=== PATIENT | male | born 1950 | race Caucasian/White ===

== ENCOUNTER 2022-04-22 07:16 | Outpatient (REF) | payer MEDICARE, BC, SELFPAY ==
[2022-04-22 07:58] LABS: Hematocrit 41.9 % (42.0-52.0); Hemoglobin 13.6 g/dl (14.0-18.0); Mean Corpuscular HGB Conc 32.5 g/dl (31.0-36.0); Mean Corpuscular Hemoglobin 29.2 pg (27.0-33.0); Mean Corpuscular Volume 90.1 fL (80.0-98.0); Mean Platelet Volume 8.7 fL (9.4-12.4); Platelet Count 324 X10*3/uL (160-400); Red Blood Count 4.65 X10*6/uL (4.60-5.80); White Blood Count 7.7 X10*3/uL (4.8-10.8)
[2022-04-22 08:16] LABS: Cholesterol 127 mg/dL; HDL Cholesterol 40 mg/dL; LDL Cholesterol Calculated 79 mg/dl; Triglycerides 40 mg/dL
[2022-04-25 19:12] LABS: Alanine Aminotransferase 6 U/L (0-40); Albumin Level 3.8 g/dL (3.5-5.0); Alkaline Phosphatase 52 U/L (39-117); Anion Gap 14 (12-20); Aspartate Amino Transferase 13 U/L (5-37); Bilirubin Total 0.6 mg/dL (0.0-1.0); Blood Urea Nitrogen 15 mg/dL (9-16); Calcium 8.7 mg/dL (8.4-10.2); Carbon Dioxide 26 mmol/L (22-29); Chloride 106 mmol/L (96-108); Estimated Glomerular Filt Rate > 60; Glucose Fasting 116 mg/dL (60-99); Potassium 4.7 mmol/L (3.3-5.1); Sodium 141 mmol/L (135-145)
== END 2022-04-22 07:17 | disposition home or self-care (01) ==
LOC: HO.LAB 07:16
PROVIDERS: PCP Nurse Practitioner Family; Visit Provider Nurse Practitioner Family
DX: I10 Essential (primary) hypertension (principal)
CPT/HCPCS: 36415; 80053; 80061; 85027

== ENCOUNTER 2022-05-04 17:48 | Inpatient (IN) | payer MEDICARE, BC, SELFPAY ==
--- NOTE | ~2022-05-04 | CT_ITS ---
EXAMINATION: CT ABDOMEN AND PELVIS WITH CONTRAST CLINICAL INFORMATION: Abdominal pain COMPARISON: 02/01/2017 TECHNIQUE: Multidetector volumetric images were obtained from the superior aspect of the liver through the pubic symphysis following administration 85 mL of Omnipaque 350 intravenous contrast. Sagittal and coronal reformatted images were obtained on the technologist's workstation. Oral contrast: No This CT examination was performed using dose optimization techniques as appropriate, variously including the following: *Automated exposure control *Adjustment of mA and/or kV according to patient size (this includes techniques or standardized protocols for targeted exams where dose is matched to indication/reason for exam; i.e. extremities or head) *Use of iterative reconstruction technique DLP: 856 mGy-cm FINDINGS: LUNG BASES: The visualized lung bases are unremarkable. LIVER, GALLBLADDER, AND BILIARY TREE: The liver is normal in size, shape, and attenuation. No focal hepatic lesion or biliary ductal dilatation is present. The gallbladder is unremarkable with no evidence of radiopaque gallstones, gallbladder wall thickening, or obvious pericholecystic inflammatory changes. PANCREAS: Unremarkable. SPLEEN: Unremarkable. ADRENAL GLANDS: Unremarkable. KIDNEYS AND URETERS: The kidneys are normal in size, shape, and attenuation. No hydronephrosis, hydroureter, or calculi seen. No perinephric stranding. Multiple bilateral parapelvic renal cysts. Additional cortical cysts. No follow-up imaging recommended. BLADDER: Unremarkable. GASTROINTESTINAL TRACT: The stomach is unremarkable. Normal caliber small bowel. No obstruction. Prominent diverticulosis, particularly of the sigmoid colon. There is wall thickening with adjacent inflammation, consistent with acute diverticulitis. Superior to the sigmoid colon there is what appears to be a collection with internal gas. This measures 3.3 x 3 cm. Additional free intraperitoneal air is seen, centrally in the mesentery most prominently, series 3 image 47. Normal appendix. ABDOMINAL WALL: No significant hernia is appreciated. LYMPH NODES: Normal. VASCULAR: Normal caliber aorta with mild atherosclerotic calcification. PELVIC VISCERA: The prostate and seminal vesicles are unremarkable. OSSEOUS STRUCTURES: No acute or suspicious osseous abnormality. Advanced degenerative change throughout the spine. 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 Moderate degenerative change of the left hip. Partially fused right sacroiliac joint. CT/CT abdomen pelvis w con IMPRESSION: Acute sigmoid diverticulitis. Adjacent collection of gas and fluid. Separate free air. This critical result was discussed with Sendy Abdullahi NP by telephone at 05/04/2022 8:40 PM and it was ascertained that the content and urgency of the report was understood at the time of direct communication. Fleischner guidelines were followed.
[2022-05-04 18:29] VITALS: BP 149/77; PULSE 101; RESP 18; TEMP 37.9; O2SAT 98; BMI 27.8
--- NOTE | 2022-05-04 18:33 | ECG_ITS ---
Test Reason : FEVER/SEPSIS Blood Pressure : / mmHG Vent. Rate : 105 BPM Atrial Rate : 105 BPM P-R Int : 178 ms QRS Dur : 162 ms QT Int : 398 ms P-R-T Axes : 038 -81 031 degrees QTc Int : 526 ms Sinus tachycardia with Premature atrial complexes Left axis deviation Right bundle branch block Abnormal ECG When compared with ECG of 01-DEC-2002 15:02, Premature atrial complexes are now Present Vent. rate has increased BY 38 BPM Right bundle branch block is now Present Referred By: Generic ED Physician Electronically Signed By:YULIANA NAQVI
[2022-05-04 18:54] LABS: MANUAL DIFF FLAG NO
[2022-05-04 19:04] LABS: Basophils Percent Auto 0.2 % (0-2); Eosinophils Absolute Auto 0.1 X10*3/uL (0.0-0.4); Eosinophils Percent Auto 0.6 % (0-4); Hematocrit 43.2 % (42.0-52.0); Hemoglobin 14.2 g/dl (14.0-18.0); Imm Gran Abs Auto 0.07 X10*3/uL (0.00-0.03); Imm Gran Pct Auto 0.6 % (0.0-0.4); Lymphocytes Absolute Auto 1.3 X10*3/uL (1.2-4.9); Lymphocytes Percent Auto 10.3 % (20-40); Mean Corpuscular HGB Conc 32.9 g/dl (31.0-36.0); Mean Corpuscular Hemoglobin 29.1 pg (27.0-33.0); Mean Corpuscular Volume 88.5 fL (80.0-98.0); Mean Platelet Volume 8.6 fL (9.4-12.4); Monocytes Absolute Auto 1.2 X10*3/uL (0.1-1.2); Monocytes Percent Auto 9.5 % (2-11); Neutrophils Absolute Auto 9.7 x10*3/uL (2.0-8.3); Neutrophils Percent Auto 78.8 % (45-73); Platelet Count 344 X10*3/uL (160-400); Red Blood Count 4.88 X10*6/uL (4.60-5.80); Red Cell Distribution Width 11.9 % (11.0-16.0); White Blood Count 12.2 X10*3/uL (4.8-10.8)
[2022-05-04 19:06] LABS: Lactic Acid 1.1 mmol/L (0.5-2.0)
[2022-05-04 19:09] LABS: Anion Gap 13 (12-20); Blood Urea Nitrogen 10 mg/dL (9-16); Calcium 8.5 mg/dL (8.4-10.2); Carbon Dioxide 25 mmol/L (22-29); Chloride 103 mmol/L (96-108); Creatinine Clr Calc Pharmacy 103.8; Estimated Glomerular Filt Rate > 60; Glucose Random 110 mg/dL (60-115); Potassium 4.3 mmol/L (3.3-5.1); Sodium 137 mmol/L (135-145)
[2022-05-04 19:11] LABS: COVID-19 Test Negative (Negative)
--- NOTE | 2022-05-04 19:33 | ED_ITS ---
HPI - Abdominal Pain General Chief Complaint: Abdominal Pain Stated Complaint: abd pain Time Seen by Provider: 05/04/22 20:18 Source: patient Mode of arrival: ambulatory Limitations: no limitations History of Present Illness HPI narrative: 72-year-old male presents for worsening abdominal pain and distention. He has been on Cipro and Flagyl for approximately 6 days for diverticulitis. Patient is unable to tolerate p.o. fluids, and feels that he is getting worse. He has intermittent fevers, chills, nausea, and has not had a bowel movement in 3 days. MD elicited complaint: abdominal pain Pertinent past history: diverticulitis Onset (ago): day(s) (6) Pain Consistency: constant Location: diffuse Severity: severe Pain scale (0-10): 8 Quality: cramping, aching and fullness Radiation: none Exacerbating factors: eating and movement Relieving factors: nothing Context: recent antibiotic use Associated symptoms: nausea, fever, chills and constipation Related Data Allergies Allergy/AdvReac Type Severity Reaction Status Date / Time No Known Allergies Allergy Unverified 07/23/20 14:35 [No Known Allergies*] Review of Systems Review of Systems Constitutional: No Fever, No Chills ENT/Mouth: No Ear Pain, No Hoarseness, No sore throat Eyes: No Eye Pain, No Swelling, No Redness, No Foreign Body Cardiovascular: No Chest Pain, No SOB Respiratory: No Cough, No Dyspnea Gastrointestinal: Positive Nausea, No Vomiting, No Diarrhea, positive abdominal Pain, positive abdominal distention Genitourinary: No Dysuria, No Hematuria Musculoskeletal: No joint pain, No Myalgias, No Joint Swelling Skin: No Skin lacerations, No rash Neuro: No Weakness, No Numbness, No Paresthesias, No Loss of Consciousness, No Dizziness, No Headache Psych: No Anxiety/Panic, No Depression Heme/Lymph: no easy bruising, no Lymphadenopathy Endocrine: No Polyuria, No Polydipsia Yes all other systems are reviewed and are negative [facility] Past Medical History Attestation statement: The following information was validated with the patient. Source: old records reviewed Social History Social History Patient Tobacco Use Status: Never used Tobacco Use of substances other than those prescribed or required for medical reasons: No Advance Directives: No Physical Exam ED Vital Signs: Vital Signs - 24 hr 05/04/22 18:29 05/04/22 19:45 Temperature 100.2 F 98.6 F Pulse Rate 101 H 94 Respiratory Rate 18 18 Blood Pressure 149/77 H 135/84 Pulse Oximetry 98 99 Oxygen Delivery Method Room Air Room Air BMI result Body Mass Index 27.8 Appearance: Alert. Oriented X3. Moderate distress. Eyes: Pupils equal, round and reactive to light. Sclera nonicteric. ENT: Pharynx normal. Moist mucous membranes. Neck: Normal inspection. Neck supple. CVS: Tachycardic heart rate and rhythm. Apical pulse equal pulses to extremities. Respiratory: No respiratory distress. Breath sounds normal. Abdomen: Soft and diffusely tender, positive rebound. Distended. No rigidity. Skin: Skin warm and dry. Normal skin color. Normal skin turgor. Extremities: No lower extremity edema. Gait well-balanced well coordinated. Neuro: No motor deficit. No sensory deficit. Cranial nerves 2-12 intact. Course Course Course Narrative: 72-year-old male presents with worsening abdominal pain, abdominal distention, nausea, poor p.o. intake, and no bowel movement for the past 3 days. Was treated for diverticulitis over the past 6 days has been taking ciprofloxacin and Flagyl. Took his antibiotics this morning. States to feel worse, presents with tachycardia, fatigue, and worsening abdominal pain. Physical exam indicates abdominal distension without rigidity, diffusely tender. High suspicion for perforation versus obstruction. Will order CT scan with contrast. Labs drawn while patient was in the emergency department waiting room. Lactic is 1.1, white count is 12. Patient does not meet sepsis criteria. 20:45 discussion with [facility], significant sigmoid diverticulosis with perforation. Order for Zosyn and morphine at this time. Call out to surgery. 21:13 Dr. Rodriguez will be at bedside to evaluate. Patient admitted to [facility]. Consultations Consultation #1: Jennifer Time: 20:55 MDM - Abdominal Pain Differential Diagnosis Differential diagnosis: Likely abdominal pain, acute appendicitis, bowel perforation, diverticulitis and small bowel obstruction Medical Records Attestation: I reviewed the patient's medical records. Lab Data Attestation: I reviewed the patient's lab results. Result diagrams: 05/04/22 18:48 05/04/22 18:48 Labs: Lab Results 05/04/22 05/04/22 05/04/22 Range/Units 18:48 18:48 18:48 WBC 12.2 H (4.8-10.8) X10*3/uL RBC 4.88 (4.60-5.80) X10*6/uL Hgb 14.2 (14.0-18.0) g/dl Hct 43.2 (42.0-52.0) % MCV 88.5 (80.0-98.0) fL MCH 29.1 (27.0-33.0) pg MCHC 32.9 (31.0-36.0) g/dl RDW 11.9 (11.0-16.0) % Plt Count 344 (160-400) X10*3/uL MPV 8.6 L (9.4-12.4) fL Immature Gran % (Auto) 0.6 H (0.0-0.4) % Neut % (Auto) 78.8 H (45-73) % Lymph % (Auto) 10.3 L (20-40) % [place] % (Auto) 9.5 (2-11) % Eos % (Auto) 0.6 (0-4) % Baso % (Auto) 0.2 (0-2) % Lymph # (Auto) 1.3 (1.2-4.9) X10*3/uL [place] # (Auto) 1.2 (0.1-1.2) X10*3/uL Eos # (Auto) 0.1 (0.0-0.4) X10*3/uL Baso # (Auto) 0.0 (0.0-0.2) X10*3/uL Abs Immat Gran (auto) 0.07 H (0.00-0.03) X10*3/uL Absolute Neuts (auto) 9.7 H (2.0-8.3) x10*3/uL Absolute Nucleated RBC 0.000 (0.0-0.012) X10*3/uL Nucleated RBC % (auto) 0.0 (0.0-0.2) /100WBC Sodium 137 (135-145) mmol/L Potassium 4.3 (3.3-5.1) mmol/L Chloride 103 (96-108) mmol/L Carbon Dioxide 25 (22-29) mmol/L Anion Gap 13 (12-20) BUN 10 (9-16) mg/dL Creatinine 0.81 (0.5-1.4) mg/dL Estim Creat Clear Calc 103.8 Estimated GFR > 60 Random Glucose 110 (60-115) mg/dL Lactic Acid (0.5-2.0) mmol/L Calcium 8.5 (8.4-10.2) mg/dL COVID-19 (JASIEL) Negative (Negative) COVID-19 Clin Com See Note 05/04/22 Range/Units 18:48 WBC (4.8-10.8) X10*3/uL RBC (4.60-5.80) X10*6/uL Hgb (14.0-18.0) g/dl Hct (42.0-52.0) % MCV (80.0-98.0) fL MCH (27.0-33.0) pg MCHC (31.0-36.0) g/dl RDW (11.0-16.0) % Plt Count (160-400) X10*3/uL MPV (9.4-12.4) fL Immature Gran % (Auto) (0.0-0.4) % Neut % (Auto) (45-73) % Lymph % (Auto) (20-40) % [place] % (Auto) (2-11) % Eos % (Auto) (0-4) % Baso % (Auto) (0-2) % Lymph # (Auto) (1.2-4.9) X10*3/uL [place] # (Auto) (0.1-1.2) X10*3/uL Eos # (Auto) (0.0-0.4) X10*3/uL Baso # (Auto) (0.0-0.2) X10*3/uL Abs Immat Gran (auto) (0.00-0.03) X10*3/uL Absolute Neuts (auto) (2.0-8.3) x10*3/uL Absolute Nucleated RBC (0.0-0.012) X10*3/uL Nucleated RBC % (auto) (0.0-0.2) /100WBC Sodium (135-145) mmol/L Potassium (3.3-5.1) mmol/L Chloride (96-108) mmol/L Carbon Dioxide (22-29) mmol/L Anion Gap (12-20) BUN (9-16) mg/dL Creatinine (0.5-1.4) mg/dL Estim Creat Clear Calc Estimated GFR Random Glucose (60-115) mg/dL Lactic Acid 1.1 (0.5-2.0) mmol/L Calcium (8.4-10.2) mg/dL COVID-19 (JASIEL) (Negative) COVID-19 Clin Com Imaging Data CT scan - abdomen: Attestation: I personally reviewed and interpreted this imaging study as follows: Radiologist's impression: FINDINGS: LUNG BASES: The visualized lung bases are unremarkable.? LIVER, GALLBLADDER, AND BILIARY TREE: The liver is normal in size, shape, and attenuation. No focal hepatic lesion or biliary ductal dilatation is present. The gallbladder is unremarkable with no evidence of radiopaque gallstones, gallbladder wall thickening, or obvious pericholecystic inflammatory changes.? PANCREAS: Unremarkable.? SPLEEN: Unremarkable.? ADRENAL GLANDS: Unremarkable.? KIDNEYS AND URETERS: The kidneys are normal in size, shape, and attenuation. No hydronephrosis, hydroureter, or calculi seen. No perinephric stranding. Multiple bilateral parapelvic renal cysts. Additional cortical cysts. No follow-up imaging recommended.? BLADDER: Unremarkable.? GASTROINTESTINAL TRACT: The stomach is unremarkable. Normal caliber small bowel. No obstruction. Prominent diverticulosis, particularly of the sigmoid colon. There is wall thickening with adjacent inflammation, consistent with acute diverticulitis. Superior to the sigmoid colon there is what appears to be a collection with internal gas. This measures 3.3 x 3 cm. Additional free intraperitoneal air is seen, centrally in the mesentery most prominently, series 3 image 47. Normal appendix. ABDOMINAL WALL: No significant hernia is appreciated.? LYMPH NODES: Normal. VASCULAR: Normal caliber aorta with mild atherosclerotic calcification. PELVIC VISCERA: The prostate and seminal vesicles are unremarkable.? OSSEOUS STRUCTURES: No acute or suspicious osseous abnormality. Advanced degenerative change throughout the spine. 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 Moderate degenerative change of the left hip. Partially fused right sacroiliac joint.? CT/CT abdomen pelvis w con IMPRESSION: Acute sigmoid diverticulitis. Adjacent collection of gas and fluid. Separate free air. ? This critical result was discussed with Sendy Abdullahi NP by telephone at 05/04/2022 8:40 PM and it was ascertained that the content and urgency of the report was understood at the time of direct communication.? ? Fleischner guidelines were followed. ECG Data Attestation: I personally reviewed and interpreted this ECG as follows: ECG interpretation date: 05/04/22 ECG interpretation time: 18:38 Prior ECG tracings: available for review Interpretation: Vent. rate 105 BPM [place] interval 178 ms QRS duration 162 ms QT/QTc 398/526 ms P-R-T axes 38 -81 31 Sinus tachycardia with Premature atrial complexes Left axis deviation Right bundle branch block Anteroseptal infarct , age undetermined Abnormal ECG When compared with ECG of 01-DEC-2002 15:02, Premature atrial complexes are now Present Vent. rate has increased BY 38 BPM Right bundle branch block is now Present Anteroseptal infarct is now Present Critical Care Time Critical Care Time Critical Care Time: Yes Total Critical Care Time: 45 Attestation: I have personally provided critical care time exclusive of time spent on separately billable procedures. Time includes review of laboratory data, radiology results, discussion with consultants, and monitoring for potential decompensation. Interventions were performed as documented. Discharge Plan Discharge Clinical Impression: Diverticulitis, Bowel perforation Patient Disposition: Admitted As Inpatient
[2022-05-04 19:45] VITALS: BP 135/84; PULSE 94; RESP 18; TEMP 37; O2SAT 99
[2022-05-04] MEDS: 0.9 % Sodium Chloride 1,000 ML 999 ML IVCONT ×2 (19:45→22:51)
[2022-05-04] MEDS: iohexoL 350 MG/ML 100 ML INFUS..BTL IV (19:55)
[2022-05-04] MEDS: Piperacillin Sodium/Tazobactam 3.375 GM in 0.9 % Sodium Chloride 50 ML IV (21:01)
[2022-05-04] MEDS: Morphine Sulfate 4 MG/ML CARTRIDGE IVPUSH (21:02)
--- NOTE | 2022-05-04 22:55 | PM.HPGS ---
History of Present Illness History of Present Illness Date of Service: 05/04/22 Chief complaint: Perforated diverticulitis Narrative: Erick Radford is a 72 year old male with a history of diverticulitis in the past including an admission in 2017 where He was treated conservatively for a perforated sigmoid diverticulitis with an abscess. he did well and was eventually discharged but did not undergo suggested colonoscopy and elective sigmoid resection. He saw Dr. Rosen in the hospital as well as outpatient. Generally he had been in good shape however over the last 6 7 days was not feeling well and was prescribed Cipro and Flagyl and was taking that but unfortunately his symptoms got worse. He came into the emergency room today where his white count was slightly elevated his abdomen was distended and tender in the left lower quadrant and a CT scan showed evidence of sigmoid diverticulitis with localized perforation some free air and what also looks like a 3 x 3 cm abscess. He denies any urinary symptoms. He has not had a bowel movement for couple of days. He denies any chest pain shortness of breath Review of Systems Review of Systems: Yes all other systems are reviewed and are negative [facility], [facility] Past Medical History Cognitive capacity: hypertension Family History Pertinent family history: no family history of colon cancer Social History Social History Advance Directives: No Meds Allergies Allergy/AdvReac Type Severity Reaction Status Date / Time No Known Allergies Allergy Unverified 07/23/20 14:35 [No Known Allergies*] Active Medications: Current Medications Sodium Chloride (Ns) 1,000 mls @ 999 mls/hr IVCONT .Q1H1M [facility] Stop: 05/04/22 23:30 Last Admin: 05/04/22 22:51 Dose: 999 mls/hr Sodium Chloride (Ns) 1,000 mls @ 100 mls/hr IVCONT .Q10H [facility] Piperacillin Sod/Tazobactam (Sod 3.375 gm/ Sodium Chloride) 50 mls @ 100 mls/hr IV ONCE ONE Stop: 05/05/22 03:29 Acetaminophen (Ofirmev) 1,000 mg in 100 mls @ 400 mls/hr IV Q6H PRN PRN Reason: Pain, Moderate (Pain Scale 4-6 Morphine Sulfate (Morphine Sulfate 4 Mg/Ml Cartridge) 3 mg IVPUSH Q4H PRN; Protocol PRN Reason: Pain, Severe (Pain Scale 7-10) Ondansetron HCl (Ondansetron Hcl 4 Mg/2 Ml Vial) 4 mg IVPUSH Q8H PRN PRN Reason: Nausea and Vomiting Sodium Chloride (0.9 % Sodium Chloride Flush 3 Ml Syringe) 3 ml IVFLUSH QSHIFT [facility] Physical Exam Vital Signs: Vital Signs: Last Vital Signs Temp 98.6 F 05/04/22 19:45 Pulse 94 05/04/22 19:45 Resp 18 05/04/22 19:45 BP 135/84 05/04/22 19:45 Pulse Ox 99 05/04/22 19:45 O2 Del Method 05/04/22 19:45 BMI result Body Mass Index 27.8 Const: General: cooperative, healthy appearing, comfortable and no acute distress Orientation/consciousness: oriented to person, oriented to place and oriented to time HEENT: Head: Yes normal to inspection Eyes: General: appearance normal, both eyes and all related structures Neck: Neck: Yes normal visual inspection and Yes full ROM Resp: Effort & Inspection: normal respiratory effort and able to speak in complete sentences Auscultation: clear to auscultation bilaterally Cardio: Rate: regular rate GI: Other: abdomen is soft generally a little more firm in the left lower quadrant area and a little centrally. Some mild guarding here no rebound no peritoneal signs active bowel sounds Inspection: Yes normal to inspection Skin: General skin exam: no rashes or lesions noted Neuro: General: oriented to person, oriented to place and oriented to time Extrem: General: Yes normal to inspection, Yes full ROM and Yes no calf tenderness Psych: Appearance: grossly normal Mental Status: mental status grossly normal Speech and movement: Normal speech and movement present Results Results Labs: Short CBC 05/04/22 Range/Units 18:48 WBC 12.2 H (4.8-10.8) X10*3/uL Hgb 14.2 (14.0-18.0) g/dl Hct 43.2 (42.0-52.0) % Plt Count 344 (160-400) X10*3/uL BMP 05/04/22 18:48 Sodium 137 Potassium 4.3 Chloride 103 Carbon Dioxide 25 BUN 10 Creatinine 0.[address] scan report/results: report reviewed and image reviewed CT scan - pelvis: report reviewed and image reviewed Assessment and Plan (1) Diverticulitis: Status: Acute Plan the patient is a 72-year-old male with moderate sigmoid diverticulitis ongoing with localized perforation and what seems to be the beginning of an abscess formation and a little bit of free air. Patient is relatively hemodynamically stable and just only mildly tender in the left lower quadrant area. He is not septic. He denies any fevers or chills. He has had back in 2017 a similar episode from which he was able to be treated and recovered conservatively. He would like to give this a try now. I think on examination and review that there is no urgent need for surgery tonight. We talked about bowel rest IV antibiotics and serial abdominal exams and he agrees to this. He knows Dr. Rosen from last admission and we will discuss his case with Dr. Rosen who will probably moss picker his care tomorrow. It would be great if the patient can improve with his symptoms eventually be discharged carry out a bowel prep and then come back in for an elective colectomy. I am uncertain whether he will get good enough to be discharged. He understands this possibility and the potential for emergency surgery requiring the ostomy creation although would just be a temporary ostomy. At this point he agrees with conservative care and to be reassessed tomorrow. he will be admitted kept NPO IV fluids laboratories to be re-evaluated tomorrow and treated with IV Zosyn Quality Stroke Does the patient have a stroke diagnosis?: No VTE Prior VTE?: No VTE Risk Level:: Surgical - moderate VTE Device Contraindication: N/A - Device Ordered VTE Drug Contraindication: N/A - Med Ordered Procedures Date of Service Date of Service: 05/04/22
[2022-05-05] VITALS (8 sets, daily range): BP systolic 114–156; BP diastolic 64–91; PULSE 63–98; RESP 12–19; TEMP 36.5–37.2; O2SAT 92–99
[2022-05-05] MEDS: 0.9 % Sodium Chloride 1,000 ML 100 ML IVCONT ×3 (00:37→17:46)
--- NOTE | 2022-05-05 00:50 | PC.NURSE ---
upon standing from bed, pt's gait was slightly unsteady while ambulating to the restroom; one person assist while ambulating
[2022-05-05] MEDS: Piperacillin Sodium/Tazobactam 3.375 GM in 0.9 % Sodium Chloride 50 ML IV ×3 (03:44→20:19)
[2022-05-05 04:49] LABS: MANUAL DIFF FLAG NO
[2022-05-05 04:50] LABS: Basophils Percent Auto 0.1 % (0-2); Eosinophils Absolute Auto 0.1 X10*3/uL (0.0-0.4); Eosinophils Percent Auto 1.2 % (0-4); Hematocrit 38.3 % (42.0-52.0); Hemoglobin 12.6 g/dl (14.0-18.0); Imm Gran Abs Auto 0.02 X10*3/uL (0.00-0.03); Imm Gran Pct Auto 0.2 % (0.0-0.4); Lymphocytes Absolute Auto 1.3 X10*3/uL (1.2-4.9); Lymphocytes Percent Auto 14.5 % (20-40); Mean Corpuscular HGB Conc 32.9 g/dl (31.0-36.0); Mean Corpuscular Volume 88.2 fL (80.0-98.0); Mean Platelet Volume 8.2 fL (9.4-12.4); Monocytes Percent Auto 10.7 % (2-11); Neutrophils Absolute Auto 6.5 x10*3/uL (2.0-8.3); Neutrophils Percent Auto 73.3 % (45-73); Platelet Count 268 X10*3/uL (160-400); Red Blood Count 4.34 X10*6/uL (4.60-5.80); Red Cell Distribution Width 12.1 % (11.0-16.0); White Blood Count 8.9 X10*3/uL (4.8-10.8)
[2022-05-05] MEDS: 0.9 % Sodium Chloride Flush 3 ML SYRINGE IVFLUSH ×2 (07:35→15:25)
--- NOTE | 2022-05-05 08:11 | PHA.MEDREC ---
Pharmacy Consult ? Medication Reconciliation Pharmacy has completed the medication reconciliation. Pt states he took both antibiotics yesterday around noon, but it has been a few days since his amlodipine was taken.
--- NOTE | 2022-05-05 08:25 | P.PNGS_ITS ---
Subjective Subjective Date of Service: 05/06/22 Interval history: history reviewed he feels much better last dose of pain meds was 7pm says he now has minimal pain no N/V Physical Exam Vital Signs: Vital Signs: Last Vital Signs Temp 98.0 F 05/05/22 07:59 Pulse 63 05/05/22 07:59 Resp 16 05/05/22 07:59 BP 135/83 05/05/22 07:59 Pulse Ox 99 05/05/22 07:59 O2 Del Method 05/05/22 07:59 BMI result Body Mass Index 27.8 Const: General: comfortable and no acute distress Resp: Effort & Inspection: normal respiratory effort Cardio: Rate: regular rate GI: Other: soft, no guarding or rebound, minimal tenderness on lower abdomen Objective Data Active Medications Sodium Chloride (Ns) 1,000 mls @ 100 mls/hr IVCONT .Q10H [facility] Last Admin: 05/05/22 07:35 Dose: 100 mls/hr Documented By: GILLIAN Acetaminophen (Ofirmev) 1,000 mg in 100 mls @ 400 mls/hr IV Q6H PRN PRN Reason: Pain, Moderate (Pain Scale 4-6 Morphine Sulfate (Morphine Sulfate 4 Mg/Ml Cartridge) 3 mg IVPUSH Q4H PRN; Protocol PRN Reason: Pain, Severe (Pain Scale 7-10) Ondansetron HCl (Ondansetron Hcl 4 Mg/2 Ml Vial) 4 mg IVPUSH Q8H PRN PRN Reason: Nausea and Vomiting Sodium Chloride (0.9 % Sodium Chloride Flush 3 Ml Syringe) 3 ml IVFLUSH QSHIFT [facility] Last Admin: 05/05/22 07:35 Dose: 3 ml Documented By: GILLIAN Labs CBC & Chem 7: 05/05/22 04:45 05/04/22 18:48 Labs: Laboratory Results - last 24 hr 05/04/22 05/04/22 05/04/22 18:48 18:48 18:48 MCV 88.5 MCH 29.1 MCHC 32.9 RDW 11.9 Plt Count 344 MPV 8.6 L Immature Gran % (Auto) 0.6 H Neut % (Auto) 78.8 H Lymph % (Auto) 10.3 L [place] % (Auto) 9.5 Eos % (Auto) 0.6 Baso % (Auto) 0.2 Lymph # (Auto) 1.3 [place] # (Auto) 1.2 Eos # (Auto) 0.1 Baso # (Auto) 0.0 Abs Immat Gran (auto) 0.07 H Absolute Neuts (auto) 9.7 H Absolute Nucleated RBC 0.000 Nucleated RBC % (auto) 0.0 Anion Gap 13 Estim Creat Clear Calc 103.8 Estimated GFR > 60 Random Glucose 110 Lactic Acid Calcium 8.5 COVID-19 (JASIEL) Negative COVID-19 Clin Com See Note 05/04/22 05/05/22 18:48 04:45 MCV 88.2 MCH 29.0 MCHC 32.9 RDW 12.1 Plt Count 268 MPV 8.2 L Immature Gran % (Auto) 0.2 Neut % (Auto) 73.3 H Lymph % (Auto) 14.5 L [place] % (Auto) 10.7 Eos % (Auto) 1.2 Baso % (Auto) 0.1 Lymph # (Auto) 1.3 [place] # (Auto) 1.0 Eos # (Auto) 0.1 Baso # (Auto) 0.0 Abs Immat Gran (auto) 0.02 Absolute Neuts (auto) 6.5 Absolute Nucleated RBC 0.000 Nucleated RBC % (auto) 0.0 Anion Gap Estim Creat Clear Calc Estimated GFR Random Glucose Lactic Acid 1.1 Calcium COVID-19 (JASIEL) COVID-19 Clin Com Procedures Date of Service Date of Service: 05/05/22 Progress Note: A&P Assessment and plan (1) Diverticulitis: Status: Acute Assessment and Plan: Review of his CT scan shows what appears to be a localized perforation. He has a very benign exam at this time. His WBC is now normal. he looks well and comfortable, and is not tachcardic. In view of his overall benign findings, we will continue with IV abx treatment and bowel rest. Hopefully this allows for at least some resolution of the acute inflammatory changes and allow a less complex surgery. He does understand that if his clinical picture worsens, he may need emergency srugery including a colostomy. He says that he understands the above and is comfortable with the plan. We will contine with serial exams and review his CT for possible CT drainage with IR. Time Spent With Patient Time: Total time spent is greater than 50% in coordination of care (as documented) at patient's floor/unit and/or counseling patient: Quality Stroke Does the patient have a stroke diagnosis?: No VTE Prior VTE?: No VTE Risk Level:: Surgical - moderate VTE Device Contraindication: N/A - Device Ordered VTE Drug Contraindication: N/A - Med Ordered
--- NOTE | 2022-05-05 13:40 | MHC.CM.PN ---
PT REPORTS HE LIVES AT HOME WITH HIS , ALHAJI PT REPORTS BEING INDEPENDENT WITH CARE HE DENIES USING DME OR SERVICES PT REPORTS HE HAS A HCP NAMING ALHAJI HIS AGENT PCP: AGUSTO GATES-Lee VACCINATION STATUS: MODERNA VAX AND BOOST IMM DELIVERED, COPY SENT TO [facility] CURRENT DC PLAN IS HOME VS HOME WITH [facility] TO TRANSPORT
--- NOTE | 2022-05-05 15:09 | PC.NURSE ---
Order to continue zosyn every [address] Rosen gave verbal order which was faxed to pharmacy.
--- NOTE | 2022-05-05 15:36 | PM.EVENT ---
Event Note Date of Service: 05/05/22 Event Note: seen multiple times serial abdl exam done he remains comfortable says he has minimal pain abd very benign on exam stable VS continue IV abx bowel rest CT reviewed with radiologist Dr. Byers - no role for CT drain; changes appear to be phlegmonous
[2022-05-06] MEDS: Piperacillin Sodium/Tazobactam 3.375 GM in 0.9 % Sodium Chloride 50 ML IV ×4 (03:00→21:17)
[2022-05-06] MEDS: 0.9 % Sodium Chloride 1,000 ML 100 ML IVCONT ×2 (03:02→11:38)
[2022-05-06 03:16] VITALS: BP 138/69; PULSE 76; RESP 18; TEMP 36.8; O2SAT 99
[2022-05-06 08:00] VITALS: BP 137/80; PULSE 69; RESP 18; TEMP 36.7; O2SAT 99
--- NOTE | 2022-05-06 10:12 | PM.PNGS ---
Subjective Subjective Date of Service: 05/06/22 Interval history: Continues to feel well Says he has very minimal pain if at all No events reported overnight Physical Exam Vital Signs: Vital Signs: Last Vital Signs Temp 98.1 F 05/06/22 08:00 Pulse 69 05/06/22 08:00 Resp 18 05/06/22 08:00 BP 137/80 05/06/22 08:00 Pulse Ox 99 05/06/22 08:00 O2 Del Method 05/06/22 08:00 BMI result Body Mass Index 27.8 Const: Other: Ambulating and looks well General: comfortable and no acute distress Resp: Effort & Inspection: normal respiratory effort Cardio: Rate: regular rate GI: Palpation (GI): Soft to palpation, not firm, nontender, no guarding and not rigid Objective Data Active Medications Sodium Chloride (Ns) 1,000 mls @ 100 mls/hr IVCONT .Q10H [facility] Last Admin: 05/06/22 03:02 Dose: 100 mls/hr Documented By: TIARRA Acetaminophen (Ofirmev) 1,000 mg in 100 mls @ 400 mls/hr IV Q6H PRN PRN Reason: Pain, Moderate (Pain Scale 4-6 Piperacillin Sod/Tazobactam (Sod 3.375 gm/ Sodium Chloride) 50 mls @ 100 mls/hr IV Q6H [facility] Last Infusion: 05/06/22 04:44 Dose: 0 mls/hr Documented By: TIARRA Morphine Sulfate (Morphine Sulfate 4 Mg/Ml Cartridge) 3 mg IVPUSH Q4H PRN; Protocol PRN Reason: Pain, Severe (Pain Scale 7-10) Ondansetron HCl (Ondansetron Hcl 4 Mg/2 Ml Vial) 4 mg IVPUSH Q8H PRN PRN Reason: Nausea and Vomiting Sodium Chloride (0.9 % Sodium Chloride Flush 3 Ml Syringe) 3 ml IVFLUSH QSHIFT [facility] Last Admin: 05/06/22 03:12 Dose: Not Given Documented By: TIARRA Non-Admin Reason: IV Running Labs CBC & Chem 7: 05/05/22 04:45 05/04/22 18:48 Microbiology Microbiology Results: Microbiology 05/04/22 20:09 Blood Culture - Preliminary Blood - Venous No growth after 24 hours. 05/04/22 18:48 Blood Culture - Preliminary Blood - Venous No growth after 24 hours. Procedures Date of Service Date of Service: 05/06/22 Progress Note: A&P Assessment and plan (1) Diverticulitis: Status: Acute Assessment and Plan: With contained perforation Continues to do well without significant pain today Nontender exam Continue bowel rest IV antibiotics CT scan reviewed - severe phlegmonous changes in the sigmoid, no drainable abscess as per radiologist Patient aware of plan and is comfortable with this Time Spent With Patient Time: Total time spent is greater than 50% in coordination of care (as documented) at patient's floor/unit and/or counseling patient: Quality Stroke Does the patient have a stroke diagnosis?: No VTE Prior VTE?: No VTE Risk Level:: Surgical - moderate VTE Device Contraindication: N/A - Device Ordered VTE Drug Contraindication: N/A - Med Ordered
[2022-05-06] MEDS: 0.9 % Sodium Chloride Flush 3 ML SYRINGE IVFLUSH ×2 (10:58→15:10)
[2022-05-06 11:58] VITALS: BP 139/80; PULSE 69; RESP 18; TEMP 37.1; O2SAT 98
[2022-05-06 15:54] VITALS: BP 159/85; PULSE 74; RESP 17; TEMP 37.3; O2SAT 98
[2022-05-06 20:00] VITALS: BP 148/84; PULSE 72; RESP 18; TEMP 36.8; O2SAT 97
[2022-05-06 23:50] VITALS: BP 146/78; PULSE 98; RESP 18; TEMP 37.1; O2SAT 97
[2022-05-07 04:00] VITALS: BP 134/78; PULSE 69; RESP 18; TEMP 36.8; O2SAT 98
[2022-05-07] MEDS: Piperacillin Sodium/Tazobactam 3.375 GM in 0.9 % Sodium Chloride 50 ML IV ×4 (04:13→19:50)
[2022-05-07 07:11] LABS: Hematocrit 37.9 % (42.0-52.0); Hemoglobin 12.2 g/dl (14.0-18.0); Mean Corpuscular HGB Conc 32.2 g/dl (31.0-36.0); Mean Corpuscular Hemoglobin 28.8 pg (27.0-33.0); Mean Corpuscular Volume 89.4 fL (80.0-98.0); Mean Platelet Volume 8.7 fL (9.4-12.4); Platelet Count 300 X10*3/uL (160-400); Red Blood Count 4.24 X10*6/uL (4.60-5.80); Red Cell Distribution Width 12.1 % (11.0-16.0); White Blood Count 7.5 X10*3/uL (4.8-10.8)
[2022-05-07 07:34] LABS: Anion Gap 11 (12-20); Blood Urea Nitrogen 6 mg/dL (9-16); Calcium 8.3 mg/dL (8.4-10.2); Carbon Dioxide 26 mmol/L (22-29); Chloride 106 mmol/L (96-108); Creatinine Clr Calc Pharmacy 115.2; Estimated Glomerular Filt Rate > 60; Glucose Random 85 mg/dL (60-115); Potassium 4.3 mmol/L (3.3-5.1); Sodium 139 mmol/L (135-145)
[2022-05-07 07:39] VITALS: BP 146/86; PULSE 74; RESP 20; TEMP 36.8; O2SAT 100
[2022-05-07] MEDS: 0.9 % Sodium Chloride Flush 3 ML SYRINGE IVFLUSH ×3 (08:31→19:50)
--- NOTE | 2022-05-07 08:48 | P.PNGS_ITS ---
Subjective Subjective Date of Service: 05/07/22 Interval history: continues to feel well denies significant pain had BMs yesterday Physical Exam Vital Signs: Vital Signs: Last Vital Signs Temp 98.3 F 05/07/22 07:39 Pulse 74 05/07/22 07:39 Resp 20 05/07/22 07:39 BP 146/86 H 05/07/22 07:39 Pulse Ox 100 05/07/22 07:39 O2 Del Method 05/07/22 07:39 BMI result Body Mass Index 27.8 Const: General: comfortable and no acute distress Resp: Effort & Inspection: normal respiratory effort Cardio: Rate: regular rate GI: Palpation (GI): Soft to palpation, not firm, nontender and no guarding Objective Data Active Medications Acetaminophen (Ofirmev) 1,000 mg in 100 mls @ 400 mls/hr IV Q6H PRN PRN Reason: Pain, Moderate (Pain Scale 4-6 Piperacillin Sod/Tazobactam (Sod 3.375 gm/ Sodium Chloride) 50 mls @ 100 mls/hr IV Q6H [facility] Last Admin: 05/07/22 08:31 Dose: 100 mls/hr Documented By: LOVE Morphine Sulfate (Morphine Sulfate 4 Mg/Ml Cartridge) 3 mg IVPUSH Q4H PRN; Protocol PRN Reason: Pain, Severe (Pain Scale 7-10) Ondansetron HCl (Ondansetron Hcl 4 Mg/2 Ml Vial) 4 mg IVPUSH Q8H PRN PRN Reason: Nausea and Vomiting Sodium Chloride (0.9 % Sodium Chloride Flush 3 Ml Syringe) 3 ml IVFLUSH [facility] Last Admin: 05/07/22 08:31 Dose: 3 ml Documented By: LOVE Labs CBC & Chem 7: 05/07/22 06:27 05/07/22 06:27 Labs: Laboratory Results - last 24 hr 05/07/22 05/07/22 06:27 06:27 MCV 89.4 MCH 28.8 MCHC 32.2 RDW 12.1 Plt Count 300 MPV 8.7 L Absolute Nucleated RBC 0.000 Nucleated RBC % (auto) 0.0 Anion Gap 11 L Estim Creat Clear Calc 115.2 Estimated GFR > 60 Random Glucose 85 Calcium 8.3 L Microbiology Microbiology Results: Microbiology 05/04/22 20:09 Blood Culture - Preliminary Blood - Venous No growth after 48 hours. 05/04/22 18:48 Blood Culture - Preliminary Blood - Venous No growth after 48 hours. Procedures Date of Service Date of Service: 05/07/22 Progress Note: A&P Assessment and plan (1) Diverticulitis: Status: Acute Assessment and Plan: with contained perf doing well denies pain no fever WBC normal exam remains very benign keep on clear liquids today plan is to slowly advance diet transition to PO abx on discharge Time Spent With Patient Time: Total time spent is greater than 50% in coordination of care (as documented) at patient's floor/unit and/or counseling patient: Quality Stroke Does the patient have a stroke diagnosis?: No VTE Prior VTE?: No VTE Risk Level:: Surgical - moderate VTE Device Contraindication: N/A - Device Ordered VTE Drug Contraindication: N/A - Med Ordered
[2022-05-07 11:33] VITALS: BP 119/74; PULSE 75; RESP 18; TEMP 36.8; O2SAT 95
[2022-05-07 15:40] VITALS: BP 156/88; PULSE 82; RESP 18; TEMP 36.9; O2SAT 98
[2022-05-07 19:48] VITALS: BP 134/82; PULSE 94; RESP 18; TEMP 37.7; O2SAT 97
[2022-05-08] VITALS (7 sets, daily range): BP systolic 131–155; BP diastolic 70–96; PULSE 66–98; RESP 18–20; TEMP 36.4–37; O2SAT 97–100
[2022-05-08] MEDS: Piperacillin Sodium/Tazobactam 3.375 GM in 0.9 % Sodium Chloride 50 ML IV ×4 (04:16→20:20)
[2022-05-08] MEDS: 0.9 % Sodium Chloride Flush 3 ML SYRINGE IVFLUSH ×3 (07:33→20:20)
[2022-05-08] MEDS: amLODIPine Besylate 2.5 MG TABLET PO (07:33)
--- NOTE | 2022-05-08 09:47 | PM.PNGS ---
Subjective Subjective Date of Service: 05/08/22 Interval history: Reports some upper abdominal crampy pain after eating liquids. He reports passing some flatus but no BM yet. Denies nausea, vomiting, fever, or chills. Physical Exam Vital Signs: Vital Signs: Last Vital Signs Temp 98.2 F 05/08/22 07:22 Pulse 66 05/08/22 07:22 Resp 20 05/08/22 07:22 BP 136/75 05/08/22 07:22 Pulse Ox 97 05/08/22 07:22 O2 Del Method 05/08/22 07:22 BMI result Body Mass Index 27.8 Const: General: no acute distress and well developed Nutritional Appearance: well nourished Orientation/consciousness: patient oriented x3 Limitations: no limitations Resp: Effort & Inspection: normal respiratory effort and no respiratory distress GI: Other: Soft, minimally distended, tympany to percussion in the upper abdomen. No tenderness to deep palpation in all 4 quadrants. No rebound, guarding, or rigidity. Skin: Other: Warm, dry, no rash Neuro: General: patient oriented x3 Extrem: Other: No peripheral edema Objective Data Active Medications Amlodipine Besylate (Amlodipine Besylate 2.5 Mg Tablet) 2.5 mg PO DAILY [facility], [facility]; Protocol Last Admin: 05/08/22 07:33 Dose: 2.5 mg Documented By: LOVE Piperacillin Sod/Tazobactam (Sod 3.375 gm/ Sodium Chloride) 50 mls @ 100 mls/hr IV Q6H [facility] Last Admin: 05/08/22 09:36 Dose: 100 mls/hr Documented By: LOVE Morphine Sulfate (Morphine Sulfate 4 Mg/Ml Cartridge) 3 mg IVPUSH Q4H PRN; Protocol PRN Reason: Pain, Severe (Pain Scale 7-10) Ondansetron HCl (Ondansetron Hcl 4 Mg/2 Ml Vial) 4 mg IVPUSH Q8H PRN PRN Reason: Nausea and Vomiting Sodium Chloride (0.9 % Sodium Chloride Flush 3 Ml Syringe) 3 ml IVFLUSH QSHIFT [facility] Last Admin: 05/08/22 07:33 Dose: 3 ml Documented By: LOVE Zolpidem Tartrate (Zolpidem Tartrate 5 Mg Tablet) 5 mg PO BEDTIME PRN PRN Reason: Insomnia Labs CBC & Chem 7: 05/07/22 06:27 05/07/22 06:27 Procedures Date of Service Date of Service: 05/08/22 Progress Note: A&P Assessment and plan (1) Diverticulitis: Status: Acute (2) Bowel perforation: Status: Acute Plan 72-year-old male patient with sigmoid diverticulitis with contained perforation in the left lower quadrant. Patient's abdominal exam is benign no peritoneal signs. Previous laboratories revealed normal WBC. Patient is reporting a small amount of flatus but no bowel movement as yet. Will continue clear liquids and IV antibiotics. Recheck CBC in a.m.. Possible repeat of CT abdomen and pelvis in 1-2 days if no improvement in his symptoms. Time Spent With Patient Time: Total time spent is greater than 50% in coordination of care (as documented) at patient's floor/unit and/or counseling patient: Quality Stroke Does the patient have a stroke diagnosis?: No VTE Prior VTE?: No VTE Risk Level:: Surgical - moderate VTE Device Contraindication: N/A - Device Ordered VTE Drug Contraindication: N/A - Med Ordered
[2022-05-09 03:48] VITALS: BP 133/76; PULSE 112; RESP 18; TEMP 37.1; O2SAT 100
[2022-05-09] MEDS: Piperacillin Sodium/Tazobactam 3.375 GM in 0.9 % Sodium Chloride 50 ML IV ×4 (04:30→21:13)
[2022-05-09 07:25] LABS: Hematocrit 38.5 % (42.0-52.0); Hemoglobin 12.4 g/dl (14.0-18.0); Mean Corpuscular HGB Conc 32.2 g/dl (31.0-36.0); Mean Platelet Volume 8.7 fL (9.4-12.4); Platelet Count 291 X10*3/uL (160-400); Red Blood Count 4.28 X10*6/uL (4.60-5.80); Red Cell Distribution Width 12.2 % (11.0-16.0); White Blood Count 7.2 X10*3/uL (4.8-10.8)
[2022-05-09 08:00] VITALS: BP 128/78; PULSE 69; RESP 18; TEMP 36.6; O2SAT 97
--- NOTE | 2022-05-09 09:00 | PM.PNGS ---
Subjective Subjective Date of Service: 05/09/22 Interval history: Patient reports decreased abdominal pain after having 3 bowel movements yesterday. He feels less bloated today. He denies fever or chills. Physical Exam Vital Signs: Vital Signs: Last Vital Signs Temp 97.8 F 05/09/22 08:00 Pulse 69 05/09/22 08:00 Resp 18 05/09/22 08:00 BP 128/78 05/09/22 08:00 Pulse Ox 97 05/09/22 08:00 O2 Del Method 05/09/22 08:00 BMI result Body Mass Index 27.8 Const: General: comfortable and well developed Nutritional Appearance: well nourished Orientation/consciousness: patient oriented x3 Limitations: no limitations Resp: Effort & Inspection: normal respiratory effort GI: Inspection: Yes normal to inspection Palpation (GI): Soft to palpation, nontender, no guarding and not rigid Percussion: Yes normal to percussion Skin: Other: Warm, dry, no rash Neuro: General: patient oriented x3 Extrem: Other: No edema Objective Data Active Medications Amlodipine Besylate (Amlodipine Besylate 2.5 Mg Tablet) 2.5 mg PO DAILY [facility]; Protocol Last Admin: 05/08/22 07:33 Dose: 2.5 mg Documented By: LOVE Piperacillin Sod/Tazobactam (Sod 3.375 gm/ Sodium Chloride) 50 mls @ 100 mls/hr IV Q6H [facility] Last Infusion: 05/09/22 05:17 Dose: 0 mls/hr Documented By: TRISTA Morphine Sulfate (Morphine Sulfate 4 Mg/Ml Cartridge) 3 mg IVPUSH Q4H PRN; Protocol PRN Reason: Pain, Severe (Pain Scale 7-10) Ondansetron HCl (Ondansetron Hcl 4 Mg/2 Ml Vial) 4 mg IVPUSH Q8H PRN PRN Reason: Nausea and Vomiting Sodium Chloride (0.9 % Sodium Chloride Flush 3 Ml Syringe) 3 ml IVFLUSH QSHIFT [facility] Last Admin: 05/08/22 20:20 Dose: 3 ml Documented By: TRISTA Zolpidem Tartrate (Zolpidem Tartrate 5 Mg Tablet) 5 mg PO BEDTIME PRN PRN Reason: Insomnia Labs CBC & Chem 7: 05/09/22 06:51 05/07/22 06:27 Labs: Laboratory Results - last 24 hr 05/09/22 06:51 MCV 90.0 MCH 29.0 MCHC 32.2 RDW 12.2 Plt Count 291 MPV 8.7 L Absolute Nucleated RBC 0.000 Nucleated RBC % (auto) 0.0 Procedures Date of Service Date of Service: 05/09/22 Progress Note: A&P Assessment and plan (1) Diverticulitis: Status: Acute (2) Bowel perforation: Status: Acute Plan 72-year-old male patient with sigmoid diverticulitis with contained perforation in the left lower quadrant. Patient had several bowel movements yesterday his abdominal exam is much improved today with less distension. WBC Today was normal at 7.2. I will advance to a soft diet today. If this is well tolerated he may be discharged tomorrow on an oral antibiotics. Time Spent With Patient Time: Total time spent is greater than 50% in coordination of care (as documented) at patient's floor/unit and/or counseling patient: Quality Stroke Does the patient have a stroke diagnosis?: No VTE Prior VTE?: No VTE Risk Level:: Surgical - moderate VTE Device Contraindication: N/A - Device Ordered VTE Drug Contraindication: N/A - Med Ordered
[2022-05-09] MEDS: 0.9 % Sodium Chloride Flush 3 ML SYRINGE IVFLUSH ×3 (09:39→21:14)
[2022-05-09] MEDS: amLODIPine Besylate 2.5 MG TABLET PO (09:39)
[2022-05-09 11:28] VITALS: BP 122/78; PULSE 64; RESP 18; TEMP 36.6; O2SAT 96
[2022-05-09 15:54] VITALS: BP 122/71; PULSE 75; RESP 16; TEMP 36.6; O2SAT 98
[2022-05-09 20:00] VITALS: BP 132/70; PULSE 70; RESP 18; TEMP 36.9; O2SAT 98
[2022-05-09 23:04] VITALS: BP 153/79; PULSE 72; RESP 18; TEMP 36.8; O2SAT 97
[2022-05-10] MEDS: Piperacillin Sodium/Tazobactam 3.375 GM in 0.9 % Sodium Chloride 50 ML IV (03:01)
[2022-05-10 03:44] VITALS: BP 148/83; PULSE 72; RESP 18; TEMP 36.9; O2SAT 100
[2022-05-10 08:00] VITALS: BP 124/82; PULSE 78; RESP 18; TEMP 36.5; O2SAT 98
--- NOTE | 2022-05-10 08:22 | MHC.CM.PN ---
Patient has been medically cleared for dc to home today, self care. Second IMM addressed with Patient art bedside and original has been given to him and a copy has been placed on the chart.
[2022-05-10] MEDS: amLODIPine Besylate 2.5 MG TABLET PO (10:06)
--- NOTE | 2022-05-10 12:38 | PM.PNGS ---
Subjective Subjective Date of Service: 05/10/22 Interval history: Patient feels improved with no current abdominal pain. He continues to move his bowels and tolerated a regular diet without nausea or vomiting. Physical Exam Vital Signs: Vital Signs: Last Vital Signs Temp 97.7 F 05/10/22 08:00 Pulse 78 05/10/22 08:00 Resp 18 05/10/22 08:00 BP 124/82 05/10/22 08:00 Pulse Ox 98 05/10/22 08:00 O2 Del Method 05/10/22 08:00 BMI result Body Mass Index 27.8 Const: General: cooperative, comfortable and no acute distress Nutritional Appearance: well nourished Orientation/consciousness: patient oriented x3 Limitations: no limitations Resp: Effort & Inspection: normal respiratory effort GI: Other: Soft, nondistended, nontender, without rebound guarding or rigidity. No palpable mass. Neuro: General: patient oriented x3 Extrem: Other: No edema Objective Data Labs CBC & Chem 7: 05/09/22 06:51 05/07/22 06:27 Microbiology Microbiology Results: Microbiology 05/04/22 20:09 Blood Culture - Final Blood - Venous No growth after 5 days. 05/04/22 18:48 Blood Culture - Final Blood - Venous No growth after 5 days. Procedures Date of Service Date of Service: 05/10/22 Progress Note: A&P Assessment and plan (1) Diverticulitis: Status: Acute (2) Bowel perforation: Status: Acute Assessment and Plan: Patient is now much improved with no abdominal symptoms. His abdominal examination is benign. He tolerated regular diet without nausea, vomiting, increased abdominal pain. I will discharge him to home on oral antibiotics. He will return to the office in approximately 1-2 weeks to follow up with Dr. Rosen. He should call sooner for fever, chills, increased abdominal pain or other concerns. Time Spent With Patient Time: Total time spent is greater than 50% in coordination of care (as documented) at patient's floor/unit and/or counseling patient: Quality Stroke Does the patient have a stroke diagnosis?: No VTE Prior VTE?: No VTE Risk Level:: Surgical - moderate VTE Device Contraindication: N/A - Device Ordered VTE Drug Contraindication: N/A - Med Ordered
--- NOTE | 2022-05-16 16:20 | PM.DS ---
DS: Providers Provider Date of Service: 05/10/22 Date of admission: 05/04/22 22:28 Date of discharge: 05/10/22 Primary care physician: Sridevi Elizabeth NP Admitting clinician: Sandy Fernandezpriscilla Discharging clinician: Uvaldo Hampton DS: Diagnosis Discharge Diagnosis (1) Diverticulitis: Status: Acute (2) Bowel perforation: Status: Acute DS: Summary Status at Discharge Cognitive/behavioral status at discharge: Erick Radford is a 72 year old male with a history of diverticulitis in the past including an admission in 2017 where He was treated conservatively for a perforated sigmoid diverticulitis with an abscess. he did well and was eventually discharged but did not undergo suggested colonoscopy and elective sigmoid resection. He saw Dr. Rosen in the hospital as well as outpatient. Generally he had been in good shape however over the last 6 7 days was not feeling well and was prescribed Cipro and Flagyl and was taking that but unfortunately his symptoms got worse. He came into the emergency room today where his white count was slightly elevated his abdomen was distended and tender in the left lower quadrant and a CT scan showed evidence of sigmoid diverticulitis with localized perforation some free air and what also looks like a 3 x 3 cm abscess. He denies any urinary symptoms. He has not had a bowel movement for couple of days. He denies any chest pain shortness of breath. On examination the patient was noted have some mild tenderness in the left lower quadrant with localized rebound but no peritoneal signs throughout the abdomen. Decision was made to treat the patient non operatively with IV antibiotics and bowel rest. he had previous discussions with Dr. Rosen regarding an elective sigmoid colectomy to prevent further infections. He now realizes that this will need to be done once this current episode resolves. Over the next several days the patient felt much improved with decreased abdominal pain. White blood cell count remained normal. His abdominal exam remained relatively benign and continue to improve over the next several days. He was kept on the Zosyn IV. He was started on clear liquids on 05/07/2022. On 05/08/2022 he reported having some flatus but did have some cramping pain when drinking liquids. He was kept on a clear liquids not advanced for another day. On 05/09/2022 the patient had several bowel movements and reported a resolution of his abdominal pain. He was subsequently advanced to a regular diet, low residue and tolerated this for the next 24 hours. The IV Zosyn was there for DC eating use started on amoxicillin with clavulanic acid and discharged to home. He will follow up with Dr. Rosen in the office and arrangements made for elective surgery once the current episode is resolved. He was encouraged to call sooner for fever, chills, nausea, vomiting, or increased abdominal pain. Functional status at discharge: independent ambulation Overall status at discharge: patient is back to baseline Time Spent with Patient Time attestation: Total time spent providing and/or coordinating discharge services: Discharge coordination time: Less than 30 minutes Quality: Safe Use of Opioids Does Pt have an Active Cancer Diagnosis on the Problem List?: No Quality: Stroke Does the patient have a stroke diagnosis?: No Physical Exam Vital Signs: Vital Signs: Last Vital Signs Temp 97.7 F 05/10/22 08:00 Pulse 78 05/10/22 08:00 Resp 18 05/10/22 08:00 BP 124/82 05/10/22 08:00 Pulse Ox 98 05/10/22 08:00 O2 Del Method 05/10/22 08:00 BMI result Body Mass Index 27.8 Const: General: cooperative, comfortable and no acute distress Nutritional Appearance: well nourished Orientation/consciousness: patient oriented x3 Limitations: no limitations Resp: Effort & Inspection: normal respiratory effort GI: Other: Soft, nondistended, nontender, without rebound guarding or rigidity. No palpable mass. Neuro: General: patient oriented x3 Extrem: Other: No edema DS: Data Imaging CT scan - abdomen: Radiologist's impression: ITS Impressions Abdomen/Pelvis CT 05/04/22 20:05 IMPRESSION: Acute sigmoid diverticulitis. Adjacent collection of gas and fluid. Separate free air. This critical result was discussed with Sendy Abdullahi NP by telephone at 05/04/2022 8:40 PM and it was ascertained that the content and urgency of the report was understood at the time of direct communication. Fleischner guidelines were followed. Discharge Plan Discharge Patient Disposition: Home, Self-Care Discharge Diagnosis: Sigmoid diverticulitis with perforation Referrals: Sridevi Elizabeth NP [Primary Care Provider] - 1 Week Jose Rosen MD [Physician] - 1 Week Discharge Medications: New amoxicillin-pot clavulanate [Augmentin] 500-125 mg tablet 1 tab PO Q8H Qty: 30 0RF Continued amlodipine 2.5 mg tablet 1 tab PO DAILY Discontinued metronidazole 500 mg tablet 1 tab PO TID ciprofloxacin HCl 500 mg tablet 1 tab PO BID Discharge Orders: Discharge Order (Routine); Ordered 05/10/22 Ordered By: Uvaldo Hampton Diet: Low fiber Diet Activity on Discharge: As tolerated Stand Alone Forms: Patient Portal Discharge page Activity Restrictions/Additional Instructions: Call Your Doctor If: -Your temperature exceeds 101.5? F -You experience excessive pain or swelling -You have an unexpected reaction to medication -You have excessive bleeding -You experience continued vomiting/nausea Care Plan Goals: Return to normal diet and activity Health Concerns: Abdominal pain and distension Plan of Treatment: Antibiotics and bowel rest Assessment: Diverticulitis with abscess/perforation Patient Instructions: Diverticulitis (DC), Low Fiber Diet (DC) Discharge Date/Time: 05/10/22 11:00
== END 2022-05-10 11:00 | disposition home or self-care (01) | DRG 392 ==
LOC: HO.ED 22:26 → HO.EDOVER 22:58 → HO.IMC 05-05 21:03
PROVIDERS: Surgery; Admitting Provider Surgery; Emergency Provider Internal Medicine; PCP Nurse Practitioner Family; Visit Provider Surgery
DX: K57.20 Diverticulitis of large intestine with perforation and abscess without bleeding (principal); Z20.822 Contact with and (suspected) exposure to COVID-19
CPT/HCPCS: 36415; 74177; 80048; 83605; 85025; 85027; 87040; 87635; 93005; 96361; 96365; 96375; 99285; J2270; J2543; Q9967

== ENCOUNTER → 2022-05-26 08:25 | Outpatient (BNVA) | payer MEDICARE, BC, SELFPAY | PROVIDERS: PCP Nurse Practitioner Family; Visit Provider Surgery | DX: K57.92 Diverticulitis of intestine, part unspecified, without perforation or abscess without bleeding (principal) | CPT/HCPCS: 99212 ==

== ENCOUNTER → 2022-06-27 13:45 | Outpatient (BNVA) | payer MEDICARE, BC, SELFPAY | PROVIDERS: PCP Nurse Practitioner Family; Visit Provider Surgery | DX: K57.92 Diverticulitis of intestine, part unspecified, without perforation or abscess without bleeding (principal) | CPT/HCPCS: 99212 ==

== ENCOUNTER → 2022-07-20 15:53 | Outpatient (BNVA) | payer MEDICARE, BC, SELFPAY | PROVIDERS: PCP Nurse Practitioner Family; Visit Provider Surgery | DX: K40.90 Unilateral inguinal hernia, without obstruction or gangrene, not specified as recurrent (principal) | CPT/HCPCS: 99212 ==

== ENCOUNTER 2022-07-29 07:11 | Day surgery (SDC) | payer MEDICARE, BC, SELFPAY ==
[2022-07-26 12:41] VITALS: BMI 27.6
--- NOTE | 2022-07-28 09:10 | P.CONAN_ITS ---
Documented by User: Stephanie Godoy NP 07/28/22 09:13 HPI - Anesthesia Eval Consult details Narrative: 72yo M for Colonoscopy with Polypectomy [place] [facility] [place] bowel perf d/t divertic. Treated nonoperatively with abx and bowel rest. PMFSH Active Problems Active Problems: All Active Problems (Updated 07/28/22 @ 08:37 by Maura Morrison, RN) Diverticulitis (Acute) Bowel perforation (Acute) Right inguinal hernia (Acute) Past Medical History Medical History History of diverticulitis HTN (hypertension) Hx of osteoarthritis Hx of squamous cell carcinoma of skin Right inguinal hernia Ulnar neuropathy Varicose vein of leg Surgical History Surgical History (Updated 07/29/22 @ 07:27 by aMura Morrison RN) H/O total hip arthroplasty History of surgery on lower extremity Hx of arthroscopy of left knee Hx of arthroscopy of right knee Hx of excision of epidermal inclusion cyst Status post ORIF of fracture of ankle Social History Social History Household Members: Spouse Housing: House Patient Tobacco Use Status: Never used Tobacco Use of substances other than those prescribed or required for medical reasons: No Are you DNR?: No Advance Directives: No Advance Directives Information Provided: Yes service: Yes Current occupational status: retired Meds Allergies Allergy/AdvReac Type Severity Reaction Status Date / Time No Known Allergies Allergy Unverified 07/20/22 15:54 [No Known Allergies*] Home Medications Medication Instructions Recorded Confirmed Last Taken Type amlodipine 2.5 mg tablet 1 tab PO DAILY 05/05/22 07/20/22 Unknown History tamsulosin 0.4 mg capsule 0.4 mg PO DAILY 07/20/22 07/20/22 Unknown History cephalexin 500 mg capsule 1 cap PO QAM 07/29/22 07/29/22 Unknown History Exam Exam Date and Time: July 28, 2022 0910 Height,Weight and Vital Signs: Height 6 ft 5 in Weight 105.687 kg Pertinent Lab Results Pertinent Lab Results: Laboratory Tests 05/07/22 05/09/22 06:27 06:51 WBC 7.2 Hgb 12.4 L Hct 38.5 L Plt Count 291 Sodium 139 Potassium 4.3 Chloride 106 Carbon Dioxide 26 BUN 6 L Creatinine 0.73 Narrative Narrative: EKG 04/2022 Vent. Rate : 105 BPM ? ? Atrial Rate : 105 BPM ?? P-R Int : 178 ms? QRS Dur : 162 ms ? ? QT Int : 398 ms ? ? ? P-R-T Axes : 038 -81 031 degrees ?? QTc Int : 526 ms ? Sinus tachycardia with Premature atrial complexes Left axis deviation Right bundle branch block Abnormal ECG When compared with ECG of 01-DEC-2002 15:02, Premature atrial complexes are now Present Vent. rate has increased BY? 38 BPM Right bundle branch block is now Present Assessment and Plan Assessment Anesthesia Assessment: Chart Reviewed Documented by User: Dalton Ramirez MD 07/29/22 08:15 [facility] Past Medical History Medical History History of diverticulitis HTN (hypertension) Hx of osteoarthritis Hx of squamous cell carcinoma of skin Right inguinal hernia Ulnar neuropathy Varicose vein of leg Family History Family history of problems with anesthesia: No Surgical History Surgical History (Updated 07/29/22 @ 07:27 by Maura Morrison, RN) H/O total hip arthroplasty History of surgery on lower extremity Hx of arthroscopy of left knee Hx of arthroscopy of right knee Hx of excision of epidermal inclusion cyst Status post ORIF of fracture of ankle History of Problems with Anesthesia: No Social History Social History Household Members: Spouse Housing: House Patient Tobacco Use Status: Never used Tobacco Use of substances other than those prescribed or required for medical reasons: No Are you DNR?: No Advance Directives: No Advance Directives Information Provided: Yes service: Yes Current occupational status: retired Meds Allergies Allergy/AdvReac Type Severity Reaction Status Date / Time No Known Allergies Allergy Unverified 07/20/22 15:54 [No Known Allergies*] Home Medications Medication Instructions Recorded Confirmed Last Taken Type amlodipine 2.5 mg tablet 1 tab PO DAILY 05/05/22 07/20/22 Unknown History tamsulosin 0.4 mg capsule 0.4 mg PO DAILY 07/20/22 07/20/22 Unknown History cephalexin 500 mg capsule 1 cap PO QAM 07/29/22 07/29/22 Unknown History Exam Airway Mallampati Class: I TM Dist: >3cm Neck ROM: Full Loose/Missing/Broken Teeth: Yes Heart: ok Lungs: ok Assessment and Plan Final Anesthetic Review Family History of Problems with Anesthesia: No History of Problems with Anesthesia: No NPO: Yes ASA Class: II Final Preanesthetic Review: No Changes in Pt Med Stat, Meds/Allgs Chart Reviewed, Consent Obtained/Reviewed and Anes Risks/Benef Reviewed Patient Risk: Low Procedure Risk: Low Anesthetic Plan Anesthetic Plan: MAC: and Agree w/ Assess. and Plan Disposition: Standard PACU
[2022-07-29 07:40] VITALS: BP 138/87; PULSE 92; RESP 17; TEMP 36.9; O2SAT 98
[2022-07-29] MEDS: Lactated Ringers 1,000 ML 100 ML IVCONT (07:54)
--- NOTE | 2022-07-29 08:19 | P.HPSUR_ITS ---
Pre-Procedural Eval Section A Date of Service: 07/29/22 Section B Chief Complaint: Diverticulitis of intestine, part unspecified, Details of Present Illness: history of diverticulitis, no previous colonoscopy, no further episodes since last June 03 Relevant Social History: None Present Medications: see Short Stay Collaborative assessment Medical History: Significant History ( diverticulitis) History of Previous Operations: No relevant previous surgery Allergies: Allergies Allergy/AdvReac Type Severity Reaction Status Date / Time No Known Allergies Allergy Unverified 07/20/22 15:54 [No Known Allergies*] Review of Systems Sugical H&P ROS: Negative: Constitution, Cardiovascular, Respiratory, Neurological, Psychiatric, Hem-Onc, Allergic/Immunologic, Gastrointestinal, Genitourinary, Musculoskeletal, Integumentary, Endocrine and Eyes/Ears/Nose/T hroat Exam Surgical H&P Exam: Normal: HEENT, Normal: Heart, Normal: Lungs, Normal: Extremities, Normal: Abdomen, Normal: Skin and Normal: Neurological Plan Diagnosis/Plan: Unchanged I have reviewed the history and physical and performed a pertinent physical examination on my patient. No changes have occurred unless specified.
[2022-07-29] MEDS: Sodium Phosphate,Mono-Dibasic 133 ML ENEMA PR (08:26)
--- NOTE | 2022-07-29 08:44 | P.OP_ITS ---
Operative Note Operative Note Date of Service: 07/29/22 Narrative: Preop diagnosis: Recent diverticulitis Postop diagnosis: Sigmoid diverticulosis with residual edema, poor bowel prep Incomplete colonoscopy Procedure: Colonoscopy to 30 cm Surgeon: Jose Rosen MD The patient is a 72-year-old male who was admitted because of acute diverticulitis last May,. He has never had any colonoscopy so I had recommended this. The technique of the procedure. He was aware of the risks, benefits, and alternatives He was brought to the operating room. He was placed in left lateral decubitus position under monitored anesthesia care. A full digital rectal exam was done. A surgical time-out had been done earlier. The Olympus colonoscope was gently introduced through the anal orifice. This was gently advanced with insufflation. We encountered some stool particles in the rectum so we had to irrigate advancing. We gently insufflated. There was note of diverticulosis in the rectosigmoid and as we continue to advance the scope, he continued to see some diverticular pockets. The area of about 25 to 30 cm, note of residual edema with multiple wide-mouth diverticuli. We attempted to continue to advance the scope. At this point, because of the edema, nipple diverticuli, as well as some residual stool, we could not clearly see where the actual lumen was. We attempted to navigate multiple times but in view of the risk of perforation, I decided it would be safe to discontinue advancing at this point. We withdrew the scope and continue to irrigate. There were no other lesions. The scope was then withdrawn completely with desuffla tion He tolerated procedure well. There were no immediate complications. I will discuss this with him and would recommend another colonoscopy with better bowel prep in the next few months.
[2022-07-29 08:53] VITALS: BP 127/80; PULSE 77; RESP 14; TEMP 36.6; O2SAT 96
[2022-07-29 09:08] VITALS: BP 129/79; PULSE 73; RESP 16; TEMP 36.6; O2SAT 97
== END 2022-07-29 09:35 | disposition home or self-care (01) ==
PROVIDERS: PCP Nurse Practitioner Family; Visit Provider Surgery
PROC: 0DBE8ZZ Excision of Large Intestine, Via Natural or Artificial Opening Endoscopic (ICD-10-PCS; CPT 45330; principal; 2022-07-29 08:30)
DX: K57.30 Diverticulosis of large intestine without perforation or abscess without bleeding (principal); I10 Essential (primary) hypertension; K40.90 Unilateral inguinal hernia, without obstruction or gangrene, not specified as recurrent; G56.20 Lesion of ulnar nerve, unspecified upper limb; Z79.899 Other long term (current) drug therapy; Z96.641 Presence of right artificial hip joint; Z85.828 Personal history of other malignant neoplasm of skin; Z98.890 Other specified postprocedural states
CPT/HCPCS: 45330

== ENCOUNTER → 2022-08-11 12:52 | Outpatient (BNVA) | payer MEDICARE, BC, SELFPAY | PROVIDERS: PCP Nurse Practitioner Family; Visit Provider Surgery | DX: K57.90 Diverticulosis of intestine, part unspecified, without perforation or abscess without bleeding (principal) | CPT/HCPCS: 99212 ==

== ENCOUNTER 2022-09-09 09:25 | Day surgery (SDC) | payer MEDICARE, BC, SELFPAY ==
--- NOTE | 2022-09-08 09:07 | HO.ANESPROP2 ---
Documented by User: Stephanie Godoy NP 09/08/22 09:17 HPI - Anesthesia Eval Consult details Narrative: 72yo M for Right Open Hernia Repair Inguinal w/mesh s/p colo 07/2022 with MAC 05/2022 [facility] admit with bowel perf d/t divertic. Treated nonoperatively with abx and bowel rest. PMFSH Active Problems Active Problems: All Active Problems (Updated 08/11/22 @ 13:19 by Jose Rosen MD) Diverticulitis (Acute) Bowel perforation (Acute) Diverticular disease (Acute) Right inguinal hernia (Acute) Past Medical History Medical History (Updated 08/11/22 @ 13:19 by Jose Rosen MD) Diverticular disease History of diverticulitis HTN (hypertension) Hx of osteoarthritis Hx of squamous cell carcinoma of skin Right inguinal hernia Ulnar neuropathy Varicose vein of leg Family History Family history of problems with anesthesia: No Surgical History Surgical History (Updated 09/05/22 @ 13:23 by Rehana Avelar RN) H/O total hip arthroplasty History of colonoscopy History of surgery on lower extremity Hx of arthroscopy of left knee Hx of arthroscopy of right knee Hx of excision of epidermal inclusion cyst Status post ORIF of fracture of ankle History of Problems with Anesthesia: No Social History Social History Household Members: Spouse Housing: House Patient Tobacco Use Status: Never used Tobacco Use of substances other than those prescribed or required for medical reasons: No Are you DNR?: No Advance Directives: No Advance Directives Information Provided: Yes service: Yes Current occupational status: retired Meds Allergies Allergy/AdvReac Type Severity Reaction Status Date / Time No Known Allergies Allergy Unverified 08/11/22 13:01 [No Known Allergies*] Home Medications Medication Instructions Recorded Confirmed Last Taken Type amlodipine 2.5 mg tablet 1 tab PO DAILY 05/05/22 08/11/22 Unknown History tamsulosin 0.4 mg capsule 0.4 mg PO DAILY 07/20/22 08/11/22 Unknown History Exam Exam Date and Time: September 08, 2022 0907 Pertinent Lab Results Pertinent Lab Results: Laboratory Tests 05/07/22 05/09/22 06:27 06:51 WBC 7.2 Hgb 12.4 L Hct 38.5 L Plt Count 291 Sodium 139 Potassium 4.3 Chloride 106 Carbon Dioxide 26 BUN 6 L Creatinine 0.73 Narrative Narrative: EKG 04/2022 Vent. Rate : 105 BPM ? ? Atrial Rate : 105 BPM ?? P-R Int : 178 ms? QRS Dur : 162 ms ? ? QT Int : 398 ms ? ? ? P-R-T Axes : 038 -81 031 degrees ?? QTc Int : 526 ms ? Sinus tachycardia with Premature atrial complexes Left axis deviation Right bundle branch block Abnormal ECG When compared with ECG of 01-DEC-2002 15:02, Premature atrial complexes are now Present Vent. rate has increased BY? 38 BPM Right bundle branch block is now Present Assessment and Plan Assessment Anesthesia Assessment: Chart Reviewed Final Anesthetic Review Family History of Problems with Anesthesia: No History of Problems with Anesthesia: No Documented by User: Dalton Ramirez MD 09/09/22 10:51 [facility] Past Medical History Medical History (Updated 08/11/22 @ 13:19 by Jose Rosen MD) Diverticular disease History of diverticulitis HTN (hypertension) Hx of osteoarthritis Hx of squamous cell carcinoma of skin Right inguinal hernia Ulnar neuropathy Varicose vein of leg Family History Family history of problems with anesthesia: No Surgical History Surgical History (Updated 09/05/22 @ 13:23 by Rehana Avelar RN) H/O total hip arthroplasty History of colonoscopy History of surgery on lower extremity Hx of arthroscopy of left knee Hx of arthroscopy of right knee Hx of excision of epidermal inclusion cyst Status post ORIF of fracture of ankle History of Problems with Anesthesia: No Social History Social History Household Members: Spouse Housing: House Patient Tobacco Use Status: Never used Tobacco Use of substances other than those prescribed or required for medical reasons: No Are you DNR?: No Advance Directives: No Advance Directives Information Provided: Yes service: Yes Current occupational status: retired Meds Allergies Allergy/AdvReac Type Severity Reaction Status Date / Time No Known Allergies Allergy Unverified 08/11/22 13:01 [No Known Allergies*] Home Medications Medication Instructions Recorded Confirmed Last Taken Type amlodipine 2.5 mg tablet 1 tab PO DAILY 05/05/22 08/11/22 Unknown History tamsulosin 0.4 mg capsule 0.4 mg PO DAILY 07/20/22 08/11/22 Unknown History Exam Airway Mallampati Class: I TM Dist: >3cm Neck ROM: Full Loose/Missing/Broken Teeth: No Heart: ok Lungs: ok Assessment and Plan Final Anesthetic Review Family History of Problems with Anesthesia: No History of Problems with Anesthesia: No NPO: Yes ASA Class: II Final Preanesthetic Review: No Changes in Pt Med Stat, Meds/Allgs Chart Reviewed, Consent Obtained/Reviewed and Anes Risks/Benef Reviewed Patient Risk: Low Procedure Risk: Low Anesthetic Plan Anesthetic Plan: GA and Agree w/ Assess. and Plan Disposition: Standard PACU
[2022-09-09] VITALS (11 sets, daily range): BP systolic 111–142; BP diastolic 64–82; PULSE 60–82; RESP 16–20; TEMP 36.4–36.8; O2SAT 96–100; BMI 27.2
--- NOTE | 2022-09-09 10:20 | MHC.SHP ---
Pre-Procedural Eval Section A Date of Service: 09/09/22 Section B Chief Complaint: Unilateral inguinal hernia, without obstruction or Details of Present Illness: has a reducible right inguinal mass Relevant Social History: None Present Medications: see Short Stay Collaborative assessment Medical History: Significant History ( diverticular disease, hypertension) History of Previous Operations: No relevant previous surgery Allergies: Allergies Allergy/AdvReac Type Severity Reaction Status Date / Time No Known Allergies Allergy Unverified 08/11/22 13:01 [No Known Allergies*] Review of Systems Sugical H&P ROS: Negative: Constitution, Cardiovascular, Respiratory, Neurological, Psychiatric, Hem-Onc, Allergic/Immunologic, Gastrointestinal, Genitourinary, Musculoskeletal, Integumentary, Endocrine and Eyes/Ears/Nose/Throat Exam Surgical H&P Exam: Normal: HEENT, Normal: Heart, Normal: Lungs, Normal: Extremities, Normal: Skin and Normal: Neurological and Significant Findings: Abdomen ( right inguinal hernia, reducible) Plan Diagnosis/Plan: Unchanged I have reviewed the history and physical and performed a pertinent physical examination on my patient. No changes have occurred unless specified.
--- NOTE | 2022-09-09 11:54 | W.PM.OPN ---
Operative Note Operative Note Date of Service: 09/09/22 Narrative: Preop diagnosis: Right inguinal hernia Postop diagnosis: indirect right inguinal hernia Procedure: Repair of right hernia with mesh Surgeon: Jose Rosen MD anesthesiologist assistant: COURTNEY Church The patient is a 72-year-old male with a reducible mass on the right groin consistent with a right inguinal hernia. Understood the technique of repair of right inguinal hernia with mesh. He was aware of the risks, benefits, and alternatives The patient was brought to the operating room and placed supine under general anesthesia via laryngeal mask airway. The right groin was prepped and draped in the usual sterile fashion. A surgical time-out was done. The patient received cefazolin 2 g IV preoperatively. I infiltrated the planned line of incision with lidocaine 1%. I made a short incision on the skin along an imaginary line from the anterior superior iliac spine to the pubic ramus using blade 15. This carried down through the full-thickness of the skin subcutaneous fat down to the fascia using electrocautery. I exposed the external oblique aponeurosis. I therefore was able to visualize external ring. I made an incision on the external oblique aponeurosis overlying the canal. The inguinal canal was therefore entered. I applied hemostats on the divided edges of the external oblique aponeurosis. I bluntly dissected the underside of the aponeurosis to create space for the mesh. I bluntly dissected the spermatic cord and its contents using my index finger until I was able to pass a Bev drain around this. This Bev drain was used for retraction of the cord.I examined the contents of the spermatic cord. There was note of large amounts of herniated fat andthis was dissected off of the cord contents along with the sac until this was reduced through the internal ring. This was therefore an indirect hernia. I was able to visualize the vas deferens and its accompanying vessels and these were protected during the dissection. I then in reinforced the internal ring with a large plug. The plug was secured with Prolene 2 sutures to shelving edge of the inguinal meant laterally and the internal oblique superiorly medially using the inner leaves of the mesh. I reinforced the entire floor of the canal with a keyhole mesh. The tails of the mesh were passed around the cord at the level of the internal ring. The tails were secured together with Prolene 2 sutures . I flattened the mesh and secured this to the shelving edge of the inguinal ligament laterally, internal oblique superiorly and medially, as well as the pubic ramus inferomedially using Prolene 2 sutures . I copiously irrigated. I observed for hemostasis. Once hemostasis was ensured, proceeded to then reappose the divided oblique aponeurosis with a running Dexon 2-0 stitch to recreate the external ring . The subcutaneous layer was reapposed with Dexon 3-0 interrupted sutures. Skin closure was achieved with Dexon 4-0 subcuticular running stitch. The area is infiltrated with Marcaine 0.5% for postop JOY. Steri-Strips and dressings were applied and procedure was completed . The patient tolerated the procedure well. There were no immediate complications. Initial and final counts of sponges and instruments were correct. Estimated blood loss about 10 cc . The patient was extubated without difficulty and transferred to the recovery room with stable vital signs.
[2022-09-09] MEDS: oxyCODONE HCl Immed Release 5 MG TABLET 10 MG PO (13:06)
[2022-09-09] MEDS: Acetaminophen 325 MG TABLET 650 MG PO (13:07)
[2022-09-09] MEDS: fentaNYL citrate/PF 100 MCG/2 ML VIAL 50 MCG IVPUSH ×2 (13:08→13:13)
== END 2022-09-09 14:11 | disposition home or self-care (01) ==
PROVIDERS: PCP Nurse Practitioner Family; Visit Provider Surgery
PROC: (CPT 49505; principal; 2022-09-09 11:00)
DX: K40.90 Unilateral inguinal hernia, without obstruction or gangrene, not specified as recurrent (principal); K57.30 Diverticulosis of large intestine without perforation or abscess without bleeding; I10 Essential (primary) hypertension; G56.20 Lesion of ulnar nerve, unspecified upper limb; I83.10 Varicose veins of unspecified lower extremity with inflammation; Z79.899 Other long term (current) drug therapy; Z85.828 Personal history of other malignant neoplasm of skin; Z87.19 Personal history of other diseases of the digestive system
CPT/HCPCS: 49505; C1781; J0690; J1100; J1885; J2405; J2795; J3010

== ENCOUNTER → 2022-09-22 09:12 | Outpatient (BNVA) | payer MEDICARE, BC, SELFPAY | PROVIDERS: PCP Nurse Practitioner Family; Visit Provider Surgery | DX: Z98.890 Other specified postprocedural states (principal) | CPT/HCPCS: 99212 ==

== ENCOUNTER 2023-04-29 12:43 | Emergency (ER) | payer MEDICARE, BC, SELFPAY ==
--- NOTE | ~2023-04-29 | US_ITS ---
EXAMINATION: US VENOUS ULTRASOUND WITH DOPPLER LOWER EXTREMITY, LEFT CLINICAL INFORMATION: Question DVT COMPARISON: Ultrasound TECHNIQUE: Ultrasound of the deep veins is performed from the hip to the calf with compression sonography and color and pulse Doppler assessment. Spectral analysis with color-flow imaging is performed. FINDINGS: There is normal venous compression and respiratory variation and augmented flow. The visualized common femoral vein, superficial femoral vein, profunda femoral vein, popliteal vein, and the trifurcation region shows no evidence of deep venous thrombosis. Normal vascular flow in the visualized calf veins. There is no significant popliteal fossa cyst. . There is a focal thrombus in a small varicosity arising from the greater saphenous vein, in the area of pain in the mid thigh. If the patient's symptoms persist, followup ultrasound in 5 days 7 days might be of value to exclude proximal propagation from a non-visualized calf vein. US/US venous duplex LE LT IMPRESSION: No deep vein thrombosis demonstrated in the left lower extremity. Focal thrombus in the small superficial varicosity, arising of the great greater saphenous vein, in the area of pain in the mid thigh.
--- NOTE | 2023-04-29 13:26 | ED_ITS ---
HPI - Extremity Problem General Chief complaint: General Medical Stated complaint: l leg vein issue Time Seen by Provider: 04/29/23 14:23 History of Present Illness HPI Narrative: patient complains of swollen vein in left thigh for past 2 days, he denies any chest pain or shortness of breath, he denies any redness or warmth or fever He does have a history of phlebitis and has had some varicose veins stripped in the past, denies any history of DVT or pulmonary embolus Related Data Home Medications Medication Instructions Recorded Confirmed amlodipine 2.5 mg tablet 1 tab PO DAILY 05/05/22 08/11/22 tamsulosin 0.4 mg capsule 0.4 mg PO DAILY 07/20/22 08/11/22 Previous Rx's Medication Instructions Recorded ibuprofen 600 mg tablet 600 mg PO Q6H PRN fever #30 tabs 09/09/22 oxycodone-acetaminophen 5 mg-325 1 tab PO Q4-6H PRN pain #20 tabs 09/09/22 mg tablet (Percocet) apixaban 5 mg (74 tabs) tablets in 5 mg PO BID #74 ea 04/29/23 a dose pack (Eliquis DVT-PE Treat 30D Start) Allergies Allergy/AdvReac Type Severity Reaction Status Date / Time No Known Allergies Allergy Unverified 04/29/23 13:27 [No Known Allergies*] [facility] Past Medical History Source: nursing notes reviewed Medical History Diverticular disease History of diverticulitis HTN (hypertension) Hx of osteoarthritis Hx of squamous cell carcinoma of skin Right inguinal hernia Ulnar neuropathy Varicose vein of leg Surgical History H/O total hip arthroplasty History of colonoscopy History of surgery on lower extremity Hx of arthroscopy of left knee Hx of arthroscopy of right knee Hx of excision of epidermal inclusion cyst Status post ORIF of fracture of ankle Social History Social History Household Members: Spouse Housing: House Patient Tobacco Use Status: Never used Tobacco Advance Directives: Yes Advance Directives Information Provided: No Advance Directives on File: No service: Yes Current occupational status: retired Physical Exam Vital Signs: Vital Signs: Last Vital Signs Temp 98.4 F 04/29/23 13:27 Pulse 85 04/29/23 13:27 Resp 16 04/29/23 13:27 BP 141/77 H 04/29/23 13:27 Pulse Ox 95 04/29/23 13:27 O2 Del Method Room Air 04/29/23 13:27 BMI result Body Mass Index 29.0 general appearance comfortable no distress The neck is supple Chest clear to auscultation bilateral Heart no murmur Abdomen soft nontender The left leg had some redness and tenderness with a palpable cord in a varicose vein in the posterior thigh area, no other redness or warmth, no calf tenderness or swelling Other extremities normal Course Course Course Narrative: This is an RME: Additional HPI, ROS, PE not included below will be deferred to primary provider. Patient is a 73-year-old male presents emergency department for evaluation of left leg concern. Has varicose vein that is becoming painful, enlarged, firm, without erythema or warmth to the left medial thigh. Onset yesterday evening, worsening today. Denies history of DVT/ PE< coagulation disorder, or anticoagulant usage. Denies CP, SOB Plan: venous US LLE Ultrasound did not show any deep vein thrombosis but it did show focal thrombus in the superficial varicosity arising from the greater saphenous vein This was discussed with attending physician Dolores who advised that there is a risk of propagation to the deep veins from the greater saphenous main so anticoagulation should be started so Eliquis was started, patient is advised to follow closely with environmental conservation officer or primary doctor for advice on duration of treatment Chemistry and CBC were checked with no significant abnormalities Medications Administered Discontinued Medications Generic Name Dose Route Start Last Admin Trade Name Kane PRN Reason Stop Dose Admin Apixaban 5 mg 04/29/23 16:30 04/29/23 16:47 Apixaban 5 Mg Tablet PO 04/29/23 16:31 5 mg ONCE ONE Administration Apixaban 5 mg 04/29/23 16:30 04/29/23 16:47 Apixaban 5 Mg Tablet PO 04/29/23 16:31 5 mg ONCE ONE Administration Medical Decision Making Lab Data [facility] Lab Attestation statement: I reviewed the patient's lab results. 04/29/23 18:03 04/29/23 18:03 Labs: Lab Results 04/29/23 04/29/23 Range/Units 18:03 18:03 WBC 7.4 (4.8-10.8) X10*3/uL RBC 5.00 (4.60-5.80) X10*6/uL Hgb 15.2 D (14.0-18.0) g/dl Hct 45.5 (42.0-52.0) % MCV 91.0 (80.0-98.0) fL MCH 30.4 (27.0-33.0) pg MCHC 33.4 (31.0-36.0) g/dl RDW 12.4 (11.0-16.0) % Plt Count 208 D (160-400) X10*3/uL MPV 8.9 L (9.4-12.4) fL Immature Gran % (Auto) 0.3 (0.0-0.4) % Neut % (Auto) 62.3 (45-73) % Lymph % (Auto) 25.2 (20-40) % Assumption % (Auto) 9.6 (2-11) % Eos % (Auto) 2.3 (0-4) % Baso % (Auto) 0.3 (0-2) % Lymph # (Auto) 1.9 (1.2-4.9) X10*3/uL Assumption # (Auto) 0.7 (0.1-1.2) X10*3/uL Eos # (Auto) 0.2 (0.0-0.4) X10*3/uL Baso # (Auto) 0.0 (0.0-0.2) X10*3/uL Abs Immat Gran (auto) 0.02 (0.00-0.03) X10*3/uL Absolute Neuts (auto) 4.6 (2.0-8.3) x10*3/uL Absolute Nucleated RBC 0.000 (0.0-0.012) X10*3/uL Nucleated RBC % (auto) 0.0 (0.0-0.2) /100WBC Sodium 141 (135-145) mmol/L Potassium 4.0 (3.3-5.1) mmol/L Chloride 106 (96-108) mmol/L Carbon Dioxide 26 (22-29) mmol/L Anion Gap 13 (12-20) BUN 14 (9-16) mg/dL Creatinine 0.75 (0.5-1.4) mg/dL Estim Creat Clear Calc 121.4 Estimated GFR > 60 Random Glucose 87 (60-115) mg/dL Calcium 9.8 D (8.4-10.2) mg/dL Discharge Plan Discharge Clinical Impression: Superficial vein thrombosis Patient Disposition: Home, Self-Care Additional Instructions: are ultrasound today did show a superficial vein thrombosis in the greater saphenous vein We started anticoagulation to prevent propagation to the deep veins, but best plan to decide how long or if you need to continue anticoagulation is make an appointment with environmental conservation officer or vascular doctor to determine level of risk and how long you would need to continue anticoagulation Return any time any worse condition or concerns Your primary care doctor can refer you for follow-up as well DO NOT TAKE MOTRIN OR ASPIRIN WHILE TAKING ELIQUIS THEY INCREASE RISK OF BLEEDING ELIQUIS PRESCRIPTION IS 2 X 5 MG TABLETS, 10 MG TWICE A DAY FOR 7 DAYS AFTER THAT IT IS 1 TABLET, 5 MG, TWICE A DAY Prescriptions: New Eliquis DVT-PE Treat 30D Start 5 mg (74 tabs) tablets,dose pack 5 mg PO BID Qty: 74 0RF Rx Instructions: 10 mg, 2 tablets, twice a day for 7 days then 1 tablet, 5 mg, twice a day No Action amlodipine 2.5 mg tablet 1 tab PO DAILY ibuprofen 600 mg tablet 600 mg PO Q6H PRN (Reason: fever) Qty: 30 0RF oxycodone-acetaminophen [Percocet] 5-325 mg tablet 1 tab PO Q4-6H PRN (Reason: pain) Qty: 20 0RF Rx Instructions: Partial Fill upon patient request. tamsulosin 0.4 mg capsule 0.4 mg PO DAILY Referrals: Lui Mckay MD [Physician] - ( superficial venous thrombosis of greater saphenous vein, we started Eliquis, needs guidance on duration of treatment) Leon Benavides MD [Physician] - ( superficial venous thrombosis in greater saphenous vein, started Eliquis, needs advice on duration of treatment) Interventions: ED Discharge Assessment Last Done: 04/29/23 18:31 Discharge Date/Time: 04/29/23 18:31
[2023-04-29 13:27] VITALS: BP 141/77; PULSE 85; RESP 16; TEMP 36.9; O2SAT 95; BMI 29.0
[2023-04-29] MEDS: Apixaban 5 MG TABLET PO ×2 (16:47)
[2023-04-29 18:09] LABS: MANUAL DIFF FLAG NO
[2023-04-29 18:26] LABS: Anion Gap 13 (12-20); Blood Urea Nitrogen 14 mg/dL (9-16); Calcium 9.8 mg/dL (8.4-10.2); Carbon Dioxide 26 mmol/L (22-29); Chloride 106 mmol/L (96-108); Creatinine Clr Calc Pharmacy 121.4; Estimated Glomerular Filt Rate > 60; Glucose Random 87 mg/dL (60-115); Sodium 141 mmol/L (135-145)
[2023-04-29 18:30] LABS: Basophils Percent Auto 0.3 % (0-2); Eosinophils Absolute Auto 0.2 X10*3/uL (0.0-0.4); Eosinophils Percent Auto 2.3 % (0-4); Hematocrit 45.5 % (42.0-52.0); Hemoglobin 15.2 g/dl (14.0-18.0); Imm Gran Abs Auto 0.02 X10*3/uL (0.00-0.03); Imm Gran Pct Auto 0.3 % (0.0-0.4); Lymphocytes Absolute Auto 1.9 X10*3/uL (1.2-4.9); Lymphocytes Percent Auto 25.2 % (20-40); Mean Corpuscular HGB Conc 33.4 g/dl (31.0-36.0); Mean Corpuscular Hemoglobin 30.4 pg (27.0-33.0); Mean Platelet Volume 8.9 fL (9.4-12.4); Monocytes Absolute Auto 0.7 X10*3/uL (0.1-1.2); Monocytes Percent Auto 9.6 % (2-11); Neutrophils Absolute Auto 4.6 x10*3/uL (2.0-8.3); Neutrophils Percent Auto 62.3 % (45-73); Platelet Count 208 X10*3/uL (160-400); Red Cell Distribution Width 12.4 % (11.0-16.0); White Blood Count 7.4 X10*3/uL (4.8-10.8)
== END 2023-04-29 18:31 | disposition home or self-care (01) ==
PROVIDERS: Physician Assistant Medical; Emergency Provider Emergency Medicine; PCP Nurse Practitioner Family
DX: I82.812 Embolism and thrombosis of superficial veins of left lower extremity (principal); M79.605 Pain in left leg
CPT/HCPCS: 36415; 80048; 85025; 93971; 99282; 99284

== ENCOUNTER 2023-05-30 15:00 | Outpatient (AMB) | payer MEDICARE, BC, SELFPAY ==
[2023-05-30 15:14] VITALS: BMI 29.0
--- NOTE | 2023-05-30 15:14 | MHC.OFFVIS ---
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 He was actually discovered to have left lower extremity superficial thrombophlebitis. He reports that he actually had prior venous ablation by Dr. Cortes several years prior. Has significant lower extremity varicosities in particular the left leg. he is a retired iron worker apprentice. He reports he has been doing fairly well since that point. He has been on anti-inflammatories. He now presents for Vascular evaluation REPLACED BY [facility] Medical History Diverticular disease History of diverticulitis HTN (hypertension) Hx of osteoarthritis Hx of squamous cell carcinoma of skin Right inguinal hernia Ulnar neuropathy Varicose vein of leg Surgical History H/O total hip arthroplasty History of colonoscopy History of surgery on lower extremity Hx of arthroscopy of left knee Hx of arthroscopy of right knee Hx of excision of epidermal inclusion cyst Status post ORIF of fracture of ankle Social History Household Members: Spouse Housing: House Patient Tobacco Use Status: Never used Tobacco service: Yes Current occupational status: retired Review of Systems Const Reports as per HPI ENT Reports no additional complaints Card Denies chest pain, Denies chest pain at rest and Denies chest pain with activity Resp Denies chest congestion and Denies cough GI Reports no additional complaints Musc Details: pain over varicosities, aching of lower extremities, swelling, cramping, heaviness and tiredness, itching Denies abnormal gait Skin/Breast Reports pruritus and Denies wounds Neuro Reports no additional complaints and Denies abnormal gait Psych Denies no additional complaints Physical Exam Vital Signs: BMI result Body Mass Index 29.0 Const General: cooperative, healthy appearing and comfortable Orientation/consciousness: oriented to person, oriented to place and oriented to time Neck Carotids: no bruits Chest Chest palpation & inspection: normal inspection of the chest and normal palpation of entire chest wall Resp Effort & Inspection: normal respiratory effort and able to speak in complete sentences Cardio Rate: regular rate Heart sounds: S1 normal heart sound present and S2 normal heart sound present Peripheral pulses: Peripheral pulses 2+ throughout GI Inspection: Yes normal to inspection Skin Other: +2 edema, large rope-like varicosities greater than 4 mm left medial calf and thigh General skin exam: dry skin Neuro General: oriented to person, oriented to place and oriented to time Extrem Right lower extremity: full ROM, normal capillary refill and edema Left lower extremity: full ROM, normal capillary refill and edema Psych Mental Status: mental status grossly normal Results Reviewed Results Reviewed: DVT ultrasound from 04/29/2023 demonstrates no evidence of DVT. Superficial thrombophlebitis. Written report and images were reviewed. Assessment & Plan Assessment & Plan (1) Varicose veins of left lower extremity with inflammation: Code(s): I83.12 - Varicose veins of left lower extremity with inflammation Plan: in short patient has superficial varicosities. He did develop an episode of thrombophlebitis. We did discuss routine conservative measures including warm compresses and nonsteroidal anti-inflammatories. We also discussed routine conservative measures including compression elevation and exercise. I did recommend a repeat venous insufficiency testing but he politely declined. At the current time he is not interested in any further venous interventions in particular the superficial varicosities on his left lower extremity. I did discuss the pathophysiology of this and future complications. He demonstrated clear understanding. He will reach out if he is interested in further treatment in the future. Thank you for allowing us to assist in his care. If there are any questions or concerns please do not hesitate to contact us. The patient had an opportunity to ask questions regarding the treatment plan. All questions were answered. Imaging studies, laboratory studies and physical exam results were discussed and reviewed in detail. No major barriers to understanding were identified. The patient expressed understanding and agreement with the above treatment plan. The patient is aware they should contact our office by phone for worsening of the current condition or the appearance of new symptoms. Thank you for allowing me to participate in the vascular care of this patient. If you have any questions or concerns regarding the treatment for the above condition please do not hesitate to contact me. The office telephone contact is [phone]. This note is constructed using voice recognition software. While every effort has been made to ensure accuracy, medical record retrieval specialist errors may have been included. Thank you for allowing me to participate in the care of your patient. Yours sincerely, Lui Mckay MD, FACS, R.P.V.I. Coding Level of Care Code New Pt Level 4 (74245) Diagnoses Varicose veins of left lower extremity with inflammation I83.12
== END 2023-05-30 15:44 | disposition home or self-care (01) ==
PROVIDERS: PCP Nurse Practitioner Family; Visit Provider Surgery Vascular Surgery
DX: I83.12 Varicose veins of left lower extremity with inflammation (principal)
CPT/HCPCS: 99203

== ENCOUNTER → 2023-05-30 15:00 | Outpatient (BNVA) | payer MEDICARE, BC, SELFPAY | PROVIDERS: PCP Nurse Practitioner Family; Visit Provider Surgery Vascular Surgery ==

== ENCOUNTER 2023-06-26 13:50 | Outpatient (AMB) | payer MEDICARE, BC, SELFPAY ==
--- NOTE | 2023-06-26 13:55 | A.OFFVIS_ITS ---
Intake Vital Signs 06/26/23 14:01 Height 6 ft 5 in Weight 247 lb BMI 29.3 BP 168/87 H Blood Pressure Location Lt brachial Position Sitting Pulse 82 Intake Visit Reasons: diverticulitis & one year recall colonoscopy Intake Note: Patient is seen in office for diverticulitis & one year recall colonoscopy. Patient c/o: one year recall for colonoscopy, denies bleeding in stool, constipation, diarrhea, nausea, vomit, or any other concerns [place] Required: No Accompanied by: Self / Same As Patient Allergies No Known Allergies [No Known Allergies*] Allergy (Unverified 06/26/23 14:00) Medication List - Last Reconciled 06/26/23 by Jose Rosen MD amlodipine 1 tab PO DAILY ibuprofen 600 mg PO Q6H PRN tamsulosin 0.4 mg PO DAILY HPI diverticulitis & one year recall colonoscopy HPI Details 73-year-old male here for a repeat colonoscopy.I had attempted a colonoscopy last July 29, 2022 as he has never had any colonoscopy before.? However, I was only able to see up to about 25-30 cm level because of significant residual edema in the area along with suboptimal prep.? He did have diverticular disease with some edema still. I told him that we will probably repeat this colonoscopy within 1 year. He denies any significant GI complaints. He says he feels well overall. He usually spends [place] in [place]. He said he went to [facility] over the winter and had seen a marine equipment sales engineer. He says he was told that there was nothing to ?worry about? at this time with regards to his abdomen. He said he even had a CAT scan as part of his workup there. [facility] Medical History Diverticular disease History of diverticulitis HTN (hypertension) Hx of osteoarthritis Hx of squamous cell carcinoma of skin Right inguinal hernia Ulnar neuropathy Varicose vein of leg Surgical History H/O total hip arthroplasty History of colonoscopy History of surgery on lower extremity Hx of arthroscopy of left knee Hx of arthroscopy of right knee Hx of excision of epidermal inclusion cyst Status post ORIF of fracture of ankle Social History Household Members: Spouse Housing: House Patient Tobacco Use Status: Never used Tobacco service: Yes Current occupational status: retired Review of Systems Const Denies chills and Denies fever(s) Card Denies chest pain, Denies dyspnea and Denies dyspnea on exertion Resp Denies cough, Denies dyspnea and Denies dyspnea on exertion GI Denies hematochezia and Denies change in bowel habits Denies hematuria and Denies difficulty urinating Musc Denies back pain and Denies limited range of motion Neuro Denies focal weakness and Denies convulsions Psych Denies depression and Denies mood swings Physical Exam Const General: comfortable and no acute distress Orientation/consciousness: patient oriented x3 Neck Neck: Yes no lymphadenopathy Resp Auscultation: clear to auscultation bilaterally Cardio Rhythm: regular rhythm GI Palpation (GI): Soft to palpation, nontender and no guarding Neuro General: patient oriented x3 Assessment & Plan Assessment & Plan (1) Diverticular disease: Code(s): K57.90 - Diverticulosis of intestine, part unspecified, without perforation or abscess without bleeding Plan: He has never had a full colonoscopy in the past. I had attempted a colonoscopy last year but he had poor bowel prep with significant residual edema of the sigmoid so I was unable to go past level 25-30 cm. I told him that we will re- attempt this year. I explained to him the technique of this procedure. I reviewed the risks including but not limited to bleeding, infections, perforation, as well as the benefits and alternatives. After a long discussion with the above, he says he does not want to proceed with colonoscopy at this time. He says he wants to try Cologuard instead. I will therefore set this up with him. He understands that if his Cologuard is positive, he will still need to proceed with colonoscopy. Coding Level of Care Code Est Pt Level 3 (40941) Diagnoses Diverticular disease K57.90
[2023-06-26 14:01] VITALS: BP 168/87; PULSE 82; BMI 29.3
== END 2023-06-26 14:38 | disposition home or self-care (01) ==
PROVIDERS: PCP Nurse Practitioner Family; Visit Provider Surgery
DX: K57.90 Diverticulosis of intestine, part unspecified, without perforation or abscess without bleeding (principal)
CPT/HCPCS: 99213

== ENCOUNTER → 2023-06-26 13:50 | Outpatient (BNVA) | payer MEDICARE, BC, SELFPAY | PROVIDERS: PCP Nurse Practitioner Family; Visit Provider Surgery | DX: R19.5 Other fecal abnormalities (principal); K57.90 Diverticulosis of intestine, part unspecified, without perforation or abscess without bleeding | CPT/HCPCS: 99212 ==

== ENCOUNTER 2023-06-30 07:38 | Outpatient (REF) | payer MEDICARE, BC, SELFPAY ==
[2023-06-30 10:46] LABS: MANUAL DIFF FLAG NO
[2023-06-30 10:50] LABS: Basophils Percent Auto 0.5 % (0-2); Eosinophils Absolute Auto 0.2 X10*3/uL (0.0-0.4); Eosinophils Percent Auto 3.3 % (0-4); Hematocrit 44.3 % (42.0-52.0); Hemoglobin 14.6 g/dl (14.0-18.0); Imm Gran Abs Auto 0.01 X10*3/uL (0.00-0.03); Imm Gran Pct Auto 0.2 % (0.0-0.4); Lymphocytes Absolute Auto 1.7 X10*3/uL (1.2-4.9); Lymphocytes Percent Auto 29.9 % (20-40); Mean Corpuscular Hemoglobin 30.4 pg (27.0-33.0); Mean Corpuscular Volume 92.3 fL (80.0-98.0); Mean Platelet Volume 8.9 fL (9.4-12.4); Monocytes Absolute Auto 0.6 X10*3/uL (0.1-1.2); Monocytes Percent Auto 10.7 % (2-11); Neutrophils Absolute Auto 3.2 x10*3/uL (2.0-8.3); Neutrophils Percent Auto 55.4 % (45-73); Platelet Count 225 X10*3/uL (160-400); Red Cell Distribution Width 12.2 % (11.0-16.0); White Blood Count 5.7 X10*3/uL (4.8-10.8)
[2023-06-30 11:06] LABS: Alanine Aminotransferase 11 U/L (0-40); Alkaline Phosphatase 55 U/L (39-117); Anion Gap 10 (12-20); Aspartate Amino Transferase 13 U/L (5-37); Bilirubin Total 0.6 mg/dL (0.0-1.0); Blood Urea Nitrogen 20 mg/dL (9-16); Calcium 9.1 mg/dL (8.4-10.2); Carbon Dioxide 27 mmol/L (22-29); Chloride 108 mmol/L (96-108); Cholesterol 151 mg/dL (<200); Estimated Glomerular Filt Rate > 60; Glucose Random 97 mg/dL (60-115); HDL Cholesterol 56 mg/dL (>40); LDL Cholesterol Calculated 86 mg/dL (<100); Potassium 4.5 mmol/L (3.3-5.1); Sodium 140 mmol/L (135-145); Total Protein 7.2 g/dL (6.5-8.0); Triglycerides 47 mg/dL (<150)
[2023-06-30 11:27] LABS: Prostate Specific Antigen 1.32 ng/mL (<0.05-4.0)
[2023-07-01 04:24] LABS: ~HepC Num1 0.08 S/CO (0.00-0.79); ~Hepatitis C Antibody Nonreactive (Nonreactive)
== END 2023-06-30 07:39 | disposition home or self-care (01) ==
LOC: HO.10HDL 07:38
PROVIDERS: Visit Provider Nurse Practitioner Family
DX: Z00.00 Encounter for general adult medical examination without abnormal findings (principal); N40.0 Benign prostatic hyperplasia without lower urinary tract symptoms; R30.0 Dysuria; Z11.59 Encounter for screening for other viral diseases; Z13.220 Encounter for screening for lipoid disorders; Z12.5 Encounter for screening for malignant neoplasm of prostate; Z20.2 Contact with and (suspected) exposure to infections with a predominantly sexual mode of transmission
CPT/HCPCS: 36415; 80053; 80061; 84153; 85025; 86803

== ENCOUNTER 2023-08-11 19:52 | Emergency (ER) | payer MEDICARE, BC, SELFPAY ==
[2023-08-11 20:25] VITALS: BP 114/63; PULSE 105; RESP 20; TEMP 37.7; O2SAT 96; BMI 28.5
[2023-08-11 20:33] VITALS: PULSE 107
--- NOTE | 2023-08-11 20:36 | PC.NURSE ---
pt a&ox3. respirations even and unlabored. abdomen soft but tender to touch in the lower right and left quadrants. active bowel sounds noted in all 4 quadrants. pt reports eating dinner about an hour ago when he suddenly felt, weak, nauseous, sweaty and faint. pt reports feeling palpitations at that time. pt denies vomiting, diarrhea and chest pain. pt sinus tachy on tele 102-107. Provider at bedside discussing pt care.
--- NOTE | 2023-08-11 20:40 | ED.GENADULT ---
HPI - General Adult General Chief complaint: General Medical Stated complaint: Sweats/chills/multi complaints Time Seen by Provider: 08/11/23 20:27 Source: patient and family (Spouse) Mode of arrival: ambulatory Limitations: no limitations History of Present Illness HPI narrative: a 73-year-old male came in with his after had an episode of chills, fever, becoming diaphoretic while he was eating with his and dinner celebrating her birthday. Patient has been having lower abdominal pain all day today patient with a known history of diverticulitis patient feels he has an episode of diverticulitis because he is very familiar with the acute diverticulitis he did not seek medical attention. Related Data Home Medications Medication Instructions Recorded Confirmed amlodipine 2.5 mg tablet 1 tab PO DAILY 05/05/22 06/26/23 tamsulosin 0.4 mg capsule 0.4 mg PO DAILY 07/20/22 06/26/23 Previous Rx's Medication Instructions Recorded ibuprofen 600 mg tablet 600 mg PO Q6H PRN fever #30 tabs 09/09/22 Allergies Allergy/AdvReac Type Severity Reaction Status Date / Time No Known Allergies Allergy Verified 08/11/23 20:25 [No Known Allergies*] Review of Systems Review of Systems: all other systems are reviewed and are negative Constitutional: Reports as per HPI and Reports no additional constitutional complaints Eyes: Reports as per HPI and Reports no additional eye complaints Reports system reviewed and no additional complaints, except as documented Cardiovascular: Reports as per HPI and Reports no additional cardiovascular complaints Respiratory: Reports as per HPI and Reports no additional respiratory complaints Gastrointestinal: Reports as per HPI and Reports no additional gastrointestinal complaints Genitourinary: Reports no additional female genitourinary complaints Musculoskeletal: Reports no additional musculoskeletal complaints Skin/Breast: Reports system reviewed and no additional complaints, except as docu Psychiatric: Reports no additional psychiatric complaints Endocrine: Reports no additional endocrine complaints Hematologic/Lymphatic: Reports no additional hematologic/lymphatic complaints Allergic/Immunologic: Reports no additional allergic/immunologic complaints Reports system reviewed and no additional complaints, except as documented and Reports Abnormal speech present [facility] Past Medical History Medical History Diverticular disease Ulnar neuropathy Varicose vein of leg Hx of squamous cell carcinoma of skin Hx of osteoarthritis History of diverticulitis HTN (hypertension) Right inguinal hernia Surgical History History of colonoscopy H/O total hip arthroplasty Status post ORIF of fracture of ankle History of surgery on lower extremity Hx of excision of epidermal inclusion cyst Hx of arthroscopy of right knee Hx of arthroscopy of left knee Social History Social History Household Members: Spouse Housing: House Alcohol intake: current Alcohol intake frequency: a few times a week Patient Tobacco Use Status: Never used Tobacco Smoked in Last 30 Days: No Use of substances other than those prescribed or required for medical reasons: No Advance Directives: Yes Advance Directives Information Provided: No Advance Directives on File: No service: Yes Current occupational status: retired Physical Exam ED Vital Signs: Vital Signs - 24 hr 08/11/23 20:25 08/11/23 20:33 Temperature 99.8 F Pulse Rate 105 H 107 H Respiratory Rate 20 Blood Pressure 114/63 Pulse Oximetry 96 Oxygen Delivery Method Room Air BMI result Body Mass Index 28.5 Vital signs have been reviewed and appear to be correct. Blood pressure elevated. Heart rate elevated. Respiratory rate normal. Temperature normal. Oxygen saturation normal. Appearance: Alert. Oriented X3. No acute distress. Head: Normal external exam. Normocephalic. Atraumatic. No Tran signs noted. No raccoon eyes noted Eyes: PERRLA. EOMI. Conjunctiva and sclera normal. Eyelids normal. ENT: TM's Normal. Pharynx normal. Uvula midline. Moist mucous membranes. No trismus noted. No drooling noted. No muffled voice noted. Neck: Normal inspection. Neck supple. FROM. No adenopathy. Thyroid Normal. No meningeal signs. No neck mass noted. CVS: Normal heart rate and rhythm. Heart sound normal. No murmurs noted. Pulses normal throughout. Respiratory: No respiratory distress. Painless inspiration. Breath sounds normal. No wheezes/rales/rhonchi noted. Chest nontender. No accessory muscle usage noted or decreased air movement noted. Abdomen: Lower abdominal tenderness, no rebound tenderness, no guarding. Bowel sounds normal in all 4 quadrants. No distention noted. No organomegaly noted. No visible injury noted. Back: No CVA tenderness. Full range of motion noted. Skin: Skin warm and dry. Normal skin color. Normal skin turgor. No rashes/lesions/lacerations noted. Extremities: No lower extremity edema. Extremities exhibit normal range of motion. Extremities nontender. Neuro: Oriented X 3. Cranial nerve exam: II-XII are grossly intact No motor deficit. No sensory deficit. Reflexes normal. Course Reevaluation(s) Reevaluation #1: Sudden onset of chills, fever, nausea with abdominal pain all day today, patient had a history of diverticular disease in the past. Awaiting for CT result appears to be acute diverticulitis will cover the patient with Zosyn, signed out to dr. Mackey. Patient was initially tachycardic EKG showing sinus tachycardia no atrial fibrillation with unchanged from previous EKG. Time: 21:46 Medications Administered Discontinued Medications Generic Name Dose Route Start Last Admin Trade Name Freq PRN Reason Stop Dose Admin Sodium Chloride 1,000 mls @ 999 mls/hr 08/11/23 20:47 08/11/23 20:53 Ns IV 08/11/23 21:47 999 mls/hr .Q1H1M ONE Administration Medical Decision Making Differential Diagnosis Differential Diagnoses: The differential diagnosis associated with the presentation includes ( Acute diverticulitis, intra-abdominal abscesses, bowel perforation, sepsis, electrolyte abnormality, severe anemia, UTI.) Admission/Observation Consideration of admission/observation: Escalation of care including admission/observation considered Lab Data MDM Lab Attestation statement: I reviewed the patient's lab results. 08/11/23 20:31 08/11/23 20:31 Labs: Lab Results 08/11/23 08/11/23 Range/Units 20:31 20:33 WBC 9.7 (4.8-10.8) X10*3/uL RBC 4.81 (4.60-5.80) X10*6/uL Hgb 14.3 (14.0-18.0) g/dl Hct 42.4 (42.0-52.0) % MCV 88.1 (80.0-98.0) fL MCH 29.7 (27.0-33.0) pg MCHC 33.7 (31.0-36.0) g/dl RDW 11.9 (11.0-16.0) % Plt Count 179 (160-400) X10*3/uL MPV 8.6 L (9.4-12.4) fL Immature Gran % (Auto) 0.3 (0.0-0.4) % Neut % (Auto) 89.5 H (45-73) % Lymph % (Auto) 4.7 L (20-40) % [place] % (Auto) 5.0 (2-11) % Eos % (Auto) 0.2 (0-4) % Baso % (Auto) 0.3 (0-2) % Lymph # (Auto) 0.5 L (1.2-4.9) X10*3/uL [place] # (Auto) 0.5 (0.1-1.2) X10*3/uL Eos # (Auto) 0.0 (0.0-0.4) X10*3/uL Baso # (Auto) 0.0 (0.0-0.2) X10*3/uL Abs Immat Gran (auto) 0.03 (0.00-0.03) X10*3/uL Absolute Neuts (auto) 8.7 H (2.0-8.3) x10*3/uL Absolute Nucleated RBC 0.000 (0.0-0.012) X10*3/uL Nucleated RBC % (auto) 0.0 (0.0-0.2) /100WBC Sodium 140 (135-145) mmol/L Potassium 4.3 (3.3-5.1) mmol/L Chloride 109 H (96-108) mmol/L Carbon Dioxide 22 (22-29) mmol/L Anion Gap 13 (12-20) BUN 21 H (9-16) mg/dL Creatinine 0.75 (0.5-1.4) mg/dL Estim Creat Clear Calc 120.3 Estimated GFR > 60 Random Glucose 125 H (60-115) mg/dL Lactic Acid 1.2 (0.5-2.0) mmol/L Calcium 9.1 (8.4-10.2) mg/dL Total Bilirubin 0.7 (0.0-1.0) mg/dL Direct Bilirubin 0.3 (0.0-0.5) mg/dL AST 14 (5-37) U/L ALT 9 (0-40) U/L Alkaline Phosphatase 52 (39-117) U/L Troponin I High Sens 3.1 (<3.5-35.0) ng/L Total Protein 6.8 (6.5-8.0) g/dL Albumin 3.9 (3.5-5.0) g/dL Lipase 15 (8-78) U/L Independent Interpretation I performed an independent interpretation of an: EKG ( Sinus tachycardia at 110 beats per minutes, left axis deviation, RBBB, no change from previous EKG.) and CT Scan Discharge Plan Discharge Clinical Impression: Diverticulitis Patient Disposition: Admitted As Inpatient
[2023-08-11 20:50] LABS: Lactic Acid 1.2 mmol/L (0.5-2.0)
[2023-08-11 22:00] VITALS: BP 136/76; PULSE 91; RESP 18; TEMP 37.1; O2SAT 98
[2023-08-12 00:27] VITALS: BP 126/73; PULSE 83; RESP 16; TEMP 36.9; O2SAT 95
--- NOTE | 2023-08-12 00:57 | PC.NURSE ---
this rn helped pt ambulate to bathroom. pt ambulated with steady gait. pt denies dizziness and SOB.
== END 2023-08-12 01:30 | disposition home or self-care (01) ==
PROVIDERS: Emergency Provider Emergency Medicine; PCP Nurse Practitioner Family
DX: K57.32 Diverticulitis of large intestine without perforation or abscess without bleeding (principal); R10.30 Lower abdominal pain, unspecified; I10 Essential (primary) hypertension; R00.0 Tachycardia, unspecified; Z79.899 Other long term (current) drug therapy
CPT/HCPCS: 36415; 71045; 74176; 80053; 81003; 82248; 83605; 83690; 84484; 85025; 87040; 87205; 93005; 96361; 96365; 99284; 99285; J2543

== ENCOUNTER → 2023-08-24 14:43 | Outpatient (BNVA) | payer MEDICARE, BC, SELFPAY | PROVIDERS: PCP Nurse Practitioner Family; Visit Provider Surgery ==

== ENCOUNTER → 2023-08-28 15:07 | Outpatient (BNVA) | payer MEDICARE, BC, SELFPAY | PROVIDERS: PCP Nurse Practitioner Family; Visit Provider Surgery | DX: K57.90 Diverticulosis of intestine, part unspecified, without perforation or abscess without bleeding (principal) | CPT/HCPCS: 99212 ==

== ENCOUNTER 2023-08-28 15:30 | Outpatient (AMB) | payer MEDICARE, BC, SELFPAY ==
--- NOTE | 2023-08-28 15:08 | MHC.OFFVIS ---
Intake Vital Signs 08/28/23 15:21 Height 6 ft 5 in Weight 248 lb BMI 29.4 BP 127/68 Blood Pressure Location Rt brachial Position Sitting Pulse 84 Intake Visit Reasons: diverticulitis Intake Note: This patient presents for a follow-up assessment for diverticulitis. Patient c/o; reports no changes. Line Up Examiner Required: No Accompanied by: Self / Same As Patient Allergies No Known Allergies [No Known Allergies*] Allergy (Verified 08/28/23 15:22) Medication List - Last Reconciled 08/28/23 by Jose Rosen MD amlodipine 1 tab PO DAILY ibuprofen 600 mg PO Q6H PRN levofloxacin 500 mg PO DAILY metronidazole 500 mg PO BID ondansetron 4 mg PO Q6H PRN tamsulosin 0.4 mg PO DAILY HPI diverticulitis HPI Details He is here for follow-up for diverticular disease. He is also be set up for a Cologuard testing as he has had incomplete colonoscopy and does not want to repeat colonoscopy if if it is at all possible He says that he went to the ER on August 11 because of feeling clammy after a heavy meal. CT scan done because of history of diverticulitis and this showed some inflammatory mild inflammatory changes in the sigmoid. He was sent home from the ER on oral antibiotics He says that he has had no abdominal pain. He denies any problems with bowel movements. He says that he actually feels great overall. [facility] Medical History Diverticular disease Ulnar neuropathy Varicose vein of leg Hx of squamous cell carcinoma of skin Hx of osteoarthritis History of diverticulitis HTN (hypertension) Right inguinal hernia Surgical History History of colonoscopy H/O total hip arthroplasty Status post ORIF of fracture of ankle History of surgery on lower extremity Hx of excision of epidermal inclusion cyst Hx of arthroscopy of right knee Hx of arthroscopy of left knee Social History Household Members: Spouse Housing: House Alcohol intake: current Alcohol intake frequency: a few times a week Patient Tobacco Use Status: Never used Tobacco service: Yes Current occupational status: retired Review of Systems Const Denies chills and Denies fever(s) Card Denies chest pain, Denies dyspnea and Denies dyspnea on exertion Resp Denies cough, Denies dyspnea and Denies dyspnea on exertion GI Denies hematochezia and Denies change in bowel habits Denies hematuria and Denies difficulty urinating Musc Denies back pain and Denies limited range of motion Neuro Denies focal weakness and Denies convulsions Psych Denies depression and Denies mood swings Physical Exam Vital Signs: Last Vital Signs Pulse 84 08/28/23 15:21 BP 127/68 08/28/23 15:21 BMI result Body Mass Index 29.4 Const General: comfortable and no acute distress Orientation/consciousness: patient oriented x3 Neck Neck: Yes no lymphadenopathy Resp Auscultation: clear to auscultation bilaterally Cardio Rhythm: regular rhythm GI Palpation (GI): Soft to palpation, nontender and no guarding Neuro General: patient oriented x3 Assessment & Plan Assessment & Plan (1) Diverticular disease: Code(s): K57.90 - Diverticulosis of intestine, part unspecified, without perforation or abscess without bleeding Plan: He was ER because of feeling cold and clammy after a heavy meal in a restaurant last 08/11/2023. He was ruled out for a cardiac event. He had a CAT scan as well because of his history and this did show some mild inflammatory changes in the sigmoid suggestive of diverticulitis He actually says that he has had no abdominal pain. He says that this was this 1st episode of diverticulitis after being admitted to the hospital over a year ago. He feels well overall. He says he actually continues to play golf and was coming from the golf course this morning He is interested in Cologuard testing as he does not want to repeat his colonoscopy. I explained this to him and we will arrange this for him. I will see him again in the office after his Cologuard test. Coding Level of Care Code Est Pt Level 3 (89600) Diagnoses Diverticular disease K57.90
[2023-08-28 15:21] VITALS: BP 127/68; PULSE 84; BMI 29.4
== END 2023-08-28 15:33 | disposition home or self-care (01) ==
PROVIDERS: PCP Nurse Practitioner Family; Visit Provider Surgery
DX: K57.90 Diverticulosis of intestine, part unspecified, without perforation or abscess without bleeding (principal)
CPT/HCPCS: 99213

== ENCOUNTER 2024-08-14 15:26 | Emergency (ER) | payer MEDICARE, BC, SELFPAY ==
--- NOTE | ~2024-08-14 | CT_ITS ---
EXAMINATION: CT ABDOMEN AND PELVIS WITHOUT IV CONTRAST CLINICAL INFORMATION: Left flank pain COMPARISON: CT abdomen/pelvis August 11, 2023 TECHNIQUE: Multiple axial images were obtained from the superior aspect of the liver through the pubic symphysis without intravenous contrast. Images were evaluated on independent dedicated 3-D workstation and 3-D images were reconstructed with concurrent radiologist supervision and subsequently interpreted. Oral contrast was not administered. This CT examination was performed using dose optimization techniques as appropriate, variously including the following: *Automated exposure control *Adjustment of mA and/or kV according to patient size (this includes techniques or standardized protocols for targeted exams where dose is matched to indication/reason for exam; i.e. extremities or head) *Use of iterative reconstruction technique DLP: 751 mGy-cm FINDINGS: LUNG BASES: The visualized lung bases are clear. CARDIOMEDIASTINUM: The visualized heart is normal in size without pericardial effusion. No coronary artery calcification. LIVER: Homogeneous in attenuation. Normal in size. GALLBLADDER: Noninflamed. BILIARY SYSTEM: No intrahepatic or extrahepatic biliary dilation. PANCREAS: Homogeneous in attenuation. SPLEEN: Normal in size. GENITOURINARY: No contour deforming masses. Multiple right parapelvic cysts the largest measuring 2.6 cm. No perinephric fluid collection. 3 mm left ureterovesicular junction calculus with upstream hydroureteronephrosis. Right ureterovesicular junction is not well evaluated due to streak artifact from right hip arthroplasty. No hydroureteronephrosis. ADRENAL GLANDS: Mild asymmetric fat stranding surrounding the right adrenal leaflet, nonspecific. No contour deforming masses. REPRODUCTIVE: Prostamegaly. GASTROINTESTINAL: Circumferential wall thickening of the sigmoid colon with surrounding fat stranding, consistent with diverticulitis in the setting of associated diverticular disease. No evidence of obstruction. The visualized alimentary tract is normal in course. No evidence of obstruction. APPENDIX: The appendix is seen in its entirety and is unremarkable. PERITONEUM: No pneumoperitoneum. Stable redemonstration of haziness within the central mesentery. No intra-abdominal fluid collection. VASCULATURE: No abdominal aortic aneurysm. LYMPH NODES: No pathologically enlarged abdominal or pelvic lymph nodes. SOFT TISSUES/MUSCULOSKELETAL: Bilateral fat-containing inguinal hernias. Diastases rectus. Multilevel degenerative changes throughout the lumbar spine, worst at L1-2. Small 2.1 cm hemangioma versus intraosseous cyst within the L4 vertebral body. Right hip arthroplasty intact without complication. No acute fractures or focal osseous lesions. CT/CT abdomen pelvis wo IV con IMPRESSION: 1. Obstructing 3 mm left ureterovesicular junction (UVJ) calculus resulting in mild upstream hydroureteronephrosis. 2. Sigmoid diverticulitis without perforation or fluid collection. This is likely chronic in etiology given similar appearance of this on prior study in 2022. Therefore, an underlying colonic lesion/neoplasm should be excluded via colonoscopy. Fleischner guidelines were followed. Electronically signed by: Reno Garcia DO 08/14/2024 07:11 PM EDT
[2024-08-14 15:30] VITALS: BP 137/77; PULSE 80; RESP 18; TEMP 36.7; O2SAT 99; BMI 29.0
--- NOTE | 2024-08-14 15:40 | ED.MALEGU ---
HPI - Male Genitourinary General Chief complaint: Urogenital-Male Stated complaint: ?kidney stones, flank pain, dry heqaving Time Seen by Provider: 08/14/24 19:23 Source: patient Mode of arrival: ambulatory Limitations: no limitations History of Present Illness ED Provider: cedric CHUNG Narrative: Patient's history of remote kidney stone was about 15 years ago comes here for sudden onset of pain since afternoon today to the left flank area with nausea and vomiting no hematuria no dysuria no fever no chills Related Data Home Medications ?Medication ?Instructions ?Recorded ?Confirmed amlodipine 2.5 mg tablet 1 tab PO DAILY 05/05/22 08/28/23 tamsulosin 0.4 mg capsule 0.4 mg PO DAILY 07/20/22 08/28/23 Previous Rx's ?Medication ?Instructions ?Recorded ibuprofen 600 mg tablet 600 mg PO Q6H PRN fever #30 tabs 09/09/22 levofloxacin 500 mg tablet 500 mg PO DAILY #9 tabs 08/12/23 metronidazole 500 mg tablet 500 mg PO BID #19 tabs 08/12/23 ondansetron 4 mg disintegrating 4 mg PO Q6H PRN nausea and 08/12/23 tablet vomiting #10 tabs oxycodone-acetaminophen 5 mg-325 1 tab PO Q6H PRN pain #20 tabs 08/14/24 mg tablet (Percocet) tamsulosin 0.4 mg capsule (Flomax) 0.4 mg PO BEDTIME #7 caps 08/14/24 Allergies Allergy/AdvReac Type Severity Reaction Status Date / Time No Known Allergies Allergy Verified 08/14/24 15:32 [No Known Allergies*] Review of Systems Review of Systems: Yes all other systems are reviewed and are negative PMFSH Past Medical History Attestation statement: The following information was validated with the patient. Medical History Diverticular disease Ulnar neuropathy Varicose vein of leg Hx of squamous cell carcinoma of skin Hx of osteoarthritis History of diverticulitis HTN (hypertension) Right inguinal hernia Surgical History History of colonoscopy H/O total hip arthroplasty Status post ORIF of fracture of ankle History of surgery on lower extremity Hx of excision of epidermal inclusion cyst Hx of arthroscopy of right knee Hx of arthroscopy of left knee Social History Social History Household Members: Spouse Housing: House Alcohol intake: current Alcohol intake frequency: holidays/special occasions only Patient Tobacco Use Status: Never used Tobacco Smoked in Last 30 Days: No Use of substances other than those prescribed or required for medical reasons: No Advance Directives: No Advance Directives Information Provided: No service: Yes Current occupational status: retired Physical Exam Vital Signs: Vital Signs: Last Vital Signs Temp 98.3 F 08/14/24 22:41 Pulse 71 08/14/24 22:41 Resp 17 08/14/24 22:41 BP 146/81 H 08/14/24 22:41 Pulse Ox 98 08/14/24 22:41 O2 Del Method Room Air 08/14/24 22:41 BMI result Body Mass Index 29.0 Appearance: Alert. Oriented X3. No acute distress. Eyes: No pallor or icterus ENT: Pharynx normal. Oral Mucosa moist Neck: Normal inspection. Neck supple. CVS: Normal heart rate and rhythm. Pulses normal. Respiratory: No respiratory distress. Equal air entry bilateral, no wheezing/rales/rhonchi Abdomen: Soft and nontender. Bowel sounds are present, no mass palpable, L CVA tenderness + Skin: Skin warm and dry. Normal skin color. Normal skin turgor. Extremities: No lower extremity edema. No calf tenderness Neuro: Oriented X 3. Course Course Course Narrative: RME. DOne by COURTNEY Leyva. 74-year-old male history of kidney stones presents to ED for left flank pain starting an hour ago. Patient states starting to feel better. Positive for CVA and flanks on palpation. Labs CT ordered. Medications Administered Discontinued Medications Generic Name Dose Route Start Last Admin Trade Name Freq PRN Reason Stop Dose Admin Sodium Chloride 1,000 mls @ 999 mls/hr 08/14/24 19:28 08/14/24 20:19 Ns IV 08/14/24 20:28 999 mls/hr .Q1H1M ONE Administration Ketorolac Tromethamine 30 mg 08/14/24 19:28 08/14/24 20:16 Ketorolac Tromethamine 30 Mg/Ml Vial IVPUSH 08/14/24 19:29 30 mg ONCE ONE Administration Morphine Sulfate 4 mg 08/14/24 19:28 08/14/24 20:17 Morphine Sulfate 4 Mg/Ml Cartridge IVPUSH 08/14/24 19:29 4 mg ONCE ONE Administration Protocol Ondansetron HCl 4 mg 08/14/24 19:28 08/14/24 20:15 Ondansetron Hcl 4 Mg/2 Ml Vial IVPUSH 08/14/24 19:29 4 mg ONCE ONE Administration Tamsulosin HCl 0.4 mg 08/14/24 19:30 08/14/24 20:14 Tamsulosin Hcl 0.4 Mg Capsule PO 08/14/24 19:31 0.4 mg ONCE ONE Administration Medical Decision Making Medical Decision Making [facility] Narrative: Patient's obstructive left ureterovesicular junction stone 3 mm in size responded to pain medication at this time patient denied any pain will discharge patient pain advised to follow up with urologist Lab Data [facility] Lab Attestation statement: I reviewed the patient's lab results. 08/14/24 17:24 08/14/24 17:24 Labs: Lab Results 08/14/24 08/14/24 Range/Units 17:24 17:41 WBC 7.3 (4.8-10.8) X10*3/uL RBC 4.69 (4.60-5.80) X10*6/uL Hgb 14.5 (14.0-18.0) g/dl Hct 42.5 (42.0-52.0) % MCV 90.6 (80.0-98.0) fL MCH 30.9 (27.0-33.0) pg MCHC 34.1 (31.0-36.0) g/dl RDW 12.3 (11.0-16.0) % Plt Count 203 (160-400) X10*3/uL MPV 8.6 L (9.4-12.4) fL Immature Gran % (Auto) 0.3 (0.0-0.4) % Neut % (Auto) 68.2 (45-73) % Lymph % (Auto) 20.0 (20-40) % [place] % (Auto) 9.7 (2-11) % Eos % (Auto) 1.5 (0-4) % Baso % (Auto) 0.3 (0-2) % Lymph # (Auto) 1.5 (1.2-4.9) X10*3/uL [place] # (Auto) 0.7 (0.1-1.2) X10*3/uL Eos # (Auto) 0.1 (0.0-0.4) X10*3/uL Baso # (Auto) 0.0 (0.0-0.2) X10*3/uL Abs Immat Gran (auto) 0.02 (0.00-0.03) X10*3/uL Absolute Neuts (auto) 5.0 (2.0-8.3) x10*3/uL Absolute Nucleated RBC 0.000 (0.0-0.012) X10*3/uL Nucleated RBC % (auto) 0.0 (0.0-0.2) /100WBC Sodium 142 (135-145) mmol/L Potassium 4.5 (3.3-5.1) mmol/L Chloride 108 (96-108) mmol/L Carbon Dioxide 27 (22-29) mmol/L Anion Gap 12 (12-20) BUN 18 H (9-16) mg/dL Creatinine 1.16 (0.5-1.4) mg/dL Estim Creat Clear Calc 77.3 Estimated GFR > 60 Random Glucose 103 (60-115) mg/dL Calcium 9.1 (8.4-10.2) mg/dL Total Bilirubin 0.6 (0.0-1.0) mg/dL AST 15 (5-37) U/L ALT 14 (0-40) U/L Alkaline Phosphatase 52 (39-117) U/L Total Protein 7.0 (6.5-8.0) g/dL Albumin 4.0 (3.5-5.0) g/dL Urine Color Yellow Urine Appearance Cloudy Urine pH 5.5 (5.0-9.0) Ur Specific [place] 1.015 (1.005-1.025) Urine Protein Trace (Neg-Trace) mg/dL Urine Glucose (UA) Negative (Negative) mg/dL Urine Ketones Trace (Negative) mg/dL Urine Blood Large (3+) H (Negative) Urine Nitrite Negative (Negative) Ur Leukocyte Esterase Trace H (Negative) Urine RBC >20 H (0-2) /HPF Urine WBC 0-5 (0-5) /HPF Ur Squamous Epith Cells 0-2 (0-2) /HPF Urine Bacteria None Seen (None Seen) Hyaline Casts 0-2 (0-2) /LPF Independent Interpretation I performed an independent interpretation of an: CT Scan Radiology Impression Discussion of test interpretation with radiology: I have reviewed the radiologist's reading. Radiologist Impression: CT/CT abdomen pelvis wo IV con IMPRESSION: 1. Obstructing 3 mm left ureterovesicular junction (UVJ) calculus resulting in mild upstream hydroureteronephrosis. 2. Sigmoid diverticulitis without perforation or fluid collection. This is likely chronic in etiology given similar appearance of this on prior study in 2022. Therefore, an underlying colonic lesion/neoplasm should be excluded via colonoscopy. Fleischner guidelines were followed. Electronically signed by: Reno Garcia DO 08/14/2024 07:11 PM EDT RP Discharge Plan Discharge Clinical Impression: Calculus of distal left ureter Patient Disposition: Home, Self-Care Instructions: Low Oxalate Diet (ED), Ureteral Stones (ED) Additional Instructions: Drink plenty of fluids Pain medication and Flomax as prescribed till you pass the stone Report to the ER if worsening of the pain Follow with urologist Prescriptions: New tamsulosin [Flomax] 0.4 mg capsule 0.4 mg PO BEDTIME Qty: 7 0RF oxycodone-acetaminophen [Percocet] 5-325 mg tablet 1 tab PO Q6H PRN (Reason: pain) Qty: 20 0RF Rx Instructions: Partial Fill upon patient request. No Action amlodipine 2.5 mg tablet 1 tab PO DAILY ibuprofen 600 mg tablet 600 mg PO Q6H PRN (Reason: fever) Qty: 30 0RF levofloxacin 500 mg tablet 500 mg PO DAILY Qty: 9 0RF metronidazole 500 mg tablet 500 mg PO BID Qty: 19 0RF ondansetron 4 mg tablet,disintegrating 4 mg PO Q6H PRN (Reason: nausea and vomiting) Qty: 10 0RF tamsulosin 0.4 mg capsule 0.4 mg PO DAILY Referrals: Pablito Rae MD [Physician] - Interventions: ED Discharge Assessment Last Done: 08/14/24 22:41 Discharge Date/Time: 08/14/24 22:48 Print Language: Sami
[2024-08-14 17:30] LABS: MANUAL DIFF FLAG NO
[2024-08-14 17:31] LABS: Basophils Percent Auto 0.3 % (0-2); Eosinophils Absolute Auto 0.1 X10*3/uL (0.0-0.4); Eosinophils Percent Auto 1.5 % (0-4); Hematocrit 42.5 % (42.0-52.0); Hemoglobin 14.5 g/dl (14.0-18.0); Imm Gran Abs Auto 0.02 X10*3/uL (0.00-0.03); Imm Gran Pct Auto 0.3 % (0.0-0.4); Lymphocytes Absolute Auto 1.5 X10*3/uL (1.2-4.9); Mean Corpuscular HGB Conc 34.1 g/dl (31.0-36.0); Mean Corpuscular Hemoglobin 30.9 pg (27.0-33.0); Mean Corpuscular Volume 90.6 fL (80.0-98.0); Mean Platelet Volume 8.6 fL (9.4-12.4); Monocytes Absolute Auto 0.7 X10*3/uL (0.1-1.2); Monocytes Percent Auto 9.7 % (2-11); Neutrophils Percent Auto 68.2 % (45-73); Platelet Count 203 X10*3/uL (160-400); Red Blood Count 4.69 X10*6/uL (4.60-5.80); Red Cell Distribution Width 12.3 % (11.0-16.0); White Blood Count 7.3 X10*3/uL (4.8-10.8)
[2024-08-14 17:47] LABS: Alanine Aminotransferase 14 U/L (0-40); Alkaline Phosphatase 52 U/L (39-117); Anion Gap 12 (12-20); Aspartate Amino Transferase 15 U/L (5-37); Bilirubin Total 0.6 mg/dL (0.0-1.0); Blood Urea Nitrogen 18 mg/dL (9-16); Calcium 9.1 mg/dL (8.4-10.2); Carbon Dioxide 27 mmol/L (22-29); Chloride 108 mmol/L (96-108); Creatinine Clr Calc Pharmacy 77.3; Estimated Glomerular Filt Rate > 60; Glucose Random 103 mg/dL (60-115); Potassium 4.5 mmol/L (3.3-5.1); Sodium 142 mmol/L (135-145)
[2024-08-14 18:00] LABS: Appearance Urine Cloudy; Color Urine Yellow; Glucose Urine UA Negative (Negative); Leukocyte Esterase Urine Trace (Negative); Nitrite Urine Negative (Negative); PH 5.5 (5.0-9.0); Specific Gravity - Urine 1.015 (1.005-1.025); UMIC TRIGGER UACC YES; Urine Blood Large (3+) (Negative); Urine Ketones Trace mg/dL (Negative); Urine Protein Trace mg/dL (Neg-Trace)
[2024-08-14 18:06] LABS: Bacteria Urine None Seen (None Seen); Hyaline Casts Urine 0-2 /LPF (0-2); RBC Urine >20 /HPF (0-2); Squamous Epithelial Cell Urine 0-2 /HPF (0-2); WBC Urine 0-5 /HPF (0-5)
[2024-08-14 20:09] VITALS: BP 146/81; PULSE 71; RESP 17; TEMP 36.8; O2SAT 98
[2024-08-14] MEDS: Tamsulosin HCL 0.4 MG CAPSULE PO (20:14)
[2024-08-14] MEDS: ondansetron HCL 4 MG/2 ML VIAL IVPUSH (20:15)
[2024-08-14] MEDS: Ketorolac Tromethamine 30 MG/ML VIAL IVPUSH (20:16)
[2024-08-14] MEDS: Morphine Sulfate 4 MG/ML CARTRIDGE IVPUSH (20:17)
[2024-08-14] MEDS: 0.9 % Sodium Chloride 1,000 ML 999 ML IV (20:19)
--- NOTE | 2024-08-14 20:21 | PC.NURSE ---
Pt a&ox4, no signs of distress Pt reports 5/10 left flank pain IV placed. Pts at bedside Pt medicated per mar Pt denies med allergy Plan of care ongoing.
[2024-08-14 21:40] VITALS: RESP 12
[2024-08-14 22:41] VITALS: BP 146/81; PULSE 71; RESP 17; TEMP 36.8; O2SAT 98
== END 2024-08-14 22:48 | disposition home or self-care (01) ==
PROVIDERS: Emergency Provider Internal Medicine; PCP Family Medicine
DX: N13.2 Hydronephrosis with renal and ureteral calculous obstruction (principal); Z87.442 Personal history of urinary calculi
CPT/HCPCS: 36415; 74176; 80053; 81001; 85025; 96374; 96375; 99284; 99285; J1885; J2270; J2405

== ENCOUNTER 2025-07-03 15:24 | Outpatient (AMB) | payer MEDICARE, BC, SELFPAY ==
[2025-07-03 15:31] VITALS: BP 142/77; PULSE 44
--- NOTE | 2025-07-03 15:31 | MHC.OFFVIS ---
Vital Signs 07/03/25 15:31 Weight 244 lb BP 142/77 H Blood Pressure Location Rt brachial Position Sitting Pulse 44 L Intake Visit Reasons: cologuard vs colonoscope with diff. prep Intake Note: Patient here to discuss colonoscopy. Cologuard was 08-29-2024. Box Lidder Required: No Accompanied by: Self / Same As Patient Allergies No Known Allergies (No Known Allergies*) Allergy (Verified 07/03/25 15:32) Medication List - Last Reconciled 07/03/25 by Jose Rosen MD amlodipine 1 tab PO DAILY ibuprofen 600 mg PO Q6H PRN ondansetron 4 mg PO Q6H PRN tamsulosin (Flomax) 0.4 mg PO BEDTIME tamsulosin 0.4 mg PO DAILY HPI HPI cologuard vs colonoscope with diff. prep: Details: He is here for follow-up for a previously planned Cologuard testing. He had an incomplete colonoscopy in 2021 because of severe diverticulosis of the sigmoid with her bowel prep at that time. He did not want to repeat his colonoscopy and in 2022, I had prescribed him Cologuard for screening. However, he says he did not do this as he procrastinated then. He says he is ready to proceed with Cologuard testing now He denies new GI complaints. He does have this occasional bloating. Denies any bleeding per rectum. Denies any changes with his bowel habits. He has had no recent episodes of acute diverticulitis. He denies any weight loss. COUNT INCLUDES THE [facility] Medical History (Updated 07/03/25 @ 15:56 by Jose Rosen MD) Encounter for colorectal cancer screening using Cologuard test Diverticular disease Ulnar neuropathy Varicose vein of leg Hx of squamous cell carcinoma of skin Hx of osteoarthritis History of diverticulitis HTN (hypertension) Right inguinal hernia Surgical History History of colonoscopy H/O total hip arthroplasty Status post ORIF of fracture of ankle History of surgery on lower extremity Hx of excision of epidermal inclusion cyst Hx of arthroscopy of right knee Hx of arthroscopy of left knee Social History Household Members: Spouse Housing: House Alcohol intake: current Alcohol intake frequency: holidays/special occasions only Patient Tobacco Use Status: Never used Tobacco service: Yes Current occupational status: retired Review of Systems Const Denies chills and Denies fever(s) Card Denies chest pain, Denies dyspnea and Denies dyspnea on exertion Resp Denies cough, Denies dyspnea and Denies dyspnea on exertion GI Denies hematochezia and Denies change in bowel habits Denies hematuria and Denies difficulty urinating Musc Denies back pain and Denies limited range of motion Neuro Denies focal weakness and Denies convulsions Psych Denies depression and Denies mood swings Physical Exam Vital Signs: Last Vital Signs Pulse 44 L 07/03/25 15:31 BP 142/77 H 07/03/25 15:31 Const General: comfortable and no acute distress Orientation/consciousness: patient oriented x3 Neck Neck: Yes no lymphadenopathy Resp Auscultation: clear to auscultation bilaterally Cardio Rhythm: regular rhythm GI Palpation (GI): Soft to palpation, nontender and no guarding Neuro General: patient oriented x3 Assessment & Plan Assessment & Plan (1) Encounter for colorectal cancer screening using Cologuard test: Code(s): Z12.11 - Encounter for screening for malignant neoplasm of colon; Z12.12 - Encounter for screening for malignant neoplasm of rectum Category: Medical Plan: He now wants to proceed with Cologuard testing. He did not go ahead with this when I prescribed this to him 2 years ago. He does not want to have a repeat attempt at colonoscopy. He denies any significant GI complaints. He says he feels well overall I explained to him of the Cologuard test is done and I have prescribed this to him. I will call him about the results after he does this. He seemed to have a good understanding of the above. Orders: Orders AMB Cologuard Today Z12.11 - Encounter for screening for malignant neoplasm of colon, Z12.12 - Encounter for screening for malignant neoplasm of rectum Coding Level of Care Code Est Pt Level 3 (81761) Diagnoses Encounter for colorectal cancer screening using Cologuard test Z12.11; Z12.12
--- OUTSIDE RECORDS SUMMARY | 2025-07-03 15:53 | XMS_ITS | Clinical Summary ---
Author Organization [facility] Address [address] [id number] Phone Care Team Providers Care Label Printer Name Role Phone Sridevi Elizabeth NP Primary Care Provider Allergies No known active allergies Medications amLODIPine (NORVASC) 2.5 MG tablet Take 2.5 mg by mouth daily. 04/13/2021 Active Active Problems Problem Noted Date Diagnosed Date Diverticulosis 04/17/2019 Essential hypertension 01/30/2019 Social History Tobacco Use Types Packs/Day Years Used Date Smoking Tobacco: Never Smokeless Tobacco: Never Tobacco Cessation:Counseling Given: Yes Education Answer Date Recorded Are you interested in more education? Not on vish e 03/04/2023 Are you concerned about learning? Not on file 03/04/2023 No 03/04/2023 No 03/04/2023 Digital Access Answer Date Recorded No 04/02/2023 No 04/02/2023 No 04/02/2023 Reliable internet access at home? Not on file 04/02/2023 Device with a working camera? Not on file Sex and Gender Information Value Date Recorded Sex Assigned at Not on file Legal Sex Male 11:57 AM EST Gender Identity Not on file Sexual Orientation Not on file Last Filed Vital Signs Vital Sign Reading Time Taken Comments Blood Pressure 135/90 10/02/2021 12:18 PM EST Pulse 93 10/02/2021 12:18 PM EST Temperature 36.1 C (97 F) 10/02/2021 12:18 PM EST Respiratory Rate 20 10/02/2021 12:18 PM EST Oxygen Saturation 96% 10/02/2021 12:18 PM EST Inhaled Oxygen Concentration - - Weight 113.4 kg (250 lb) 10/02/2021 12:18 PM EST Height 195.6 cm (6' 5 ) 10/02/2021 12:18 PM EST Body Mass Index 29.65 10/02/2021 12:18 PM EST Plan of Treatment Health Maintenance Due Date Last Done Comments BLOOD PRESSURE 1950 LIPID PANEL 1950 DEPRESSION SCREENING 1962 HEPATITIS C SCREENING 01/09/1968 COLOGUARD 1995 COLONOSCOPY 1995 COLORECTAL CANCER SCREENING 1995 FIT TEST 1995 FOBT 1995 SIGMOIDOSCOPY 1995 VIRTUAL COLONOSCOPY 1995 ZOSTER VACCINES (2 of 3) 10/20/2015 08/25/2015 COVID-19 VACCINE (3 - 2023-2 5 season) 2024 01/14/2021, 12/17/2020 RSV VACCINE (1 - 1-dose 75+ series) 2025 Adult Td,Tdap Booster 03/20/2029 03/20/2019 PNEUMOCOCCAL VACCINES (50+ years) Completed 07/16/2020, 03/20/2019, 10/21/2017 SMOKING STATUS SCREENING (On ce After 26 Yrs) Completed 10/02/2021 HEPATITIS A VACCINES Aged Out No long er eligible based on patient's age to complete this topic HIB VACCINES Aged Out No longer eligi ble based on patient's age to complete this topic MENINGOCOCCAL VACCINES (ACWY) Aged Out No longer eligible based on patient's age to complete this topic MENINGOCOCCAL VACCINES (B) Aged Out N o longer eligible based on patient's age to complete this topic Medical Devices Not on file Insurance [facility] FEDERAL MEDICARE PART A & B [facility] MEDICARE PART A & B [facility] MEDICARE PART A & B MEDICARE PART A & B [facility] MEDICARE PART A & B [place] [id number] [facility] MEDICARE PART A & [place] [address] [facility] MEDICARE PART A & B [facility] MEDICARE PART A & B [facility] MEDICARE PART A & B Care Teams Label Printer Relationship Specialty Start Date End Date Sridevi Elizabeth NP [address] [place] [address] Dr MACIAS HOPE [facility] [id number] [email or web address] PCP - General Family Medicine 10/02/21 Additional Source Comments The information contained in this document represents components of the legal health record. It is not the complete legal health record.[facility]
--- OUTSIDE RECORDS SUMMARY | 2025-07-03 15:53 | XMS_ITS | Clinical Summary ---
Author Organization [address] Address [address] [address] Phone Care Team Providers Care Cab Station Attendant Name Role Phone Luis Felipe Cardenas DO Primary Care Provider [phone] Allergies No known active allergies Medications polyethylene glycol (MIRALAX) 17 gram packet Take 17 g by mouth 1 (one) time each day. 05/11/20 22 Active amLODIPine (NORVASC) 2.5 mg tabletIndication s:Essential hypertension Take 1 tablet (2.5 mg total) by mouth 1 (one) time each day. 90 each 1 06/18/20 25 026 Active tamsulosin (FLOMAX) 0.4 mg 24 hr capsuleIndicatio ns:Benign prostatic hyperplasia, unspecified whether lower urinary tract symptoms present Take 2 capsules (0.8 mg total) by mouth 1 (one) time each day. 180 each 3 06/18/20 25 026 Active tamsulosin (FLOMAX) 0.4 mg 24 hr capsuleIndicatio ns:Benign prostatic hyperplasia, unspecified whether lower urinary tract symptoms present Take 1 capsule (0.4 mg total) by mouth 1 (one) time each day. 90 each 3 11/07/19 25 025 Discontinued amLODIPine (NORVASC) 2.5 mg tabletIndication s:Essential hypertension Take 1 tablet (2.5 mg total) by mouth 1 (one) time each day. 90 each 04/03/20 25 08/13/2 025 Discontinued(Re order) Active Problems Problem Noted Date Diagnosed Date Constipation 05/11/2022 Diverticulitis 05/11/2022 Overview (07/18/2024): being treated since May 03 2022 - early May- required admittion due to bowel perforation Perforation bowel ([facility] V24, [facility] V28) 04/2022 Overview (07/18/2024): May 05 2022 -self healed saida admit abx , NPO Diverticulosis 04/17/2019 Assessment & Plan (06/18/2025 3:55 PM EDT): Pt to f/u with colorectal surgery Essential hypertension 01/30/2019 Assessment & Plan (06/18/2025 3:55 PM EDT): Chronic. Established. Pt at goal Bp of less than 140/90. Pt to continue amlodipine. Orders: amLODIPine (NORVASC) 2.5 mg tablet; Take 1 tablet (2.5 mg total) by mouth 1 (one) time each day. Encounters Date Type Department Care Team Description 06/18/2025 3:30 PM EDT Office Visit Internal Medicine - [address] [phone] Luis Felipe Cardenas, Encounter for annual wellness visit (AWV) in Medicare patient (Primary Dx); Elevated PSA; Mixed hyperlipidemia; Elevated hemoglobin A1c; Other fatigue; Benign prostatic hyperplasia, unspecified whether lower urinary tract symptoms present; Essential hypertension; Diverticulosis; ACP (advance care planning) from Last 3 Months Immunizations Name Administration Dates Next Due Influenza Quadravalent, 0.5m l (Fluzone High-dose) 65yo and older 09/06/2023,08/18/2020 Moderna SARS-CoV-2 COVID-19, mRNA, LNP-S, preservative free 01/14/2021,12/17/2020 Pneumococcal conjugate 13 va lent (Prevnar 13, PCV13) 2mo and older 03/20/2019,10/21/2017 Pneumococcal polysaccharide 23 valent (Pneumovax 23) 2yo and older 07/16/2020 Respiratory syncytial virus (RSV) vaccine, unspe cified 08/12/2024 Tdap Tetanus diptheria acell ular pertussis (Boostrix; Adacel) 7yo and older 03/20/2019 Zoster Live 08/25/2015 Surgical History Surgery Date Site/Laterality Comments TOTAL HIP ARTHROPLASTY 04/18/2011 Right PROCEDURE:TOTAL HIP ARTHROPLASTY OTHER SURGICAL HISTORY 04/2011 PROCEDURE:Laser ablation of saphenous vein the left OTHER SURGICAL HISTORY 1997 PROCEDURE:Arthroscopic surgery right knee OTHER SURGICAL HISTORY 1992 PROCEDURE:Arthroscopic surgery left knee OTHER SURGICAL HISTORY 1994 PROCEDURE:ORIF right ankle fracture COLONOSCOPY PROCEDURE:COLONOSCOPY OTHER SURGICAL HISTORY 10/2019 Right PROCEDURE:Excision of Epidermal cyst;COMMENT:Rt Elbow Medical History Medical History Date Comments Osteoarthritis DX:Osteoarthriti s;COMMENT:S/P total right hip replacement 04/2011 Varicose vein of leg DX:Varicose vein of leg Nocturia DX:Nocturia Diverticulitis large intestine D X:Diverticulitis large intestine;COMMENT:Hospitalized: 2001, 10/2016 with abscess, 11/2016, 01/2017 Impaired fasting glucose DX:Impa ired fasting glucose;COMMENT:07/2020: A1c 6.1 Screening for colon cancer DX:Sc reening for colon cancer;COMMENT:Colonoscopy: Squamous cell skin cancer DX:Squ amous cell skin cancer Ulnar neuropathy DX:Ulnar neurop athy;COMMENT:left hand Hypertension 03/2019 DX:Hypertension Skin abscess 05/2019 DX:Skin abscess; COMMENT:Rt forearm Family History Medical History Relation Name Comments Lung cancer Father Breast cancer Mother Coronary artery disease Mother Diabetes Mother No Known Problems Son 1 No Known Problems Son 2 No Known Problems Son 3 Relation Name Status Comments Brother Alive Father (Age 62) Maternal Grandfather Maternal Grandmother Mother (Age 78) Paternal Grandfather Paternal Grandmother Son 1 Alive Son 2 Alive Son 3 Alive Social History Tobacco Use Types Packs/Day Years Used Date Smoking Tobacco: Never Smokeless Tobacco: Never Alcohol Use Standard Drinks/Week Comments Yes 8 (1 standard drink = 0.6 oz pur e alcohol) Sex and Gender Information Value Date Recorded Sex Assigned at Not on file Legal Sex Male 11:39 PM EST Gender Identity Not on file Sexual Orientation Not on file Obstetrics History Last Filed Vital Signs Vital Sign Reading Time Taken Comments Blood Pressure 129/82 06/18/2025 3:25 PM EDT Pulse 80 06/18/2025 3:25 PM EDT Temperature 37.1 C (98.7 F) 06/18/2025 3:25 PM EDT Respiratory Rate - - Oxygen Saturation 97% 06/18/2025 3:25 PM EDT Inhaled Oxygen Concentration - - Weight 112 kg (245 lb 14.4 oz) 06/18/2025 3:25 P M EDT Height 182.9 cm (6') 06/18/2025 3:25 PM EDT Body Mass Index 33.35 06/18/2025 3:25 PM EDT Plan of Treatment Upcoming Encounters Date Type Department Care Team (Late st Contact Info) Description 10/22/2025 2:30 PM EST Office Visit Internal Medicine - [place] [address] [place] [address] Luis Felipe Cardenas, [address] [place] [address] 06/23/2026 3:30 PM EDT Office Visit Internal Medicine - [place] [address] [place] [address] Luis Felipe Cardenas, [address] [place] [address] Health Maintenance Due Date Last Done Comments Zoster Vaccines (1 of 2) 10/20/2015 08/25/2015 COVID-19 Vaccine (3 - Moderna risk series) 02/11/2021 01/14/2021, 12/17/2020 Hepatitis C Screening 10/14/2022 Social Influencers of Health Screening 10/14/2022 RSV Immunization Adult Patients (1 - 1-dose 75+ series) 2025 08/12/2024 Influenza Vaccine (#1) 2025 09/06/2023, 2019 Falls Risk Assessment 06/18/2026 06/18/2025, 023 Medicare Annual Wellness Visit 06/18/2026 06/18/2025 Hypertension/CHF/CAD Annual BMP Blood Test 07/02/2026 07/02/2025, 12/23/2022, 12/23/2022, Additional history exists DTaP,Tdap,and Td Vaccines (2 - Td or Tdap) 03/20/2029 03/20/2019 Colorectal Cancer Screening: Colonoscopy 06/18/2029 06/18/2019 Cholesterol Screening (Lipid Panel) 07/02/2030 07/02/2025, 10/27/2022, 10/25/2022, Additional history exists Pneumococcal Vaccine: 50+ Years Completed 07/16/2020, 03/20/2019, 10/21/2017 RSV Immunization Patients Under 20 months Aged Out 08/12/2024 No longer eligible based on patient's age to complete this topic Depression Screening Completed 06/18/2025, 10/27/20 23 HIB Vaccines Aged Out No longer eligi ble based on patient's age to complete this topic HPV Vaccines Aged Out No longer eligi ble based on patient's age to complete this topic Hepatitis A Vaccines Aged Out No long er eligible based on patient's age to complete this topic Hepatitis B Vaccines Aged Out No long er eligible based on patient's age to complete this topic IPV Vaccines Aged Out No longer eligi ble based on patient's age to complete this topic MMR Vaccines Aged Out No longer eligi ble based on patient's age to complete this topic Meningococcal ACWY Vaccine Aged Out N o longer eligible based on patient's age to complete this topic Meningococcal B Vaccine Aged Out No l onger eligible based on patient's age to complete this topic Varicella Vaccines Aged Out No longer eligible based on patient's age to complete this topic Procedures Procedure Name Priority Date/Time Associated Diagnosis Comments CBC WITH AUTO DIFFERENTIAL Routine 07/02/2025 8:27 AM EDT Other fatigue THYROID STIMULATING HORMONE WITH REFLEX FREE T4 Routine 07/02/2025 8:27 AM EDT Other fatigue PROSTATE SPECIFIC ANTIGEN,LOCAL REFERENCE LAB Routine 07/02/2025 8:27 AM EDT Elevated PSA LIPID PANEL Routine 07/02/2025 8:27 AM EDT Mixed hyperlipidemia HEMOGLOBIN A1C Routine 07/02/2025 8:27 AM EDT Elevated hemoglobin A1c CBC AND DIFFERENTIAL Routine 07/02/2025 8:27 AM EDT Other fatigue COMPREHENSIVE METABOLIC PANEL Routine 07/02/2025 8:27 AM EDT Mixed hyperlipidemia HM DEPRESSION SCREENING Routine 10/27/2023 FALLS RISK ASSESSMENT Routine 10/27/2023 COLONOSCOPY Routine 06/18/2019 from Last 3 Months or Most Recently Relevant to Health Maintenance Results * Prostate specific antigen (07/02/2025 8:27 AM EDT) PSA, Total 0.77 < OR = 2.50 ng/mL [facility] Comment: The total PSA value from this assay system is standardized against the WHO standard. The test result will be approximately 20% lower when compared to the equimolar-standardized total PSA ([place]). Comparison of serial PSA results should be interpreted with this fact in mind. This test was performed using the Siemens chemiluminescent method. Values obtained from different assay methods cannot be used interchangeably. PSA levels, regardless of value, should not be interpreted as absolute evidence of the presence or absence of disease. Blood Venous blood specimen / Unknown 07/02/2025 8:27 AM EDT 07/02/2025 8:27 AM EDT Narrative YANETH ROSALES (MICHELLE) - 07/03/2025 7:08 AM EDT FASTING:YES FASTING: YES Luis Felipe Cardenas DO LAB BLOOD ORDERABLES Final Resul t YANETH ROSALES ([facility]) [facility] [address] [place] [phone] * Thyroid stimulating hormone with reflex free T4 (07/02/2025 8:27 AM EDT) Thyroid Stimulating Hormone (Reflex FT4) 2.30 0.40 - 4.50 mIU/L [facility] Blood Venous blood specimen / Unknown 07/02/2025 8:27 AM EDT 07/02/2025 8:27 AM EDT Narrative YANETH ROSALES (MICHELLE) - 07/03/2025 7:08 AM EDT FASTING:YES FASTING: YES Luis Felipe Cardenas DO LAB BLOOD ORDERABLES Final Resul t YANETH THOMASISAAC ([facility]) [facility] [address] [place] [address] * CBC auto differential (07/02/2025 8:27 AM EDT) White Blood Cell Count 5.6 3.8 - 10.8 Thousand/u L [facility] RBC Count 5.03 4.20 - 5.80 Million/uL [facility] Hemoglobin 15.3 13.2 - 17.1 g/dL [facility] Hematocrit 47.0 38.5 - 50.0 % [facility] MCV 93.4 80.0 - 100.0 fL [facility] MCH 30.4 27.0 - 33.0 pg [facility] MCHC 32.6 32.0 - 36.0 g/dL [facility] Comment: For adults, a slight decrease in the calculated MCHC value (in the range of 30 to 32 g/dL) is most likely not clinically significant; however, it should be interpreted with caution in correlation with other red cell parameters and the patient's clinical condition. RDW 12.0 11.0 - 15.0 % [facility] Tripl Platelet Count 247 140 - 400 Thousand/u L [facility] MPV 9.2 7.5 - 12.5 fL [facility] Absolute Neutrophil 3,405 1,500 - 7,800 cells/uL [facility] Absolute Lymphocytes 1,478 850 - 3,900 cells/uL [facility] Absolute Monocytes 543 200 - 950 cells/uL [facility] Absolute Eosinophils 151 15 - 500 cells/uL [facility] Absolute Basophils 22 0 - 200 cells/uL [facility] Neutrophils 60.8 % [facility] Lymphocytes 26.4 % [facility] Monocytes 9.7 % [facility] Eosinophils 2.7 % [facility] Basophils 0.4 % [facility] Blood Venous blood specimen / Unknown 07/02/2025 8:27 AM EDT 07/02/2025 8:27 AM EDT Narrative [facility] (MICHELLE) - 07/03/2025 7:08 AM EDT FASTING:YES FASTING: YES us Luis Felipe Cardenas DO LAB BLOOD ORDERABLES Final Resul t Performing Organization Address City/[facility] Co de Phone Number YANETH [facility] (MICHELLE) [facility] [address] [place] [phone] * (ABNORMAL) Hemoglobin A1c (07/02/2025 8:27 AM EDT) Hemoglobin A1C 5.7(H) <5.7 % [facility] Comment: For someone without known diabetes, a hemoglobin A1c value between 5.7% and 6.4% is consistent with prediabetes and should be confirmed with a follow-up test. For someone with known diabetes, a value <7% indicates that their diabetes is well controlled. A1c targets should be individualized based on duration of diabetes, age, comorbid conditions, and other considerations. This assay result is consistent with an increased risk of diabetes. Currently, no consensus exists regarding use of hemoglobin A1c for diagnosis of diabetes for children. Blood Venous blood specimen / Unknown 07/02/2025 8:27 AM EDT 07/02/2025 8:27 AM EDT Narrative [facility] (MICHELLE) - 07/03/2025 7:08 AM EDT FASTING:YES FASTING: YES us Luis Felipe Cardenas DO LAB BLOOD ORDERABLES Final Resul t YANETH [facility] (MICHELLE) [facility] [address] [place] [phone] * Lipid panel (07/02/2025 8:27 AM EDT) Cholesterol Total 134 <200 mg/dL [facility] HDL Cholesterol 54 > OR = 40 mg/dL [facility] Triglycerides 48 <150 mg/dL [facility] LDL Cholesterol 66 mg/dL (calc) [facility] Comment: Reference range: <100 Desirable range <100 mg/dL for primary prevention; <70 mg/dL for patients with CHD or diabetic patients with > or = 2 CHD risk factors. LDL-C is now calculated using the Vlad calculation, which is a validated novel method providing better accuracy than the Friedewald equation in the estimation of LDL-C. Eb [place] et al. RAN. 2013;310(19): 8948-1749 (http://education.[employer]/faq/IXK053) Chol/HDLC Ratio 2.5 <5.0 (calc) [facility] Non HDL Cholesterol 80 <130 mg/dL (calc) [facility] Comment: For patients with diabetes plus 1 major ASCVD risk factor, treating to a non-HDL-C goal of <100 mg/dL (LDL-C of <70 mg/dL) is considered a therapeutic option. Blood Venous blood specimen / Unknown 07/02/2025 8:27 AM EDT 07/02/2025 8:27 AM EDT Narrative [facility] (MICHELLE) - 07/03/2025 7:08 AM EDT FASTING:YES FASTING: YES Luis Felipe Cardenas DO LAB BLOOD ORDERABLES Final Resul t YANETH ROSALES ([facility]) [facility] [address] [place] [address] * (ABNORMAL) Comprehensive metabolic panel (07/02/2025 8:27 AM EDT) Glucose 101(H) 65 - 99 mg/dL [facility] Comment: Fasting reference interval For someone without known diabetes, a glucose value between 100 and 125 mg/dL is consistent with prediabetes and should be confirmed with a follow-up test. Urea Nitrogen (BUN) 17 7 - 25 mg/dL [facility] Creatinine 0.89 0.70 - 1.28 mg/dL [facility] eGFR 89 > OR = 60 mL/min/1 .73m2 [facility] BUN/Creatinine Ratio SEE NOTE: 6 - 22 (calc) [facility] Comment: Not Reported: BUN and Creatinine are within reference range. Sodium 138 135 - 146 mmol/L [facility] Potassium 4.5 3.5 - 5.3 mmol/L [facility] Chloride 104 98 - 110 mmol/L [facility] Carbon Dioxide 28 20 - 32 mmol/L [facility] Calcium 9.0 8.6 - 10.3 mg/dL [facility] Total Protein 6.8 6.1 - 8.1 g/dL [facility] Albumin 4.1 3.6 - 5.1 g/dL [facility] Globulin 2.7 1.9 - 3.7 g/dL (calc) [facility] Albumin/Globulin Ratio 1.5 1.0 - 2.5 (calc) [facility] Bilirubin Total 0.7 0.2 - 1.2 mg/dL [facility] Alkaline Phosphatase 55 35 - 144 U/L [facility] Aspartate aminotransferase (AST) 12 10 - 35 U/L [facility] Alanine Aminotransferase (ALT) 11 9 - 46 U/L [facility] Blood Venous blood specimen / Unknown 07/02/2025 8:27 AM EDT 07/02/2025 8:27 AM EDT Narrative [facility]) - 07/03/2025 7:08 AM EDT FASTING:YES FASTING: YES Luis Felipe Cardenas DO LAB BLOOD ORDERABLES Final Resul t [facility] (MICHELLE) [facility] [address] [place] [phone] * Falls Risk Assessment (10/27/2023) Falls Risk Assessment abstracted Historical Provider MD HEALTH MAINTENANCE Final Result * Depression Screening (10/27/2023) HM Depression Screening abstracted Historical Provider MD HEALTH MAINTENANCE Final Result * Colonoscopy (06/18/2019) Colonoscopy no interpretation , abstracted Anatomical Region Laterality Modality Other Historical Provider HEALTH MAINTENANCE Final Result from Last 3 Months or Most Recently Relevant to Health Maintenance Insurance MEDICARE [facility] Advance Directives * Full Code - Confirmed (Latest Code Status on File) Date Activated Date Inactivated Comments 06/18/2025 3:42 PM This code stat us was ascertained in the following way: Code status discussion: discussion with patient To update the patient's code status, place a code status order. Do not modify or discontinue any currently active code status orders. Healthcare Agents on File Name Relationship Healthcare Agent [facility] Blair Lutz Archbold Spouse First Alternate Health Care Agent Care Teams Cab Station Attendant Relationship Specialty Start Date End Date Luis Felipe Cardenas DO [address] [place] [address] PCP - General 10/27/23
--- OUTSIDE RECORDS SUMMARY | 2025-07-03 15:53 | XMS_ITS | Clinical Summary ---
Author Organization [facility] Address [address] [place] [address] Care Team Providers Care Media Analytics Manager Name Role Phone Luis Felipe Cardenas MD Primary Care Provider Unavailab le Allergies No known active allergies Medications Medication Sig Dispensed Refills Start Date End Date Status polyethylene glycol (MIRALAX) 17 g packetIndications:C onstipation, unspecified constipation type,Diverticulitis USE BID FOR NOW UNTIL CONSTIPATION RESOLVES, THAN CONTINUE TO TAKE PO DAILY WITH 8 OZ OF WATER OR JUICE . 60 each 6 05/11/2022 Active tamsulosin (FLOMAX) 0.4 MG CAPSIndications:Juan ign prostatic hyperplasia with lower urinary tract symptoms, symptom details unspecified Take 1 capsule (0.4 mg total) by mouth daily. 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/2022 Overview: May 05 2022 -self healed saida admit abx , NPO Diverticulosis 04/17/2019 Essential hypertension 01/30/2019 Immunizations Name Administration Dates Next Due Adacel (Tdap) 03/20/2019 Covid-19 (Moderna 12+) 100mcg/0.5mL dosage 01/14,12/17/2020 Influenza Quad (High Dose Fl uzone) 0.7mL >65Yrs (HD-IIV4) 09/06/2023,08/18/2020 Pneumococcal Conjugate PCV13 03/20/2019,10/21/20 17 Pneumococcal Polysaccharide PPSV23 07/16/2020 Zostavax (Zoster Live) 08/25/2015 Family History Medical History Relation Name Comments Lung cancer Father Breast cancer Mother Coronary artery disease Mother Diabetes Mother No Sig Med Hx Son 1 No Sig Med Hx Son 2 No Sig Med Hx Son 3 Relation Name Status Comments Brother Alive Father (Age 62) Maternal Grandfather Maternal Grandmother Mother (Age 78) Paternal Grandfather Paternal Grandmother Son 1 Alive Son 2 Alive Son 3 Alive Social History Tobacco Use Types Packs/Day Years Used Date Smoking Tobacco: Never Smokeless Tobacco: Never Tobacco Cessation:Counseling Given: Not Answered Alcohol Use Standard Drinks/Week Comments Yes 8 (1 standard drink = 0.6 oz pur e alcohol) Sex and Gender Information Value Date Recorded Sex Assigned at Not on file Gender Identity Not on file Sexual Orientation Not on file Job Start Date Occupation Industry Not on file Not on file Not on file Last Filed Vital Signs Vital Sign Reading Time Taken Comments Blood Pressure 135/85 10/27/2023 1:31 PM EST Pulse 74 10/27/2023 1:31 PM EST Temperature 36.1 C (97 F) 10/27/2023 1:31 PM EST Respiratory Rate 18 05/27/2022 8:42 AM EDT Oxygen Saturation 98% 10/27/2023 1:31 PM EST Inhaled Oxygen Concentration - - Weight 112.5 kg (248 lb) 10/27/2023 1:31 PM EST Height 182.9 cm (6') 07/08/2022 12:12 PM EDT Body Mass Index 33.63 07/08/2022 12:12 PM EDT Plan of Treatment Health Maintenance Due Date Last Done Comments Hepatitis C Screening 1950 Shingrix-Zoster Vaccine (1 of 2) 10/20/2015 COVID-19 Vaccine ( season) 2024 01/14/2021, 12/17/2020 BMI Counseling 10/27/2024 10/27/2023, 06/2 07/2023, 10/25/2022, Additional history exists Depression Screening 10/27/2024 10/27/2023, 10/27/2023, 10/25/2022, Additional history exists Fall Risk Assessment 10/27/2024 10/27/2023, 10/27/2023, 10/25/2022, Additional history exists Preventative Health Evaluation 10/27/2024 10/27/2023, 10/25/2022, 02/11/2020, Additional history exists RSV Adult > 60+ Yrs or (1 - 1-dose 75+ series) 2025 Influenza Vaccine (#1) 2025 3, 08/19/2020, 08/18/2020 DTap / Tdap / Td (2 - Td or Tdap) 03/20/2029 03/20/2019, 03/20/2019 Colon Cancer Screening (Colonoscopy) 06/18/2029 06/18/2019 (Declined) Pneumococcal Vaccine Completed 07/16/2020, 03/20/2019, 10/21/2017 Hepatitis B Vaccines Aged Out No long er eligible based on patient's age to complete this topic RSV Ped < 20 months Aged Out No longe r eligible based on patient's age to complete this topic Care Teams Media Analytics Manager Relationship Specialty Start Date End Date Luis Felipe Cardenas MD PCP - General Family Medicine 10/27/23
--- OUTSIDE RECORDS SUMMARY | 2025-07-03 15:53 | XMS_ITS ---
Author Name [facility] Organization Unknown History of Medication Use Medication Directions Dispensed Refills Start Date End Date Stat us tamsulosin (FLOMAX) 0.4 mg 24 hr capsule Take 2 capsules (0.8 mg total) by mouth 1 (one) time each day. 06/18/2025 active amLODIPine (NORVASC) 2.5 mg tablet Take 1 tablet (2.5 mg total) by mouth 1 (one) time each day. 04/03/2025 06/18/2025 active tamsulosin (FLOMAX) 0.4 mg 24 hr capsule Take 1 capsule (0.4 mg total) by mouth 1 (one) time each day. 11/07/2024 06/18/2025 aborted tamsulosin (FLOMAX) 0.4 MG CAPS Take 1 capsule (0.4 mg total) by mouth daily. 05/15/2023 10/27/2023 active polyethylene glycol (MIRALAX) 17 gram packet Take 17 g by mouth 1 (one) time each day. 05/11/2022 active Problems Problem Status Onset Date Problem Type Date of Resolution Source Perforation bowel (CMS/HCC V24, CMS/HCC V28) active 2022-05-11 [facility] [facility] Elevated hemoglobin A1c active EncounterDiagnosisAct [facility] Diverticulitis active 2022-05-11 ProblemAct [facility] ACP (advance care planning) active EncounterDiagnosisAct [facility] Diverticulosis active 2019-04-17 ProblemAct [facility] Other fatigue active EncounterDiagnosisAct [facility] Elevated PSA active EncounterDiagnosisAct [facility] Mixed hyperlipidemia active EncounterDiagnosisA ct [facility] Constipation active 2022-05-11 ProblemAct [facility] Benign prostatic hyperplasia, unspecified whether lower urinary tract symptoms present active EncounterDiagnosisAct [facility] _[facility] Essential hypertension active 2019-01-30 ProblemAct [facility] Benign prostatic hyperplasia with lower urinary tract symptoms, symptom details unspecified active EncounterDiagnosisAct [facility] Immunizations Vaccine Date Source Lot Number Status Respiratory syncytial virus (RSV) vaccine, unspecified 08/12/2024 [facility] completed Influenza Quad (High Dose Fl uzone) 0.7mL >65Yrs (HD-IIV4) 09/06/2023 [facility] completed Influenza Quadravalent, 0.5m l (Fluzone High-dose) 65yo and older 09/06/2023 [facility] comple milo Covid-19 (Moderna 12+) 100mcg/0.5mL dosage 01/14/2021 [facility] completed Moderna SARS-CoV-2 COVID-19, mRNA, LNP-S, preservative free 01/14/2021 [facility] completed Covid-19 (Moderna 12+) 100mcg/0.5mL dosage 12/17/2020 [facility] completed Moderna SARS-CoV-2 COVID-19, mRNA, LNP-S, preservative free 12/17/2020 [facility] completed Influenza Quad (High Dose Fl uzone) 0.7mL >65Yrs (HD-IIV4) 08/18/2020 [facility] [id number] completed Influenza Quadravalent, 0.5m l (Fluzone High-dose) 65yo and older 08/18/2020 [facility] [id number] comple milo Pneumococcal polysaccharide 23 valent (Pneumovax 23) 2yo and older 07/16/2020 [facility] [id number] com pleted Pneumococcal polysaccharide 23 valent (Pneumovax 23) 2yo and older 07/16/2020 [facility] [id number] com pleted Pneumococcal Polysaccharide PPSV23 07/16/2020 [facility] T [id number] completed Adacel (Tdap) 03/20/2019 [facility] [id number] completed Pneumococcal conjugate 13 va lent (Prevnar 13, PCV13) 2mo and older 03/20/2019 [facility] [id number] complet ed Pneumococcal Conjugate PCV13 03/20/2019 [facility] [id number] completed Tdap Tetanus diptheria acell ular pertussis (Boostrix; Adacel) 7yo and older 03/20/2019 [facility] [id number] completed Pneumococcal conjugate 13 va lent (Prevnar 13, PCV13) 2mo and older 10/21/2017 [facility] complet ed Pneumococcal Conjugate PCV13 10/21/2017 [facility] completed Zostavax (Zoster Live) 08/25/2015 [facility] co mpleted Zoster Live 08/25/2015 [facility] completed Encounters Encounter Type Encounter Reason Primary Diagnosis Location Date Ambulatory Medicare Annual Wellness Visit Subsequent Encounter for general adult medical examination without abnormal findings [facility] [place]2025 Care Team Organization Name Specialty Phone Email Start Date End Da te [facility] ACO 06/25/2025 [facility] AVERY Primary Care 06/23/2025 [facility] TRUDY VARELA Primary Care 06/18/2025 [facility] Sridevi Elizabeth Primary Care 11/14/20222023
== END 2025-07-03 15:38 | disposition home or self-care (01) ==
LOC: HO.HGS 15:24
PROVIDERS: PCP Family Medicine; Visit Provider Surgery
DX: Z12.11 Encounter for screening for malignant neoplasm of colon (principal); Z12.12 Encounter for screening for malignant neoplasm of rectum
CPT/HCPCS: 99213

== ENCOUNTER → 2025-07-03 15:24 | Outpatient (BNVA) | payer MEDICARE, BC, SELFPAY | PROVIDERS: PCP Family Medicine; Visit Provider Surgery | DX: Z12.11 Encounter for screening for malignant neoplasm of colon (principal); Z12.12 Encounter for screening for malignant neoplasm of rectum | CPT/HCPCS: 99212 ==

== ENCOUNTER 2025-07-07 19:30 | Emergency (ER) | payer MEDICARE, BC, SELFPAY ==
--- NOTE | ~2025-07-07 | CT_ITS ---
CLINICAL HISTORY: dysuria, fever, kidney stones, pyelonephritis? CT abdomen and pelvis without contrast Comparison: 08/14/2024, 08/11/2023 Findings: Lung bases clear. No acute bony abnormalities. Degenerative change spine and left hip. Right hip prosthesis. Fatty infiltration of the liver without focal abnormality. Pancreas, Spleen and adrenal glands unremarkable. Gallbladder within normal limits. No bilateral renal stone or hydronephrosis. No focal renal abnormality or ureteral dilation. Bilateral parapelvic renal cysts. No evidence for aortic aneurysm. No free fluid or adenopathy in the pelvis. Appendix unremarkable. Numerous diverticuli without diverticulitis. Short-segment narrowing mid sigmoid colon. There is also wall thickening in this region. Finding is unchanged from prior studies. Mass is not excludable. Impression: Short-segment mid sigmoid colon narrowing with wall thickening Mass is not excludable No acute processes This document has been electronically signed by: Rajiv Coronado MD on 07/07/2025 21:23:21
[2025-07-07 19:33] VITALS: BP 136/82; PULSE 111; RESP 18; TEMP 37; O2SAT 96; BMI 28.6
--- OUTSIDE RECORDS SUMMARY | 2025-07-07 19:53 | XMS_ITS | Clinical Summary ---
Author Organization [address] Address [address] [place] [address] Phone Care Team Providers Care Packing Line Operator Name Role Phone Luis Felipe Cardenas DO Primary Care Provider [phone] Allergies No known active allergies Medications polyethylene [...] admittion due to bowel perforation Perforation bowel ([facility] V24, [facility] V28) 04/2022 Overview (07/18/2024): May 05 2022 [...] PM EDT Office Visit Internal Medicine - [address] [phone] Luis Felipe Cardenas, Encounter for annual wellness [...] PM EST Office Visit Internal Medicine - [place] [address] [place] [address] Luis Felipe Cardenas, [address] [place] [address] 06/23/2026 3:30 PM EDT Office Visit Internal Medicine - [place] [address] [place] [address] Luis Felipe Cardenas, [address] [place] [address] Health Maintenance Due Date Last Done Comments [...] Total 0.77 < OR = 2.50 ng/mL [employer] Comment: The total PSA value from this assay system is standardized against the WHO standard. The test result will be approximately 20% lower when compared to the equimolar-standardized total PSA (Jatin Van [place]ren). Comparison of serial PSA results should be [...] BLOOD ORDERABLES Final Resul t YANETH ROSALES ([facility]) [employer] [address] [place] [id number] * Thyroid stimulating hormone with reflex free T4 (07/02/2025 8:27 AM EDT) Thyroid Stimulating Hormone (Reflex FT4) 2.30 0.40 - 4.50 mIU/L [employer] Blood Venous blood specimen / Unknown 07/02/2025 8:27 AM EDT 07/02/2025 8:27 AM EDT Narrative YANETH ROSALES (MICHELLE) - 07/03/2025 7:08 AM EDT FASTING:YES FASTING: YES Luis Felipe Cardenas DO LAB BLOOD ORDERABLES Final Resul t YANETH THOMASISAAC ([facility]) [employer] [address] [place] [address] * CBC auto differential (07/02/2025 8:27 AM EDT) White Blood Cell Count 5.6 3.8 - 10.8 Thousand/u L [employer] RBC Count 5.03 4.20 - 5.80 Million/uL [employer] Hemoglobin 15.3 13.2 - 17.1 g/dL [employer] Hematocrit 47.0 38.5 - 50.0 % [employer] MCV 93.4 80.0 - 100.0 fL [employer] MCH 30.4 27.0 - 33.0 pg [employer] MCHC 32.6 32.0 - 36.0 g/dL [employer] Comment: For adults, a slight decrease in the calculated MCHC value (in the range of 30 to 32 g/dL) is most likely not clinically significant; however, it should be interpreted with caution in correlation with other red cell parameters and the patient's clinical condition. RDW 12.0 11.0 - 15.0 % [facility] [employer] Platelet Count 247 140 - 400 Thousand/u L [employer] MPV 9.2 7.5 - 12.5 fL [employer] Absolute Neutrophil 3,405 1,500 - 7,800 cells/uL [employer] Absolute Lymphocytes 1,478 850 - 3,900 cells/uL [employer] Absolute Monocytes 543 200 - 950 cells/uL [employer] Absolute Eosinophils 151 15 - 500 cells/uL [facility] Absolute Basophils 22 0 - 200 cells/uL [facility] Neutrophils 60.8 % [facility] Lymphocytes 26.4 % [facility] Monocytes 9.7 % [facility] Eosinophils 2.7 % [facility] Basophils 0.4 % [facility] Blood Venous blood specimen / Unknown 07/02/2025 8:27 AM EDT 07/02/2025 8:27 AM EDT Narrative [employer] (MICHELLE) - 07/03/2025 7:08 AM EDT FASTING:YES FASTING: YES us Luis Felipe Cardenas DO LAB BLOOD ORDERABLES Final Resul t Performing Organization Address City/[facility] Co de Phone Number YANETH BLOVESMOMO (MICHELLE) [employer] [address] [place] [phone] * (ABNORMAL) Hemoglobin A1c (07/02/2025 8:27 AM EDT) Hemoglobin A1C 5.7(H) <5.7 % [employer] Comment: For someone without known diabetes, a [...] AM EDT 07/02/2025 8:27 AM EDT Narrative [employer] (MICHELLE) - 07/03/2025 7:08 AM EDT FASTING:YES FASTING: YES us Luis Felipe Cardenas DO LAB BLOOD ORDERABLES Final Resul t YANETH BLOVESMOMO (MICHELLE) [employer] [address] [place] [address] * Lipid panel (07/02/2025 8:27 AM EDT) Cholesterol Total 134 <200 mg/dL [employer] HDL Cholesterol 54 > OR = 40 mg/dL [employer] Triglycerides 48 <150 mg/dL [employer] LDL Cholesterol 66 mg/dL (calc) [employer] Comment: Reference range: <100 Desirable range <100 mg/dL for primary prevention; <70 mg/dL for patients with CHD or diabetic patients with > or = 2 CHD risk factors. LDL-C is now calculated using the Vlad calculation, which is a validated novel method providing better accuracy than the Friedewald equation in the estimation of LDL-C. Eb [place] et al. RAN. 2013;310(19): 8351-8906 (http://education.Besstech/faq/QOG391) Chol/HDLC Ratio 2.5 <5.0 (calc) [employer] Non HDL Cholesterol 80 <130 mg/dL (calc) [employer] Comment: For patients with diabetes plus 1 major ASCVD risk factor, treating to a non-HDL-C goal of <100 mg/dL (LDL-C of <70 mg/dL) is considered a therapeutic option. Blood Venous blood specimen / Unknown 07/02/2025 8:27 AM EDT 07/02/2025 8:27 AM EDT Narrative [facility] ([facility]HELLE) - 07/03/2025 7:08 AM EDT FASTING:YES FASTING: YES Luis Felipe Cardenas DO LAB BLOOD ORDERABLES Final Resul t YANETH ROSALES ([facility]) [employer] [address] [place] [address] * (ABNORMAL) Comprehensive metabolic panel (07/02/2025 8:27 AM EDT) Glucose 101(H) 65 - 99 mg/dL [employer] Comment: Fasting reference interval For someone without known diabetes, a glucose value between 100 and 125 mg/dL is consistent with prediabetes and should be confirmed with a follow-up test. Urea Nitrogen (BUN) 17 7 - 25 mg/dL [employer] Creatinine 0.89 0.70 - 1.28 mg/dL [employer] eGFR 89 > OR = 60 mL/min/1 .73m2 [employer] BUN/Creatinine Ratio SEE NOTE: 6 - 22 (calc) [employer] Comment: Not Reported: BUN and Creatinine are within reference range. Sodium 138 135 - 146 mmol/L [employer] Potassium 4.5 3.5 - 5.3 mmol/L [employer] Chloride 104 98 - 110 mmol/L [employer] Carbon Dioxide 28 20 - 32 mmol/L [employer] Calcium 9.0 8.6 - 10.3 mg/dL [employer] Total Protein 6.8 6.1 - 8.1 g/dL [employer] Albumin 4.1 3.6 - 5.1 g/dL [employer] Globulin 2.7 1.9 - 3.7 g/dL (calc) [employer] Albumin/Globulin Ratio 1.5 1.0 - 2.5 (calc) [employer] Bilirubin Total 0.7 0.2 - 1.2 mg/dL [employer] Alkaline Phosphatase 55 35 - 144 U/L [employer] Aspartate aminotransferase (AST) 12 10 - 35 U/L [employer] Alanine Aminotransferase (ALT) 11 9 - 46 U/L [employer] Blood Venous blood specimen / Unknown 07/02/2025 8:27 AM EDT 07/02/2025 8:27 AM EDT Narrative [facility] ([facility] - 07/03/2025 7:08 AM EDT FASTING:YES FASTING: YES Luis Felipe Cardenas DO LAB BLOOD ORDERABLES Final Resul t [facility] (MICHELLE) [employer] [address] [place] [phone] * Falls Risk Assessment (10/27/2023) Falls Risk Assessment abstracted Historical Provider MD HEALTH MAINTENANCE Final Result * Depression Screening (10/27/2023) HM Depression Screening abstracted Historical Provider MD HEALTH MAINTENANCE Final Result * Colonoscopy (06/18/2019) Colonoscopy no interpretation , abstracted Anatomical Region Laterality Modality Other Historical Provider HEALTH MAINTENANCE Final Result from Last 3 Months or Most Recently Relevant to Health Maintenance Insurance MEDICARE [facility] Advance Directives * Full Code - Confirmed [...] Agents on File Name Relationship Healthcare Agent Relationsuc [facility] Blair Lutz [place] Spouse First Alternate Health Care Agent Care Teams Packing Line Operator Relationship Specialty Start Date End Date Luis Felipe Cardenas DO [address] [place] [address] PCP - General 10/27/23
--- OUTSIDE RECORDS SUMMARY | 2025-07-07 19:53 | XMS_ITS | Clinical Summary ---
Author Organization [facility] Address [address] [place] [address] Care Team Providers Care Back Up Machine Operator Name Role Phone Luis Felipe Cardenas MD [...] 1950 Shingrix-Zoster Vaccine (1 of 2) 10/20/2015 BMI Counseling 10/27/2024 10/27/2023, 04/07, 10/25/2022, Additional history exists Depression Screening 10/27/2024 10/27/2023, 10/27/2023, 10/25/2022, Additional history exists Fall Risk Assessment 10/27/2024 10/27/2023, 10/27/2023, 10/25/2022, Additional history exists Preventative Health Evaluation 10/27/2024 10/27/2023, 10/25/2022, 02/11/2020, Additional history exists RSV Adult > 60+ Yrs or (1 - 1-dose 75+ series) 2025 COVID-19 Vaccine ( season) 2025 01/14/2021, 12/17/2020 Influenza Vaccine (#1) 2025 3, 08/19/2020, 08/18/2020 [...] age to complete this topic Care Teams Back Up Machine Operator Relationship Specialty Start Date End Date Luis Felipe Cardenas MD PCP - General Family Medicine 10/27/23
--- OUTSIDE RECORDS SUMMARY | 2025-07-07 19:53 | XMS_ITS | Clinical Summary ---
Author Organization [facility] Address [address] [address] Phone Care Team Providers Care Bench Carpenter Name Role Phone Sridevi Elizabeth NP Primary Care Provider [phone] Allergies No known active allergies Medications amLODIPine [...] topic Medical Devices Not on file Insurance [facility] FEDERAL MEDICARE PART A & B [facility] MEDICARE PART A & B MEDICARE PART A & B MEDICARE PART A & B [facility] MEDICARE PART A & B [place] [id number] [facility] MEDICARE PART A [place] [address] [facility] MEDICARE PART A & B [facility] MEDICARE PART A & B [facility] MEDICARE PART A & B Care Teams Bench Carpenter Relationship Specialty Start Date End Date Sridevi Elizabeth NP [address] [place] [address] Dr MACIAS HOPE [facility] [id number] [email or web address] PCP - General Family Medicine 10/02/21 Additional Source Comments The information contained in this document represents components of the legal health record. It is not the complete legal health record.[facility]
[2025-07-07 20:02] LABS: MANUAL DIFF FLAG NO
[2025-07-07 20:03] LABS: Hematocrit 42.5 % (42.0-52.0); Hemoglobin 15.0 g/dl (14.0-18.0); Imm Gran Abs Auto 0.04 X10*3/uL (0.00-0.03); Imm Gran Pct Auto 0.5 % (0.0-0.4); Lymphocytes Absolute Auto 0.6 X10*3/uL (1.2-4.9); Mean Corpuscular HGB Conc 35.3 g/dl (31.0-36.0); Mean Corpuscular Hemoglobin 30.4 pg (27.0-33.0); Mean Corpuscular Volume 86.0 fL (80.0-98.0); NRBC Abs Auto 0.000 X10*3/uL (0.0-0.012); NRBC Pct Auto 0.0 /100WBC (0.0-0.2); Platelet Count 163 X10*3/uL (160-400); Red Blood Count 4.94 X10*6/uL (4.60-5.80); White Blood Count 8.6 X10*3/uL (4.8-10.8)
[2025-07-07 20:05] LABS: Appearance Urine Turbid; Glucose Urine UA Negative (Negative); PH 5.5 (5.0-9.0); Specific Gravity - Urine >= 1.030 (1.005-1.025); UMIC TRIGGER UACC YES
[2025-07-07 20:20] LABS: UACC Culture Trigger YES
[2025-07-07 20:30] LABS: Alanine Aminotransferase 11 U/L (0-40); Albumin Level 4.0 g/dL (3.5-5.0); Anion Gap 16 (12-20); Aspartate Amino Transferase 16 U/L (5-37); Blood Urea Nitrogen 18 mg/dL (9-16); Calcium 8.7 mg/dL (8.4-10.2); Carbon Dioxide 18 mmol/L (22-29); Chloride 108 mmol/L (96-108); Creatinine Clr Calc Pharmacy 107.0; Estimated Glomerular Filt Rate > 60; Potassium 4.0 mmol/L (3.3-5.1); Sodium 138 mmol/L (135-145); Total Protein 7.2 g/dL (6.5-8.0)
[2025-07-07 20:37] LABS: Alkaline Phosphatase 63 U/L (39-117)
[2025-07-07 22:19] VITALS: BP 129/71; PULSE 90; RESP 20; TEMP 36.9; O2SAT 97
--- NOTE | 2025-07-07 22:24 | ED.MALEGU ---
HPI - Male Genitourinary General Chief complaint: Urogenital-Male Stated complaint: fever ? UTI Time Seen by Provider: 07/07/25 22:13 Source: patient Mode of arrival: ambulatory Limitations: no limitations History of Present Illness ED Provider: Dr. Indiana Mackey HPI Narrative: Patient comes to the emergency room complaining of burning with urination and left lower abdominal pain. Patient states that yesterday he went to urgent Care, he was diagnosed with a UTI and given a dose of fosfomycin. Patient states that today he woke up with it is same symptoms, no improvement, feeling fatigued. States that he had fever and chills today, took acetaminophen and came to the emergency room. Patient states that abdominal pain in the left lower quadrant is a bit dull, does not feel like a kidney stone which he has had before, patient states that it is very tolerable. Patient has been taking Tylenol and it helps for the pain. Related Data Home Medications ?Medication ?Instructions ?Recorded ?Confirmed amlodipine 2.5 mg tablet 1 tab PO DAILY 05/05/22 07/03/25 tamsulosin 0.4 mg capsule 0.4 mg PO DAILY 07/20/22 07/03/25 Previous Rx's ?Medication ?Instructions ?Recorded ibuprofen 600 mg tablet 600 mg PO Q6H PRN fever #30 tabs 09/09/22 ondansetron 4 mg disintegrating 4 mg PO Q6H PRN nausea and 08/12/23 tablet vomiting #10 tabs tamsulosin 0.4 mg capsule (Flomax) 0.4 mg PO BEDTIME #7 caps 08/14/24 levofloxacin 500 mg tablet 500 mg PO DAILY #9 tabs 07/07/25 phenazopyridine 100 mg tablet 100 mg PO TID #6 tabs 07/07/25 Allergies Allergy/AdvReac Type Severity Reaction Status Date / Time No Known Allergies (No Known Allergy Verified 07/07/25 19:37 Allergies*) Review of Systems Review of Systems: Constitutional : No Weight loss, complaining of Fever, No Chills, No Night Sweats, No Fatigue, No Malaise ENT/Mouth : No Hearing loss, No Ear Pain, No Nasal Congestion, No Sinus Pain, No Hoarseness, No sore throat, No Rhinorrhea, No Swallowing Difficulty Eyes: No Eye Pain, No Swelling, No Redness, No Foreign Body, No Discharge, No Vision Changes Cardiovascular : No Chest Pain, No SOB, No Dyspnea on Exertion, No Orthopnea, No Edema, No Palpitations Respiratory : No Cough, No Sputum, No Wheezing, No Smoke Exposure, No Dyspnea Gastrointestinal : No Nausea, No Vomiting, No Diarrhea, No Constipation, No abdominal Pain, No Hematochezia, No Melena Genitourinary : Complaining of Dysuria, complaining of Urinary Frequency, No Hematuria, No Urinary Incontinence, No Urgency, No Flank Pain, No Urinary Flow Changes, No Hesitancy Musculoskeletal : No joint pain, No Myalgias, No Joint Swelling Skin : No Skin Lesions, No rash Neuro : No Weakness, No Numbness, No Paresthesias, No Loss of Consciousness, No Dizziness, No Headache Psych : No Anxiety/Panic, No Depression, No SI/HI/AH/VH, No Social Issues, Heme/Lymph: No Bruising, No Bleeding,No Lymphadenopathy Endocrine : No Polyuria, No Polydipsia, No Temperature Intolerance PMFSH Past Medical History Medical History Encounter for colorectal cancer screening using Cologuard test Diverticular disease Ulnar neuropathy Varicose vein of leg Hx of squamous cell carcinoma of skin Hx of osteoarthritis History of diverticulitis HTN (hypertension) Right inguinal hernia Surgical History History of colonoscopy H/O total hip arthroplasty Status post ORIF of fracture of ankle History of surgery on lower extremity Hx of excision of epidermal inclusion cyst Hx of arthroscopy of right knee Hx of arthroscopy of left knee Social History Social History Household Members: Spouse Housing: House Alcohol intake: current Alcohol intake frequency: holidays/special occasions only Patient Tobacco Use Status: Never used Tobacco Advance Directives: No Advance Directives Information Provided: No service: Yes Current occupational status: retired Physical Exam Exam: Exam: Appearance: Alert. Oriented X3. No acute distress. Eyes: Pupils equal, round and reactive to light. ENT: Pharynx normal. Neck: Normal inspection. Neck supple. No lymph nodes noted. No crepitus CVS: Normal heart rate and rhythm. Pulses normal. Normal S1 and S2 Respiratory: No respiratory distress. Breath sounds normal. No Wheezing. No rales Abdomen: Soft and nontender. No rigidity. No distention. no CVA tenderness Skin: Skin warm and dry. Normal skin color. Normal skin turgor. Extremities: No lower extremity edema. No Lacerations. No Rash Neuro: Oriented X 3. No motor deficit. No sensory deficit. Moving all extremities. No slurred speech. CN 2 through 12 grossly intact Psych: calm, cooperative, normal affect Vital Signs: Vital Signs: Last Vital Signs Temp 98.5 F 07/07/25 22:19 Pulse 90 07/07/25 22:19 Resp 20 07/07/25 22:19 BP 129/71 07/07/25 22:19 Pulse Ox 97 07/07/25 22:19 O2 Del Method Room Air 07/07/25 22:19 BMI result Body Mass Index 28.6 Course Course Course Narrative: Patient complaining of an ongoing UTI despite the treatment with fosfomycin. Complaining of fever chills and abdominal pain. No CVA tenderness. Medical Decision Making Medical Decision Making [facility] Narrative: My interpretation of labs: Normal hematology and chemistry, urinalysis positive for UTI. CT scan does not show any acute abnormality. I discussed the above-mentioned with the patient Given that he did not do well with the 1st dose of antibiotics, fosfomycin, and he is still having ongoing symptoms and now patient reports he had a fever, I offered to admit him to the hospital. Patient respectfully declined. The patient states that he feels well enough to go home. Patient states that if he feels any worse ever if he has any ongoing or worsening symptoms, he will return. Patient was giving a dose of Levaquin and phenazopyridine here in the emergency room. Differential Diagnosis Differential Diagnoses: The differential diagnosis associated with the presentation includes (UTI, pyelonephritis, viral syndrome, diverticulitis) Admission/Observation Consideration of admission/observation: Escalation of care including admission/observation considered (Admission was offered, patient declined, prefers to go home and try a longer course of p.o. antibiotics) Lab Data [facility] Lab Attestation statement: I reviewed the patient's lab results. 07/07/25 19:55 07/07/25 19:55 Labs: Lab Results 07/07/25 07/07/25 Range/Units 19:54 19:55 WBC 8.6 (4.8-10.8) X10*3/uL RBC 4.94 (4.60-5.80) X10*6/uL Hgb 15.0 (14.0-18.0) g/dl Hct 42.5 (42.0-52.0) % MCV 86.0 (80.0-98.0) fL MCH 30.4 (27.0-33.0) pg MCHC 35.3 (31.0-36.0) g/dl RDW 12.4 (11.0-16.0) % Plt Count 163 (160-400) X10*3/uL MPV 8.8 L (9.4-12.4) fL Immature Gran % (Auto) 0.5 H (0.0-0.4) % Neut % (Auto) 81.9 H (45-73) % Lymph % (Auto) 7.1 L (20-40) % [place] % (Auto) 10.3 (2-11) % Eos % (Auto) 0.1 (0-4) % Baso % (Auto) 0.1 (0-2) % Lymph # (Auto) 0.6 L (1.2-4.9) X10*3/uL [place] # (Auto) 0.9 (0.1-1.2) X10*3/uL Eos # (Auto) 0.0 (0.0-0.4) X10*3/uL Baso # (Auto) 0.0 (0.0-0.2) X10*3/uL Abs Immat Gran (auto) 0.04 H (0.00-0.03) X10*3/uL Absolute Neuts (auto) 7.1 (2.0-8.3) x10*3/uL Absolute Nucleated RBC 0.000 (0.0-0.012) X10*3/uL Nucleated RBC % (auto) 0.0 (0.0-0.2) /100WBC Sodium 138 (135-145) mmol/L Potassium 4.0 (3.3-5.1) mmol/L Chloride 108 (96-108) mmol/L Carbon Dioxide 18 L (22-29) mmol/L Anion Gap 16 (12-20) BUN 18 H (9-16) mg/dL Creatinine 0.82 (0.5-1.4) mg/dL Estim Creat Clear Calc 107.0 Estimated GFR > 60 Random Glucose 121 H (60-115) mg/dL Lactic Acid 1.1 (0.5-2.0) mmol/L Calcium 8.7 (8.4-10.2) mg/dL Total Bilirubin 0.9 (0.0-1.0) mg/dL AST 16 (5-37) U/L ALT 11 (0-40) U/L Alkaline Phosphatase 63 (39-117) U/L Total Protein 7.2 (6.5-8.0) g/dL Albumin 4.0 (3.5-5.0) g/dL Urine Color Dark Yellow Urine Appearance Turbid Urine pH 5.5 (5.0-9.0) Ur Specific [place] >= 1.030 H (1.005-1.025) Urine Protein 100 (2+) H (Neg-Trace) mg/dL Urine Glucose (UA) Negative (Negative) mg/dL Urine Ketones 15 (Negative) mg/dL Urine Blood Large (3+) H (Negative) Urine Nitrite Negative (Negative) Ur Leukocyte Esterase Large (3+) H (Negative) Urine RBC >20 H (0-2) /HPF Urine WBC >50 H (0-5) /HPF Ur Squamous Epith Cells 0-2 (0-2) /HPF Urine Bacteria 3+ (None Seen) Hyaline Casts 11-20 (0-2) /LPF Independent Interpretation I performed an independent interpretation of an: CT Scan Radiology Impression Discussion of test interpretation with radiology: I have reviewed the radiologist's reading. Radiologist Impression: Lung bases clear. No acute bony abnormalities. Degenerative change spine and left hip. Right hip prosthesis. Fatty infiltration of the liver without focal abnormality. Pancreas, Spleen and adrenal glands unremarkable. Gallbladder within normal limits. No bilateral renal stone or hydronephrosis. No focal renal abnormality or ureteral dilation. Bilateral parapelvic renal cysts. No evidence for aortic aneurysm. No free fluid or adenopathy in the pelvis. Appendix unremarkable. Numerous diverticuli without diverticulitis. Short-segment narrowing mid sigmoid colon. There is also wall thickening in this region. Finding is unchanged from prior studies. Mass is not excludable. Impression: Short-segment mid sigmoid colon narrowing with wall thickening Mass is not excludable No acute process Critical Care Time Critical Care Time Critical Care Time: Yes Total Critical Care Time: 40 Attestation: I have personally provided critical care time. Time includes review of lab data, radiology results, discussion with consultants, and monitoring for potential decompensation. Intervention performed as documented. Discharge Plan Discharge Clinical Impression: Acute UTI Patient Disposition: Home, Self-Care Instructions: Urinary Tract Infection in Men (ED) Additional Instructions: Your medication phenazopyridine will make your urine look red/orange. It will returned to normal color 2 days after taking the last dose. Please follow-up with your primary care physician tomorrow. If you have any worsening or new symptoms, please return to the emergency room or call 911 Prescriptions: New levofloxacin 500 mg tablet 500 mg PO DAILY Qty: 9 0RF phenazopyridine 100 mg tablet 100 mg PO TID Qty: 6 0RF No Action amlodipine 2.5 mg tablet 1 tab PO DAILY ibuprofen 600 mg tablet 600 mg PO Q6H PRN (Reason: fever) Qty: 30 0RF tamsulosin [Flomax] 0.4 mg capsule 0.4 mg PO BEDTIME Qty: 7 0RF ondansetron 4 mg tablet,disintegrating 4 mg PO Q6H PRN (Reason: nausea and vomiting) Qty: 10 0RF tamsulosin 0.4 mg capsule 0.4 mg PO DAILY Print Language: Citizen [place]
[2025-07-07 23:48] VITALS: BP 129/71; PULSE 90; RESP 20; TEMP 36.9; O2SAT 97
== END 2025-07-07 23:48 | disposition home or self-care (01) ==
PROVIDERS: Physician Assistant; Emergency Provider Emergency Medicine
DX: N39.0 Urinary tract infection, site not specified (principal); R30.0 Dysuria; R50.9 Fever, unspecified; R10.30 Lower abdominal pain, unspecified
CPT/HCPCS: 36415; 74176; 80053; 81001; 83605; 85025; 87040; 87086; 96365; 99283; 99284; J1956

== ENCOUNTER → 2025-07-07 19:34 | Outpatient (BNV) | payer MEDICARE, BC, SELFPAY | PROVIDERS: Visit Provider Radiology Diagnostic Radiology | DX: K57.30 Diverticulosis of large intestine without perforation or abscess without bleeding (principal) | CPT/HCPCS: 74176 ==

== ENCOUNTER 2025-07-14 16:02 | Inpatient (IN) | payer MEDICARE, BC, SELFPAY ==
--- OUTSIDE RECORDS SUMMARY | 2025-07-09 15:30 | XMS_ITS | Encounter Summary ---
Author Organization [facility] Address [address] [place] [address] Care Team Providers Care Leak Detection Engineer Name Role Phone Luis Felipe Cardenas DO Primary Care Provider [phone] Reason for Visit * Reason Comments Hospital Follow-up Discharged from hosp [facility] on [facility] 07/07 for UTI; is on second day of antibiotics Encounter Details Date Type Department Care Team (Late st Contact Info) Description 07/09/2025 3:30 PM EDT Office Visit Internal Medicine - [place] [facility] [address] [place] [address] Jorge Cardenas PA [address] [place] [address] Acute cystitis without hematuria (Primary Dx); Essential hypertension; Benign prostatic hyperplasia, unspecified whether lower urinary tract symptoms present; Elevated hemoglobin A1c Social History Tobacco Use Types Packs/Day Years [...] on file Sexual Orientation Not on file documented as of this encounter Last Filed Vital Signs Vital Sign Reading Time Taken Comments Blood Pressure 111/73 07/09/2025 3:21 PM EDT Pulse 87 07/09/2025 3:21 PM EDT Temperature 37.6 C (99.7 F) 07/09/2025 3:21 PM EDT Respiratory Rate - - Oxygen Saturation 97% 07/09/2025 3:21 PM EDT Inhaled Oxygen Concentration - - Weight 108 kg (238 lb 12.8 oz) 07/09/2025 3:21 P M EDT Height 182.9 cm (6') 07/09/2025 3:21 PM EDT Body Mass Index 32.39 07/09/2025 3:21 PM EDT documented in this encounter Patient Instructions * Attachments The following attachments cannot be sent through Care Everywhere. * Levofloxacin ([place]) documented in this encounter Progress Notes * COURTNEY Danielle - 07/09/2025 3:30 PM EDT Images from the original note were not included. [facility]: Primary Care Erick Radford is a 75 y.o. male for Chief Complaint Patient presents with Hospital Follow-up Discharged from hospital on Saturday 07/07 for UTI; is on second day of antibiotics History of present Illness: HPI Patient is a 75 y.o. male with PMH of hypertension, prediabetes, BPH presenting for ED follow-up. On 07/06/2025, patient came down with increased urinary frequency, chills, flank pain. He was advised to go to the urgent care. He is prescribed the same dose of fosfomycin 3 mg. Patient notes that he had monitoring sensor and noted that his temperature increased to 102 ??F. He then went to [facility] ED on 07/07/2025. He notes that he was worked up with urinalysis and CT scan. Patient notes he was diagnosed with a urinary tract infection and discharged home on levofloxacin 100 mg daily for 9 days and phenazopyridine 3 times a day for 2 days. Patient provides discharge paperwork with summary from his ED visit. Patient notes since he has been home, he has not experienced increased urinary frequency, flank pain, or dysuria. He notes that he did monitor his temperature and notes that his temperatures fluctuate between 98 to 99 ??F. He is currently on his second day of antibiotics. Patient notes he has been taking the levofloxacin in the morning with water and a small snack of peaches. He notes that he is having nausea from this. He Review of Systems: Review of Systems Constitutional: Negative. Negative for appetite change, diaphoresis, fatigue and fever. HENT: Negative. Eyes: Negative. Respiratory: Negative. Negative for chest tightness and shortness of breath. Cardiovascular: Negative. Negative for chest pain and palpitations. Gastrointestinal: Positive for nausea. Negative for abdominal pain, constipation, diarrhea and vomiting. Endocrine: Negative. Genitourinary: Negative. Musculoskeletal: Negative. Skin: Negative. Negative for rash. Neurological: Negative. Negative for dizziness, weakness, light-headedness, numbness and headaches. All other systems reviewed and are negative. Exam: Physical Exam Vitals reviewed. Constitutional: General: He is not in acute distress. Appearance: Normal appearance. He is well-developed and well-groomed. He is not ill-appearing or diaphoretic. HENT: Head: Normocephalic and atraumatic. Mouth/Throat: Mouth: Mucous membranes are moist. Pharynx: Oropharynx is clear. Eyes: Extraocular Movements: Extraocular movements intact. Conjunctiva/sclera: Conjunctivae normal. Cardiovascular: Rate and Rhythm: Normal rate and regular rhythm. Pulses: Normal pulses. Radial pulses are 2+ on the right side and 2+ on the left side. Posterior tibial pulses are 2+ on the right side and 2+ on the left side. Heart sounds: Normal heart sounds, S1 normal and S2 normal. No murmur heard. Pulmonary: Effort: Pulmonary effort is normal. Breath sounds: Normal breath sounds. No wheezing, rhonchi or rales. Abdominal: Palpations: Abdomen is soft. Tenderness: There is no abdominal tenderness. There is no right CVA tenderness, left CVA tendernessor guarding. Musculoskeletal: Right lower leg: No edema. Left lower leg: No edema. Skin: General: Skin is warm and dry. Capillary Refill: Capillary refill takes less than 2 seconds. Coloration: Skin is not jaundiced. Neurological: General: No focal deficit present. Mental Status: He is alert and oriented to person, place, and time. Psychiatric: Mood and Affect: Mood and affect normal. Allergies: No Known Allergies Vitals: 07/09/25 1521 BP: 111/73 BP Location: Left arm Patient Position: Sitting BP Cuff Size: Adult Pulse: 87 Temp: 37.6 ??C (99.7 ??F) TempSrc: Temporal SpO2: 97% Weight: 108 kg (238 lb 12.8 oz) Height: 1.829 m (72 ) Body mass index is 32.39 kg/m??. Past Medical History: Past Medical History: Diagnosis Date Diverticulitis large intestine DX:Diverticulitis large intestine;COMMENT:Hospitalized: 2001, 10/2016 with abscess, 11/2016, 01/2017 Hypertension 03/2019 DX:Hypertension Impaired fasting glucose DX:Impaired fasting glucose;COMMENT:07/2020: A1c 6.1 Nocturia DX:Nocturia Osteoarthritis DX:Osteoarthritis;COMMENT:S/P total right hip replacement 04/2011 Screening for colon cancer DX:Screening for colon cancer;COMMENT:Colonoscopy: Skin abscess 05/2019 DX:Skin abscess;COMMENT:Rt forearm Squamous cell skin cancer DX:Squamous cell skin cancer Ulnar neuropathy DX:Ulnar neuropathy;COMMENT:left hand Varicose vein of leg DX:Varicose vein of leg Past Surgical History: Past Surgical History: Procedure Laterality Date COLONOSCOPY PROCEDURE:COLONOSCOPY OTHER SURGICAL HISTORY 04/2011 PROCEDURE:Laser ablation of saphenous vein the left OTHER SURGICAL HISTORY 1997 PROCEDURE:Arthroscopic surgery right knee OTHER SURGICAL HISTORY 1992 PROCEDURE:Arthroscopic surgery left knee OTHER SURGICAL HISTORY 1994 PROCEDURE:ORIF right ankle fracture OTHER SURGICAL HISTORY Right 10/2019 PROCEDURE:Excision of Epidermal cyst;COMMENT:Rt Elbow TOTAL HIP ARTHROPLASTY Right 04/18/2011 PROCEDURE:TOTAL HIP ARTHROPLASTY Social History: Social History Tobacco Use Smoking Status Never Smokeless Tobacco Never Family History: Family History Problem Relation Name Age of Onset Diabetes Mother Coronary artery disease Mother 75 Breast cancer Mother Lung cancer Father No Known Problems Son No Known Problems Son No Known Problems Son Home Medications: Current Outpatient Medications Medication Sig Dispense Refill amLODIPine (NORVASC) 2.5 mg tablet Take 1 tablet (2.5 mg total) by mouth 1 (one) time each day. 90 each 1 polyethylene glycol (MIRALAX) 17 gram packet Take 17 g by mouth 1 (one) time each day. tamsulosin (FLOMAX) 0.4 mg 24 hr capsule Take 2 capsules (0.8 mg total) by mouth 1 (one) time each day. 180 each 3 No current facility-administered medications for this visit. Results: Lab Results Component Value Date WBC 5.6 07/02/2025 RBC 5.03 07/02/2025 MCV 93.4 07/02/2025 MCH 30.4 07/02/2025 MCHC 32.6 07/02/2025 RDW 12.0 07/02/2025 MPV 9.2 07/02/2025 Lab Results Component Value Date BUN 17 07/02/2025 CREATININE 0.89 07/02/2025 NA 138 07/02/2025 K 4.5 07/02/2025 CL 104 07/02/2025 CO2 28 07/02/2025 CALCIUM 9.0 07/02/2025 ALBUMIN 4.1 07/02/2025 ALKPHOS 55 07/02/2025 AST 12 07/02/2025 ALT 11 07/02/2025 Lab Results Component Value Date CHOL 134 07/02/2025 HDL 54 07/02/2025 TRIG 48 07/02/2025 Lab Results Component Value Date HGBA1C 5.7 (H) 07/02/2025 Assessment and Plan: Problem List Items Addressed This Visit Essential hypertension Other Visit Diagnoses Acute cystitis without hematuria - Primary Benign prostatic hyperplasia, unspecified whether lower urinary tract symptoms present Elevated hemoglobin A1c MDM Acute cystitis without hematuria - Established. Acute. Stable. Patient is currently on second day of antibiotic therapy for acute cystitis. Patient advised to continue levofloxacin 100 mg daily for 9 days. Patient advised to take antibiotic with meal to minimize GI upset and ensure that he completes the course. -Patient also advised to return to the office or seek emergency care if symptoms persist worsen to include fever, nausea/vomiting, abdominal pain, pelvic pain, dysuria, etc. Hypertension - Established. Chronic. Stable. Patient to continue amlodipine 2.5 mg daily BPH -Established. Chronic. Stable. Patient to continue tamsulosin 0.8 mg daily. Elevated hemoglobin A1c - Established. Chronic. Stable. HbA1c of 5.7. Patient counseled on modifications. Return to office in: 10/22/2025, or sooner if symptoms persist/worsen. Jorge Cardenas PA-C [facility] This document was created using a voice-recognition software. While I try to document as accuratelyas possible, however there maybe occasional typos and errors that maybe present in the note due to limitations of the voice- recognition software. documented in this encounter Plan of Treatment Upcoming Encounters Date Type Department Care Team (Late st Contact Info) Description 10/22/2025 2:30 PM EST Office Visit Internal Medicine - [place] [address] [place] [address] Luis Felipe Cardenas DO [address] [place] [address] 06/23/2026 3:30 PM EDT Office Visit Internal Medicine - [place] [address] [place] [address] Luis Felipe Cardenas DO [address] [place] [address] documented as of this encounter Visit Diagnoses Diagnosis Acute cystitis without hematuria- Primary Essential hypertension Unspecified essential hypertension Benign prostatic hyperplasia, unspecified whether lower urinary tract symptoms present Elevated hemoglobin A1c Other abnormal blood chemistry documented in this encounter Additional Health Concerns Assessment Noted Time PHQ-9 Depression Total Score: 0 06/18/20 25 3:34 PM EDT documented as of this encounter Care Teams Leak Detection Engineer Relationship Specialty Start Date End Date Luis Felipe Cardenas DO [address] [place] [address] PCP - General 10/27/23 documented as of this encounter
--- NOTE | ~2025-07-14 | XR_ITS ---
EXAMINATION: XR ABDOMEN 1 VIEW (KUB) HISTORY: nausea, vomiting distention s/p sigmoid resection COMPARISON: There are no prior studies available for comparison. FINDINGS: Three supine views of the abdomen are submitted. There are prominent gas-filled loops of small bowel in the midabdomen. Gas is also noted in the colon. Findings may represent ileus. No abnormal calcifications are identified. There are no abnormal soft tissue masses. The patient is status post right total hip arthroplasty. XR/XR KUB IMPRESSION: Findings suggestive of ileus as described. Follow-up is recommended. Electronically signed by: Roberto Bautista MD 07/18/2025 09:11 AM EDT
--- NOTE | ~2025-07-14 | CT_ITS ---
CLINICAL HISTORY: diverticulitis CT abdomen and pelvis with contrast Comparison: CT/REG/SR - CT ABDOMEN PELVIS WO IV CON - 07/07/25 20:05 EDT Findings: Mild atelectasis at the lung bases. Multiple parapelvic renal cysts bilaterally. No stones. Gallbladder and solid organs otherwise unremarkable. Proximal sigmoid colon 9 cm segment area of wall thickening with mild surrounding fatty induration. This is in an area of extensive diverticulosis. Perivesical fat stranding most evident interposed between the urinary bladder and the sigmoid colon. There is also a soft tissue tract from the dome of the urinary bladder to the sigmoid colon image 65:3. Similar to prior. Moderate stool. Mesenteric vessels patent. Normal appendix. Small amount of gas in the urinary bladder. Moderate to severe lumbar degenerative spondylosis. No acute fracture. IMPRESSION: 1. Sigmoid diverticulitis without abscess. Recommend follow-up to clearing to assure there is not an underlying mass. 2. 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 3. Additional findings as above. This document has been electronically signed by: June Cook MD on 07/15/2025 02:36:06
[2025-07-14 16:35] VITALS: BP 138/84; PULSE 69; RESP 14; TEMP 36.6; O2SAT 97; BMI 31.9
--- NOTE | 2025-07-14 16:37 | ED.GENADULT ---
HPI - General Adult General Chief complaint: Urogenital-Male Stated complaint: lower left side pain (seen prev. no improvement) Time Seen by Provider: 07/14/25 20:14 Source: patient Limitations: no limitations History of Present Illness ED Provider: Xiomy Garza PA-C HPI narrative: 75-year-old male with a history of hypertension, BPH, diverticulosis who presents with concern for urinary tract infection. Patient was seen in the emergency department on July 07, found to have a urinary tract infection, was discharged on Levaquin. Patient completed the course of antibiotics, however his symptoms remain refractory. Associated dysuria, increased urinary urgency, foul smelling, discolored urine . Patient's is concerned given he has developed confusion over the past few days, that he seems ?foggy?. Denies back pain, fever, nausea, vomiting. The patient was sent here by primary care for further assessment. Related Data Home Medications ?Medication ?Instructions ?Recorded ?Confirmed amlodipine 2.5 mg tablet 1 tab PO DAILY 05/05/22 07/03/25 tamsulosin 0.4 mg capsule 0.4 mg PO DAILY 07/20/22 07/03/25 Previous Rx's ?Medication ?Instructions ?Recorded ibuprofen 600 mg tablet 600 mg PO Q6H PRN fever #30 tabs 09/09/22 ondansetron 4 mg disintegrating 4 mg PO Q6H PRN nausea and 08/12/23 tablet vomiting #10 tabs tamsulosin 0.4 mg capsule (Flomax) 0.4 mg PO BEDTIME #7 caps 08/14/24 levofloxacin 500 mg tablet 500 mg PO DAILY #9 tabs 07/07/25 phenazopyridine 100 mg tablet 100 mg PO TID #6 tabs 07/07/25 Allergies Allergy/AdvReac Type Severity Reaction Status Date / Time No Known Allergies (No Known Allergy Verified 07/14/25 16:39 Allergies*) Review of Systems Review of Systems: Yes all other systems are reviewed and are negative Constitutional: Constitutional: Denies fatigue, Denies fever(s) and Reports malaise Cardiovascular: Cardiovascular: Denies chest pain and Denies dyspnea Respiratory: Respiratory: Denies dyspnea Gastrointestinal: Gastrointestinal: Denies abdominal pain, Denies nausea and Denies vomiting Genitourinary: Genitourinary: Denies hematuria, Reports dysuria, Denies flank pain, Denies penile discharge and Reports urinary urgency Musculoskeletal: Musculoskeletal: Denies back pain Endocrine: Endocrine: Denies fatigue PMFSH Past Medical History Attestation statement: The following information was validated with the patient. Medical History Encounter for colorectal cancer screening using Cologuard test Diverticular disease Ulnar neuropathy Varicose vein of leg Hx of squamous cell carcinoma of skin Hx of osteoarthritis History of diverticulitis HTN (hypertension) Right inguinal hernia Surgical History History of colonoscopy H/O total hip arthroplasty Status post ORIF of fracture of ankle History of surgery on lower extremity Hx of excision of epidermal inclusion cyst Hx of arthroscopy of right knee Hx of arthroscopy of left knee Social History Social History Household Members: Spouse Housing: House Alcohol intake: current Alcohol intake frequency: holidays/special occasions only Alcohol type: beer Patient Tobacco Use Status: Never used Tobacco Smoked in Last 30 Days: No Use of substances other than those prescribed or required for medical reasons: No Advance Directives: No Advance Directives Information Provided: Yes Do you have a plan to hurt others: No Plan Nutrition Risks: No Nutritional Risk service: Yes Current occupational status: retired Physical Exam ED Vital Signs: Vital Signs - 24 hr 07/14/25 16:35 07/14/25 21:39 Temperature 97.8 F 98.2 F Pulse Rate 69 78 Respiratory Rate 14 16 Blood Pressure 138/84 123/74 Pulse Oximetry 97 97 Oxygen Delivery Method Room Air Room Air BMI result Body Mass Index 31.9 Const Other: Alert, well-appearing Orientation/consciousness: patient oriented x3 Resp Effort & Inspection: normal respiratory effort Cardio Other: Normal peripheral perfusion General: Yes no CVA tenderness Back/Spine/Pelvis Back: no CVA tenderness Skin Other: Warm dry no rash Neuro General: patient oriented x3, gait normal, no focal motor deficits and CN's II-XI intact bilaterally Psych Other: Cooperative Course Course Course Narrative: Rapid medical examination performed in triage by Shakira Jones PA-C. Patient is a 75 year old assigned male at presenting to the emergency department with continued foul smelling urine and abdominal pain despite being on medication. Detailed physical exam and review of systems are deferred to the boiling tub operator. Labs ordered. Patient placed back in the waiting room pending room availability and results. Reevaluation(s) Reevaluation #1: Spoke with Dr. Taylor, he is requesting a CT abd/pelvis, he has no pain, scan ordered Time: 00:48 Medications Administered Generic Name Dose Route Start Last Admin Trade Name Freq PRN Reason Stop Dose Admin Enoxaparin Sodium 40 mg 07/15/25 01:00 07/15/25 01:58 Enoxaparin Sodium 40 Mg/0.4 Ml Syringe SUBCUT 40 mg Q24H ISH Administration Lactated Ringer's 1,000 mls @ 100 mls/hr 07/15/25 00:45 07/15/25 01:58 Lr IVCONT 100 mls/hr .Q10H ISH Administration Discontinued Medications Generic Name Dose Route Start Last Admin Trade Name Freq PRN Reason Stop Dose Admin Ceftriaxone Sodium 2 gm 07/14/25 21:52 07/14/25 22:06 Ceftriaxone Sodium 2 Gm Vial IVPUSH 07/14/25 21:53 2 gm ONCE ONE Administration Sodium Chloride 500 mls @ 500 mls/hr 07/14/25 20:33 07/14/25 23:17 Ns IV 07/14/25 21:32 Infused .Q1H ONE Infusion Iohexol 85 ml 07/15/25 01:36 07/15/25 01:50 Iohexol 350 Mg/Ml 100 Ml Infus..Btl IV 07/15/25 01:37 85 ml ONCE ONE Administration Medical Decision Making Medical Decision Making MDM Narrative: 75-year-old male with a history of hypertension, BPH, diverticulosis who presents with concern for urinary tract infection. Patient was seen in the emergency department on July 07, found to have a urinary tract infection, was discharged on Levaquin. Patient completed the course of antibiotics, however his symptoms remain refractory. Associated dysuria, increased urinary urgency, foul smelling, discolored urine . Patient's is concerned given he has developed confusion over the past few days, that he seems ?foggy?. Denies back pain, fever, nausea, vomiting. Patient was sent by their primary care provider for further assessment. Problem: Age, known urinary tract infection History: Per patient and his I have considered the following differential diagnoses: Urinary tract infection, renal colic, pyelonephritis Plan: Screening labs were completed from triage, they are overall unremarkable, he is just giving a urine sample now. His urine culture has not resulted, I will start ceftriaxone, we are repeating blood cultures and a lactic. He had a CT scan during his prior visit, there was no renal colic, there was no pyelonephritis, his exam and associated sxs do not suggest either pathology at this time, repeat imaging is not warranted. I have independently reviewed the following tests: Labs: No leukocytosis, not anemic, no electrolyte abnormality, urine is infected CT abd/pelvis: IMPRESSION: 1. Sigmoid diverticulitis without abscess. Recommend follow-up to clearing to assure there is not an underlying mass. 2. 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 3. Additional findings as above..... Adding Flagyl we will reach out to the Hospitalist, with an update Differential Diagnosis Differential Diagnoses: The differential diagnosis associated with the presentation includes See medical decision-making Admission/Observation Consideration of admission/observation: Escalation of care including admission/observation considered We will be admitting Consult Healthcare Provider Management of the patient was discussed with: Hospitalist Lab Data MDM Lab Attestation statement: I reviewed the patient's lab results. 07/14/25 16:51 07/14/25 16:51 Labs: Lab Results 07/14/25 07/14/25 Range/Units 16:51 21:12 WBC 7.8 (4.8-10.8) X10*3/uL RBC 4.89 (4.60-5.80) X10*6/uL Hgb 14.6 (14.0-18.0) g/dl Hct 43.6 (42.0-52.0) % MCV 89.2 (80.0-98.0) fL MCH 29.9 (27.0-33.0) pg MCHC 33.5 (31.0-36.0) g/dl RDW 12.4 (11.0-16.0) % Plt Count 278 D (160-400) X10*3/uL MPV 8.7 L (9.4-12.4) fL Immature Gran % (Auto) 0.4 (0.0-0.4) % Neut % (Auto) 65.9 (45-73) % Lymph % (Auto) 22.1 (20-40) % Love % (Auto) 9.8 (2-11) % Eos % (Auto) 1.5 (0-4) % Baso % (Auto) 0.3 (0-2) % Lymph # (Auto) 1.7 (1.2-4.9) X10*3/uL Love # (Auto) 0.8 (0.1-1.2) X10*3/uL Eos # (Auto) 0.1 (0.0-0.4) X10*3/uL Baso # (Auto) 0.0 (0.0-0.2) X10*3/uL Abs Immat Gran (auto) 0.03 (0.00-0.03) X10*3/uL Absolute Neuts (auto) 5.2 (2.0-8.3) x10*3/uL Absolute Nucleated RBC 0.000 (0.0-0.012) X10*3/uL Nucleated RBC % (auto) 0.0 (0.0-0.2) /100WBC Sodium 140 (135-145) mmol/L Potassium 4.5 (3.3-5.1) mmol/L Chloride 107 (96-108) mmol/L Carbon Dioxide 25 (22-29) mmol/L Anion Gap 13 (12-20) BUN 15 (9-16) mg/dL Creatinine 0.72 (0.5-1.4) mg/dL Estim Creat Clear Calc 111.8 Estimated GFR > 60 Random Glucose 97 (60-115) mg/dL Lactic Acid 1.1 (0.5-2.0) mmol/L Calcium 9.1 (8.4-10.2) mg/dL Magnesium 2.3 (1.6-2.6) mg/dL Total Bilirubin 0.5 (0.0-1.0) mg/dL AST 29 (5-37) U/L ALT 33 (0-40) U/L Alkaline Phosphatase 61 (39-117) U/L Total Protein 7.1 (6.5-8.0) g/dL Albumin 3.8 (3.5-5.0) g/dL Urine Color Dark Yellow Urine Appearance Turbid Urine pH 6.0 (5.0-9.0) Ur Specific [place] 1.015 (1.005-1.025) Urine Protein 100 (2+) H (Neg-Trace) mg/dL Urine Glucose (UA) Negative (Negative) mg/dL Urine Ketones Trace (Negative) mg/dL Urine Blood Large (3+) H (Negative) Urine Nitrite Negative (Negative) Ur Leukocyte Esterase Large (3+) H (Negative) Urine RBC >20 H (0-2) /HPF Urine WBC >50 H (0-5) /HPF Ur Squamous Epith Cells 3-5 (0-2) /HPF Urine Bacteria 4+ (None Seen) Hyaline Casts 0-2 (0-2) /LPF Radiology Impression Discussion of test interpretation with radiology: I have reviewed the radiologist's reading. Discharge Plan Discharge Clinical Impression: Urinary tract infection, Confusion, Diverticulitis Patient Disposition: Admitted As Inpatient
[2025-07-14 17:00] LABS: MANUAL DIFF FLAG NO
[2025-07-14 17:01] LABS: Hematocrit 43.6 % (42.0-52.0); Hemoglobin 14.6 g/dl (14.0-18.0); Imm Gran Abs Auto 0.03 X10*3/uL (0.00-0.03); Imm Gran Pct Auto 0.4 % (0.0-0.4); Lymphocytes Absolute Auto 1.7 X10*3/uL (1.2-4.9); Mean Corpuscular HGB Conc 33.5 g/dl (31.0-36.0); Mean Corpuscular Hemoglobin 29.9 pg (27.0-33.0); Mean Corpuscular Volume 89.2 fL (80.0-98.0); NRBC Abs Auto 0.000 X10*3/uL (0.0-0.012); NRBC Pct Auto 0.0 /100WBC (0.0-0.2); Platelet Count 278 X10*3/uL (160-400); Red Blood Count 4.89 X10*6/uL (4.60-5.80); White Blood Count 7.8 X10*3/uL (4.8-10.8)
[2025-07-14 17:17] LABS: Alanine Aminotransferase 33 U/L (0-40); Albumin Level 3.8 g/dL (3.5-5.0); Alkaline Phosphatase 61 U/L (39-117); Anion Gap 13 (12-20); Aspartate Amino Transferase 29 U/L (5-37); Blood Urea Nitrogen 15 mg/dL (9-16); Calcium 9.1 mg/dL (8.4-10.2); Carbon Dioxide 25 mmol/L (22-29); Chloride 107 mmol/L (96-108); Creatinine Clr Calc Pharmacy 111.8; Estimated Glomerular Filt Rate > 60; Magnesium 2.3 mg/dL (1.6-2.6); Potassium 4.5 mmol/L (3.3-5.1); Sodium 140 mmol/L (135-145); Total Protein 7.1 g/dL (6.5-8.0)
--- OUTSIDE RECORDS SUMMARY | 2025-07-14 19:19 | XMS_ITS | Clinical Summary ---
Author Organization [facility] Address [address] [place] [address] Care Team Providers Care Chuck Boner Name Role Phone Luis Felipe Cardenas MD [...] age to complete this topic Care Teams Chuck Boner Relationship Specialty Start Date End Date Luis Felipe Cardenas MD PCP - General Family Medicine 10/27/23
--- OUTSIDE RECORDS SUMMARY | 2025-07-14 19:19 | XMS_ITS | Encounter Summary ---
Author Organization [facility] Address [address] [place] [address] Care Team Providers Care Ripsaw Operator Name Role Phone Luis Felipe Cardenas DO Primary Care Provider [phone] Reason for Visit * Reason Onset Date Comments Medication Reaction 07/11/2025 PT experienc ing side effects from meds (- Levofloxacin 500 mg tablets): Encounter Details Date Type Department Care Team (Late st Contact Info) Description 07/11/2025 Telephone Internal Medicine - [place] [address] [facility] [address] [place] [address] Luis Felipe Cardenas DO [address] [place] [address] Social History Tobacco Use Types Packs/Day Years [...] on file documented as of this encounter Ordered Prescriptions Prescription Sig Dispense Quantity Refills Last Filled Start Date End Date nitrofurantoin, macrocrystal-monoh ydrate, (MACROBID) 100 mg capsuleIndications :Acute cystitis without hematuria Take 1 capsule (100 mg total) by mouth 2 (two) times a day for 5 days. 10 each 07/11/2025 documented in this encounter Progress Notes * Kylah Calderon RN - 07/11/2025 4:58 PM EDTAddended by: KYLAH CALDERON on: 07/11/2025 04:58 PM Modules accepted: Orders * Kylah Calderon RN - 07/11/2025 4:57 PM EDT S/w PCP- will send Macrobid 100 mg BID x 5 days. Pt aware. Med education provided. Aware to go to ED if symptoms worsen or do not improve over the weekend. Kylah Calderon RN * Kylah Calderon RN - 07/11/2025 4:41 PM EDT C+S received from [facility]- scanned into chart. Prelim culture showed no growth. Kylah Calderon RN * Kylah Calderon RN - 07/11/2025 3:57 PM EDT S/w and advised per pcp to stop levofloxacin and monitor for worsening s/s of UTI and go to EDfor IV abx. Pt's spouse did not want patient to stop ABX for concern of worsening UTI. She is awareour office is awaiting the urine C+S from [facility]. She states she will drive to [facility] for results to report to our office. Kylah Calderon RN * Kylah Calderon RN - 07/11/2025 3:03 PM EDT Call to patient- they do not have sensitivity report with their d/c summary Call to [facility]- request for culture and sensitivity needs to be faxed to their HIM center- request faxed today to [phone] * Kylah Calderon RN - 07/11/2025 2:49 PM EDT Advised pt to stop medication while awaiting PCP advise for next steps. Last dose of levofloxacin 500 mg QD this morning, has 5 days left of abx course, please advise alternate. Kylah Calderon RN * Comfort Lebron - 07/11/2025 2:41 PM EDT PT experiencing side effects from meds (-Levofloxacin 500 mg tablets): Slight hoarseness when speaking Confusion (NOTE: PT repeated this multiple times, that he has been experiencing confusion) Sweating Pt suffers from neuropathy? And is wondering if that can affect his medication reactions. These side effects have been going on for about 2 days now. PT would like a call back to speak about these side effects to see if he needs to be worried or concerned. documented in this encounter Plan of Treatment Upcoming Encounters Date Type Department Care Team (Late st Contact Info) Description 10/22/2025 2:30 PM EST Office Visit Internal Medicine - [place] [address] [place] [address] Luis Felipe Cardenas, DO [address] [place] [address] 06/23/2026 3:30 PM EDT Office Visit Internal Medicine - [place] [address] [place] [address] Luis Felipe Cardenas DO [address] [place] [address] documented as of this encounter Visit Diagnoses Diagnosis Acute cystitis without hematuria- Primary documented in this encounter Additional Health Concerns Assessment Noted Time PHQ-9 Depression Total Score: 0 06/18/20 25 3:34 PM EDT documented as of this encounter Care Teams Ripsaw Operator Relationship Specialty Start Date End Date Luis Felipe Cardenas DO [address] [place] [address] PCP - General 10/27/23 documented as of this encounter
--- OUTSIDE RECORDS SUMMARY | 2025-07-14 19:19 | XMS_ITS | Clinical Summary ---
Author Organization [facility] Address [address] [address] Phone Care Team Providers Care Cotton Ginner Name Role Phone Sridevi Elizabeth NP Primary [...] ZOSTER VACCINES (2 of 3) 10/20/2015 08/25/2015 RSV VACCINE (1 - 1-dose 75+ series) 2025 INFLUENZA VACCINE (#1) 2025 08/18/2020 COVID-19 VACCINE (3 - 2024-2 6 season) 2025 01/14/2021, 12/17/2020 Adult Td,Tdap Booster 03/20/2029 03/20/2019 PNEUMOCOCCAL VACCINES [...] Devices Not on file Insurance [facility] FEDERAL MEDICARE PART A & B Celine MARINELLI [address] MEDICARE PART A & [place] [address] [facility] MEDICARE PART A & B [facility] MEDICARE [facility] A & B [facility] MEDICARE PART A & B MEDICARE PART A & [place] [address] [facility] MEDICARE PART A & B [facility] MEDICARE PART A & B [facility] MEDICARE PART A & B Care Teams Cotton Ginner Relationship Specialty Start Date End Date Sridevi Elizabeth NP [address] [place] [address] [place] [address] [email or web address] PCP - General Family Medicine 10/02/21 Additional Source Comments The information contained in this document represents components of the legal health record. It is not the complete legal health record.[facility]
--- OUTSIDE RECORDS SUMMARY | 2025-07-14 19:19 | XMS_ITS | Clinical Summary ---
Author Organization [address] Address [address] [address] Phone Care Team Providers Care Electronics Recycler Name Role Phone Luis Felipe Cardenas DO Primary Care Provider [phone] Allergies No known active allergies Medications polyethylene [...] 180 each 3 06/18/20 25 026 Active nitrofurantoin, macrocrystal-mon ohydrate, (MACROBID) 100 mg capsuleIndicatio ns:Acute cystitis without hematuria Take 1 capsule (100 mg total) by mouth 2 (two) times a day for 5 days. 10 each 07/11/20 25 025 Active tamsulosin (FLOMAX) 0.4 mg 24 hr capsuleIndicatio ns:Benign prostatic hyperplasia, unspecified whether lower urinary tract symptoms present Take 1 capsule (0.4 mg total) by mouth 1 (one) time each day. 90 each 3 11/07/19 25 025 Discontinued amLODIPine (NORVASC) 2.5 mg tabletIndication s:Essential hypertension Take 1 tablet (2.5 mg total) by mouth 1 (one) time each day. 90 each 04/03/20 25 025 Discontinued(Re order) Active Problems Problem Noted Date Diagnosed Date Constipation 05/11/2022 Diverticulitis 05/11/2022 Overview (07/18/2024): being treated since May 03 2022 - early May- required admittion due to bowel perforation Perforation bowel ([facility] V24, [facility] V28) 04/2022 Overview (07/18/2024): May 05 [...] Encounters Date Type Department Care Team Description 07/11/2025 Telephone Internal Medicine - [place] [address] [facility] [address] [place] [address] Luis Felipe Cardenas DO 07/09/2025 3:30 PM EDT Office Visit Internal Medicine - [place] [address] [facility] [address] [place] [address] Jorge Cardenas PA Acute cystitis without hematuria (Primary Dx); Essential hypertension; Benign prostatic hyperplasia, unspecified whether lower urinary tract symptoms present; Elevated hemoglobin A1c 06/18/2025 3:30 PM EDT Office Visit Internal Medicine - [place] 2 [facility] 2 [place] [phone] Luis Felipe Cardenas DO Encounter for annual wellness visit (AWV) in [...] Mass Index 32.39 07/09/2025 3:21 PM EDT Plan of Treatment Upcoming Encounters Date Type Department Care Team (Late st Contact Info) Description 10/22/2025 2:30 PM EST Office Visit Internal Medicine - [place] [address] [place] [phone] Luis Felipe Cardenas DO [address] [place] [address] 06/23/2026 3:30 PM EDT Office Visit Internal Medicine - [place] [address] [place] [address] Luis Felipe Cardenas, DO [address] [place] [address] Health Maintenance Due Date Last Done Comments [...] Routine 07/02/2025 8:27 AM EDT Mixed hyperlipidemia DEPRESSION SCREENING Routine 10/27/2023 FALLS RISK ASSESSMENT Routine 10/27/2023 COLONOSCOPY Routine 06/18/2019 from Last 3 Months or Most Recently Relevant to Health Maintenance Results * Prostate specific antigen (07/02/2025 8:27 AM EDT) PSA, Total 0.77 < OR = 2.50 ng/mL [facility] Comment: The total PSA value from this assay system is standardized against the WHO standard. The test result will be approximately 20% lower when compared to the equimolar-standardized total PSA ([place]). Comparison of serial PSA results should be [...] 8:27 AM EDT 07/02/2025 8:27 AM EDT Douglas BetyahMOMO (MICHELLE) - 07/03/2025 7:08 AM EDT FASTING:YES FASTING: YES [facility] LAB BLOOD ORDERABLES Final Resul t Performing Organization Address [facility] de Phone Number YANETH [facility] [address] [place] [address] * Thyroid stimulating hormone with reflex free T4 (07/02/2025 8:27 AM EDT) Thyroid Stimulating Hormone (Reflex FT4) 2.30 0.40 - 4.50 mIU/L [facility] Blood Venous blood specimen / Unknown 07/02/2025 8:27 AM EDT 07/02/2025 8:27 AM EDT [facility]a [employer] (MICHELLE) - 07/03/2025 7:08 AM EDT FASTING:YES FASTING: YES [facility] Cardenas DO LAB BLOOD ORDERABLES Final Resul t Performing Organization Address [facility] de Phone Number [facility] [employer] [address] [place] [phone] * CBC auto differential (07/02/2025 8:27 AM EDT) White Blood Cell Count 5.6 3.8 - 10.8 Thousand/u L [facility] [employer] RBC Count 5.03 4.20 - 5.80 Million/uL [facility] Hemoglobin 15.3 13.2 - 17.1 g/dL [facility] Hematocrit 47.0 38.5 - 50.0 % [facility] MCV 93.4 80.0 - 100.0 fL [employer] MCH 30.4 27.0 - 33.0 pg [employer] MCHC 32.6 32.0 - 36.0 g/dL [employer] Comment: For adults, a slight decrease in the calculated MCHC value (in the range of 30 to 32 g/dL) is most likely not clinically significant; however, it should be interpreted with caution in correlation with other red cell parameters and the patient's clinical condition. RDW 12.0 11.0 - 15.0 % [facility] Platelet Count 247 140 - 400 Thousand/u L [employer] MPV 9.2 7.5 - 12.5 fL [facility] Absolute Neutrophil 3,405 1,500 - 7,800 cells/uL [facility] Absolute Lymphocytes 1,478 850 - 3,900 cells/uL [facility] Absolute Monocytes 543 200 - 950 cells/uL [facility] Absolute Eosinophils 151 15 - 500 cells/uL [facility] Absolute Basophils 22 0 - 200 cells/uL [facility] Neutrophils 60.8 % [facility] Lymphocytes 26.4 % [facility] Monocytes 9.7 % [facility] Eosinophils 2.7 % [facility] Basophils 0.4 % [facility] Blood Venous blood specimen / Unknown 07/02/2025 8:27 AM EDT 07/02/2025 8:27 AM EDT Narrative [facility] - 07/03/2025 7:08 AM EDT FASTING:YES FASTING: YES Luis Felipe Cardenas DO LAB BLOOD ORDERABLES Final Resul t [facility] [employer] [address] [place] [phone] * (ABNORMAL) Hemoglobin A1c (07/02/2025 8:27 AM EDT) Hemoglobin A1C 5.7(H) <5.7 % [facility] Comment: For someone without known diabetes, a [...] AM EDT 07/02/2025 8:27 AM EDT Narrative [facility]) - 07/03/2025 7:08 AM EDT FASTING:YES FASTING: YES Luis Felipe Cardenas DO LAB BLOOD ORDERABLES Final Resul t [facility] [employer] [address] [place] [phone] * Lipid panel (07/02/2025 8:27 AM EDT) Pathologist [facility] Cholesterol Total 134 <200 mg/dL [facility] HDL Cholesterol 54 > OR = 40 mg/dL [facility] Triglycerides 48 <150 mg/dL [facility] LDL Cholesterol 66 mg/dL (calc) [facility] Comment: Reference range: <100 Desirable range <100 mg/dL for primary prevention; <70 mg/dL for patients with CHD or diabetic patients with > or = 2 CHD risk factors. LDL-C is now calculated using the Eb-Gurinder calculation, which is a validated novel method providing better accuracy than the Friedewald equation in the estimation of LDL-C. Eb SS et al. RAN. 2013;310(19): 8979-1789 (http://education.Optrace/faq/YWS922) Chol/HDLC Ratio 2.5 <5.0 (calc) [facility] Non HDL Cholesterol 80 <130 mg/dL (calc) [facility] Comment: For patients with diabetes plus 1 major ASCVD risk factor, treating to a non-HDL-C goal of <100 mg/dL (LDL-C of <70 mg/dL) is considered a therapeutic option. Blood Venous blood specimen / Unknown 07/02/2025 8:27 AM EDT 07/02/2025 8:27 AM EDT Narrative YANETH ROSALES (MICHELLE) - 07/03/2025 7:08 AM EDT FASTING:YES FASTING: YES [facility] DO LAB BLOOD ORDERABLES Final Resul t YANETH [facility] (MICHELLE) [employer] [address] [place] [phone] * (ABNORMAL) Comprehensive metabolic panel (07/02/2025 8:27 AM EDT) Glucose 101(H) 65 - 99 mg/dL [employer] Comment: Fasting reference interval For someone without known diabetes, a glucose value between 100 and 125 mg/dL is consistent with prediabetes and should be confirmed with a follow-up test. Urea Nitrogen (BUN) 17 7 - 25 mg/dL [facility] Creatinine 0.89 0.70 - 1.28 mg/dL [facility] eGFR 89 > OR = 60 mL/min/1 .73m2 [facility] BUN/Creatinine Ratio SEE NOTE: 6 - 22 (calc) [facility] Comment: Not Reported: BUN and Creatinine are within reference range. Sodium 138 135 - 146 mmol/L [facility] Potassium 4.5 3.5 - 5.3 mmol/L [facility] Chloride 104 98 - 110 mmol/L [facility] Carbon Dioxide 28 20 - 32 mmol/L [facility] Calcium 9.0 8.6 - 10.3 mg/dL [facility] Total Protein 6.8 6.1 - 8.1 g/dL [facility] Albumin 4.1 3.6 - 5.1 g/dL [facility] Globulin 2.7 1.9 - 3.7 g/dL (calc) [facility] Albumin/Globulin Ratio 1.5 1.0 - 2.5 (calc) [facility] Bilirubin Total 0.7 0.2 - 1.2 mg/dL [facility] Alkaline Phosphatase 55 35 - 144 U/L [facility] Aspartate aminotransferase (AST) 12 10 - 35 U/L [facility] Alanine Aminotransferase (ALT) 11 9 - 46 U/L [facility] Blood Venous blood specimen / Unknown 07/02/2025 8:27 AM EDT 07/02/2025 8:27 AM EDT Narrative [facility] (MICHELLE) - 07/03/2025 7:08 AM EDT FASTING:YES FASTING: YES [facility] Cardenas LAB BLOOD ORDERABLES Final Resul t [facility] (MICHELLE) [employer] [address] [phone] * Falls Risk Assessment (10/27/2023) [facility] Falls Risk Assessment abstracted Result [facility] Provider HEALTH MAINTENANCE Final Result * Depression Screening (10/27/2023) Pathologist [facility] Depression Screening abstracted [facility] Provider HEALTH MAINTENANCE Final Result * Colonoscopy (06/18/2019) Pathologist [facility] Colonoscopy no interpretation , abstracted Anatomical Region Laterality Modality Other [facility] Provider HEALTH MAINTENANCE Final Result from Last 3 Months or Most Recently Relevant to Health Maintenance Insurance MEDICARE [facility] Advance Directives * Full Code - Confirmed [...] Agents on File Name Relationship Healthcare Agent Relationshi p Communication Nelda Radford Spouse First Alternate Health Care Agent Care Teams Electronics Recycler Relationship Specialty Start Date End Date Luis Felipe Cardenas DO [address] [place] [address] PCP - General 10/27/23
[2025-07-14 21:25] LABS: Appearance Urine Turbid; Glucose Urine UA Negative (Negative); PH 6.0 (5.0-9.0); Specific Gravity - Urine 1.015 (1.005-1.025); UMIC TRIGGER UACC YES
[2025-07-14 21:39] VITALS: BP 123/74; PULSE 78; RESP 16; TEMP 36.8; O2SAT 97
[2025-07-14 21:47] LABS: UACC Culture Trigger YES
[2025-07-15] VITALS (9 sets, daily range): BP systolic 122–158; BP diastolic 74–99; PULSE 70–98; RESP 13–19; TEMP 36.4–36.9; O2SAT 94–99; BMI 32.9
--- NOTE | 2025-07-15 00:46 | P.HPHOSP_ITS ---
History of Present Illness Date of Service: 07/15/25 Chief Complaint: dysuria 75-year-old male with a past medical history of HTN, HLD, BPH presented to the hospital today with a chief complaint of dysuria, urinary frequency. Patient reportedly was diagnosed with a UTI on 07/07/2025; has had CT abdomen pelvis done at the time; discharged on Levaquin. But patient's family reports that patient continued to have the urinary symptoms and noted to be slightly confused than his normal. Followed with the family called the patient's PCP who suggested to go to the ER for further evaluation. Patient denies any chest pain or palpitations. Denies any nausea vomiting. Denies any abdominal pain. Reports having loose stools over the past couple days. Review of all other systems is negative except mentioned above ER course: Per ER team, patient noted to have benign abdominal examination; Mentating well; urinalysis abnormal consistent with UTI. Patient was given ceftriaxone. [facility] Medical History Encounter for colorectal cancer screening using Cologuard test Diverticular disease Ulnar neuropathy Varicose vein of leg Hx of squamous cell carcinoma of skin Hx of osteoarthritis History of diverticulitis HTN (hypertension) Right inguinal hernia Surgical History History of colonoscopy H/O total hip arthroplasty Status post ORIF of fracture of ankle History of surgery on lower extremity Hx of excision of epidermal inclusion cyst Hx of arthroscopy of right knee Hx of arthroscopy of left knee Social History Household Members: Spouse Housing: House Alcohol intake: current Alcohol intake frequency: holidays/special occasions only Alcohol type: beer Patient Tobacco Use Status: Never used Tobacco Smoked in Last 30 Days: No Use of substances other than those prescribed or required for medical reasons: No Advance Directives: No Advance Directives Information Provided: Yes Do you have a plan to hurt others: No Plan Nutrition Risks: No Nutritional Risk service: Yes Current occupational status: retired Meds Allergies Allergy/AdvReac Type Severity Reaction Status Date / Time No Known Allergies (No Known Allergy Verified 07/14/25 16:39 Allergies*) Active Medications: Current Medications Acetaminophen (Acetaminophen 325 Mg Tablet) 650 mg PO Q6H PRN PRN Reason: Pain, Mild 1-3,fever,headache Calcium Carbonate (Calcium Carbonate 750 Mg Tab.Chew) 750 mg PO Q4H PRN PRN Reason: Heartburn Magnesium Hydroxide (Milk Of Magnesia 30 Ml Oral.Susp) 30 ml PO DAILY PRN PRN Reason: Constipation Melatonin (Melatonin 3 Mg Tablet) 6 mg PO BEDTIME PRN PRN Reason: Insomnia Sodium Chloride (0.9 % Sodium Chloride Flush 3 Ml Syringe) 3 ml IVFLUSH QSHIFT [facility] Home Medications ?Medication ?Instructions ?Recorded ?Confirmed ?Last Taken ?Type amlodipine 2.5 mg tablet 1 tab PO DAILY 05/05/2206/07 Unknown History tamsulosin 0.4 mg capsule 0.4 mg PO DAILY 07/20/22 Unknown History Physical Exam 2 Vital Signs and Narrative: Vital Signs: Last Vital Signs Temp 97.6 F 07/15/25 00:44 Pulse 73 07/15/25 00:44 Resp 14 07/15/25 00:44 BP 132/83 07/15/25 00:44 Pulse Ox 96 07/15/25 00:44 O2 Del Method Room Air 07/15/25 00:44 BMI result Body Mass Index 31.9 Gen: Appears be in no acute distress HEENT: NCAT, Moist mucosa. Pulmonary: Vesicular breath sounds, fair air entry CVS: Normal S1-S2 Abdomen: BS+, Soft, Nontender Extremities: Warm well perfused Neuro: Alert and awake. Results Labs 07/15/25 04:01 07/15/25 04:01 Labs: Laboratory Results - last 24 hr 07/14/25 07/14/25 16:51 21:12 MCV 89.2 MCH 29.9 MCHC 33.5 RDW 12.4 Plt Count 278 D MPV 8.7 L Immature Gran % (Auto) 0.4 Neut % (Auto) 65.9 Lymph % (Auto) 22.1 Gillespie % (Auto) 9.8 Eos % (Auto) 1.5 Baso % (Auto) 0.3 Lymph # (Auto) 1.7 [place]illespie # (Auto) 0.8 Eos # (Auto) 0.1 Baso # (Auto) 0.0 Abs Immat Gran (auto) 0.03 Absolute Neuts (auto) 5.2 Absolute Nucleated RBC 0.000 Nucleated RBC % (auto) 0.0 Anion Gap 13 Estim Creat Clear Calc 111.8 Estimated GFR > 60 Random Glucose 97 Lactic Acid 1.1 Calcium 9.1 Magnesium 2.3 Total Bilirubin 0.5 AST 29 ALT 33 Alkaline Phosphatase 61 Total Protein 7.1 Albumin 3.8 Urine Color Dark Yellow Urine Appearance Turbid Urine pH 6.0 Ur Specific [place] 1.015 Urine Protein 100 (2+) H Urine Glucose (UA) Negative Urine Ketones Trace Urine Blood Large (3+) H Urine Nitrite Negative Ur Leukocyte Esterase Large (3+) H Urine RBC >20 H Urine WBC >50 H Ur Squamous Epith Cells 3-5 Urine Bacteria 4+ Hyaline Casts 0-2 Assessment and Plan (1) Urinary tract infection: Qualifiers: Hematuria presence: without hematuria Urinary tract infection type: s ite unspecified Qualified Code(s): N39.0 - Urinary tract infection, site not specified Status: Acute Plan 75-year-old male with a past medical history of HTN, HLD, BPH presented to the hospital today with a chief complaint of dysuria, urinary frequency. Admitted for following UTI: Patient failed outpatient antibiotics-was on Levaquin. We will keep the patient on ceftriaxone Follow-up cultures ID consult CT abdomen pelvis pending Diarrhea: Patient's recent CT scan showed sigmoid wall thickening. Repeat CT scan pending. Will defer to the day team to follow-up the final CT results and gastroenterology consult if needed Hypertension: Hold home antihypertensives for now. DVT prophylaxis: Lovenox Code status: Full Code Quality Stroke Does the patient have a stroke diagnosis?: No VTE Prior VTE?: No VTE Risk Level:: Medical - moderate - high VTE Device Contraindication: Treatment Not Indicated VTE Drug Contraindication: N/A - Med Ordered
[2025-07-15] MEDS: iohexoL 350 MG/ML 100 ML INFUS..BTL 85 ML IV (01:50)
[2025-07-15] MEDS: Lactated Ringers 1,000 ML 100 ML IVCONT ×3 (01:58→23:21)
[2025-07-15] MEDS: metroNIDAZOLE/NS 500 MG/100 ML PIGGYBACK 100 MG IV ×3 (03:23→20:24)
[2025-07-15 04:46] LABS: MANUAL DIFF FLAG NO
[2025-07-15 04:49] LABS: Hematocrit 38.7 % (42.0-52.0); Hemoglobin 13.2 g/dl (14.0-18.0); Imm Gran Abs Auto 0.03 X10*3/uL (0.00-0.03); Imm Gran Pct Auto 0.4 % (0.0-0.4); Lymphocytes Absolute Auto 1.7 X10*3/uL (1.2-4.9); Mean Corpuscular HGB Conc 34.1 g/dl (31.0-36.0); Mean Corpuscular Hemoglobin 30.0 pg (27.0-33.0); Mean Corpuscular Volume 88.0 fL (80.0-98.0); NRBC Abs Auto 0.000 X10*3/uL (0.0-0.012); NRBC Pct Auto 0.0 /100WBC (0.0-0.2); Platelet Count 255 X10*3/uL (160-400); Red Blood Count 4.40 X10*6/uL (4.60-5.80); White Blood Count 7.1 X10*3/uL (4.8-10.8)
--- NOTE | 2025-07-15 04:49 | PC.NURSE ---
pt walking with IV pole to bathroom independently. gait even and steady
[2025-07-15 05:06] LABS: Alanine Aminotransferase 26 U/L (0-40); Albumin Level 3.2 g/dL (3.5-5.0); Alkaline Phosphatase 55 U/L (39-117); Anion Gap 11 (12-20); Aspartate Amino Transferase 26 U/L (5-37); Blood Urea Nitrogen 13 mg/dL (9-16); Calcium 8.4 mg/dL (8.4-10.2); Carbon Dioxide 25 mmol/L (22-29); Chloride 109 mmol/L (96-108); Creatinine Clr Calc Pharmacy 120.1; Estimated Glomerular Filt Rate > 60; Potassium 4.1 mmol/L (3.3-5.1); Sodium 141 mmol/L (135-145); Total Protein 6.2 g/dL (6.5-8.0)
--- NOTE | 2025-07-15 06:26 | PC.NURSE ---
pt presents to ED for continued urinary sx, and confusion. has failed outpt ABX for UTI. pt A/O x3, confused at times. calm and cooperative with care. ambulates independently with IV pole to bathroom. LR infusing 100mls/hr. 20g IV LAC. ABX given. NSR on tele.
--- NOTE | 2025-07-15 07:32 | PM.CNGS ---
History of Present Illness Consult details Consult date: 07/15/25 Narrative: 75-year-old male who was brought to the ER yesterday because of what the described as some confusion. He was to be described to be ?not with it during the day. He denies any abdominal pain. He denies any fever or chills . He had been recently diagnosed to have a urinary tract infection and was on antibiotics. However, he felt that this really did not go away. He describes low intensity burning when he was urinating . He does describe some turbidity of his urine with some small particles. He has been to me. He has had a long history of diverticular disease. He had an abscess last phlegmon in 2020 from sigmoid diverticulitis. He had been refusing any further intervention. Review of Systems Constitutional: Constitutional: Denies chills and Denies fever(s) Cardiovascular: Cardiovascular: Denies chest pain, Denies dyspnea and Denies dyspnea on exertion Respiratory: Respiratory: Denies cough, Denies dyspnea and Denies dyspnea on exertion Gastrointestinal: Gastrointestinal: Denies hematochezia and Denies change in bowel habits Genitourinary: Genitourinary: Denies hematuria, Denies difficulty urinating and Reports dysuria Musculoskeletal: Musculoskeletal: Denies back pain and Denies limited range of motion Neurologic: Denies focal weakness and Denies convulsions Psychiatric: Psychiatric: Denies depression and Denies mood swings PMFSH Past Medical History Medical History Encounter for colorectal cancer screening using Cologuard test Diverticular disease Ulnar neuropathy Varicose vein of leg Hx of squamous cell carcinoma of skin Hx of osteoarthritis History of diverticulitis HTN (hypertension) Right inguinal hernia Surgical History Surgical History History of colonoscopy H/O total hip arthroplasty Status post ORIF of fracture of ankle History of surgery on lower extremity Hx of excision of epidermal inclusion cyst Hx of arthroscopy of right knee Hx of arthroscopy of left knee Social History Social History Household Members: Spouse Housing: House Do you presently have visiting nurse or other home services: No Alcohol intake: current Alcohol intake frequency: holidays/special occasions only Alcohol type: beer Patient Tobacco Use Status: Never used Tobacco e-Cigarette/Vaping Use: Never Used Second Hand Smoke Exposure: No service: Yes Current occupational status: retired Meds Allergies Allergy/AdvReac Type Severity Reaction Status Date / Time No Known Allergies (No Known Allergy Verified 07/14/25 16:39 Allergies*) Active Medications: Current Medications Acetaminophen (Acetaminophen 325 Mg Tablet) 650 mg PO Q6H PRN PRN Reason: Pain, Mild 1-3,fever,headache Calcium Carbonate (Calcium Carbonate 750 Mg Tab.Chew) 750 mg PO Q4H PRN PRN Reason: Heartburn Ceftriaxone Sodium (Ceftriaxone Sodium 1 Gm Vial) 1 gm IVPUSH Q24H [facility] Enoxaparin Sodium (Enoxaparin Sodium 40 Mg/0.4 Ml Syringe) 40 mg SUBCUT Q24H [facility] Last Admin: 07/15/25 01:58 Dose: 40 mg Lactated Ringer's (Lr) 1,000 mls @ 100 mls/hr IVCONT .Q10H [facility] Last Admin: 07/15/25 01:58 Dose: 100 mls/hr Metronidazole (Flagyl) 500 mg in 100 mls @ 100 mls/hr IV Q8H [facility] Magnesium Hydroxide (Milk Of Magnesia 30 Ml Oral.Susp) 30 ml PO DAILY PRN PRN Reason: Constipation Melatonin (Melatonin 3 Mg Tablet) 6 mg PO BEDTIME PRN PRN Reason: Insomnia Sodium Chloride (0.9 % Sodium Chloride Flush 3 Ml Syringe) 3 ml IVFLUSH QSHIFT [facility] Home Medications ?Medication ?Instructions ?Recorded ?Confirmed ?Last Taken ?Type amlodipine 2.5 mg tablet 1 tab PO BEDTIME 05/05/22 07/15/25 07/13/25 History ibuprofen 200 mg tablet 200 mg PO Q6H PRN Pain 07/15/25 07/15/25 Unknown History nitrofurantoin 1 cap PO BID 07/15/25 07/15/25 07/14/25 History monohydrate/macrocrystals 100 mg capsule polyethylene glycol 3350 17 17 g PO DAILY PRN Constipation 07/15/25 07/15/25 Unknown History gram/dose oral powder (Miralax) tamsulosin 0.4 mg capsule (Flomax) 0.4 mg PO BEDTIME 07/15/25 07/15/25 07/13/25 History Physical Exam Vital Signs: Vital Signs: Last Vital Signs Temp 97.6 F 07/15/25 04:37 Pulse 70 07/15/25 04:37 Resp 16 07/15/25 04:37 BP 122/74 07/15/25 04:37 Pulse Ox 94 07/15/25 04:37 O2 Del Method Room Air 07/15/25 04:37 BMI result Body Mass Index 31.9 Const: General: comfortable and no acute distress Orientation/consciousness: patient oriented x3 Neck: Neck: Yes no lymphadenopathy Resp: Auscultation: clear to auscultation bilaterally Cardio: Rhythm: regular rhythm GI: Palpation (GI): Soft to palpation, nontender and no guarding Neuro: General: patient oriented x3 Results Labs 07/15/25 04:01 07/15/25 04:01 Labs: Abnormal lab results 07/14/25 07/14/25 07/15/25 Range/Units 16:51 21:12 04:01 RBC 4.40 L (4.60-5.80) X10*6/uL Hgb 13.2 L (14.0-18.0) g/dl Hct 38.7 L (42.0-52.0) % MPV 8.7 L 8.8 L (9.4-12.4) fL Chloride 109 H (96-108) mmol/L Anion Gap 11 L (12-20) Total Protein 6.2 L (6.5-8.0) g/dL Albumin 3.2 L (3.5-5.0) g/dL Urine Protein 100 (2+) H (Neg-Trace) mg/dL Urine Blood Large (3+) H (Negative) Ur Leukocyte Esterase Large (3+) H (Negative) Urine RBC >20 H (0-2) /HPF Urine WBC >50 H (0-5) /HPF Short CBC 07/14/25 07/15/25 Range/Units 16:51 04:01 WBC 7.8 7.1 (4.8-10.8) X10*3/uL Hgb 14.6 13.2 L (14.0-18.0) g/dl Hct 43.6 38.7 L (42.0-52.0) % Plt Count 278 D 255 (160-400) X10*3/uL BMP 07/14/25 07/15/25 16:51 04:01 Sodium 140 141 Potassium 4.5 4.1 Chloride 107 109 H Carbon Dioxide 25 25 BUN 15 13 Creatinine 0.72 0.67 Calcium 9.1 8.4 D Liver Function 07/14/25 07/15/25 Range/Units 16:51 04:01 Total Bilirubin 0.5 0.4 (0.0-1.0) mg/dL AST 29 26 (5-37) U/L ALT 33 26 (0-40) U/L Alkaline Phosphatase 61 55 (39-117) U/L Albumin 3.8 3.2 L (3.5-5.0) g/dL Urine 07/14/25 Range/Units 21:12 Urine Color Dark Yellow Urine Appearance Turbid Urine pH 6.0 (5.0-9.0) Ur Specific [place] 1.015 (1.005-1.025) Urine Protein 100 (2+) H (Neg-Trace) mg/dL Urine Glucose (UA) Negative (Negative) mg/dL All other labs normal. Assessment and Plan (1) Diverticulitis: Status: Acute 75-year-old male with a known long history of diverticular disease, admitted because of some confusion. He was diagnosed to have a UTI which he is says has been recurrent I have reviewed his CAT scan and he does appear to have some inflammatory changes in the sigmoid along with a likely colovesical fistula . There is area within the bladder consistent with a fistula with a segment of the sigmoid appearing intimately adherent to this. This may explain his recurrent urinary tract infection He currently has a very benign abdominal exam. He does not have any significant pain or tenderness. However, because of his recurrent urinary tract infection with the risk of urosepsis, he will benefit from sigmoid resection and possible colostomy. He is currently non septic looking. Procedures Date of Service Date of Service: 07/16/25
--- NOTE | 2025-07-15 08:06 | PC.NURSE ---
Pt reports that he has a new warm varicose vein in his left lower leg. Manifests within the last two days. It is hardened, swollen, slightly red, pulls when I walk. Pt has been NPO since 1629 on Saturday 07/14. No pain
--- NOTE | 2025-07-15 08:25 | P.CNGI_ITS ---
History of Present Illness Data of Consult Service Date: 07/15/25 Primary Care Provider: Luis Felipe Cardenas DO HPI Reason for consult: diverticulitis 75-year-old male with a past medical history of HTN, HLD, BPH who I am seeing for abn imaging and diverticulitis He initially presented with urine frequency and dysuria with confusion. He denies nausea vomiting, abdo pain, fever. does admit to loose stools Imaging revealed sigmoid thickening and diverticulitis with colovesical fistula. Last colonoscopy [address] Rosen, incomplete due to prep and severe diverticulosis. Patient said he does not feel confused now. He admits to noting air in his urine for a long while and has had recurrent bouts of diverticulitis in the past. He said he does have a history of using nsaids on and off for arthritis. Review of Systems 2 Review of Systems: Constitutional : No Weight loss, No Fever, No Chills ENT/Mouth : No sore throat, No Rhinorrhea Eyes: No Swelling, No Redness Cardiovascular : No Chest Pain, No SOB, No Edema Respiratory : No Cough, No Sputum, No Wheezing Gastrointestinal : see HPI Genitourinary : NO Dysuria, No Urinary Frequency, No Hematuria, No Urgency Musculoskeletal : + joint pain, No Myalgias, No Joint Swelling Skin : No Skin Lesions, No rash Neuro : No Weakness, No Numbness, No Dizziness, No Headache Psych : No Anxiety/Panic, No Depression Heme/Lymph: No Bruising, No Lymphadenopathy Endocrine : No Polyuria, No Polydipsia All other systems reviewed and are negative. [facility] Past Medical History Medical History Encounter for colorectal cancer screening using Cologuard test Diverticular disease Ulnar neuropathy Varicose vein of leg Hx of squamous cell carcinoma of skin Hx of osteoarthritis History of diverticulitis HTN (hypertension) Right inguinal hernia Family History Pertinent family history: no FH of CRC Surgical History Surgical History History of colonoscopy H/O total hip arthroplasty Status post ORIF of fracture of ankle History of surgery on lower extremity Hx of excision of epidermal inclusion cyst Hx of arthroscopy of right knee Hx of arthroscopy of left knee Social History Social History Household Members: Spouse Housing: House Alcohol intake: current Alcohol intake frequency: holidays/special occasions only Alcohol type: beer Patient Tobacco Use Status: Never used Tobacco Smoked in Last 30 Days: No Use of substances other than those prescribed or required for medical reasons: No Advance Directives: No Advance Directives Information Provided: Yes Do you have a plan to hurt others: No Plan Nutrition Risks: No Nutritional Risk service: Yes Current occupational status: retired Meds Allergies Allergy/AdvReac Type Severity Reaction Status Date / Time No Known Allergies (No Known Allergy Verified 07/14/25 16:39 Allergies*) Active Medications: Current Medications Acetaminophen (Acetaminophen 325 Mg Tablet) 650 mg PO Q6H PRN PRN Reason: Pain, Mild 1-3,fever,headache Calcium Carbonate (Calcium Carbonate 750 Mg Tab.Chew) 750 mg PO Q4H PRN PRN Reason: Heartburn Ceftriaxone Sodium (Ceftriaxone Sodium 1 Gm Vial) 1 gm IVPUSH Q24H [facility] Enoxaparin Sodium (Enoxaparin Sodium 40 Mg/0.4 Ml Syringe) 40 mg SUBCUT Q24H [facility] Last Admin: 07/15/25 01:58 Dose: 40 mg Lactated Ringer's (Lr) 1,000 mls @ 100 mls/hr IVCONT .Q10H [facility] Last Admin: 07/15/25 01:58 Dose: 100 mls/hr Metronidazole (Flagyl) 500 mg in 100 mls @ 100 mls/hr IV Q8H [facility] Magnesium Hydroxide (Milk Of Magnesia 30 Ml Oral.Susp) 30 ml PO DAILY PRN PRN Reason: Constipation Melatonin (Melatonin 3 Mg Tablet) 6 mg PO BEDTIME PRN PRN Reason: Insomnia Sodium Chloride (0.9 % Sodium Chloride Flush 3 Ml Syringe) 3 ml IVFLUSH QSHIFT [facility] Last Admin: 07/15/25 07:48 Dose: Not Given Home Medications ?Medication ?Instructions ?Recorded ?Confirmed ?Last Taken ?Type amlodipine 2.5 mg tablet 1 tab PO BEDTIME 05/05/2207/13/25 History ibuprofen 200 mg tablet 200 mg PO Q6H PRN Pain 07/1507/15/25 Unknown History nitrofurantoin 1 cap PO BID 07/15/2507/14/25 History monohydrate/macrocrystals 100 mg capsule polyethylene glycol 3350 17 17 g PO DAILY PRN Constipa tion 07/15/25 07/15/25 Unknown History gram/dose oral powder (Miralax) tamsulosin 0.4 mg capsule (Flomax) 0.4 mg PO BEDTIME 0 07/15/25 07/15/25 07/13/25 History Physical Exam 2 Exam: Exam: EXAM: GENERAL: The patient is well developed and nontoxic. VITAL SIGNS:see workflow HEENT: Nonicteric sclerae, PERRLA, EOMI. Oropharynx clear. Moist mucous membranes. Conjunctivae appear well perfused. No thyroid mass. CHEST: Chest wall is nontender. HEART: Regular rate and rhythm without murmurs. LUNGS: Clear to auscultation bilaterally. ABDOMEN: Soft, positive bowel sounds, non tender, no organomegaly.no flank tenderness SKIN: No rash, no excessive bruising, petechiae, or purpura. NEUROLOGIC: Cranial nerves II-XII intact without motor/sensory deficit. Psych: normal affect Vital Signs: Vital Signs: Last Vital Signs Temp 97.6 F 07/15/25 04:37 Pulse 70 07/15/25 04:37 Resp 16 07/15/25 04:37 BP 122/74 07/15/25 04:37 Pulse Ox 94 07/15/25 04:37 O2 Del Method Room Air 07/15/25 04:37 BMI result Body Mass Index 31.9 Results Labs 07/15/25 04:01 07/15/25 04:01 Labs: Short CBC 07/14/25 07/15/25 Range/Units 16:51 04:01 WBC 7.8 7.1 (4.8-10.8) X10*3/uL Hgb 14.6 13.2 L (14.0-18.0) g/dl Hct 43.6 38.7 L (42.0-52.0) % Plt Count 278 D 255 (160-400) X10*3/uL BMP 07/14/25 07/15/25 16:51 04:01 Sodium 140 141 Potassium 4.5 4.1 Chloride 107 109 H Carbon Dioxide 25 25 BUN 15 13 Creatinine 0.72 0.67 Calcium 9.1 8.4 D Liver Function 07/14/25 07/15/25 Range/Units 16:51 04:01 Total Bilirubin 0.5 0.4 (0.0-1.0) mg/dL AST 29 26 (5-37) U/L ALT 33 26 (0-40) U/L Alkaline Phosphatase 61 55 (39-117) U/L Albumin 3.8 3.2 L (3.5-5.0) g/dL Urine 07/14/25 Range/Units 21:12 Urine Color Dark Yellow Urine Appearance Turbid Urine pH 6.0 (5.0-9.0) Ur Specific [place] 1.015 (1.005-1.025) Urine Protein 100 (2+) H (Neg-Trace) mg/dL Urine Glucose (UA) Negative (Negative) mg/dL Imaging CT scan - abdomen: Attestation: I personally reviewed and interpreted this imaging study as follows: (thickening and stranding of sigmoid colon, bowel loops close to bladder , stomach thickening ) Assessment and Plan (1) Diverticulitis: Status: Acute Plan 1/ Acute diverticulitis with concern for colovesical fistula and UTI seems to be improving with antibiotics. PLAN: /1 Cont with yelena, 2/ f.u with [facility] [place] plan is for sigmoid colectomy tomorrow, would hold on colonoscopy at this time Procedures Date of Service Date of Service: 07/15/25
--- NOTE | 2025-07-15 08:42 | PM.EVENT ---
Event Note Date of Service: 07/15/25 Event Note: 75-year-old male with a past medical history of HTN, HLD, BPH presented to the hospital today with a chief complaint of dysuria, urinary frequency. UTI Patient failed outpatient antibiotics-was on Levaquin. continue ceftriaxone Follow cultures ID consult CT abdomen pelvis pending Diverticultis Patient's recent CT scan showed sigmoid wall thickening. Repeat CT showed Signoid colon colovesical fistula Seen by general surgery> plan for sigmoid resection and possible Colostomy Hypertension Amlodipine DVT prophylaxis: Lovenox Code status: Full Code Time Spent With Patient Time: Total time managing care of this patient today ____ minutes.
--- NOTE | 2025-07-15 09:06 | PHA.MEDREC ---
Addendum entered by Merlene Adan RPh 07/15/25 11:39: MED REC REVIEWED BY [facility] Original Note: Pharmacy Consult ? Medication Reconciliation Pharmacy has completed the medication reconciliation. Spoke with pt and he confirmed his medications. Pt confirmed he was taking Levofloxacin (started 07/08) but was switched to Nitrofurantoin caps on 07/11 and confirmed he is taking 1 cap BID for 5 days and pt confirmed his Tamsulosin 0.4mg tab once daily; pt confirmed it was originally written for 2 caps at bedtime but pt only taking 1 for now and taking to Dr soon about increasing to 2.
--- NOTE | 2025-07-15 10:04 | HO.ANESPROP2 ---
Documented by User: Laly Sterling NP 07/15/25 10:14 HPI - Anesthesia Eval Consult details Narrative: 75 yr old male for Hand Assist Sigmoid Resection, Ostomy Recent illness includes UTI No CP/SOB with walking, golfing daily PMFSH Active Problems Active Problems: All Active Problems (Updated 07/15/25 @ 02:40 by COURTNEY Rivas) Confusion (Acute) Urinary tract infection (Acute) Encounter for colorectal cancer screening using Cologuard test (Acute) Varicose veins of left lower extremity with inflammation (Acute) Diverticulitis (Acute) Bowel perforation (Acute) Diverticular disease (Acute) Right inguinal hernia (Acute) Past Medical History Medical History Encounter for colorectal cancer screening using Cologuard test Diverticular disease Ulnar neuropathy Varicose vein of leg Hx of squamous cell carcinoma of skin Hx of osteoarthritis History of diverticulitis HTN (hypertension) Right inguinal hernia Family History Family history of problems with anesthesia: No Surgical History Surgical History History of colonoscopy H/O total hip arthroplasty Status post ORIF of fracture of ankle History of surgery on lower extremity Hx of excision of epidermal inclusion cyst Hx of arthroscopy of right knee Hx of arthroscopy of left knee History of Problems with Anesthesia: No Social History Social History Household Members: Spouse Housing: House Do you presently have visiting nurse or other home services: No Alcohol intake: current Alcohol intake frequency: holidays/special occasions only Alcohol type: beer Patient Tobacco Use Status: Never used Tobacco e-Cigarette/Vaping Use: Never Used Second Hand Smoke Exposure: No Advance Directives Date on File: 07/16/25 service: Yes Current occupational status: retired Meds Allergies Allergy/AdvReac Type Severity Reaction Status Date / Time No Known Allergies (No Known Allergy Verified 07/14/25 16:39 Allergies*) Active Medications: Current Medications Acetaminophen (Acetaminophen 325 Mg Tablet) 650 mg PO Q6H PRN PRN Reason: Pain, Mild 1-3,fever,headache Calcium Carbonate (Calcium Carbonate 750 Mg Tab.Chew) 750 mg PO Q4H PRN PRN Reason: Heartburn Ceftriaxone Sodium (Ceftriaxone Sodium 1 Gm Vial) 1 gm IVPUSH Q24H [facility] Enoxaparin Sodium (Enoxaparin Sodium 40 Mg/0.4 Ml Syringe) 40 mg SUBCUT Q24H [facility] Last Admin: 07/15/25 01:58 Dose: 40 mg Lactated Ringer's (Lr) 1,000 mls @ 100 mls/hr IVCONT .Q10H [facility] Last Admin: 07/15/25 01:58 Dose: 100 mls/hr Metronidazole (Flagyl) 500 mg in 100 mls @ 100 mls/hr IV Q8H [facility] Magnesium Hydroxide (Milk Of Magnesia 30 Ml Oral.Susp) 30 ml PO DAILY PRN PRN Reason: Constipation Melatonin (Melatonin 3 Mg Tablet) 6 mg PO BEDTIME PRN PRN Reason: Insomnia Sodium Chloride (0.9 % Sodium Chloride Flush 3 Ml Syringe) 3 ml IVFLUSH QSHIFT [facility] Last Admin: 07/15/25 07:48 Dose: Not Given Home Medications ?Medication ?Instructions ?Recorded ?Confirmed ?Last Taken ?Type amlodipine 2.5 mg tablet 1 tab PO BEDTIME 05/05/22 07/15/25 07/13/25 History ibuprofen 200 mg tablet 200 mg PO Q6H PRN Pain 07/15/25 07/15/25 Unknown History nitrofurantoin 1 cap PO BID 07/15/25 07/15/25 07/14/25 History monohydrate/macrocrystals 100 mg capsule polyethylene glycol 3350 17 17 g PO DAILY PRN Constipation 07/15/25 07/15/25 Unknown History gram/dose oral powder (Miralax) tamsulosin 0.4 mg capsule (Flomax) 0.4 mg PO BEDTIME 07/15/25 07/15/25 07/13/25 History Exam Height,Weight and Vital Signs: Height 6 ft Weight 106.6 kg Last Vital Signs Temp 98 F 07/15/25 08:00 Pulse 70 07/15/25 08:00 Resp 14 07/15/25 08:00 BP 129/78 07/15/25 08:00 Pulse Ox 94 07/15/25 04:37 O2 Del Method Room Air 07/15/25 08:00 Pertinent Lab Results Pertinent Lab Results: Laboratory Tests 07/14/25 07/14/25 07/15/25 16:51 21:12 04:01 WBC 7.8 7.1 RBC 4.89 4.40 L Hgb 14.6 13.2 L Hct 43.6 38.7 L MCV 89.2 88.0 MCH 29.9 30.0 MCHC 33.5 34.1 RDW 12.4 12.5 Plt Count 278 D 255 MPV 8.7 L 8.8 L Immature Gran % (Auto) 0.4 0.4 Neut % (Auto) 65.9 61.9 Lymph % (Auto) 22.1 24.5 [place] % (Auto) 9.8 10.2 Eos % (Auto) 1.5 2.7 Baso % (Auto) 0.3 0.3 Lymph # (Auto) 1.7 1.7 [place] # (Auto) 0.8 0.7 Eos # (Auto) 0.1 0.2 Baso # (Auto) 0.0 0.0 Abs Immat Gran (auto) 0.03 0.03 Absolute Neuts (auto) 5.2 4.4 Absolute Nucleated RBC 0.000 0.000 Nucleated RBC % (auto) 0.0 0.0 Sodium 140 141 Potassium 4.5 4.1 Chloride 107 109 H Carbon Dioxide 25 25 Anion Gap 13 11 L BUN 15 13 Creatinine 0.72 0.67 Estim Creat Clear Calc 111.8 120.1 Estimated GFR > 60 > 60 Random Glucose 97 98 Lactic Acid 1.1 Calcium 9.1 8.4 D Magnesium 2.3 Total Bilirubin 0.5 0.4 AST 29 26 ALT 33 26 Alkaline Phosphatase 61 55 Total Protein 7.1 6.2 L Albumin 3.8 3.2 L Urine Color Dark Yellow Urine Appearance Turbid Urine pH 6.0 Ur Specific [place] 1.015 Urine Protein 100 (2+) H Urine Glucose (UA) Negative Urine Ketones Trace Urine Blood Large (3+) H Urine Nitrite Negative Ur Leukocyte Esterase Large (3+) H Urine RBC >20 H Urine WBC >50 H Ur Squamous Epith Cells 3-5 Urine Bacteria 4+ Hyaline Casts 0-2 Airway Mallampati Class: III TM Dist: >3cm Neck ROM: Full Loose/Missing/Broken Teeth: No Heart: RRR Lungs: CTAB Assessment and Plan Final Anesthetic Review Family History of Problems with Anesthesia: No History of Problems with Anesthesia: No Documented by User: Trudi Paul MD 07/16/25 11:56 PMFSH Past Medical History Medical History Encounter for colorectal cancer screening using Cologuard test Diverticular disease Ulnar neuropathy Varicose vein of leg Hx of squamous cell carcinoma of skin Hx of osteoarthritis History of diverticulitis HTN (hypertension) Right inguinal hernia Surgical History Surgical History History of colonoscopy H/O total hip arthroplasty Status post ORIF of fracture of ankle History of surgery on lower extremity Hx of excision of epidermal inclusion cyst Hx of arthroscopy of right knee Hx of arthroscopy of left knee Social History Social History Household Members: Spouse Housing: House Do you presently have visiting nurse or other home services: No Alcohol intake: current Alcohol intake frequency: holidays/special occasions only Alcohol type: beer Patient Tobacco Use Status: Never used Tobacco e-Cigarette/Vaping Use: Never Used Second Hand Smoke Exposure: No Advance Directives Date on File: 07/16/25 service: Yes Current occupational status: retired Meds Allergies Allergy/AdvReac Type Severity Reaction Status Date / Time No Known Allergies (No Known Allergy Verified 07/14/25 16:39 Allergies*) Home Medications ?Medication ?Instructions ?Recorded ?Confirmed ?Last Taken ?Type amlodipine 2.5 mg tablet 1 tab PO BEDTIME 05/05/22 07/15/25 07/13/25 History ibuprofen 200 mg tablet 200 mg PO Q6H PRN Pain 07/15/25 07/15/25 Unknown History nitrofurantoin 1 cap PO BID 07/15/25 07/15/25 07/14/25 History monohydrate/macrocrystals 100 mg capsule polyethylene glycol 3350 17 17 g PO DAILY PRN Constipation 07/15/25 07/15/25 Unknown History gram/dose oral powder (Miralax) tamsulosin 0.4 mg capsule (Flomax) 0.4 mg PO BEDTIME 07/15/25 07/15/25 07/13/25 History Assessment and Plan Assessment Anesthesia Assessment: Anesthesia Plan Discussed and Chart Reviewed Final Anesthetic Review NPO: Yes ASA Class: II and Emergency Final Preanesthetic Review: No Changes in Pt Med Stat, Meds/Allgs Chart Reviewed and Consent Obtained/Reviewed Patient Risk: Intermediate Procedure Risk: Intermediate Anesthetic Plan Anesthetic Plan: GA Disposition: Standard PACU
--- NOTE | 2025-07-15 10:50 | PM.UROCN ---
History of Present Illness Consult details Consult date: 07/15/25 Narrative: 75-year-old male with a past medical history of HTN, HLD, BPH presented to the hospital today with a chief complaint of dysuria, urinary frequency. h/o recurrent UTI's, CTAP- c/w colovesical fistula Review of Systems Review of Systems: Yes all other systems are reviewed and are negative Constitutional: Constitutional: Reports no additional constitutional complaints Eyes: Eyes: Reports no additional eye complaints ENT: Reports system reviewed and no additional complaints, except as documented Cardiovascular: Cardiovascular: Reports no additional cardiovascular complaints Respiratory: Respiratory: Reports no additional respiratory complaints Gastrointestinal: Gastrointestinal: Reports no additional gastrointestinal complaints Genitourinary: Genitourinary: Reports as per HPI Musculoskeletal: Musculoskeletal: Reports no additional musculoskeletal complaints Integumentary/Breasts: Skin/Breast: Reports system reviewed and no additional complaints, except as docu Neurologic: Reports system reviewed and no additional complaints, except as documented Psychiatric: Psychiatric: Reports no additional psychiatric complaints Endocrine: Endocrine: Reports no additional endocrine complaints Hematologic/Lymphatic: Hematologic/Lymphatic: Reports no additional hematologic/lymphatic complaints Allergic/Immunologic: Allergic/Immunologic: Reports no additional allergic/immunologic complaints [facility] Past Medical History Medical History Encounter for colorectal cancer screening using Cologuard test Diverticular disease Ulnar neuropathy Varicose vein of leg Hx of squamous cell carcinoma of skin Hx of osteoarthritis History of diverticulitis HTN (hypertension) Right inguinal hernia Surgical History Surgical History History of colonoscopy H/O total hip arthroplasty Status post ORIF of fracture of ankle History of surgery on lower extremity Hx of excision of epidermal inclusion cyst Hx of arthroscopy of right knee Hx of arthroscopy of left knee Social History Social History Household Members: Spouse Housing: House Do you presently have visiting nurse or other home services: No Alcohol intake: current Alcohol intake frequency: holidays/special occasions only Alcohol type: beer Patient Tobacco Use Status: Never used Tobacco e-Cigarette/Vaping Use: Never Used Second Hand Smoke Exposure: No Advance Directives Date on File: 07/16/25 service: Yes Current occupational status: retired Meds Allergies Allergy/AdvReac Type Severity Reaction Status Date / Time No Known Allergies (No Known Allergy Verified 07/14/25 16:39 Allergies*) Active Medications: Current Medications Acetaminophen (Acetaminophen 325 Mg Tablet) 650 mg PO Q6H PRN PRN Reason: Pain, Mild 1-3,fever,headache Calcium Carbonate (Calcium Carbonate 750 Mg Tab.Chew) 750 mg PO Q4H PRN PRN Reason: Heartburn Ceftriaxone Sodium (Ceftriaxone Sodium 1 Gm Vial) 1 gm IVPUSH Q24H [facility] Enoxaparin Sodium (Enoxaparin Sodium 40 Mg/0.4 Ml Syringe) 40 mg SUBCUT Q24H [facility] Last Admin: 07/15/25 01:58 Dose: 40 mg Lactated Ringer's (Lr) 1,000 mls @ 100 mls/hr IVCONT .Q10H [facility] Last Admin: 07/15/25 01:58 Dose: 100 mls/hr Metronidazole (Flagyl) 500 mg in 100 mls @ 100 mls/hr IV Q8H [facility] Magnesium Hydroxide (Milk Of Magnesia 30 Ml Oral.Susp) 30 ml PO DAILY PRN PRN Reason: Constipation Melatonin (Melatonin 3 Mg Tablet) 6 mg PO BEDTIME PRN PRN Reason: Insomnia Polyethylene Glycol/Electrolytes (Peg 3350/Na Sulf,Bicarb,Cl/Kcl 4,000 Ml Soln.Recon) 4,000 ml PO ONCE ONE Stop: 07/15/25 18:01 Sodium Chloride (0.9 % Sodium Chloride Flush 3 Ml Syringe) 3 ml IVFLUSH QSHIFT [facility] Last Admin: 07/15/25 07:48 Dose: Not Given Home Medications ?Medication ?Instructions ?Recorded ?Confirmed ?Last Taken ?Type amlodipine 2.5 mg tablet 1 tab PO BEDTIME 05/05/22 07/15/25 07/13/25 History ibuprofen 200 mg tablet 200 mg PO Q6H PRN Pain 07/15/25 07/15/25 Unknown History nitrofurantoin 1 cap PO BID 07/15/25 07/15/25 07/14/25 History monohydrate/macrocrystals 100 mg capsule polyethylene glycol 3350 17 17 g PO DAILY PRN Constipation 07/15/25 07/15/25 Unknown History gram/dose oral powder (Miralax) tamsulosin 0.4 mg capsule (Flomax) 0.4 mg PO BEDTIME 07/15/25 07/15/25 07/13/25 History Physical Exam Vital Signs: Vital Signs: Last Vital Signs Temp 98 F 07/15/25 08:00 Pulse 70 07/15/25 08:00 Resp 14 07/15/25 08:00 BP 129/78 07/15/25 08:00 Pulse Ox 94 07/15/25 04:37 O2 Del Method Room Air 07/15/25 08:00 BMI result Body Mass Index 31.9 Const: General: healthy appearing, no acute distress and well developed Orientation/consciousness: patient oriented x3 HEENT: Head: Yes normocephalic and Yes atraumatic Eyes: Conjunctivae: conjunctivae normal Neck: Neck: Yes normal visual inspection Chest: Chest palpation & inspection: normal inspection of the chest Resp: Effort & Inspection: normal respiratory effort GI: Inspection: Yes normal to inspection Palpation (GI): Soft to palpation Neuro: General: patient oriented x3 Psych: Appearance: grossly normal Affect: normal affect Results Labs 07/18/25 05:39 07/18/25 05:39 Labs: Abnormal lab results 07/14/25 07/14/25 07/15/25 Range/Units 16:51 21:12 04:01 RBC 4.40 L (4.60-5.80) X10*6/uL Hgb 13.2 L (14.0-18.0) g/dl Hct 38.7 L (42.0-52.0) % MPV 8.7 L 8.8 L (9.4-12.4) fL Chloride 109 H (96-108) mmol/L Anion Gap 11 L (12-20) Total Protein 6.2 L (6.5-8.0) g/dL Albumin 3.2 L (3.5-5.0) g/dL Urine Protein 100 (2+) H (Neg-Trace) mg/dL Urine Blood Large (3+) H (Negative) Ur Leukocyte Esterase Large (3+) H (Negative) Urine RBC >20 H (0-2) /HPF Urine WBC >50 H (0-5) /HPF Short CBC 07/14/25 07/15/25 Range/Units 16:51 04:01 WBC 7.8 7.1 (4.8-10.8) X10*3/uL Hgb 14.6 13.2 L (14.0-18.0) g/dl Hct 43.6 38.7 L (42.0-52.0) % Plt Count 278 D 255 (160-400) X10*3/uL BMP 07/14/25 07/15/25 16:51 04:01 Sodium 140 141 Potassium 4.5 4.1 Chloride 107 109 H Carbon Dioxide 25 25 BUN 15 13 Creatinine 0.72 0.67 Calcium 9.1 8.4 D Liver Function 07/14/25 07/15/25 Range/Units 16:51 04:01 Total Bilirubin 0.5 0.4 (0.0-1.0) mg/dL AST 29 26 (5-37) U/L ALT 33 26 (0-40) U/L Alkaline Phosphatase 61 55 (39-117) U/L Albumin 3.8 3.2 L (3.5-5.0) g/dL Urine 07/14/25 Range/Units 21:12 Urine Color Dark Yellow Urine Appearance Turbid Urine pH 6.0 (5.0-9.0) Ur Specific [place] 1.015 (1.005-1.025) Urine Protein 100 (2+) H (Neg-Trace) mg/dL Urine Glucose (UA) Negative (Negative) mg/dL Imaging Additional studies: Date of Service: 07/15/25 CLINICAL HISTORY: diverticulitis CT abdomen and pelvis with contrast Comparison: CT/REG/SR - CT ABDOMEN PELVIS WO IV CON - 07/07/25 20:05 EDT Findings: Mild atelectasis at the lung bases. Multiple parapelvic renal cysts bilaterally. No stones. Gallbladder and solid organs otherwise unremarkable. Proximal sigmoid colon 9 cm segment area of wall thickening with mild surrounding fatty induration. This is in an area of extensive diverticulosis. Perivesical fat stranding most evident interposed between the urinary bladder and the sigmoid colon. There is also a soft tissue tract from the dome of the urinary bladder to the sigmoid colon image 65:3. Similar to prior. Moderate stool. Mesenteric vessels patent. Normal appendix. Small amount of gas in the urinary bladder. Moderate to severe lumbar degenerative spondylosis. No acute fracture. IMPRESSION: 1. Sigmoid diverticulitis without abscess. Recommend follow-up to clearing to assure there is not an underlying mass. 2. 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 3. Additional findings as above. Assessment and Plan (1) Diverticular disease: Status: Acute (2) Urinary tract infection: Qualifiers: Hematuria presence: without hematuria Urinary tract infection type: site unspecified Qualified Code(s): N39.0 - Urinary tract infection, site not specified Status: Acute (3) Colovesical fistula: Status: Acute Plan receiving IV Abx Recommend to insert horner, proscar 5 mg, flomax 0.4 mg daily Gen surgery consulting Procedures Date of Service Date of Service: 07/19/25
--- NOTE | 2025-07-15 12:00 | MHC.CM.PN ---
IMM was addressed with Patient at bedside, in the ED and original was given to him and a copy will be placed on the chart. Patient lives in a house with his /HCP/Nelda and he required no services nor DME [employer]. Home/self care is Patient's goal and CM has initiated and will follow for dc planning. PCP is Dr. Luis Felipe Cardenas and will transport to home at dc.
--- NOTE | 2025-07-15 16:10 | PM.EVENT ---
Event Note Date of Service: 07/16/25 Event Note: Had a conference with the patient and his family ( Nelda and son) now I reviewed with him the diagnosis He has a long history of diverticular disease I explained that the patient has a colovesical fistula causing recurrent UTI and likely urosepsis with confusion last night I explained the treatment with we sigmoid resection, detachment of the bladder from the diseased segment along with colostomy I will try to see if we can do an anastomosis safely, and maybe divert with a loop ileostomy I explained the technique of hand assisted laparoscopic sigmoid resection and colostomy I had a long discussion about the risks including but not limited to bleeding, infections, injury to other organs, staple line leak, stoma complications, abscess formation, postop pain I explained to them what to expect postoperatively including the need for the Garza catheter to stay The patient understands and wants to proceed The patient is on the schedule for hand assisted laparoscopic sigmoid resection and colostomy tomorrow Bowel prep ordered On IV antibiotics Time Spent With Patient Time: Total time managing care of this patient today ____ minutes.
[2025-07-15] MEDS: PEG 3350/Na Sulf,Bicarb,Cl/KCL 4,000 ML SOLN.RECON 4000 ML PO (18:12)
[2025-07-15] MEDS: 0.9 % Sodium Chloride Flush 3 ML SYRINGE IVFLUSH (20:27)
[2025-07-16] VITALS (15 sets, daily range): BP systolic 112–157; BP diastolic 62–101; PULSE 54–96; RESP 13–22; TEMP 36.1–37.1; O2SAT 95–99; BMI 30.1
[2025-07-16] MEDS: metroNIDAZOLE/NS 500 MG/100 ML PIGGYBACK 100 MG IV ×3 (03:06→17:58)
--- NOTE | 2025-07-16 06:15 | ECG_ITS ---
Test Reason : preop Blood Pressure : */* mmHG Vent. Rate : 87 BPM Atrial Rate : 87 BPM P-R Int : 208 ms QRS Dur : 176 ms QT Int : 466 ms P-R-T Axes : 50 -69 59 degrees QTcB Int : 560 ms Sinus rhythm with occasional Premature ventricular complexes Left anterior fascicular block Right bundle branch block Possible Lateral infarct , age undetermined Abnormal ECG When compared with ECG of 11-Aug-2023 20:02, Premature ventricular complexes are now Present Borderline criteria for Lateral infarct are now Present Referred By: Jon Taylor Electronically Signed By: PONCE ENAMORADO MD
--- NOTE | 2025-07-16 08:16 | PM.PNGS ---
Subjective Subjective Date of Service: 07/16/25 Interval history: Says he has been having diarrhea from the bowel prep He describes stools coming out from his urine Denies abdominal pain Physical Exam Vital Signs: Vital Signs: Last Vital Signs Temp 98.0 F 07/16/25 07:29 Pulse 90 07/16/25 07:29 Resp 18 07/16/25 07:29 BP 129/70 07/16/25 07:29 Pulse Ox 96 07/16/25 07:29 O2 Del Method Room Air 07/16/25 07:29 O2 Flow Rate 1 07/16/25 03:59 BMI result Body Mass Index 32.9 Const: General: comfortable and no acute distress Resp: Effort & Inspection: normal respiratory effort Cardio: Rate: regular rate GI: Palpation (GI): Soft to palpation, not firm, nontender and no guarding Objective Data Active Medications Acetaminophen (Acetaminophen 325 Mg Tablet) 650 mg PO Q6H PRN PRN Reason: Pain, Mild 1-3,fever,headache Amlodipine Besylate (Amlodipine Besylate 2.5 Mg Tablet) 2.5 mg PO BEDTIME [facility]; Protocol Last Admin: 07/15/25 20:26 Dose: 2.5 mg Documented By: REYES Calcium Carbonate (Calcium Carbonate 750 Mg Tab.Chew) 750 mg PO Q4H PRN PRN Reason: Heartburn Ceftriaxone Sodium (Ceftriaxone Sodium 1 Gm Vial) 1 gm IVPUSH Q24H [facility] Last Admin: 07/15/25 21:46 Dose: 1 gm Documented By: REYES Enoxaparin Sodium (Enoxaparin Sodium 40 Mg/0.4 Ml Syringe) 40 mg SUBCUT Q24H [facility] Last Admin: 07/16/25 00:04 Dose: Not Given Documented By: REYES Non-Admin Reason: per Dr. Taylor Finasteride (Finasteride 5 Mg Tablet) 5 mg PO DAILY [facility] Lactated Ringer's (Lr) 1,000 mls @ 100 mls/hr IVCONT .Q10H [facility] Last Admin: 07/15/25 23:21 Dose: 100 mls/hr Documented By: REYES Metronidazole (Flagyl) 500 mg in 100 mls @ 100 mls/hr IV Q8H [facility] Last Infusion: 07/16/25 04:06 Dose: Infused Documented By: REYES Magnesium Hydroxide (Milk Of Magnesia 30 Ml Oral.Susp) 30 ml PO DAILY PRN PRN Reason: Constipation Melatonin (Melatonin 3 Mg Tablet) 6 mg PO BEDTIME PRN PRN Reason: Insomnia Sodium Chloride (0.9 % Sodium Chloride Flush 3 Ml Syringe) 3 ml IVFLUSH QSHIFT [facility] Last Admin: 07/15/25 20:27 Dose: 3 ml Documented By: REYES Tamsulosin HCl (Tamsulosin Hcl 0.4 Mg Capsule) 0.4 mg PO BEDTIME [facility] Last Admin: 07/15/25 20:26 Dose: 0.4 mg Documented By: REYES Labs 07/15/25 04:01 07/15/25 04:01 Labs: Laboratory Results - last 24 hr 07/15/25 12:52 Blood Type A Positive Antibody Screen NEGATIVE Microbiology Microbiology Results: Microbiology 07/14/25 21:46 Blood Culture - Preliminary Blood - Venous No growth after 24 hours. 07/14/25 21:12 Blood Culture - Preliminary Blood - Venous No growth after 24 hours. 07/14/25 21:47 Urine Culture - Preliminary Urine clean catch - Clean Catch Midstream No growth to date. Procedures Date of Service Date of Service: 07/16/25 Progress Note: A&P Assessment and plan (1) Colovesical fistula: Status: Acute Assessment and Plan: For resection today I have reviewed the technique of hand assisted laparoscopic sigmoid resection, possible open, with stoma Understands the risks including but not limited to bleeding, infections, injury to other organs, anastomotic leak, stoma complications His and son were involved with the discussion Had bowel prep Time Spent With Patient Time: Total time managing care of this patient today ____ minutes. Quality Stroke Does the patient have a stroke diagnosis?: No VTE Prior VTE?: No VTE Risk Level:: Medical - moderate - high VTE Device Contraindication: Treatment Not Indicated VTE Drug Contraindication: N/A - Med Ordered
[2025-07-16] MEDS: 0.9 % Sodium Chloride Flush 3 ML SYRINGE IVFLUSH (10:24)
--- NOTE | 2025-07-16 10:58 | HO.OSTOMY ---
Ostomy Site Marcus Patient seen on S4 for brief pre-operative ostomy teaching and stoma site selection/marking. ?The patient was instructed in very basic GI anatomy and stoma creation, and teaching to be available after surgery should a stoma be created. His was present throughout the visit. Throughout the visit the patient has several questions related to the ostomy and future care of the ostomy. ?Instruction was given on the purpose of pre-operative stoma site selection and marking: ?the importance of identifying a location within sight, avoiding creases on a relatively flat area of the abdomen, and siting within the large muscle of the abdomen for support. ?He agreed with the procedure. The patient's abdomen was visualized and palpated in the sitting, standing, bending, and lying positions. ?The margins of the rectus abdominis muscles were identified, and sites were marked in the RUQ, RLQ, LUQ and LLQ within the margins. He was noted for a Diastasis Recti and was marked for viability. The patients pant location was taken into consideration when marking. ?He has a horizontal crease above the umbilicus and he was marking accordingly - I also took into consideration a midline incision and marked accordingly for surgeon visibility in the OR. The sites were cleansed with alcohol prep pads before marking, marked with sterile surgical marker, and covered with tegaderms. ? Please re-consult after surgery for timely teaching. ?Thank you.
--- NOTE | 2025-07-16 11:02 | HO.WOUND ---
Wound Consult: Initial 75yr old?male admitted to [facility] on 07/15/25 - See progress notes and H&P for detailed history.? Wound consult placed for Left lower Leg.? Patient agreeable to assessment and photo documentation.? Patient and report the red lump appeared, there is no pain associated with the lump. direct care team reports it was noted to be a varicose vein. Left Lower Leg Lump - intact red firm to touch with firm trail noted under skin. No warmth noted at this time no tenderness with palpation - firmness noted. No oozing noted - of note the patient does have other varicose veins noted but not in the firm swollen state. Defer to provider no topical interventions needed at this time.
--- NOTE | 2025-07-16 11:38 | PC.NURSE ---
telepack on pat
--- NOTE | 2025-07-16 14:13 | P.PNIM_ITS ---
Subjective Subjective Date of Service: 07/16/25 Interval History: Follow up UTI, diverticulitis Surgery today Physical Exam 2 Exam: Exam: Appearing in no acute distress lung sounds are clear to auscultation heart regular rate rhythm, clear S1, S2 positive bowel sounds, abdomen is soft, nontender neuro patient is alert x3, no focal deficits Vital Signs: Vital Signs: Last Vital Signs Temp 97.9 F 07/16/25 11:13 Pulse 93 07/16/25 11:13 Resp 17 07/16/25 11:13 BP 140/101 H 07/16/25 11:13 Pulse Ox 97 07/16/25 11:13 O2 Del Method Room Air 07/16/25 07:29 O2 Flow Rate 1 07/16/25 03:59 BMI result Body Mass Index 32.9 Objective Data Active Medications Acetaminophen (Acetaminophen 325 Mg Tablet) 650 mg PO Q6H PRN PRN Reason: Pain, Mild 1-3,fever,headache Amlodipine Besylate (Amlodipine Besylate 2.5 Mg Tablet) 2.5 mg PO BEDTIME [facility]; Protocol Last Admin: 07/15/25 20:26 Dose: 2.5 mg Documented By: REYES Calcium Carbonate (Calcium Carbonate 750 Mg Tab.Chew) 750 mg PO Q4H PRN PRN Reason: Heartburn Ceftriaxone Sodium (Ceftriaxone Sodium 1 Gm Vial) 1 gm IVPUSH Q24H [facility] Last Admin: 07/15/25 21:46 Dose: 1 gm Documented By: REYES Enoxaparin Sodium (Enoxaparin Sodium 40 Mg/0.4 Ml Syringe) 40 mg SUBCUT Q24H [facility] Last Admin: 07/16/25 00:04 Dose: Not Given Documented By: REYES Non-Admin Reason: per Dr. Taylor Finasteride (Finasteride 5 Mg Tablet) 5 mg PO DAILY [facility] Last Admin: 07/16/25 10:23 Dose: 5 mg Documented By: GEOFF Lactated Ringer's (Lr) 1,000 mls @ 100 mls/hr IVCONT .Q10H [facility] Last Admin: 07/16/25 10:26 Dose: Not Given Documented By: GEOFF Non-Admin Reason: per OR Metronidazole (Flagyl) 500 mg in 100 mls @ 100 mls/hr IV Q8H [facility] Last Admin: 07/16/25 10:24 Dose: 100 mls/hr Documented By: GEOFF Magnesium Hydroxide (Milk Of Magnesia 30 Ml Oral.Susp) 30 ml PO DAILY PRN PRN Reason: Constipation Melatonin (Melatonin 3 Mg Tablet) 6 mg PO BEDTIME PRN PRN Reason: Insomnia Sodium Chloride (0.9 % Sodium Chloride Flush 3 Ml Syringe) 3 ml IVFLUSH QSHIFT [facility] Last Admin: 07/16/25 10:24 Dose: 3 ml Documented By: GEOFF Tamsulosin HCl (Tamsulosin Hcl 0.4 Mg Capsule) 0.4 mg PO BEDTIME [facility] Last Admin: 07/15/25 20:26 Dose: 0.4 mg Documented By: NORMASU Labs 07/15/25 04:01 07/15/25 04:01 Labs: Laboratory Results - last 24 hr 07/15/25 12:52 Blood Type A Positive Antibody Screen NEGATIVE Microbiology Microbiology Results: Microbiology 07/14/25 21:47 Urine Culture - Final Urine clean catch - Clean Catch Midstream 07/14/25 21:46 Blood Culture - Preliminary Blood - Venous No growth after 24 hours. 07/14/25 21:12 Blood Culture - Preliminary Blood - Venous No growth after 24 hours. Assessment and Plan (1) Diverticulitis: Status: Acute Plan 75-year-old male with a past medical history of HTN, HLD, BPH presented to the hospital today with a chief complaint of dysuria, urinary frequency. Diverticultis Patient's recent CT scan showed sigmoid wall thickening. Repeat CT showed Sigmoid colon colovesical fistula Seen by general surgery> plan for sigmoid resection and possible Colostomy today UTI Patient failed outpatient antibiotics-was on Levaquin. Likely from colon fistula continue ceftriaxone cultures mixed ID consult CT abdomen pelvis> sigmoid diverticulitis without abscess, colovesicular fistula arising from the sigmoid colon Hypertension Amlodipine DVT prophylaxis: Lovenox Code status: Full Code Quality Stroke Does the patient have a stroke diagnosis?: No VTE Prior VTE?: No VTE Risk Level:: Medical - moderate - high VTE Device Contraindication: Treatment Not Indicated VTE Drug Contraindication: N/A - Med Ordered
--- NOTE | 2025-07-16 16:10 | W.PM.OPN ---
Operative Note Operative Note Date of Service: 07/16/25 Narrative: Preop diagnosis: Colovesical fistula Postop diagnosis: Colovesical fistula, with matted loops of small bowel markedly adherent to the diseased sigmoid; severe induration of a long segment of the the sigmoid colon Procedure: Hand assisted laparoscopic sigmoid resection, small-bowel resection, end colostomy, extensive lysis of adhesions and dissection of the sigmoid off of the bladder Surgeon: Jose Rosen MD car rental sales assistant: COURTNEY Bass Intraop consultation with urologist - Dr. Rae The patient is a 75-year-old male admitted because of recurrent UTI with colovesical fistula on CAT scan. He also describes fecal material coming through his urine He understood the technique of the planned procedure as well as the risks, benefits, and alternatives He was brought to the operating room. He was placed in modified lithotomy position under general anesthesia via endotracheal tube. The abdomen and the perineum were prepped and draped in usual sterile fashion. A Garza catheter was inserted. A surgical time-out was done. The patient received Cefotan 2 g IV preoperatively I made a short infraumbilical midline incision with a blade 15. This carried down through the full-thickness of the skin subcutaneous fat with electrocautery. The fascia was incised. The peritoneum was entered. The Jono wound retractor was positioned. The GelPort was attached to this. An insufflating port was placed through the GelPort. A 10 mm 30 degree scope was also placed with the insufflating port. With laparoscopic visualization I inserted a 5/12 mm port in the epigastric area. Another 10 mm port was introduced in the right lower quadrant The patient is placed in a steep head-down and [id number] and right side down position. My operating hand was placed through the GelPort. We reflected all bowel loops away from the pelvis. We could immediately visualize a very adherent long segment of the sigmoid which was grossly very diseased, in severely indurated, thickened with a extremely indurated mesentery as well. There was note of matted small bowel loops bowel loops surrounding this area . I was able to isolate this he had small bowel loops and identify proximal and distal segments. We proceeded to gently separate this small bowel loops away from this disease area. These were very intimately adherent, and very indurated on multiple areas. This part of the procedure took an extended period of time. Eventually by combination of blunt dissection with the finger fracture technique, as well as laparoscopically scissors, as able to bluntly take down all these matted small bowel loops. We planned on looking at these segments as it appeared that in view of the severe disease, there were multiple areas that had at least partial-thickness tears. Once we are able to release all these adherent small bowel loops, I then proceeded to identify these long disease segment of the sigmoid. I was actually able to feel for a supple segment distal to this past the bladder. I could tell that there was a long segment that was markedly adherent to the urinary bladder. Again there was severe induration and very thick adhesions. I had to separate this long segment from the anterior wall and the bladder carefully with a combination of finger fracture technique, and the LigaSure. We proceeded very slowly as to ensure that we were not creating any further injuries to the bladder. This part of the procedure took a very extended period of time. We are careful as well as so not to enter any planes leading into the ureters. We had to divide adhesions surrounding the sigmoid to the left oblique sidewall as well using LigaSure. After an extended period of dissection, as able to free up this very long segment of the sigmoid. At this point we called the urologist Dr. Rae for intraop consultation to make sure that we did not have to do any further repair of the bladder. He injected methylene blue through the Garza catheter and there was no leakage noted. We then proceeded to do the wound resection. I identified supple and non diseased segmental proximal and distal to the segment to be resected. I created a mesenteric window on both sides using the LigaSure. I used the Endo-JOY 60 mm stapler to divide each segment. I then used the LigaSure to divide the attached mesentery. Dividing the mesentery took an extended period of time because of the severe induration. At some point, there were multiple areas that had significant bleeding because of the severe induration with the transection using the LigaSure. I had to applied the LigaSure multiple times to achieve good hemostasis Eventually we are able to completely divide the attached mesentery. We retrieved the long disease segment and marked distal end with a stitch. This was sent for immediate gross exam. We were eventually hold by the pathologist state that there were no lesions seen and that the disease segment appeared to be secondary to diverticular disease In view of the significant interrupted the changes in the area I decided not to do an anastomosis. I desufflated and examined the small bowel loops that were matted earlier. These was a long segment with multiple areas that appeared to have some at least full-thickness injury so I decided it would be best to resect this segment. I created mesenteric windows on the healthy areas distal and proximal to this long segment of involved small bowel loops. I dissected this with JOY 60 mm staplers. I proceeded to do the dissection of the attached mesentery with the LigaSure. The transected segment was 33 cm I proceeded to do the [id number] anastomosis. I created enterotomies on the anti mesenteric side of the staple lines on both the proximal and distal side. I positioned each arm of the JOY 60 mm stapler at the anti mesenteric side and locked this in place. I made sure that there were no bowel loops caught between the staple line. I then fired the stapler to create the [id number] anastomosis. I completed the anastomosis by closing the enterotomy with a 60 mm stapler I reinforced the crotch of the staple line with seromuscular Polysorb 3-0 sutures to decrease any tension on the staple line I closed the large mesenteric defect with a running Polysorb 3-0 stitch I replaced these bowel loop back in the peritoneal cavity. Examination revealed the chrissy to be intact and there was good blood supply without any signs of ischemia I then proceeded to do the colostomy. I 1st mobilized the left colon all the way to just at the level of the flexure using the LigaSure. It appeared that we had adequate length. I excised the discoid piece of skin on the previously marked ostomy site on the left side using a blade 10. I used electrocautery to dissect through the subcutaneous fat in the anterior sheath. I did muscle-splitting of the rectus and divided the posterior sheath. I pulled up the sigmoid staple line using a [place] clamp through this. We had enough length to create our anastomosis. The stump appeared very viable. We then proceeded to examine the pelvis laparoscopically really again. I suctioned irrigated and suctioned out the irrigant fluid. We observed for hemostasis. There was note of in oozing initially from the divided mesentery but this eventually slowed down I positioned a #10 GEE drain into the pelvis and this was brought out through the site on the right lower quadrant. This was secured to the skin with a nylon 3-0 anchoring stitch. Prior to this I applied a single fascial stitch on this port site with a Polysorb 0 on a needle. I then small bowel loops examined the bowel loops both laparoscopically as well as through the incision. There is no evidence of any other bowel injury or any bleeding. There was note of good hemostasis on laparoscopic examination of the pelvis I then proceeded to close the fascia with a running Maxon 1 stitch. I examined the fascial closure laparoscopically and there was no evidence of any bowel caught by the sutures I removed all the ports therefore and closed the skin with skin chrissy after irrigation I matured the stoma by excising the staple line and applying a circumferential row of Polysorb 3-0 full-thickness sutures through the bowel wall and to the subdermal layer I probed the stoma with a finger and this was patent past the fascial level The anesthesiologist then did TAP on the patient for postop pain control. The stoma appliance was applied. Dressings were applied. The procedure was completed The patient tolerated procedure well. There were no immediate complications. Initial and final counts of sponges and instruments were correct. Estimated blood loss was about 300 cc The patient was extubated without difficulty and transferred to the recovery room with stable vital signs .
--- NOTE | 2025-07-16 17:17 | PM.EVENT ---
Event Note Date of Service: 07/16/25 Event Note: Seen postop Underwent sigmoid resection, end colostomy for colovesical fistula Long, difficult procedure He appears to have good pain control Stable vital signs GEE drain scanty dark blood Good urine output Pain Management Okay to have clear liquids Incentive spirometry Stoma care Discuss with Nelda Time Spent With Patient Time: Total time managing care of this patient today ____ minutes.
[2025-07-16] MEDS: Lactated Ringers 1,000 ML 100 ML IVCONT (17:57)
[2025-07-16] MEDS: oxyCODONE HCl Immed Release 5 MG TABLET PO (20:34)
[2025-07-17] MEDS: metroNIDAZOLE/NS 500 MG/100 ML PIGGYBACK 100 MG IV ×3 (02:58→19:14)
[2025-07-17 03:01] VITALS: BP 122/57; PULSE 57; RESP 18; TEMP 36.4; O2SAT 97
--- NOTE | 2025-07-17 06:41 | P.PNGS_ITS ---
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 This morning he is diffusely sore across his abdomen. At rest, the pain is a 4/10 but increases to an 8/10 when he moves. He said his last dose of pain medication was last night but that it helped. He has not had anything besides ice water, which he says causes a burning pain without N/V. He has not had flatus or BM. He says he has not gotten out of bed yet due to soreness and a fear that he's going to mess something up if he moves around too much. He denies issues with the horner catheter. He denies chest pain, SOB, fever, and chills. <[facility] Last Filed: 07/17/25 06:57> Physical Exam 2 Vital Signs: Vital Signs: Last Vital Signs Temp 97.6 F 07/17/25 03:01 Pulse 57 07/17/25 03:01 Resp 18 07/17/25 03:01 BP 122/57 L 07/17/25 03:01 Pulse Ox 97 07/17/25 03:01 O2 Del Method Room Air 07/17/25 03:01 O2 Flow Rate 2 07/16/25 19:44 BMI result Body Mass Index 30.1 <[facility] Last Filed: 07/17/25 06:57> Const: General: cooperative, no acute distress, alert and awake <[facility] Filed: 07/17/25 06:57> Orientation/consciousness: patient oriented x3 <[facility] Filed: 07/17/25 06:57> Resp: Effort & Inspection: normal respiratory effort and able to speak in complete sentences <[facility] Filed: 07/17/25 06:57> Auscultation: clear to auscultation bilaterally, no crackles, no rales, no rhonchi and no wheezes <[facility] Last Filed: 07/17/25 06:57> Cardio: Jugular venous distension: no JVD <[facility] Filed: 07/17/25 06:57> Rate: regular rate <[facility] Last Filed: 07/17/25 06:57> Rhythm: regular rhythm <[facility] Last Filed: 07/17/25 06:57> GI: Other: GEE tube with dark serosanguinous fluid--130mL output since surgery (over ~14 hours) Colostomy bag in place with scant blood <[facility] Last Filed: 07/17/25 06:57> Other: GEE tube with dark serosanguinous fluid--130mL output since surgery (over ~14 hours) Colostomy bag in place with scant blood colostomy appears pink and well perfused. appears viable. no necrosis. <Mohsen Bass PA-C Last Filed: 07/17/25 07:51> Inspection: No distended <Mohsen Bass PA-C Last Filed: 07/17/25 07:51> Palpation (GI): Tenderness to palpation present (GI) (to light palpation, upper quadrants>lower quadrants) in the LLQ, in the RLQ, in the LUQ and in the RUQ, no guarding and not rigid <[facility] Last Filed: 07/17/25 06:57> Percussion: Yes normal to percussion <[facility] Last Filed: 07/17/25 06:57> Auscultation: normal bowel sounds <[facility] Last Filed: 07/17/25 06:57> : Other: Horner catheter in place with clear yellow urine <[facility] Last Filed: 07/17/25 06:57> Neuro: General: patient oriented x3 <[facility] Filed: 07/17/25 06:57> Objective Data Active Medications Amlodipine Besylate (Amlodipine Besylate 2.5 Mg Tablet) 2.5 mg PO BEDTIME ISH; Protocol Last Admin: 07/16/25 20:34 Dose: 2.5 mg Documented By: HEDY Calcium Carbonate (Calcium Carbonate 750 Mg Tab.Chew) 750 mg PO Q4H PRN PRN Reason: Heartburn Ceftriaxone Sodium (Ceftriaxone Sodium 1 Gm Vial) 1 gm IVPUSH Q24H [facility] Last Admin: 07/16/25 20:35 Dose: 1 gm Documented By: HEDY Enoxaparin Sodium (Enoxaparin Sodium 40 Mg/0.4 Ml Syringe) 40 mg SUBCUT Q24H [facility] Last Admin: 07/17/25 00:25 Dose: 40 mg Documented By: HEDY Finasteride (Finasteride 5 Mg Tablet) 5 mg PO DAILY [facility] Last Admin: 07/16/25 10:23 Dose: 5 mg Documented By: GEOFF Metronidazole (Flagyl) 500 mg in 100 mls @ 100 mls/hr IV Q8H [facility] Last Infusion: 07/17/25 03:58 Dose: Infused Documented By: HEDY Acetaminophen (Ofirmev) 1,000 mg in 100 mls @ 400 mls/hr IV Q6H [facility] Last Admin: 07/17/25 06:35 Dose: 400 mls/hr Documented By: DELISA Magnesium Hydroxide (Milk Of Magnesia 30 Ml Oral.Susp) 30 ml PO DAILY PRN PRN Reason: Constipation Melatonin (Melatonin 3 Mg Tablet) 6 mg PO BEDTIME PRN PRN Reason: Insomnia Last Admin: 07/17/25 00:24 Dose: 6 mg Documented By: HEDY Morphine Sulfate (Morphine Sulfate 4 Mg/Ml Cartridge) 3 mg IVPUSH Q3H PRN; Protocol PRN Reason: Pain, Severe (Pain Scale 7-10) Naloxone HCl (Naloxone Hcl 0.4 Mg/Ml Vial) 0.04 mg IVPUSH Q5M PRN PRN Reason: Excessive sedation or RR < 8 Oxycodone HCl (Oxycodone Hcl Immed Release 5 Mg Tablet) 5 mg PO Q4H PRN PRN Reason: Pain, Moderate(Pain Scale 4-6) Last Admin: 07/16/25 20:34 Dose: 5 mg Documented By: HEDY Sodium Chloride (0.9 % Sodium Chloride Flush 3 Ml Syringe) 3 ml IVFLUSH QSHIFT [facility] Last Admin: 07/16/25 23:32 Dose: Not Given Documented By: HEDY Non-Admin Reason: IV Running Tamsulosin HCl (Tamsulosin Hcl 0.4 Mg Capsule) 0.4 mg PO BEDTIME [facility] Last Admin: 07/16/25 20:34 Dose: 0.4 mg Documented By: HEDY [facility] Last Filed: 07/17/25 06:57> Labs CBC & Chem 7: 07/15/25 04:01 07/15/25 04:01 <[facility] - Last Filed: 07/17/25 06:57> Microbiology Microbiology Results: Microbiology 07/14/25 21:46 Blood Culture - Preliminary Blood - Venous No growth after 48 hours. 07/14/25 21:12 Blood Culture - Preliminary Blood - Venous No growth after 48 hours. 07/14/25 21:47 Urine Culture - Final Urine clean catch - Clean Catch Midstream <[facility] - Last Filed: 07/17/25 06:57> Procedures Date of Service Date of Service: 07/17/25 <[facility] - Last Filed: 07/17/25 06:57> 07/17/25 <Mohsen Bass PA-C - Last Filed: 07/17/25 07:51> 07/17/25 <Jose Rosen MD - Last Filed: 07/17/25 07:48> Progress Note: A&P Assessment and plan (1) Colovesical fistula: Status: Acute <[facility] - Last Filed: 07/17/25 06:57> Assessment and Plan: Status post resection yesterday Good pain control Urine now clear GEE drain with serosanguineous output Looks well Dressings dry Get out of bed today and ambulate Incentive spirometry Pain management Keep Horner in Seen and examined independently <Jose Rosen MD - Last Filed: 07/17/25 07:48> (2) S/P laparoscopic-assisted sigmoidectomy: Status: Acute <[facility] - Last Filed: 07/17/25 06:57> Assessment and Plan: The patient is a 75y/o M POD#1 s/p hand assisted laparoscopic 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 He also has not ambulated. Physical exam shows diffuse tenderness and no output into colostomy bag with clear yellow urine output with continued GEE output. Overall, he is doing as expected for this stage of recovery. 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 He also has not ambulated. Physical exam shows diffuse tenderness and no output into colostomy bag with clear yellow urine output with continued GEE output. Overall, he is doing as expected for this stage of recovery. PLAN Encourage more clear liquid intake if tolerated, consider giving PPI Encourage ambulation Consider increasing pain management due to severe pain with movement Continue IV fluids Continue monitoring colostomy bag for output Keep GEE tube in place patient seen and examined independently, i agree with the above assessment and plan. Patient overall doing well. appropriate drop in H/h now 13.2/38.7, will continue to follow. GEE output overnight 130 serosanguenious. Horner remains in place, urine clear. abdomen soft, tender around incisions. will continue clear liquid diet until more return of bowel function. ambulation as tolerated. <Mohsen Bass PA-C - Last Filed: 07/17/25 07:51> Time Spent With Patient Time: Total time managing care of this patient today ____ minutes. <Mitali Penny Last Filed: 07/17/25 06:57> Quality Stroke Does the patient have a stroke diagnosis?: No <Mitali Penny Last Filed: 07/17/25 06:57> VTE Prior VTE?: No <Mitali Conradh Last Filed: 07/17/25 06:57> VTE Risk Level:: Medical - moderate - high <Mitali Conradh Last Filed: 07/17/25 06:57> VTE Device Contraindication: Treatment Not Indicated <Mitali Conradh Last Filed: 07/17/25 06:57> VTE Drug Contraindication: N/A - Med Ordered <Mitali Conradh Last Filed: 07/17/25 06:57>
[2025-07-17] MEDS: 0.9 % Sodium Chloride Flush 3 ML SYRINGE IVFLUSH ×3 (07:32→21:25)
[2025-07-17 08:34] VITALS: BP 132/69; PULSE 74; RESP 18; TEMP 37.3; O2SAT 97
--- NOTE | 2025-07-17 11:22 | HO.POSTANES ---
Post Anesthesia Evaluation Post Anesthesia Evaluation Date of Service: 07/17/25 Vital Signs: Vital Signs Temp Pulse Resp BP Pulse Ox O2 Del Method 07/17/25 08:34 99.1 F 74 18 132/69 97 Room Air 07/17/25 03:01 97.6 F 57 18 122/57 L 97 Room Air 07/16/25 23:25 97.1 F 70 18 136/78 98 Room Air Anesthesia: Regional and General Endotracheal-GETA Mental Status: Awake Pain Control: Satisfactory Hydration: Adequate Anesthesia-Related Issues: No Anes. Related Issues
[2025-07-17 12:00] VITALS: BP 150/76; PULSE 73; RESP 18; TEMP 37.4; O2SAT 99
[2025-07-17] MEDS: oxyCODONE HCl Immed Release 5 MG TABLET PO ×2 (12:53→21:25)
--- NOTE | 2025-07-17 14:55 | PM.EVENT ---
Event Note Date of Service: 07/17/25 Event Note: Seen on afternoon rounds earlier Says he had ambulated Good pain control Says that he thinks he may have heard a ?puff of gas? from his colostomy Urine output clear Abdomen is soft GEE drain serosanguineous Tolerating clear liquids Await return of GI functions Continue pain management On antibiotics at bedside Time Spent With Patient Time: Total time managing care of this patient today ____ minutes.
--- NOTE | 2025-07-17 15:47 | HO.PM.IMPN ---
Subjective Subjective Date of Service: 07/17/25 Interval History: Diffuse abd pain, mostly well controlled Ate some Jello and tolerating fluids No output in ostomy Scant amount of bloody output in GEE drain Review of Systems Review of Systems: Yes all other systems are reviewed and are negative Physical Exam Exam: Exam: General: AOx3, no acute distress Resp: CTA bilaterally CVS: S1, S2, RRR GI: +BS, no distention, diffusely tender. Ostomy in place with no significant output. Scant amount of bloody discharge in GEE drain. Skin: Warm, dry Neuro: Cranial nerves II-XII grossly intact bilaterally. Motor grossly intact bilaterally Extremities: No edema Psych: Appropriate affect Vital Signs: Vital Signs: Last Vital Signs Temp 99.3 F 07/17/25 12:00 Pulse 73 07/17/25 12:00 Resp 18 07/17/25 12:00 BP 150/76 H 07/17/25 12:00 Pulse Ox 99 07/17/25 12:00 O2 Del Method Room Air 07/17/25 12:00 O2 Flow Rate 2 07/16/25 19:44 BMI result Body Mass Index 30.1 Objective Data Active Medications Amlodipine Besylate (Amlodipine Besylate 2.5 Mg Tablet) 2.5 mg PO BEDTIME ISH; Protocol Last Admin: 07/16/25 20:34 Dose: 2.5 mg Documented By: HEDY Calcium Carbonate (Calcium Carbonate 750 Mg Tab.Chew) 750 mg PO Q4H PRN PRN Reason: Heartburn Ceftriaxone Sodium (Ceftriaxone Sodium 1 Gm Vial) 1 gm IVPUSH Q24H [facility] Last Admin: 07/16/25 20:35 Dose: 1 gm Documented By: HEDY Enoxaparin Sodium (Enoxaparin Sodium 40 Mg/0.4 Ml Syringe) 40 mg SUBCUT Q24H [facility] Last Admin: 07/17/25 00:25 Dose: 40 mg Documented By: HEDY Finasteride (Finasteride 5 Mg Tablet) 5 mg PO DAILY [facility] Last Admin: 07/17/25 08:49 Dose: 5 mg Documented By: ROBERTA Metronidazole (Flagyl) 500 mg in 100 mls @ 100 mls/hr IV Q8H [facility] Last Infusion: 07/17/25 13:02 Dose: Infused Documented By: ROBERTA Acetaminophen (Ofirmev) 1,000 mg in 100 mls @ 400 mls/hr IV Q6H [facility] Last Infusion: 07/17/25 13:07 Dose: Infused Documented By: ROBERTA Magnesium Hydroxide (Milk Of Magnesia 30 Ml Oral.Susp) 30 ml PO DAILY PRN PRN Reason: Constipation Melatonin (Melatonin 3 Mg Tablet) 6 mg PO BEDTIME PRN PRN Reason: Insomnia Last Admin: 07/17/25 00:24 Dose: 6 mg Documented By: HEDY Morphine Sulfate (Morphine Sulfate 4 Mg/Ml Cartridge) 3 mg IVPUSH Q3H PRN; Protocol PRN Reason: Pain, Severe (Pain Scale 7-10) Naloxone HCl (Naloxone Hcl 0.4 Mg/Ml Vial) 0.04 mg IVPUSH Q5M PRN PRN Reason: Excessive sedation or RR < 8 Oxycodone HCl (Oxycodone Hcl Immed Release 5 Mg Tablet) 5 mg PO Q4H PRN PRN Reason: Pain, Moderate(Pain Scale 4-6) Last Admin: 07/17/25 12:53 Dose: 5 mg Documented By: ROBERTA Sodium Chloride (0.9 % Sodium Chloride Flush 3 Ml Syringe) 3 ml IVFLUSH QSHIFT [facility] Last Admin: 07/17/25 07:32 Dose: 3 ml Documented By: ROBERTA Tamsulosin HCl (Tamsulosin Hcl 0.4 Mg Capsule) 0.4 mg PO BEDTIME [facility] Last Admin: 07/16/25 20:34 Dose: 0.4 mg Documented By: HEDY Labs 07/15/25 04:01 07/15/25 04:01 Microbiology Microbiology Results: Microbiology 07/14/25 21:46 Blood Culture - Preliminary Blood - Venous No growth after 48 hours. 07/14/25 21:12 Blood Culture - Preliminary Blood - Venous No growth after 48 hours. Assessment and Plan (1) Colovesical fistula: Status: Acute (2) Urinary tract infection: Status: Acute Plan 75-year-old male with a past medical history of HTN, HLD, BPH presented to the hospital today with a chief complaint of dysuria, urinary frequency. Diverticultis with colovesical fistula Patient's recent CT scan showed sigmoid wall thickening with colovesical fistula Seen by general surgery and underwent sigmoid resection and with Colostomy on 07/16 No output yet in ostomy Continue ceftriaxone and metronidazole, started 07/14 Pain management Encourage ambulation and out of bed General surgery following Clear liquid diet for now, advance as tolerated UTI Patient failed outpatient antibiotics-was on Levaquin. Likely from colon fistula Cultures mixed Continue ceftriaxone and metronidazole as above CT abdomen pelvis> sigmoid diverticulitis without abscess, colovesicular fistula arising from the sigmoid colon Hypertension Amlodipine DVT prophylaxis: Lovenox Code status: Full Code Pt requires continued hospitalization for treatment for colovesicular fistula requiring emergent sigmoid resection and colostomy. Quality Stroke Does the patient have a stroke diagnosis?: No VTE Prior VTE?: No VTE Risk Level:: Medical - moderate - high VTE Device Contraindication: Treatment Not Indicated VTE Drug Contraindication: N/A - Med Ordered
[2025-07-17 16:18] VITALS: BP 127/71; PULSE 86; RESP 18; TEMP 36.8; O2SAT 94
[2025-07-17 20:28] VITALS: BP 143/75; PULSE 78; RESP 18; TEMP 36.3; O2SAT 96
[2025-07-17 23:20] VITALS: BP 136/74; PULSE 78; RESP 18; TEMP 36.6; O2SAT 93
[2025-07-18] MEDS: metroNIDAZOLE/NS 500 MG/100 ML PIGGYBACK 100 MG IV ×3 (02:37→18:34)
[2025-07-18 03:11] VITALS: BP 163/50; PULSE 65; RESP 18; TEMP 36; O2SAT 95
--- NOTE | 2025-07-18 03:16 | PC.NURSE ---
Pt complaining of nausea and burping. MD notified. Zofran one time dose ordered and administered.
--- NOTE | 2025-07-18 04:22 | ECG_ITS ---
Test Reason : CP Blood Pressure : */* mmHG Vent. Rate : 71 BPM Atrial Rate : 71 BPM P-R Int : 196 ms QRS Dur : 162 ms QT Int : 484 ms P-R-T Axes : 61 -68 -28 degrees QTcB Int : 525 ms Sinus rhythm with Premature atrial complexes Left axis deviation Non-specific intra-ventricular conduction block Left ventricular hypertrophy ( R in aVL , [place] product ) Anterolateral infarct Abnormal ECG When compared with ECG of 16-Jul-2025 06:19, Premature atrial complexes are now Present Referred By: Dalton Rivero Electronically Signed By: PONCE ENAMORADO MD
--- NOTE | 2025-07-18 05:10 | PC.NURSE ---
auto tech called this RN. auto tech was concerned pt was going in and out of aflutter. MD notified. EKG performed. MD aware of results. Pt still complaining of heartburn. MD ordered one time dose of IV Pepcid, administered.
--- NOTE | 2025-07-18 05:40 | PC.NURSE ---
At 05:30 pt vomited 100 cc of brown emesis. aware.
--- NOTE | 2025-07-18 05:55 | PC.NURSE ---
General surgery home service consultant Dr. Mallory notified of brown emesis. Per Dr. Mallory, pt to be evaluated by general surgery during day shift.
[2025-07-18 06:20] LABS: Hematocrit 41.1 % (42.0-52.0); Hemoglobin 13.6 g/dl (14.0-18.0); Mean Corpuscular HGB Conc 33.1 g/dl (31.0-36.0); Mean Corpuscular Hemoglobin 29.4 pg (27.0-33.0); Mean Corpuscular Volume 88.8 fL (80.0-98.0); NRBC Abs Auto 0.000 X10*3/uL (0.0-0.012); NRBC Pct Auto 0.0 /100WBC (0.0-0.2); Platelet Count 400 X10*3/uL (160-400); Red Blood Count 4.63 X10*6/uL (4.60-5.80); White Blood Count 14.1 X10*3/uL (4.8-10.8)
[2025-07-18 06:46] LABS: Anion Gap 13 (12-20); Blood Urea Nitrogen 11 mg/dL (9-16); Calcium 8.8 mg/dL (8.4-10.2); Carbon Dioxide 28 mmol/L (22-29); Chloride 104 mmol/L (96-108); Creatinine Clr Calc Pharmacy 124.7; Estimated Glomerular Filt Rate > 60; Potassium 3.7 mmol/L (3.3-5.1); Sodium 141 mmol/L (135-145)
--- NOTE | 2025-07-18 07:27 | P.PNGS_ITS ---
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 At 830PM last night, he started experiencing some heartburn after eating soup. Overnight, he was feeling very nauseous and had 100ccs of brown emesis at 530AM, which partially relieved his symptoms. He is still feeling nauseous. He has also had constant hiccuping since around midnight. According to the nursing team, he was in and out of Aflutter overnight as well. He has not had output (BM or flatus) into the ostomy bag and complains of epigastric pain. His diffuse abdominal pain from yesterday has improved. He has not eaten since the soup. He also said he feels feverish. He denies SOB and palapatations. [facility] Last Filed: 07/18/25 07:41> Physical Exam 2 Vital Signs: Vital Signs: Last Vital Signs Temp 96.8 F 07/18/25 03:11 Pulse 65 07/18/25 03:11 Resp 18 07/18/25 03:11 BP 163/50 H 07/18/25 03:11 Pulse Ox 95 07/18/25 03:11 O2 Del Method Room Air 07/18/25 03:11 O2 Flow Rate 2 07/16/25 19:44 BMI result Body Mass Index 30.1 <[facility] Last Filed: 07/18/25 07:41> Const: Other: flushed and hiccuping throughout the exam. <[facility] Last Filed: 07/18/25 07:41> General: cooperative and tired appearing; No comfortable <[facility] Last Filed: 07/18/25 07:41> Orientation/consciousness: patient oriented x3 <[facility] Last Filed: 07/18/25 07:41> Resp: Effort & Inspection: normal respiratory effort and able to speak in complete sentences <[facility] Filed: 07/18/25 07:41> Auscultation: clear to auscultation bilaterally, no crackles, no rales, no rhonchi and no wheezes <[facility] Last Filed: 07/18/25 07:41> Cardio: Other: heart sounds distant due to position <[facility] Last Filed: 07/18/25 07:41> Jugular venous distension: no JVD <[facility] Filed: 07/18/25 07:41> GI: Other: GEE tube with some surrounding echymosis and serosanguinous fluid (100mL over 24 hours) Ostomy bag with scant blood Ostomy stump with mild edema <[facility] Filed: 07/18/25 07:41> Other: GEE tube with some surrounding echymosis and serosanguinous fluid (100mL over 24 hours) Ostomy bag with scant blood Ostomy stump with mild edema, appears pink, well perfused, viable. incision sites clean and dry, chrissy in place <Mohsen Bass PA-C - Last Filed: 07/18/25 08:19> Inspection: Yes distended <[facility] Filed: 07/18/25 07:41> Palpation (GI): Soft to palpation, Tenderness to palpation present (GI) (diffuse tenderness, more significant epigastrically) in the epigastrum, no guarding and not rigid <[facility] Filed: 07/18/25 07:41> Percussion: Yes tympanic to percussion <[facility] Filed: 07/18/25 07:41> Auscultation: normal bowel sounds <[facility] Filed: 07/18/25 07:41> : Other: horner in place, urine clear yellow <Mohsen Bass PA-C - Last Filed: 07/18/25 08:19> Skin: Other: 2 incisions without erythema or discharg e <[facility] Last Filed: 07/18/25 07:41> Neuro: General: patient oriented x3 <[facility] Last Filed: 07/18/25 07:41> Objective Data Active Medications Amlodipine Besylate (Amlodipine Besylate 2.5 Mg Tablet) 2.5 mg PO BEDTIME ISH; Protocol Last Admin: 07/17/25 21:25 Dose: 2.5 mg Documented By: TRINIDAD Calcium Carbonate (Calcium Carbonate 750 Mg Tab.Chew) 750 mg PO Q4H PRN PRN Reason: Heartburn Last Admin: 07/18/25 01:31 Dose: 750 mg Documented By: TRINIDAD Ceftriaxone Sodium (Ceftriaxone Sodium 1 Gm Vial) 1 gm IVPUSH Q24H [facility] Last Admin: 07/17/25 21:25 Dose: 1 gm Documented By: TRINIDAD Enoxaparin Sodium (Enoxaparin Sodium 40 Mg/0.4 Ml Syringe) 40 mg SUBCUT Q24H [facility] Last Admin: 07/18/25 00:20 Dose: 40 mg Documented By: TRINIDAD Finasteride (Finasteride 5 Mg Tablet) 5 mg PO DAILY [facility] Last Admin: 07/17/25 08:49 Dose: 5 mg Documented By: ROBERTA Metronidazole (Flagyl) 500 mg in 100 mls @ 100 mls/hr IV Q8H [facility] Last Infusion: 07/18/25 03:41 Dose: Infused Documented By: TRINIADD Acetaminophen (Ofirmev) 1,000 mg in 100 mls @ 400 mls/hr IV Q6H [facility] Last Infusion: 07/18/25 06:04 Dose: Infused Documented By: TRINIDAD Magnesium Hydroxide (Milk Of Magnesia 30 Ml Oral.Susp) 30 ml PO DAILY PRN PRN Reason: Constipation Melatonin (Melatonin 3 Mg Tablet) 6 mg PO BEDTIME PRN PRN Reason: Insomnia Last Admin: 07/17/25 00:24 Dose: 6 mg Documented By: HEDY Morphine Sulfate (Morphine Sulfate 4 Mg/Ml Cartridge) 3 mg IVPUSH Q3H PRN; Protocol PRN Reason: Pain, Severe (Pain Scale 7-10) Naloxone HCl (Naloxone Hcl 0.4 Mg/Ml Vial) 0.04 mg IVPUSH Q5M PRN PRN Reason: Excessive sedation or RR < 8 Ondansetron HCl (Ondansetron Hcl 4 Mg/2 Ml Vial) 4 mg IVPUSH Q6H PRN PRN Reason: Nausea and Vomiting Oxycodone HCl (Oxycodone Hcl Immed Release 5 Mg Tablet) 5 mg PO Q4H PRN PRN Reason: Pain, Moderate(Pain Scale 4-6) Last Admin: 07/17/25 21:25 Dose: 5 mg Documented By: TRINIDAD Sodium Chloride (0.9 % Sodium Chloride Flush 3 Ml Syringe) 3 ml IVFLUSH QSHIFT [facility] Last Admin: 07/17/25 21:25 Dose: 3 ml Documented By: TRINIDAD Tamsulosin HCl (Tamsulosin Hcl 0.4 Mg Capsule) 0.4 mg PO BEDTIME [facility] Last Admin: 07/17/25 21:25 Dose: 0.4 mg Documented By: TRINIDAD <[facility] - Last Filed: 07/18/25 07:41> Labs CBC & Chem 7: 07/18/25 05:39 07/18/25 05:39 <[facility] - Last Filed: 07/18/25 07:41> Labs: Laboratory Results - last 24 hr 07/18/25 05:39 MCV 88.8 MCH 29.4 MCHC 33.1 RDW 12.5 Plt Count 400 D MPV 8.7 L Absolute Nucleated RBC 0.000 Nucleated RBC % (auto) 0.0 Anion Gap 13 Estim Creat Clear Calc 124.7 Estimated GFR > 60 Random Glucose 142 H Calcium 8.8 <[facility] - Last Filed: 07/18/25 07:41> Procedures Date of Service Date of Service: 07/18/25 <[facility] - Last Filed: 07/18/25 07:41> 07/18/25 <Mohsen Bass PA-C - Last Filed: 07/18/25 08:19> 07/18/25 <Jose Rosen MD - Last Filed: 07/18/25 14:25> Progress Note: A&P Assessment and plan (1) S/P laparoscopic-assisted sigmoidectomy: Status: Acute <[facility] - Last Filed: 07/18/25 07:41> Assessment and Plan: Complains of heartburn all night Says he had episodes this Denies significant pain Abdomen is soft Stoma viable, maybe some small amount of stool but can amounts of gas Incision clean Likely ileus Check KUB Encouraged to ambulate Seen and examined independently <Jose Rosen MD - Last Filed: 07/18/25 14:25> Assessment and Plan: The patient is a 75y/o M POD#2 s/p hand assisted laparoscopic sigmoid 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 He had emesis, heartburn, and aflutter overnight without bowel output. He also has some abdominal distension and epigastric tenderness on exam. Labs showed newly elevated white count at 14.1. Overall, this picture is concerning for possible bowel obstruction or infection. 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 He had emesis, heartburn, and aflutter overnight without bowel output. He also has some abdominal distension and epigastric tenderness on exam. Labs showed newly elevated white count at 14.1. Overall, this picture is concerning for possible bowel obstruction or infection. PLAN Diet changed to NPO, okay to have sips of water Continue ambulating as tolerated Continue IV metronidazole and ceftriaxone for infection coverage Continue to monitor for BM/flatus Continue with pain management as needed Monitor for fever or chills Keep GEE tube and horner catheter in place KUB ordered; consider repeat imaging if symptoms do not resolve patient seen and examined independently, i agree with the above assessment and plan. In and out of aflutter last night. management per hospitalist. Will order for KUB. Diet downgraded to NPO with sips. serial abdominal exams. Ostomy does appear viable, no necrosis, pink and viable, mildly edematous. scant bloody output at this time. Ostomy consult/education pending. Horner will remain in place. <Mohsen Bass PA-C - Last Filed: 07/18/25 08:19> Time Spent With Patient Time: Total time managing care of this patient today ____ minutes. <Mitali Francis - Last Filed: 07/18/25 07:41> Quality Stroke Does the patient have a stroke diagnosis?: No <Mitali Allen Last Filed: 07/18/25 07:41> VTE Prior VTE?: No <Mitali Penny Filed: 07/18/25 07:41> VTE Risk Level:: Medical - moderate - high <Mitali Conradh Filed: 07/18/25 07:41> VTE Device Contraindication: Treatment Not Indicated <Mitali Conradh Filed: 07/18/25 07:41> VTE Drug Contraindication: N/A - Med Ordered <Mitali Conradh Filed: 07/18/25 07:41>
[2025-07-18 08:00] VITALS: BP 172/85; PULSE 76; RESP 18; TEMP 36.5; O2SAT 95
[2025-07-18] MEDS: 0.9 % Sodium Chloride Flush 3 ML SYRINGE IVFLUSH ×3 (08:07→20:34)
--- NOTE | 2025-07-18 10:44 | P.PNIM_ITS ---
Subjective Subjective Date of Service: 07/18/25 Interval History: N/V, abd distension and pain last night after eating broth Hiccups Has been up and OOB, walking some No CP or pressure No SOB No fever Physical Exam 2 Exam: Exam: General: AOx3, no acute distress Resp: CTA bilaterally CVS: S1, S2, RRR GI: +BS, mild distention, diffuse tenderness. Incision site clean. No significant output in ostomy. Mild bloody output in GEE drain Skin: Warm, dry Neuro: Cranial nerves II-XII grossly intact bilaterally. Motor grossly intact bilaterally Extremities: No edema Psych: Appropriate affect Vital Signs: Vital Signs: Last Vital Signs Temp 97.7 F 07/18/25 08:00 Pulse 76 07/18/25 08:00 Resp 18 07/18/25 08:00 BP 172/85 H 07/18/25 08:00 Pulse Ox 95 07/18/25 08:00 O2 Del Method Room Air 07/18/25 08:00 O2 Flow Rate 2 07/16/25 19:44 BMI result Body Mass Index 30.1 Objective Data Active Medications Amlodipine Besylate (Amlodipine Besylate 2.5 Mg Tablet) 2.5 mg PO BEDTIME ISH; Protocol Last Admin: 07/17/25 21:25 Dose: 2.5 mg Documented By: TRINIDAD Calcium Carbonate (Calcium Carbonate 750 Mg Tab.Chew) 750 mg PO Q4H PRN PRN Reason: Heartburn Last Admin: 07/18/25 01:31 Dose: 750 mg Documented By: TRINIDAD Ceftriaxone Sodium (Ceftriaxone Sodium 1 Gm Vial) 1 gm IVPUSH Q24H [facility] Last Admin: 07/17/25 21:25 Dose: 1 gm Documented By: TRINIDAD Enoxaparin Sodium (Enoxaparin Sodium 40 Mg/0.4 Ml Syringe) 40 mg SUBCUT Q24H [facility] Last Admin: 07/18/25 00:20 Dose: 40 mg Documented By: TRINIDAD Finasteride (Finasteride 5 Mg Tablet) 5 mg PO DAILY [facility] Last Admin: 07/18/25 09:34 Dose: 5 mg Documented By: ROBERTA Metronidazole (Flagyl) 500 mg in 100 mls @ 100 mls/hr IV Q8H [facility] Last Infusion: 07/18/25 03:41 Dose: Infused Documented By: TRINIDAD Acetaminophen (Ofirmev) 1,000 mg in 100 mls @ 400 mls/hr IV Q6H [facility] Last Infusion: 07/18/25 06:04 Dose: Infused Documented By: TRINIDAD Magnesium Hydroxide (Milk Of Magnesia 30 Ml Oral.Susp) 30 ml PO DAILY PRN PRN Reason: Constipation Melatonin (Melatonin 3 Mg Tablet) 6 mg PO BEDTIME PRN PRN Reason: Insomnia Last Admin: 07/17/25 00:24 Dose: 6 mg Documented By: HEDY Morphine Sulfate (Morphine Sulfate 4 Mg/Ml Cartridge) 3 mg IVPUSH Q3H PRN; Protocol PRN Reason: Pain, Severe (Pain Scale 7-10) Naloxone HCl (Naloxone Hcl 0.4 Mg/Ml Vial) 0.04 mg IVPUSH Q5M PRN PRN Reason: Excessive sedation or RR < 8 Ondansetron HCl (Ondansetron Hcl 4 Mg/2 Ml Vial) 4 mg IVPUSH Q6H PRN PRN Reason: Nausea and Vomiting Oxycodone HCl (Oxycodone Hcl Immed Release 5 Mg Tablet) 5 mg PO Q4H PRN PRN Reason: Pain, Moderate(Pain Scale 4-6) Last Admin: 07/17/25 21:25 Dose: 5 mg Documented By: TRINIDAD Sodium Chloride (0.9 % Sodium Chloride Flush 3 Ml Syringe) 3 ml IVFLUSH QSHIFT [facility] Last Admin: 07/18/25 08:07 Dose: 3 ml Documented By: ROBERTA Tamsulosin HCl (Tamsulosin Hcl 0.4 Mg Capsule) 0.4 mg PO BEDTIME [facility] Last Admin: 07/17/25 21:25 Dose: 0.4 mg Documented By: TRINIDAD Labs 07/18/25 05:39 07/18/25 05:39 Labs: Laboratory Results - last 24 hr 07/18/25 05:39 MCV 88.8 MCH 29.4 MCHC 33.1 RDW 12.5 Plt Count 400 D MPV 8.7 L Absolute Nucleated RBC 0.000 Nucleated RBC % (auto) 0.0 Anion Gap 13 Estim Creat Clear Calc 124.7 Estimated GFR > 60 Random Glucose 142 H Calcium 8.8 Assessment and Plan (1) S/P laparoscopic-assisted sigmoidectomy: Status: Acute (2) Colovesical fistula: Status: Acute Plan 75-year-old male with a past medical history of HTN, HLD, BPH presented to the hospital today with a chief complaint of dysuria, urinary frequency. Diverticultis with colovesical fistula Patient's recent CT scan showed sigmoid wall thickening with colovesical fistula Seen by general surgery and underwent sigmoid resection and with Colostomy on 07/16 No output yet in ostomy N/V and abd pain yesterday, KUB showing likely ileus NPO, encourage ambulation and OOB Continue ceftriaxone and metronidazole, started 07/14 Pain management General surgery following UTI Patient failed outpatient antibiotics-was on Levaquin. Likely from colon fistula Cultures mixed Continue ceftriaxone and metronidazole as above CT abdomen pelvis> sigmoid diverticulitis without abscess, colovesicular fistula arising from the sigmoid colon Hypertension Amlodipine DVT prophylaxis: Lovenox Code status: Full Code Pt requires continued hospitalization for treatment for colovesicular fistula requiring emergent sigmoid resection and colostomy. Quality Stroke Does the patient have a stroke diagnosis?: No VTE Prior VTE?: No VTE Risk Level:: Medical - moderate - high VTE Device Contraindication: Treatment Not Indicated VTE Drug Contraindication: N/A - Med Ordered
[2025-07-18 12:00] VITALS: BP 160/88; PULSE 83; RESP 18; TEMP 36.7; O2SAT 98
--- NOTE | 2025-07-18 14:24 | PM.EVENT ---
Event Note Date of Service: 07/18/25 Event Note: Seen on afternoon rounds He feels much more comfortable No further hiccups No nausea or vomiting Small amounts of stool in the stoma appliance Abdomen is soft, benign, although mildly distended Encouraged more ambulation Decrease narcotics Much improved compared to this morning at bedside Time Spent With Patient Time: Total time managing care of this patient today ____ minutes.
--- NOTE | 2025-07-18 15:33 | MHC.CM.PN ---
PER CEE PT NOT MEDICALLY READY FOR DC PLAN REMAINS HOME N/S
[2025-07-18 15:35] VITALS: BP 163/86; PULSE 80; RESP 18; TEMP 36.5; O2SAT 99
--- NOTE | 2025-07-18 15:50 | HO.OSTOMY ---
Ostomy Consult: Initial Teaching 75yr old male [place] [facility] [place] see H&P for detailed history and admission.? Consult for new ostomy teaching. ?He had an End Colostomy creation on 07/16/[address] Rosen. ?Upon entry into patient's room, he is sitting in his recliner chair, he is alert and oriented x 3, he currently has no complaints. ?Introductions were completed, he is agreeable to continuing with teaching, is present and would like to be present for all teachings. ? We discussed his pain well controlled, he reports increasing the use of his IS and ambulating the entire unit (4x today so far). ?We began by discussing general knowledge about the Colostomy and questions he had. ?We discussed opening and closing the ostomy pouch. He was able to provide a return demonstration on an empty pouch with minimal assist. ?He had not yet emptied his pouch only bowel sweat is noted.? We discussed the importance of emptying pouch when 1/3 to 1/2 full, how to empty pouch, and lining water with toilet paper to prevent splash back. With an empty Coloplast pouch he performed a demonstration along with his as well. Reviewed written education with patient and left at bedside for further review. ?They did not want to watch the education videos supplied by [facility] at this time but were agreeable to watching them over the weekend. Permission was granted for pouch assessment and no leak was noted.? No gas noted in pouch - per chart review suspected Ileus noted for patient. He reports intermittent nausea and small amount vomiting. Stoma is dusky pink moist and appears viable through pouch.? Due to no output from stoma pouch is not needed to be changed at this time.? Will assess at future teaching. He reported having no questions at this time. ?Patient was made aware that I will return to bedside early next week for ongoing education. ?He will benefit from VNA services at time of discharge. ?All questions and concerns addressed at this time. Next teaching session goals: Demonstrate open and close independently Stoma Model pouch change
[2025-07-18 19:23] VITALS: BP 160/77; PULSE 81; RESP 18; TEMP 36.3; O2SAT 93
[2025-07-18 19:35] VITALS: BP 160/77; PULSE 81; RESP 18; TEMP 36.3; O2SAT 93
[2025-07-19] VITALS (8 sets, daily range): BP systolic 126–160; BP diastolic 75–92; PULSE 73–92; RESP 18–19; TEMP 36.4–36.9; O2SAT 93–97
[2025-07-19] MEDS: metroNIDAZOLE/NS 500 MG/100 ML PIGGYBACK 100 MG IV ×3 (03:34→18:17)
[2025-07-19] MEDS: 0.9 % Sodium Chloride Flush 3 ML SYRINGE IVFLUSH ×3 (08:35→21:36)
--- NOTE | 2025-07-19 09:31 | P.PNGS_ITS ---
Subjective Subjective Date of Service: 07/21/25 Interval history: Says his hiccups have improved Describes some reflux symptoms Denies significant pain Stoma with good stools Says he has been ambulating Physical Exam 2 Vital Signs: Vital Signs: Last Vital Signs Temp 98.4 F 07/19/25 08:00 Pulse 87 07/19/25 08:00 Resp 18 07/19/25 08:00 BP 154/92 H 07/19/25 08:00 Pulse Ox 95 07/19/25 08:00 O2 Del Method Room Air 07/19/25 08:00 O2 Flow Rate 2 07/16/25 19:44 BMI result Body Mass Index 30.1 Const: General: comfortable and no acute distress Resp: Effort & Inspection: normal respiratory effort Cardio: Rate: regular rate GI: Palpation (GI): Soft to palpation, not firm and no guarding Objective Data Active Medications Amlodipine Besylate (Amlodipine Besylate 5 Mg Tablet) 5 mg PO BEDTIME [facility]; Protocol Calcium Carbonate (Calcium Carbonate 750 Mg Tab.Chew) 750 mg PO Q4H PRN PRN Reason: Heartburn Last Admin: 07/19/25 03:25 Dose: 750 mg Documented By: ANNA Ceftriaxone Sodium (Ceftriaxone Sodium 1 Gm Vial) 1 gm IVPUSH Q24H [facility] Last Admin: 07/18/25 20:34 Dose: 1 gm Documented By: ANNA Enoxaparin Sodium (Enoxaparin Sodium 40 Mg/0.4 Ml Syringe) 40 mg SUBCUT Q24H [facility] Last Admin: 07/18/25 23:37 Dose: 40 mg Documented By: ANNA Finasteride (Finasteride 5 Mg Tablet) 5 mg PO DAILY [facility] Last Admin: 07/19/25 08:34 Dose: 5 mg Documented By: JONNIE Metronidazole (Flagyl) 500 mg in 100 mls @ 100 mls/hr IV Q8H [facility] Last Infusion: 07/19/25 05:03 Dose: Infused Documented By: ANNA Acetaminophen (Ofirmev) 1,000 mg in 100 mls @ 400 mls/hr IV Q6H [facility] Last Infusion: 07/19/25 06:30 Dose: Infused Documented By: ANNA Magnesium Hydroxide (Milk Of Magnesia 30 Ml Oral.Susp) 30 ml PO DAILY PRN PRN Reason: Constipation Melatonin (Melatonin 3 Mg Tablet) 6 mg PO BEDTIME PRN PRN Reason: Insomnia Last Admin: 07/17/25 00:24 Dose: 6 mg Documented By: HEDY Morphine Sulfate (Morphine Sulfate 4 Mg/Ml Cartridge) 3 mg IVPUSH Q3H PRN; Protocol PRN Reason: Pain, Severe (Pain Scale 7-10) Naloxone HCl (Naloxone Hcl 0.4 Mg/Ml Vial) 0.04 mg IVPUSH Q5M PRN PRN Reason: Excessive sedation or RR < 8 Ondansetron HCl (Ondansetron Hcl 4 Mg/2 Ml Vial) 4 mg IVPUSH Q6H PRN PRN Reason: Nausea and Vomiting Last Admin: 07/18/25 23:35 Dose: 4 mg Documented By: ANNA Oxycodone HCl (Oxycodone Hcl Immed Release 5 Mg Tablet) 5 mg PO Q4H PRN PRN Reason: Pain, Moderate(Pain Scale 4-6) Last Admin: 07/17/25 21:25 Dose: 5 mg Documented By: TRINIDAD Sodium Chloride (0.9 % Sodium Chloride Flush 3 Ml Syringe) 3 ml IVFLUSH [facility] Last Admin: 07/19/25 08:35 Dose: 3 ml Documented By: JONNIE Tamsulosin HCl (Tamsulosin Hcl 0.4 Mg Capsule) 0.4 mg PO BEDTIME [facility] Last Admin: 07/18/25 20:33 Dose: 0.4 mg Documented By: ANNA Labs 07/20/25 07:50 07/20/25 07:50 Procedures Date of Service Date of Service: 07/21/25 Progress Note: A&P Assessment and plan (1) Colovesical fistula: Status: Acute Assessment and Plan: Status post sigmoid resection and end colostomy Stoma functioning well now He still describes some reflux so we will start on PPI We will keep on sips of liquids only for now Abdomen is soft and benign He looks well clinically Ambulate Appreciate hospitalist follow-up Time Spent With Patient Time: Total time managing care of this patient today ____ minutes. Quality Stroke Does the patient have a stroke diagnosis?: No VTE Prior VTE?: No VTE Risk Level:: Medical - moderate - high VTE Device Contraindication: Treatment Not Indicated VTE Drug Contraindication: N/A - Med Ordered
--- NOTE | 2025-07-19 13:33 | PM.EVENT ---
Event Note Date of Service: 07/19/25 Event Note: feels well less reflux stoma working well abd soft good UO will restart clear liquids ambulate Time Spent With Patient Time: Total time managing care of this patient today ____ minutes.
--- NOTE | 2025-07-19 18:23 | HO.PM.IMPN ---
Subjective Subjective Date of Service: 07/19/25 Interval History: Ostomy starting to produce stool, no significant gas Diffuse abd tenderness and cramping Has been OOB and walking in the halls Some hiccups and acid reflux Review of Systems Review of Systems: Yes all other systems are reviewed and are negative Physical Exam Exam: Exam: General: AOx3, no acute distress Resp: CTA bilaterally CVS: S1, S2, RRR GI: +BS, mild distention, diffuse tenderness. Incision site clean. Small liquid brown stool in ostomy. Mild bloody output in GEE drain Skin: Warm, dry Neuro: Cranial nerves II-XII grossly intact bilaterally. Motor grossly intact bilaterally Extremities: No edema Psych: Appropriate affect Vital Signs: Vital Signs: Last Vital Signs Temp 98.3 F 07/19/25 15:55 Pulse 77 07/19/25 15:55 Resp 19 07/19/25 15:55 BP 153/81 H 07/19/25 15:55 Pulse Ox 96 07/19/25 15:55 O2 Del Method Room Air 07/19/25 15:55 O2 Flow Rate 2 07/16/25 19:44 BMI result Body Mass Index 30.1 Objective Data Active Medications Amlodipine Besylate (Amlodipine Besylate 5 Mg Tablet) 5 mg PO BEDTIME [facility]; Protocol Calcium Carbonate (Calcium Carbonate 750 Mg Tab.Chew) 750 mg PO Q4H PRN PRN Reason: Heartburn Last Admin: 07/19/25 03:25 Dose: 750 mg Documented By: ANNA Ceftriaxone Sodium (Ceftriaxone Sodium 1 Gm Vial) 1 gm IVPUSH Q24H [facility] Last Admin: 07/18/25 20:34 Dose: 1 gm Documented By: ANNA Enoxaparin Sodium (Enoxaparin Sodium 40 Mg/0.4 Ml Syringe) 40 mg SUBCUT Q24H [facility] Last Admin: 07/18/25 23:37 Dose: 40 mg Documented By: ANNA Finasteride (Finasteride 5 Mg Tablet) 5 mg PO DAILY [facility] Last Admin: 07/19/25 08:34 Dose: 5 mg Documented By: JONNIE Metronidazole (Flagyl) 500 mg in 100 mls @ 100 mls/hr IV Q8H [facility] Last Infusion: 07/19/25 12:40 Dose: Infused Documented By: JONNIE Acetaminophen (Ofirmev) 1,000 mg in 100 mls @ 400 mls/hr IV Q6H PRN PRN Reason: Pain, Mild (Pain Scale 1-3) Magnesium Hydroxide (Milk Of Magnesia 30 Ml Oral.Susp) 30 ml PO DAILY PRN PRN Reason: Constipation Melatonin (Melatonin 3 Mg Tablet) 6 mg PO BEDTIME PRN PRN Reason: Insomnia Last Admin: 07/17/25 00:24 Dose: 6 mg Documented By: HEDY Morphine Sulfate (Morphine Sulfate 4 Mg/Ml Cartridge) 3 mg IVPUSH Q3H PRN; Protocol PRN Reason: Pain, Severe (Pain Scale 7-10) Naloxone HCl (Naloxone Hcl 0.4 Mg/Ml Vial) 0.04 mg IVPUSH Q5M PRN PRN Reason: Excessive sedation or RR < 8 Ondansetron HCl (Ondansetron Hcl 4 Mg/2 Ml Vial) 4 mg IVPUSH Q6H PRN PRN Reason: Nausea and Vomiting Last Admin: 07/18/25 23:35 Dose: 4 mg Documented By: ANNA Oxycodone HCl (Oxycodone Hcl Immed Release 5 Mg Tablet) 5 mg PO Q4H PRN PRN Reason: Pain, Moderate(Pain Scale 4-6) Last Admin: 07/17/25 21:25 Dose: 5 mg Documented By: TRINIDAD Pantoprazole Sodium (Pantoprazole Sodium 40 Mg/10 Ml Vial) 40 mg IVPUSH BID@0630,1630 [facility] Last Admin: 07/19/25 17:25 Dose: 40 mg Documented By: JONNIE Sodium Chloride (0.9 % Sodium Chloride Flush 3 Ml Syringe) 3 ml IVFLUSH [facility] Last Admin: 07/19/25 17:25 Dose: 3 ml Documented By: JONNIE Tamsulosin HCl (Tamsulosin Hcl 0.4 Mg Capsule) 0.4 mg PO BEDTIME [facility] Last Admin: 07/18/25 20:33 Dose: 0.4 mg Documented By: ANNA Labs 07/18/25 05:39 07/18/25 05:39 Assessment and Plan (1) Colovesical fistula: Status: Acute Plan 75-year-old male with a past medical history of HTN, HLD, BPH presented to the hospital today with a chief complaint of dysuria, urinary frequency. Diverticultis with colovesical fistula Patient's recent CT scan showed sigmoid wall thickening with colovesical fistula Seen by general surgery and underwent sigmoid resection and with Colostomy on 07/16 Small amount of output today in ostomy Diet advanced to clears encourage ambulation and OOB Continue ceftriaxone and metronidazole, started 07/14 Pain management General surgery following UTI Patient failed outpatient antibiotics-was on Levaquin. Likely from colon fistula Cultures mixed Continue ceftriaxone and metronidazole as above CT abdomen pelvis> sigmoid diverticulitis without abscess, colovesicular fistula arising from the sigmoid colon GERD Start PPI Hypertension Amlodipine DVT prophylaxis: Lovenox Code status: Full Code Pt requires continued hospitalization for treatment for colovesicular fistula requiring emergent sigmoid resection and colostomy. Quality Stroke Does the patient have a stroke diagnosis?: No VTE Prior VTE?: No VTE Risk Level:: Medical - moderate - high VTE Device Contraindication: Treatment Not Indicated VTE Drug Contraindication: N/A - Med Ordered
[2025-07-19] MEDS: oxyCODONE HCl Immed Release 5 MG TABLET PO (21:38)
[2025-07-20] MEDS: metroNIDAZOLE/NS 500 MG/100 ML PIGGYBACK 100 MG IV (03:17)
[2025-07-20 03:44] VITALS: BP 159/74; PULSE 79; RESP 18; TEMP 37.2; O2SAT 95
[2025-07-20 07:38] VITALS: BP 151/85; PULSE 71; RESP 18; TEMP 36.2; O2SAT 94
[2025-07-20] MEDS: 0.9 % Sodium Chloride Flush 3 ML SYRINGE IVFLUSH ×3 (08:16→20:36)
[2025-07-20 08:49] LABS: Hematocrit 36.0 % (42.0-52.0); Hemoglobin 12.2 g/dl (14.0-18.0); Mean Corpuscular HGB Conc 33.9 g/dl (31.0-36.0); Mean Corpuscular Hemoglobin 30.3 pg (27.0-33.0); Mean Corpuscular Volume 89.6 fL (80.0-98.0); NRBC Abs Auto 0.000 X10*3/uL (0.0-0.012); NRBC Pct Auto 0.0 /100WBC (0.0-0.2); Platelet Count 336 X10*3/uL (160-400); Red Blood Count 4.02 X10*6/uL (4.60-5.80); White Blood Count 8.9 X10*3/uL (4.8-10.8)
[2025-07-20 09:00] LABS: Anion Gap 14 (12-20); Blood Urea Nitrogen 14 mg/dL (9-16); Calcium 8.4 mg/dL (8.4-10.2); Carbon Dioxide 24 mmol/L (22-29); Chloride 108 mmol/L (96-108); Creatinine Clr Calc Pharmacy 147.2; Estimated Glomerular Filt Rate > 60; Magnesium 1.9 mg/dL (1.6-2.6); Potassium 3.6 mmol/L (3.3-5.1); Sodium 142 mmol/L (135-145)
--- NOTE | 2025-07-20 09:23 | HO.PM.IMPN ---
Subjective Subjective Date of Service: 07/20/25 Interval History: Much better last night: no hiccups, able to sleep some Has been OOB and walking Ostomy with good output Tolerating liquid diet Abd pain controlled Review of Systems Review of Systems: Yes all other systems are reviewed and are negative Physical Exam Exam: Exam: General: AOx3, no acute distress Resp: CTA bilaterally CVS: S1, S2, RRR GI: +BS, mild distention, NT. Incision site clean. Liquid brown stool in ostomy. Scant bloody output in GEE drain Skin: Warm, dry Neuro: Cranial nerves II-XII grossly intact bilaterally. Motor grossly intact bilaterally Extremities: No edema Psych: Appropriate affect Vital Signs: Vital Signs: Last Vital Signs Temp 97.2 F 07/20/25 07:38 Pulse 71 07/20/25 07:38 Resp 18 07/20/25 07:38 BP 151/85 H 07/20/25 07:38 Pulse Ox 94 07/20/25 07:38 O2 Del Method Room Air 07/20/25 07:38 O2 Flow Rate 2 07/16/25 19:44 BMI result Body Mass Index 30.1 Objective Data Active Medications Amlodipine Besylate (Amlodipine Besylate 5 Mg Tablet) 5 mg PO BEDTIME [facility]; Protocol Last Admin: 07/19/25 19:53 Dose: 5 mg Documented By: ANNA Calcium Carbonate (Calcium Carbonate 750 Mg Tab.Chew) 750 mg PO Q4H PRN PRN Reason: Heartburn Last Admin: 07/19/25 03:25 Dose: 750 mg Documented By: ANNA Ceftriaxone Sodium (Ceftriaxone Sodium 1 Gm Vial) 1 gm IVPUSH Q24H [facility] Last Admin: 07/19/25 21:30 Dose: 1 gm Documented By: RENETTA Enoxaparin Sodium (Enoxaparin Sodium 40 Mg/0.4 Ml Syringe) 40 mg SUBCUT Q24H [facility] Last Admin: 07/20/25 03:15 Dose: 40 mg Documented By: RENETTA Comments: Primary RN very busy with another pt. helping with meds. Finasteride (Finasteride 5 Mg Tablet) 5 mg PO DAILY [facility] Last Admin: 07/20/25 08:15 Dose: 5 mg Documented By: JONNIE Metronidazole (Flagyl) 500 mg in 100 mls @ 100 mls/hr IV Q8H [facility] Last Infusion: 07/20/25 04:30 Dose: Infused Documented By: ANNA Acetaminophen (Ofirmev) 1,000 mg in 100 mls @ 400 mls/hr IV Q6H PRN PRN Reason: Pain, Mild (Pain Scale 1-3) Magnesium Hydroxide (Milk Of Magnesia 30 Ml Oral.Susp) 30 ml PO DAILY PRN PRN Reason: Constipation Melatonin (Melatonin 3 Mg Tablet) 6 mg PO BEDTIME PRN PRN Reason: Insomnia Last Admin: 07/17/25 00:24 Dose: 6 mg Documented By: HEDY Morphine Sulfate (Morphine Sulfate 4 Mg/Ml Cartridge) 3 mg IVPUSH Q3H PRN; Protocol PRN Reason: Pain, Severe (Pain Scale 7-10) Naloxone HCl (Naloxone Hcl 0.4 Mg/Ml Vial) 0.04 mg IVPUSH Q5M PRN PRN Reason: Excessive sedation or RR < 8 Ondansetron HCl (Ondansetron Hcl 4 Mg/2 Ml Vial) 4 mg IVPUSH Q6H PRN PRN Reason: Nausea and Vomiting Last Admin: 07/18/25 23:35 Dose: 4 mg Documented By: ANNA Oxycodone HCl (Oxycodone Hcl Immed Release 5 Mg Tablet) 5 mg PO Q4H PRN PRN Reason: Pain, Moderate(Pain Scale 4-6) Last Admin: 07/19/25 21:38 Dose: 5 mg Documented By: RENETTA Pantoprazole Sodium (Pantoprazole Sodium 40 Mg/10 Ml Vial) 40 mg IVPUSH BID@0630,1630 [facility] Last Admin: 07/20/25 06:11 Dose: 40 mg Documented By: ANNA Sodium Chloride (0.9 % Sodium Chloride Flush 3 Ml Syringe) 3 ml IVFLUSH QSHIFT [facility] Last Admin: 07/20/25 08:16 Dose: 3 ml Documented By: JONNIE Tamsulosin HCl (Tamsulosin Hcl 0.4 Mg Capsule) 0.4 mg PO BEDTIME [facility] Last Admin: 07/19/25 19:53 Dose: 0.4 mg Documented By: ANNA Labs 07/20/25 07:50 07/20/25 07:50 Labs: Laboratory Results - last 24 hr 07/20/25 07:50 MCV 89.6 MCH 30.3 MCHC 33.9 RDW 12.8 Plt Count 336 MPV 8.5 L Absolute Nucleated RBC 0.000 Nucleated RBC % (auto) 0.0 Anion Gap 14 Estim Creat Clear Calc 147.2 Estimated GFR > 60 Random Glucose 94 Calcium 8.4 Magnesium 1.9 Microbiology Microbiology Results: Microbiology 07/14/25 21:46 Blood Culture - Final Blood - Venous No growth after 5 days. 07/14/25 21:12 Blood Culture - Final Blood - Venous No growth after 5 days. Assessment and Plan (1) Colovesical fistula: Status: Acute (2) S/P laparoscopic-assisted sigmoidectomy: Status: Acute Plan 75-year-old male with a past medical history of HTN, HLD, BPH presented to the hospital today with a chief complaint of dysuria, urinary frequency. Diverticultis with colovesical fistula S/P sigmoid resection and with Colostomy on 07/16 by general surgery Ostomy now with output of liquid brown stool Tolerating clear liquid diet; advance per general surgery Encourage ambulation and OOB Continue ceftriaxone and metronidazole, started 07/14 Pain management General surgery following Will require PT eval prior to discharge UTI Patient failed outpatient antibiotics-was on Levaquin. Likely from colon fistula Cultures mixed Continue ceftriaxone and metronidazole as above GERD Start PPI Hypertension Amlodipine DVT prophylaxis: Lovenox Code status: Full Code Pt requires continued hospitalization for treatment for colovesicular fistula s/p sigmoid resection and colostomy. Quality Stroke Does the patient have a stroke diagnosis?: No VTE Prior VTE?: No VTE Risk Level:: Medical - moderate - high VTE Device Contraindication: Treatment Not Indicated VTE Drug Contraindication: N/A - Med Ordered
--- NOTE | 2025-07-20 10:14 | P.PNGS_ITS ---
Subjective Subjective Date of Service: 07/20/25 Interval history: Feels well Denies significant pain No hiccups or nausea Stoma functioning well Physical Exam 2 Vital Signs: Vital Signs: Last Vital Signs Temp 97.2 F 07/20/25 07:38 Pulse 71 07/20/25 07:38 Resp 18 07/20/25 07:38 BP 151/85 H 07/20/25 07:38 Pulse Ox 94 07/20/25 07:38 O2 Del Method Room Air 07/20/25 07:38 O2 Flow Rate 2 07/16/25 19:44 BMI result Body Mass Index 30.1 Const: General: comfortable and no acute distress Resp: Effort & Inspection: normal respiratory effort Cardio: Rate: regular rate GI: Other: Stoma with good output incision clean and dry Palpation (GI): Soft to palpation, not firm, nontender and no guarding Objective Data Active Medications Amlodipine Besylate (Amlodipine Besylate 5 Mg Tablet) 5 mg PO BEDTIME [facility]; Protocol Last Admin: 07/19/25 19:53 Dose: 5 mg Documented By: ANNA Calcium Carbonate (Calcium Carbonate 750 Mg Tab.Chew) 750 mg PO Q4H PRN PRN Reason: Heartburn Last Admin: 07/19/25 03:25 Dose: 750 mg Documented By: ANNA Ceftriaxone Sodium (Ceftriaxone Sodium 1 Gm Vial) 1 gm IVPUSH Q24H [facility] Last Admin: 07/19/25 21:30 Dose: 1 gm Documented By: RENETTA Enoxaparin Sodium (Enoxaparin Sodium 40 Mg/0.4 Ml Syringe) 40 mg SUBCUT Q24H [facility] Last Admin: 07/20/25 03:15 Dose: 40 mg Documented By: RENETTA Comments: Primary RN very busy with another pt. helping with meds. Finasteride (Finasteride 5 Mg Tablet) 5 mg PO DAILY [facility] Last Admin: 07/20/25 08:15 Dose: 5 mg Documented By: JONNIE Acetaminophen (Ofirmev) 1,000 mg in 100 mls @ 400 mls/hr IV Q6H PRN PRN Reason: Pain, Mild (Pain Scale 1-3) Magnesium Hydroxide (Milk Of Magnesia 30 Ml Oral.Susp) 30 ml PO DAILY PRN PRN Reason: Constipation Melatonin (Melatonin 3 Mg Tablet) 6 mg PO BEDTIME PRN PRN Reason: Insomnia Last Admin: 07/17/25 00:24 Dose: 6 mg Documented By: HEDY Metronidazole (Metronidazole 500 Mg Tablet) 500 mg PO Q8H [facility] Morphine Sulfate (Morphine Sulfate 4 Mg/Ml Cartridge) 3 mg IVPUSH Q3H PRN; Protocol PRN Reason: Pain, Severe (Pain Scale 7-10) Naloxone HCl (Naloxone Hcl 0.4 Mg/Ml Vial) 0.04 mg IVPUSH Q5M PRN PRN Reason: Excessive sedation or RR < 8 Ondansetron HCl (Ondansetron Hcl 4 Mg/2 Ml Vial) 4 mg IVPUSH Q6H PRN PRN Reason: Nausea and Vomiting Last Admin: 07/18/25 23:35 Dose: 4 mg Documented By: ANNA Oxycodone HCl (Oxycodone Hcl Immed Release 5 Mg Tablet) 5 mg PO Q4H PRN PRN Reason: Pain, Moderate(Pain Scale 4-6) Last Admin: 07/19/25 21:38 Dose: 5 mg Documented By: RENETTA Pantoprazole Sodium (Pantoprazole Sodium 40 Mg/10 Ml Vial) 40 mg IVPUSH BID@0630,1630 [facility] Last Admin: 07/20/25 06:11 Dose: 40 mg Documented By: ANNA Sodium Chloride (0.9 % Sodium Chloride Flush 3 Ml Syringe) 3 ml IVFLUSH QSHIFT [facility] Last Admin: 07/20/25 08:16 Dose: 3 ml Documented By: JONNIE Tamsulosin HCl (Tamsulosin Hcl 0.4 Mg Capsule) 0.4 mg PO BEDTIME [facility] Last Admin: 07/19/25 19:53 Dose: 0.4 mg Documented By: ANNA Labs 07/20/25 07:50 07/20/25 07:50 Labs: Laboratory Results - last 24 hr 07/20/25 07:50 MCV 89.6 MCH 30.3 MCHC 33.9 RDW 12.8 Plt Count 336 MPV 8.5 L Absolute Nucleated RBC 0.000 Nucleated RBC % (auto) 0.0 Anion Gap 14 Estim Creat Clear Calc 147.2 Estimated GFR > 60 Random Glucose 94 Calcium 8.4 Magnesium 1.9 Microbiology Microbiology Results: Microbiology 07/14/25 21:46 Blood Culture - Final Blood - Venous No growth after 5 days. 07/14/25 21:12 Blood Culture - Final Blood - Venous No growth after 5 days. Procedures Date of Service Date of Service: 07/20/25 Progress Note: A&P Assessment and plan (1) Colovesical fistula: Status: Acute Assessment and Plan: Status post resection, end colostomy Doing very well Regular diet GEE drain in place - plan to DC this prior to discharge Looks like he will be ready to be discharged tomorrow May need VNA services Keep Garza in for 2 weeks and follow up with Urology [facility] to leg bag Time Spent With Patient Time: Total time managing care of this patient today ____ minutes. Quality Stroke Does the patient have a stroke diagnosis?: No VTE Prior VTE?: No VTE Risk Level:: Medical - moderate - high VTE Device Contraindication: Treatment Not Indicated VTE Drug Contraindication: N/A - Med Ordered
[2025-07-20 12:00] VITALS: BP 112/80; PULSE 88; RESP 18; TEMP 36.6; O2SAT 95
[2025-07-20 16:00] VITALS: BP 127/92; PULSE 82; RESP 18; TEMP 36.8; O2SAT 95
[2025-07-20 19:56] VITALS: BP 110/65; PULSE 88; RESP 18; TEMP 37.2; O2SAT 95
[2025-07-20 23:26] VITALS: BP 141/79; PULSE 71; RESP 18; TEMP 36.8; O2SAT 96
[2025-07-21] MEDS: oxyCODONE HCl Immed Release 5 MG TABLET PO (00:41)
[2025-07-21 03:29] VITALS: BP 145/70; PULSE 73; RESP 18; TEMP 36.4; O2SAT 92
--- NOTE | 2025-07-21 06:46 | PM.PNGS ---
Subjective Subjective Date of Service: 07/21/25 <[facility] Last Filed: 07/21/25 06:58> 07/21/25 <Jose Rosen MD - Last Filed: 07/21/25 08:13> 07/21/25 <Mohsen Bass PA-C - Last Filed: 07/21/25 10:32> Interval history: The patient is a 75y/o M POD#5 s/p hand assisted laparoscopic sigmoid resection due to colovesical fistula. Today, he is feeling well. He said his pain is around a 2/10 and increases slightly with movement, but is overall tolerable. He says he has a chafed rear from the bed but had been given some cream that is helping. He has been tolerating a full diet w/o N/V. He is having stool and gas output into the ostomy. He is ready to learn some more ostomy care. He no longer has hiccups or chest pain. He is ambulating regularly. He reports not issues with the horner catheter. He denies SOB, fever, or chills. <[facility] Filed: 07/21/25 06:58> Physical Exam Vital Signs: Vital Signs: Last Vital Signs Temp 97.6 F 07/21/25 03:29 Pulse 73 07/21/25 03:29 Resp 18 07/21/25 03:29 BP 145/70 H 07/21/25 03:29 Pulse Ox 92 07/21/25 03:29 O2 Del Method Room Air 07/21/25 03:29 O2 Flow Rate 2 07/16/25 19:44 BMI result Body Mass Index 30.1 <[facility] Last Filed: 07/21/25 06:58> Const: General: cooperative, comfortable and no acute distress <[facility] Filed: 07/21/25 06:58> Orientation/consciousness: patient oriented x3 <[facility] Filed: 07/21/25 06:58> Resp: Effort & Inspection: normal respiratory effort and able to speak in complete sentences <[facility] Filed: 07/21/25 06:58> Auscultation: clear to auscultation bilaterally, no crackles, no rales, no rhonchi and no wheezes <[facility] Filed: 07/21/25 06:58> Cardio: Other: heart sounds distant due to positioning <[facility] Last Filed: 07/21/25 06:58> Jugular venous distension: no JVD <[facility] Last Filed: 07/21/25 06:58> Rate: regular rate <[facility] Last Filed: 07/21/25 06:58> Rhythm: regular rhythm <[facility] Last Filed: 07/21/25 06:58> GI: Other: GEE tube with scant serosanguinous fluid (30mL over 24 hrs) Ostomy bag with fecal matter <[facility] Last Filed: 07/21/25 06:58> Inspection: Yes incision (2x surgical incisions without drainage or surrounding erythema) <[facility] Filed: 07/21/25 06:58> Palpation (GI): Soft to palpation, nontender, no guarding and not rigid <[facility] Filed: 07/21/25 06:58> Percussion: Yes tympanic to percussion (mildly) <[facility] Filed: 07/21/25 06:58> Auscultation: normal bowel sounds <[facility] Filed: 07/21/25 06:58> Neuro: General: patient oriented x3 <[facility] Filed: 07/21/25 06:58> Objective Data Active Medications Amlodipine Besylate (Amlodipine Besylate 5 Mg Tablet) 5 mg PO BEDTIME [facility]; Protocol Last Admin: 07/20/25 20:35 Dose: 5 mg Documented By: SHREYA Calcium Carbonate (Calcium Carbonate 750 Mg Tab.Chew) 750 mg PO Q4H PRN PRN Reason: Heartburn Last Admin: 07/19/25 03:25 Dose: 750 mg Documented By: ANNA Ceftriaxone Sodium (Ceftriaxone Sodium 1 Gm Vial) 1 gm IVPUSH Q24H [facility] Last Admin: 07/20/25 20:36 Dose: 1 gm Documented By: SHREYA Enoxaparin Sodium (Enoxaparin Sodium 40 Mg/0.4 Ml Syringe) 40 mg SUBCUT Q24H [facility] Last Admin: 07/21/25 00:43 Dose: 40 mg Documented By: SHREYA Finasteride (Finasteride 5 Mg Tablet) 5 mg PO DAILY [facility] Last Admin: 07/20/25 08:15 Dose: 5 mg Documented By: JONNIE Acetaminophen (Ofirmev) 1,000 mg in 100 mls @ 400 mls/hr IV Q6H PRN PRN Reason: Pain, Mild (Pain Scale 1-3) Magnesium Hydroxide (Milk Of Magnesia 30 Ml Oral.Susp) 30 ml PO DAILY PRN PRN Reason: Constipation Melatonin (Melatonin 3 Mg Tablet) 6 mg PO BEDTIME PRN PRN Reason: Insomnia Last Admin: 07/17/25 00:24 Dose: 6 mg Documented By: HEDY Metronidazole (Metronidazole 500 Mg Tablet) 500 mg PO Q8H [facility] Last Admin: 07/21/25 03:15 Dose: 500 mg Documented By: SHREYA Morphine Sulfate (Morphine Sulfate 4 Mg/Ml Cartridge) 3 mg IVPUSH Q3H PRN; Protocol PRN Reason: Pain, Severe (Pain Scale 7-10) Naloxone HCl (Naloxone Hcl 0.4 Mg/Ml Vial) 0.04 mg IVPUSH Q5M PRN PRN Reason: Excessive sedation or RR < 8 Ondansetron HCl (Ondansetron Hcl 4 Mg/2 Ml Vial) 4 mg IVPUSH Q6H PRN PRN Reason: Nausea and Vomiting Last Admin: 07/18/25 23:35 Dose: 4 mg Documented By: ANNA Oxycodone HCl (Oxycodone Hcl Immed Release 5 Mg Tablet) 5 mg PO Q4H PRN PRN Reason: Pain, Moderate(Pain Scale 4-6) Last Admin: 07/21/25 00:41 Dose: 5 mg Documented By: SHREYA Pantoprazole Sodium (Pantoprazole Sodium 40 Mg/10 Ml Vial) 40 mg IVPUSH BID@0630,1630 [facility] Last Admin: 07/21/25 06:01 Dose: 40 mg Documented By: SHREYA Sodium Chloride (0.9 % Sodium Chloride Flush 3 Ml Syringe) 3 ml IVFLUSH QSHIFT [facility] Last Admin: 07/20/25 20:36 Dose: 3 ml Documented By: SHREYA Tamsulosin HCl (Tamsulosin Hcl 0.4 Mg Capsule) 0.4 mg PO BEDTIME [facility] Last Admin: 07/20/25 20:35 Dose: 0.4 mg Documented By: HUMBERTOGlen <Mitali Conradh - Last Filed: 07/21/25 06:58> Labs CBC & Chem 7: 07/20/25 07:50 07/20/25 07:50 <Mitali Conradh - Last Filed: 07/21/25 06:58> Labs: Laboratory Results - last 24 hr 07/20/25 07:50 MCV 89.6 MCH 30.3 MCHC 33.9 RDW 12.8 Plt Count 336 MPV 8.5 L Absolute Nucleated RBC 0.000 Nucleated RBC % (auto) 0.0 Anion Gap 14 Estim Creat Clear Calc 147.2 Estimated GFR > 60 Random Glucose 94 Calcium 8.4 Magnesium 1.9 <Mitali Conradh - Last Filed: 07/21/25 06:58> Procedures Date of Service Date of Service: 07/21/25 <Mitali Conradh - Last Filed: 07/21/25 06:58> 07/21/25 <Jose Rosen MD - Last Filed: 07/21/25 08:13> 07/21/25 <Mohsen Bass PA-C - Last Filed: 07/21/25 10:32> Progress Note: A&P Assessment and plan (1) Colovesical fistula: Status: Acute <Mitali Conradh - Last Filed: 07/21/25 06:58> Assessment and Plan: Status post sigmoid resection, end colostomy Doing very well Good GI function GEE drain scanty serosanguineous output Urine output clear Tolerating diet well Okay to DC home today Stoma education prior to discharge - discussed with Kiera Horner in - he needs to follow up with Plan to DC GEE drain before discharge Seen and examined independently <Jose Rosen MD - Last Filed: 07/21/25 08:13> Assessment and Plan: The patient is a 75y/o M POD#5 s/p hand assisted laparoscopic sigmoid resection due to colovesical fistula who is doing better and meeting care goals. He has significantly improved symptomatically and his main barrier to discharge is ostomy care education. On physical exam, his abdominal surgical incisions appear to be healing well and he has ostomy output. Labs from yesterday show a mild anemia and GEE tube output was minimal overnight. PLAN Remove GEE tube Continue full diet Continue ambulating Ostomy care education with the nursing staff planned for later today Continue spirometry 10x per hour Leave horner catheter in; on discharge, schedule follow up for removal <Maryarobert Allen Filed: 07/21/25 06:58> The patient is a 75y/o M POD#5 s/p hand assisted laparoscopic sigmoid resection due to colovesical fistula who is doing better and meeting care goals. He has significantly improved symptomatically and his main barrier to discharge is ostomy care education. On physical exam, his abdominal surgical incisions appear to be healing well and he has ostomy output. Labs from yesterday show a mild anemia and GEE tube output was minimal overnight. PLAN Remove GEE tube Continue full diet Continue ambulating Ostomy care education with the nursing staff planned for later today Continue spirometry 10x per hour Leave horner catheter in; on discharge, schedule follow up for removal Patient seen and examined independently. I agree with the above assessment and plan. Patient overall doing very well feels ready to go home. Pending ostomy education today patient can likely go home. We will remove GEE prior to discharge. Can continue with antibiotics as outpatient. Recommend 5 days Augmentin b.i.d. <Mohsen Bass PA-C - Last Filed: 07/21/25 10:32> Time Spent With Patient Time: Total time managing care of this patient today ____ minutes. <Maryarobert Conradh Last Filed: 07/21/25 06:58> Quality Stroke Does the patient have a stroke diagnosis?: No <Mitali Penny Last Filed: 07/21/25 06:58> VTE Prior VTE?: No <Mitali Conradh Filed: 07/21/25 06:58> VTE Risk Level:: Medical - moderate - high <Mitali Francis Filed: 07/21/25 06:58> VTE Device Contraindication: Treatment Not Indicated <Mitali Franics - Last Filed: 07/21/25 06:58> VTE Drug Contraindication: N/A - Med Ordered <Mitali Conradh Filed: 07/21/25 06:58>
[2025-07-21] MEDS: 0.9 % Sodium Chloride Flush 3 ML SYRINGE IVFLUSH ×2 (07:48→15:48)
[2025-07-21 07:53] VITALS: BP 137/76; PULSE 67; RESP 18; TEMP 36.5; O2SAT 93
[2025-07-21 11:29] VITALS: BP 152/67; PULSE 65; RESP 18; TEMP 36.4; O2SAT 97
--- NOTE | 2025-07-21 15:19 | PM.DS ---
DS: Providers Provider Date of Service: 07/21/25 Date of admission: 07/15/25 00:44 Date of discharge: 07/21/25 Primary care physician: Luis Felipe Cardenas DO Consults: 07/15/25 06:23 Consult to Gastroenterology Routine Consulting Provider: [facility] [place] Gastroenterology Services Reason for consultation: sigmoid thickening Consult to General Surgery Routine Consulting Provider: [facility] [place] General Surgeons Reason for consultation: sigmoid diverticulitis 07/15/25 08:44 Consult to Urology Routine Consulting Provider: [facility] Urology Services Reason for consultation: continued uti 07/15/25 10:04 Consult to Ostomy Care Routine 07/18/25 08:55 Consult to Wound Care Routine Reason for consultation: Ostomy Teaching 07/18/25 14:26 Consult to Ostomy Care Routine DS: Diagnosis Discharge Diagnosis (1) Colovesical fistula: Status: Acute DS: Summary Hospital Course Hospital Course: From admission HPI: Date of Service: 07/15/25 Chief Complaint: dysuria 75-year-old male with a past medical history of HTN, HLD, BPH presented to the hospital today with a chief complaint of dysuria, urinary frequency. Patient reportedly was diagnosed with a UTI on 07/07/2025; has had CT abdomen pelvis done at the time; discharged on Levaquin. But patient's family reports that patient continued to have the urinary symptoms and noted to be slightly confused than his normal. Followed with the family called the patient's PCP who suggested to go to the ER for further evaluation. Patient denies any chest pain or palpitations. Denies any nausea vomiting. Denies any abdominal pain. Reports having loose stools over the past couple days. Review of all other systems is negative except mentioned above ER course: Per ER team, patient noted to have benign abdominal examination; Mentating well; urinalysis abnormal consistent with UTI. Patient was given ceftriaxone. Hospital course: Pt was admitted to the hospital for acute diverticulitis complicated by colovesicular fistula. Pt was initially started on IV antibiotics ceftriaxone and metronidazole. Pt was seen and evaluated by General surgery and underwent sigmoid resection with colostomy on 07/[address] Rosen. Patient's diet was slowly advanced and bowel function returned. Pt has been producing liquid brown-colored stool in his ostomy and tolerating a full diet. Minimal amount of bloody drainage in GEE drain, which has subsequently been pulled. Overall pt's hospital stay was uncomplicated and he progressed slowly but well. Has undergone ostomy care training and comfortable with discharge with supplies and VNA services. Will be discharged on short course of oxycodone, omeprazole, and Augmentin 875 mg b.i.d. x5 days. Pt will follow up with General surgery in 1-2 weeks. Pt also seen and evaluated by Urology and was started on finasteride 5 mg daily. Pt is to keep Garza catheter inserted and will have follow-up for Radiology cystogram 10-14 days after initial surgery, as well as Urology office visit for Garza catheter removal and voiding trial. Additional details concerning hospital course as listed below. Diverticultis with colovesical fistula S/P sigmoid resection and with Colostomy on 07/16 by general surgery Ostomy with output of liquid brown stool Tolerating full diet, Encourage ambulation and OOB Treated with ceftriaxone and metronidazole, started 07/14; will be discharged on Augmentin 875 mg b.i.d. x5 days; stop nitrofurantoin Oxycodone 5 mg t.i.d. p.r.n. for pain management VNA services for ostomy and Garza care UTI Patient failed outpatient antibiotics-was on Levaquin. Likely from colon fistula Cultures mixed Treated with abx as above GERD Continue omeprazole 40 mg daily x12 addional days Hypertension Amlodipine Time Attestation Discharge Coordination Time (in mins): 37 Quality: Safe Use of Opioids Does Pt have an Active Cancer Diagnosis on the Problem List?: No Quality: Stroke Does the patient have a stroke diagnosis?: No Physical Exam Exam: Exam: General: AOx3, no acute distress Resp: CTA bilaterally CVS: S1, S2, RRR GI: +BS, mild distention, NT. Incision site clean. Liquid brown stool in ostomy. GEE drain pulled, area covered in clean and dry dressing. Skin: Warm, dry Neuro: Cranial nerves II-XII grossly intact bilaterally. Motor grossly intact bilaterally Extremities: No edema Psych: Appropriate affect Vital Signs: Vital Signs: Last Vital Signs Temp 97.5 F 07/21/25 11:29 Pulse 65 07/21/25 11:29 Resp 18 07/21/25 11:29 BP 152/67 H 07/21/25 11:29 Pulse Ox 97 07/21/25 11:29 O2 Del Method Room Air 07/21/25 11:29 O2 Flow Rate 2 07/16/25 19:44 BMI result Body Mass Index 30.1 DS: Data Data Completed and Pending Completed studies during hospitalization [Text1]: Pending at discharge 07/16/25 14:34 Surgical [PTH] Stat Discharge Plan Discharge Anticipated Discharge Date/Time: 07/21/25 13:38 Patient Disposition: Home Health Service Discharge Diagnosis: Acute diverticulitis with colovesical fistula Referrals: Georgette Quiles MD [Physician, Urology] - 1 Week Referral Note: Follow up for colovesicular fistula repaired by Dr. Rosen. Pt needs outpatient radiology cystogram and Garza catheter removal Luis Felipe Cardenas DO [Primary Care Provider, Internal Medicine] - 1 Week Jose Rosen MD [Physician, General Surgery] - 1 Week Discharge Medications: New finasteride 5 mg tablet 5 mg PO DAILY Qty: 30 0RF Rx Instructions: Take one tablet daily omeprazole 40 mg capsule,delayed release(DR/EC) 40 mg PO DAILY Qty: 12 0RF Rx Instructions: Take one tablet daily for the next 12 days oxycodone 5 mg capsule 5 mg PO Q8H PRN (Reason: pain, severe) Qty: 15 0RF Rx Instructions: Partial Fill upon patient request. Take one tablet up to three times a day for severe pain. amoxicillin-pot clavulanate 875-125 mg tablet 1 tab PO BID Qty: 11 0RF Rx Instructions: Take one pill twice a day for the next five days, beginning the evening of 07/21 and ending the evening of 07/26. Continued amlodipine 2.5 mg tablet 1 tab PO BEDTIME nitrofurantoin monohyd/m-cryst 100 mg capsule 1 cap PO BID tamsulosin [Flomax] 0.4 mg capsule 0.4 mg PO BEDTIME ibuprofen 200 mg Tablet 200 mg PO Q6H PRN (Reason: Pain) polyethylene glycol 3350 [Miralax] 17 gram/dose Powder 17 g PO DAILY PRN (Reason: Constipation) Discharge Orders: Discharge Order (Routine); Ordered 07/21/25 Ordered By: Dalton Rivero Diet: Advance to usual diet Activity on Discharge: No heavy lifting Stand Alone Forms: Patient Portal Discharge page Print Language: [place] Citizen Activity Restrictions/Additional Instructions: Stoma care as per instructions If the incision area is tender, you may apply an ice pack for short intervals (No more than 20 minutes on, followed by at least 20 minutes off). Do not apply heat. Do not use creams, lotions, or topical antibiotics unless instructed to do so by your surgeon. These can cause infection or allergic reaction. No lifting more than 20 lbs Okay to shower No strenuous activities Call the office for follow-up in 2 weeks - with Dr. Rosen Call Your Doctor If: -Your temperature exceeds 101.5? F -You experience excessive pain or swelling -You have an unexpected reaction to medication -You have excessive bleeding -You experience continued vomiting/nausea -Your incision begins to separate -Your incision shows signs of infection such as increased redness, swelling, excessive pain, drainage (light blood or clear fluid is normal) or heat Care Plan Goals: Return to baseline Health Concerns: Status post sigmoid resection and end colostomy Pain issues Plan of Treatment: You were admitted to the hospital for acute diverticulitis complicated by colovesicular fistula. You were seen and evaluated by General surgery and underwent sigmoid resection with colostomy on 07/[address] Rosen. You were treated with IV antibiotics and your diet was slowly advanced. Bowel function returned and you are now producing stool in your ostomy. You will be sent home on a short course of oxycodone for pain management as well as antibiotics for the next 5 days. You were also seen and evaluated by Urology. You will be going home with a Garza catheter and will need follow up imaging and outpatient voiding trial. -- take Augmentin 875 mg twice a day with food for the next 5 days, starting the evening of 07/21 and ending the evening of 07/26. Complete full course of antibiotics. -- take oxycodone 5 mg up to 3 times a day for severe pain. -- follow up with Dr. Rosen in general surgery in 1-2 weeks. -- follow up with Dr. Quiles at [facility] [place] Urology. You will need to call to schedule an outpatient Radiology Cystogram sometime from 07/28-07/30, as well as office visit for Garza catheter removal and voiding trial. -- take finasteride 5 mg daily to help with urination. Follow up with Urology about whether to continue medication once Garza catheter removed. -- drink plenty of fluids to remain hydrated. -- you will being going home with VNA services for help with stoma and Garza catheter care. -- see above for ostomy care instructions. -- take omeprazole 40 mg daily for the next 14 days for acid reflux. Assessment: See discharge summary
--- NOTE | 2025-07-21 15:25 | HO.OSTOMY ---
Ostomy Consult: Follow up Teaching 75yr old male admitted to [facility] on 07/15/25 see H&P for detailed history and admission.? Consult for new ostomy teaching. ?He had an End Colostomy creation on 07/16/[address] Rosen. ?Upon entry into patient's room, he is sitting in his recliner chair, he is alert and oriented x 3, he currently has no complaints. ?He recalls my role in his care and is agreeable to teaching. He and his are present and ready for education. He reports he has not yet emptied his pouch but did observe over the weekend and feel comfortable emptying. He was agreeable to ambulating to to independently empty the pouch with stand by assist. He did well and needed minimal support for the empty. He and his watched the ACD videos and we discussed questions they had after. His pouch was assessed and silent leak noted from 5-9 o'clock. He was agreeable to a pouch change. Together we performed a stoma model change. His pouch was changed peristomal skin is noted for erythema from 5-9 o'clock no s/s of infection MCJ in tact at this time, erythema is concerning for MCJ separation. Stoma is red pink moist tissue minimal necrosis noted at the superior part of the stoma. Barrier Strip paste used around the stoma to create a seal as the stoma is slight mushroom cap shape. Pouch was cut 44mm oval into flat 1 piece coloplast pouch # [id number]. Reviewed written education with patient and left at bedside for further review. ?He reported having no questions at this time. ?He will benefit from VNA services at time of discharge. ?All questions and concerns addressed at this time.
[2025-07-21 15:34] VITALS: BP 121/87; PULSE 93; RESP 16; TEMP 36.7; O2SAT 96
--- NOTE | 2025-07-21 16:04 | MHC.CM.PN ---
PT MEDICALLY CLEARED FOR DC CM MET WITH PT AND , THEY ARE AWARE [facility] WILL CONTACT THEM TO PROVIDE SOC AND ORDER OSTOMY SUPPLIES ONGOING WILL TRANSPORT
== END 2025-07-21 16:04 | disposition home health service (06) | DRG 330 ==
LOC: HO.ED 23:29 → HO.EDOVER 07-15 01:08 → HO.IMC 07-15 18:02 → HO.S3 07-16 17:36
PROVIDERS: Physician Assistant Medical; Surgery; Admitting Provider Hospitalist; Emergency Provider Emergency Medicine; PCP Family Medicine; Visit Provider Student in an Organized Health Care Education/Training Program
PROC: 0DTE0ZZ Resection of Large Intestine, Open Approach (ICD-10-PCS; principal; 2025-07-16 12:00)
DX: K57.32 Diverticulitis of large intestine without perforation or abscess without bleeding (principal); K56.7 Ileus, unspecified; N32.1 Vesicointestinal fistula; N39.0 Urinary tract infection, site not specified; K21.9 Gastro-esophageal reflux disease without esophagitis; I80.3 Phlebitis and thrombophlebitis of lower extremities, unspecified; I10 Essential (primary) hypertension; Z87.440 Personal history of urinary (tract) infections; Z79.899 Other long term (current) drug therapy
CPT/HCPCS: 36415; 74018; 74177; 80048; 80053; 81001; 83605; 83735; 85025; 85027; 86850; 86900; 86901; 87040; 87086; 88307; 93005; 99285; J0131; J0665; J0696; J1100; J1171; J1308; J1650; J1836; J2003; J2250; J2405; J2470; J2704; J2795; J3010; J7120; Q9967; Q9968

== ENCOUNTER 2025-07-15 00:44 | Outpatient (BNV) | payer MEDICARE, BC, SELFPAY | END 2025-07-15 00:48 | PROVIDERS: Admitting Provider Hospitalist; Emergency Provider Emergency Medicine; PCP Family Medicine; Visit Provider Radiology Diagnostic Radiology | DX: K57.32 Diverticulitis of large intestine without perforation or abscess without bleeding (principal) | CPT/HCPCS: 74177 ==

== ENCOUNTER 2025-07-15 00:44 | Outpatient (BNV) | payer MEDICARE, BC, SELFPAY | END 2025-07-16 06:15 | PROVIDERS: Admitting Provider Hospitalist; Emergency Provider Emergency Medicine; PCP Family Medicine; Visit Provider Internal Medicine Cardiovascular Disease | DX: I49.3 Ventricular premature depolarization (principal); I44.4 Left anterior fascicular block; I45.10 Unspecified right bundle-branch block | CPT/HCPCS: 93010 ==

== ENCOUNTER 2025-07-15 00:44 | Outpatient (BNV) | payer MEDICARE, BC, SELFPAY | END 2025-07-18 04:22 | PROVIDERS: Admitting Provider Hospitalist; Emergency Provider Emergency Medicine; PCP Family Medicine; Visit Provider Internal Medicine Cardiovascular Disease | DX: I49.1 Atrial premature depolarization (principal); I45.4 Nonspecific intraventricular block; I51.7 Cardiomegaly | CPT/HCPCS: 93010 ==

== ENCOUNTER 2025-07-15 00:44 | Outpatient (BNV) | payer MEDICARE, BC, SELFPAY | END 2025-07-18 09:01 | PROVIDERS: Admitting Provider Hospitalist; Emergency Provider Emergency Medicine; PCP Family Medicine; Visit Provider Radiology Diagnostic Radiology | DX: R11.10 Vomiting, unspecified (principal) | CPT/HCPCS: 74018 ==

== ENCOUNTER → 2025-07-15 00:44 | Outpatient (BNV) | payer MEDICARE, BC, SELFPAY | PROVIDERS: Admitting Provider Hospitalist; Emergency Provider Emergency Medicine; PCP Family Medicine; Visit Provider Internal Medicine Gastroenterology | DX: K57.92 Diverticulitis of intestine, part unspecified, without perforation or abscess without bleeding (principal) | CPT/HCPCS: 99223 ==

== ENCOUNTER → 2025-07-15 00:44 | Outpatient (BNV) | payer MEDICARE, BC, SELFPAY | PROVIDERS: Admitting Provider Hospitalist; Emergency Provider Emergency Medicine; PCP Family Medicine; Visit Provider Urology | DX: K57.90 Diverticulosis of intestine, part unspecified, without perforation or abscess without bleeding (principal); N39.0 Urinary tract infection, site not specified; N32.1 Vesicointestinal fistula | CPT/HCPCS: 99222 ==

== ENCOUNTER → 2025-07-15 00:44 | Outpatient (BNV) | payer MEDICARE, BC, SELFPAY | PROVIDERS: Admitting Provider Hospitalist; Emergency Provider Emergency Medicine; PCP Family Medicine; Visit Provider Nurse Practitioner Acute Care | DX: N32.1 Vesicointestinal fistula (principal); N39.0 Urinary tract infection, site not specified | CPT/HCPCS: 99223; 99232; 99499 ==

== ENCOUNTER → 2025-07-15 00:44 | Outpatient (BNV) | payer MEDICARE, BC, SELFPAY | PROVIDERS: Admitting Provider Hospitalist; Emergency Provider Emergency Medicine; PCP Family Medicine; Visit Provider Surgery | DX: K57.92 Diverticulitis of intestine, part unspecified, without perforation or abscess without bleeding (principal); N32.1 Vesicointestinal fistula | CPT/HCPCS: 99222; 99499 ==

== ENCOUNTER 2025-07-25 18:24 | Emergency (ER) | payer MEDICARE, BC, SELFPAY ==
--- NOTE | 2025-07-25 | ECG_ITS ---
Test Reason : DVT Blood Pressure : */* mmHG Vent. Rate : 93 BPM Atrial Rate : 93 BPM P-R Int : 182 ms QRS Dur : 166 ms QT Int : 430 ms P-R-T Axes : 3 -74 66 degrees QTcB Int : 534 ms Normal sinus rhythm Right bundle branch block Left anterior fascicular block Bifascicular block Abnormal ECG When compared with ECG of 18-Jul-2025 04:22, Increase in ventricular rate Referred By: Generic ED Physician Electronically Signed By: YULIANA NAQVI
--- OUTSIDE RECORDS SUMMARY | 2025-07-25 13:00 | XMS_ITS | Encounter Summary ---
Author Organization [facility] Address [address] [place] [address] Care Team Providers Care Refrigeration Person Name Role Phone Luis Felipe Cardenas Primary Care Provider [phone] Reason for Referral * Consultation (Routine) - Authorized Specialty Diagnoses / Procedures Referred By Contac t Referred To Contact Wound Care Diagnoses Pressure ulcer of coccygeal region, stage 2 (CMS/HCC V24, CMS/HCC V28) Erick Jacinto MD [address] [place] [address] Phone: tel: fax: Referral ID Status Reason Start Date Expiration Date Visits Requested Visits Authorized [id number] Authorized Specialty Services Required 07/25/2025 07/25/2026 1 1 * Imaging (Emergency) - Authorized Specialty Diagnoses / Procedures Referred By Contac t Referred To Contact Diagnoses Localized swelling of both lower legs Procedures Vascular US duplex lower extremity venous bilateral Erick Jacinto MD [address] [place] [address] Phone: tel: fax: [facility] [place] Referral ID Status Reason Start Date Expiration Date V isits Requested Visits Authorized [id number] Authorized 07/25/2025 07/25/2026 1 1 Reason for Visit * Reason Comments Follow-up F/u TCM Encounter Details Date Type Department Care Team (Late st Contact Info) Description 07/25/2025 1:00 PM EDT Office Visit Internal Medicine - [place] [address] [place] [id number] Erick Jacinto MD 2 [place] [address] Hospital discharge follow-up (Primary Dx); Garza catheter in place; Presence of colostomy (CMS/HCC V24, CMS/HCC V28); Pressure ulcer of coccygeal region, stage 2 (CMS/HCC V24, CMS/HCC V28); Localized swelling of both lower legs Social History Tobacco Use Types Packs/Day Years [...] 1:02 PM EDT documented in this encounter Progress Notes * Erick Jacinto MD - 07/25/2025 1:00 PM EDT Treatment of varicose vein: 1. Leg elevation 2. Ambulation 3. Warm compress documented in this encounter Plan of Treatment Upcoming Encounters Date Type Department Care Team (Late st Contact Info) Description 08/05/2025 4:00 PM EDT Appointment [facility] Ultrasound [address] [place] [address] 10/22/2025 2:30 PM EST Office Visit Internal Medicine - [place] [address] [place] [address] Luis Felipe Cardenas, DO [address] [place] [address] 06/23/2026 3:30 PM EDT Office Visit Internal Medicine - [place] [address] [place] [address] Luis Felipe Cardenas DO [address] [place] [address] Scheduled Referrals Name Type Priority Associated Diagnoses [...] Signed Date: 07/25/2025 17:24 ET Workstation ID: [id number] Transcribed By: Self Edit Transcribed Date: 07/25/2025 [...] Signed Date: 07/25/2025 17:24 ET Workstation ID: [id number] Transcribed By: Self Edit Transcribed Date: 07/25/2025 17:17 ET us Erick Jacinto MD CV VASCULAR PROCEDURES Final Result documented in this encounter Visit Diagnoses Diagnosis Hospital discharge follow-up- Primary Other follow-up examination Garza catheter in place Other postprocedural status Presence of colostomy (CMS/HCC V24, CMS/HCC V28) Pressure ulcer of coccygeal region, stage 2 (CMS/HCC V24, CMS/HCC V28) Localized swelling of both lower legs Localized swelling of both lower legs documented [...] documented as of this encounter Care Teams Refrigeration Person Relationship Specialty Start Date End Date Luis Felipe Cardenas DO [address] [place] [address] PCP - General 10/27/23 documented as of this encounter
--- OUTSIDE RECORDS SUMMARY | 2025-07-25 16:22 | XMS_ITS | Encounter Summary ---
Author Organization [facility] Address [address] [place] [address] Care Team Providers Care Mailroom Manager Name Role Phone Luis Felipe Cardenas DO Primary Care Provider [phone] Reason for Referral * Imaging (Emergency) - Authorized Specialty Diagnoses / Procedures Referred By Contac t Referred To Contact Diagnoses Localized swelling of both lower legs Procedures Vascular US duplex lower extremity venous bilateral Erick Jacinto MD [address] [place] [address] Phone: tel: fax: [facility] [place] Referral ID Status Reason Start Date Expiration Date V isits Requested Visits Authorized [id number] Authorized 07/25/2025 07/25/2026 1 1 Reason for Visit * Imaging (Emergency) - Authorized Specialty Diagnoses / Procedures Referred By Adrienne field Referred To Contact Diagnoses Localized swelling of both lower legs Procedures Vascular US duplex lower extremity venous bilateral Erick Jacinto MD [address] [place] [address] Phone: tel: fax: [facility] [place] Referral ID Status Reason Start Date Expiration Date V isits Requested Visits Authorized [id number] Authorized 07/25/2025 07/25/2026 1 1 Encounter Details Date Type Department Care Team (Latest Contact Info) Description 07/25/2025 4:22 PM EDT Hospital Encounter [facility] Ultrasound [address] [place] [address] Localized swelling of both lower legs Social [...] on file documented as of this encounter Plan of Treatment Upcoming Encounters Date Type Department Care Team (Late st Contact Info) Description 08/05/2025 4:[address] [facility] Ultrasound [address] [place] [address] 10/22/2025 2:30 PM EST Office Visit Internal Medicine - [place] [address] [place] [address] Luis Felipe Cardenas DO [address] [place] [address] 06/23/2026 3:30 PM EDT Office Visit Internal Medicine - [place] [address] [place] [address] Luis Felipe Cardenas DO [address] [place] [address] documented as of this encounter Procedures Procedure [...] Signed Date: 07/25/2025 17:24 ET Workstation ID: [id number] Transcribed By: Self Edit Transcribed Date: 07/25/2025 [...] Signed Date: 07/25/2025 17:24 ET Workstation ID: [id number] Transcribed By: Self Edit Transcribed Date: 07/25/2025 17:17 ET Erick Jacinto MD CV VASCULAR PROCEDURES Final Result documented in this encounter Visit Diagnoses Diagnosis Localized swelling of both lower legs documented in this encounter Additional Health Concerns Assessment Noted Time PHQ-9 Depression Total Score: 0 06/18/20 25 3:34 PM EDT documented as of this encounter Care Teams Mailroom Manager Relationship Specialty Start Date End Date Luis Felipe Cardenas DO 2 [place] [address] PCP - General 10/27/23 documented as of this encounter
[2025-07-25 18:49] VITALS: BP 105/65; PULSE 60; RESP 18; TEMP 36.6; O2SAT 94; BMI 26.6
--- OUTSIDE RECORDS SUMMARY | 2025-07-25 19:07 | XMS_ITS | Clinical Summary ---
Author Organization [facility] Address [address] [address] Phone Care Team Providers Care Wood Furniture Assembler Name Role Phone Sridevi Elizabeth NP Primary [...] topic Medical Devices Not on file Insurance [facility] FEDERAL MEDICARE PART A & B Celine MARINELLI [address] MEDICARE PART A & [place] [address] [facility] MEDICARE PART A & B [facility] MEDICARE [facility] A & B [facility] MEDICARE PART A & B MEDICARE PART A [place] [address] [facility] MEDICARE PART A & B [facility] MEDICARE PART A & B [facility] Address: [address] [place] [address] MEDICARE PART A & B Care Teams Wood Furniture Assembler Relationship Specialty Start Date End Date Sridevi Elizabteh NP [address] [place] [address] [place] [address] [email or web address] PCP - General Family Medicine 10/02/21 Additional Source Comments The information contained in this document represents components of the legal health record. It is not the complete legal health record.[facility]
--- OUTSIDE RECORDS SUMMARY | 2025-07-25 19:07 | XMS_ITS | Encounter Summary ---
Author Organization [facility] Address [address] [place] [address] Care Team Providers Care Apartment House Manager Name Role Phone Luis Felipe Cardenas DO Primary Care Provider [phone] Encounter Details Date Type Department Care Team (Late st Contact Info) Description 07/24/2025 Telephone Internal Medicine - [place] [address] [address] Kylah Tanner RN Social History Tobacco Use Types Packs/Day Years [...] on file documented as of this encounter Progress Notes * Kylah Tanner RN - 07/25/2025 10:35 AM EDT D/c ppw received from [facility]. Spouse aware and will attend appt with patient for 1pm today. Kylah Tanner RN * Aneudy Simpson - 07/24/2025 3:12 PM EDT Noted! * Kylah Tanner RN - 07/24/2025 3:10 PM EDT PLEASE notify me if records come in for this patient. Thank you. Kylah Tanner RN * Kylah Tanner RN - 07/24/2025 2:32 PM EDT Call from patient spouse with concern that [facility]. Spouse concerned that appt tomorrow isn't needed if ppw not available to review recent hospital stay. Spouse did report patient's feet are swollen despite patient ambulating. Call to [facility] to request records, no answer [place]. [phone] Will also [place] [facility] [place] [phone] S/w spouse who is aware that Rosie at [facility] did not answer, LVM requesting labs and faxed request. Will call patient if we receive ppw, and/or call 07/25/25 am if we receive d/c summary. Kylah Tanner RN documented in this encounter Plan of Treatment Upcoming Encounters Date Type Department Care Team (Late st Contact Info) Description 08/05/2025 4:00 PM EDT Appointment [facility] Ultrasound [address] [place] [address] 10/22/2025 2:30 PM EST Office Visit Internal Medicine - [place] [address] [place] [address] Luis Felipe Cardenas DO [address] [place] [address] 06/23/2026 3:30 PM EDT Office Visit Internal Medicine - [place] [address] [place] [address] Luis Felipe Cardenas DO [address] [place] [address] documented as of this encounter Visit Diagnoses Not on filedocumented in this encounter Additional Health Concerns Assessment Noted Time PHQ-9 Depression Total Score: 0 06/18/20 25 3:34 PM EDT documented as of this encounter Care Teams Apartment House Manager Relationship Specialty Start Date End Date Luis Felipe Cardenas DO [address] [place] [address] PCP - General 10/27/23 documented as of this encounter
--- OUTSIDE RECORDS SUMMARY | 2025-07-25 19:07 | XMS_ITS | Clinical Summary ---
Author Organization [facility] Address [address] [place] [address] Care Team Providers Care Corn Cooker Name Role Phone Luis Felipe Cardenas MD [...] age to complete this topic Care Teams Corn Cooker Relationship Specialty Start Date End Date Luis Felipe Cardenas MD PCP - General Family Medicine 10/27/23
--- OUTSIDE RECORDS SUMMARY | 2025-07-25 19:07 | XMS_ITS ---
Author Organization 2 [facility] Address [address] [place] [address] Phone Care Team Providers Care Electronics Inspector Name Role Phone Luis Felipe Cardenas DO Primary Care Provider [phone] Transitional Care Management Status:Ongoing (Active) Start date:07/21/2025 Enrollment date:07/22/2025 Enrollment reason:Identified using hospital discharge data Case Team Name Relationship Phone Nichelle Chauhan LPN Care Manager(Responsible Staf f) [phone] Continued Care and Services Coordination
--- OUTSIDE RECORDS SUMMARY | 2025-07-25 19:07 | XMS_ITS | Clinical Summary ---
Author Organization [employer] [facility] Address [address] [place] [address] Phone Care Team Providers Care Auto Body Estimator Name Role Phone Luis Felipe Cardenas DO Primary Care Provider [phone] Allergies No known active allergies Medications polyethylene glycol (MIRALAX) 17 gram packet Take 17 g by mouth 1 (one) time each day. 2 Active amLODIPine (NORVASC) 2.5 mg tabletIndications :Essential hypertension Take 1 tablet (2.5 mg total) by mouth 1 (one) time each day. 90 each 1 5 12/15/19 26 Active tamsulosin (FLOMAX) 0.4 mg 24 hr capsuleIndication s:Benign prostatic hyperplasia, unspecified whether lower urinary tract symptoms present Take 2 capsules (0.8 mg total) by mouth 1 (one) time each day. 180 each 3 5 06/18/20 26 Active amoxicillin (AMOXIL) 875 mg tablet Take 1 tablet (875 mg total) by mouth twice a day. Active finasteride (PROSCAR) 5 mg tablet Take 1 tablet (5 mg total) by mouth 1 (one) time each day. Do not crush, chew, or split. Active omeprazole (PriLOSEC) [address] capsule Take 1 capsule (40 mg total) by mouth 1 (one) time each day. Do not crush or chew. Active oxyCODONE (ROXICODONE) 5 mg immediate release tablet 1 tablet (5 mg total) every 4 (four) hours if needed for severe pain. Max Daily Amount: 30 mg Active nitrofurantoin, macrocrystal-mono hydrate, (MACROBID) 100 mg capsuleIndication s:Acute cystitis without hematuria Take 1 capsule (100 mg total) by mouth 2 (two) times a day for 5 days. 10 each 5 07/16/20 25 Active Problems Problem Noted Date Diagnosed Date Constipation 05/11/2022 Diverticulitis 05/11/2022 Overview (07/18/2024): being treated since May 03 2022 - early May- required admittion due to bowel perforation Perforation bowel ([facility] V24, [facility] V28) 04/2022 Overview (07/18/2024): May 05 2022 [...] Encounters Date Type Department Care Team Description 07/25/2025 4:22 PM EDT Hospital Encounter [facility] Ul[facility]ound [address] [place] [address] Localized swelling of both lower legs 07/25/2025 1:00 PM EDT Office Visit Internal Medicine - [place] [address] [phone] Christian Jacinto MD Hospital discharge follow-up (Primary Dx); Garza catheter in place; Presence of colostomy ([facility] V24, [facility] V28); Pressure ulcer of coccygeal region, stage 2 (CMS/HCC V24, CMS/HCC V28); Localized swelling of both lower legs 07/24/2025 Telephone Internal Medicine - [place] [address] [place] [address] Kylah Tanner RN 07/11/2025 Telephone Internal Medicine - [place] [address] [place] [address] Luis Felipe Cardenas DO 07/09/2025 3:30 PM EDT Office Visit Internal Medicine - [place] [address] [place] [phone] Jorge Cardenas PA Acute cystitis without hematuria (Primary Dx); Essential hypertension; Benign prostatic hyperplasia, unspecified whether lower urinary tract symptoms present; Elevated hemoglobin A1c 06/18/2025 3:30 PM EDT Office Visit Internal Medicine - [place] [address] [place] [address] Luis Felipe Cardenas DO Encounter for annual [...] Mass Index 31.04 07/25/2025 1:02 PM EDT Plan of Treatment Upcoming Encounters Date Type Department Care Team (Late st Contact Info) Description 08/05/2025 4:00 PM EDT Appointment [facility] [address] [place] [phone] 10/22/2025 2:30 PM EST Office Visit Internal Medicine - [place] [address] [place] [address] Luis Felipe Cardenas, DO [address] [place] [address] 06/23/2026 3:30 PM EDT Office Visit Internal Medicine - [place] [address] [place] [address] Luis Felipe Cardenas, [address] [place] [address] Health Maintenance Due Date Last Done Comments Hepatitis C Screening 10/14/2022 Social Influencers of Health Screening 10/14/2022 COVID-19 Vaccine ( season) 2025 10/25/2021, 01/14/2021, 12/17/2020 Influenza Vaccine (#1) 2025 , 09/06/2023, 09/04/2023, Additional history exists Falls Risk Assessment 06/18/2026 06/18/2025, 023 Medicare Annual Wellness Visit 06/18/2026 06/18/2025 Hypertension/CHF/CAD Annual BMP Blood Test 07/02/2026 07/02/2025, 12/23/2022, 12/23/2022, Additional history exists Colorectal Cancer Screening: Colonoscopy 06/18/2029 06/18/2019 Cholesterol Screening (Lipid Panel) 07/02/2030 07/02/2025, 10/27/2022, 10/25/2022, Additional history exists DTaP,Tdap,and Td Vaccines (3 - Td or Tdap) 05/07/2031 05/07/2021, 03/20/2019 Pneumococcal Vaccine: 50+ Years Completed 07/16/2020, 03/20/2019, 10/21/2017 RSV Immunization Patients Under 20 months Aged Out 08/12/2024 No longer eligible based on patient's age to complete this topic Zoster Vaccines Completed 08/22/2024, 03/06, 08/25/2015 RSV Immunization Adult Patients Completed 08/29/2024, 08/12/2024 Depression Screening Completed 06/18/2025, 10/27/20 23 HIB [...] EDT Localized swelling of both lower legs CBC WITH AUTO DIFFERENTIAL Routine 07/02/2025 8:27 [...] Recently Relevant to Health Maintenance Results * Vascular US duplex lower extremity [...] Signed Date: 07/25/2025 17:24 ET Workstation ID: [id number] Transcribed By: Self Edit Transcribed Date: 07/25/2025 [...] Signed Date: 07/25/2025 17:24 ET Workstation ID: [id number] Transcribed By: Self Edit Transcribed Date: 07/25/2025 17:17 ET Christian Jacinto MD CV VASCULAR PROCEDURES Final Result * Prostate specific antigen (07/02/2025 8:27 AM EDT) PSA, Total 0.77 < OR = 2.50 ng/mL [facility] [employer] Comment: The total PSA value from this assay system is standardized against the WHO standard. The test result will be approximately 20% lower when compared to the equimolar-standardized total PSA (Jatin Anita). Comparison of serial PSA results should be [...] AM EDT 07/02/2025 8:27 AM EDT Douglas [facility] (MICHELLE) - 07/03/2025 7:08 AM EDT FASTING:YES FASTING: YES [facility] LAB BLOOD ORDERABLES Final Resul t Performing Organization Address [facility] de Phone Number [email or web address] ([facility]) [facility] [address] [place] [phone] * Thyroid stimulating hormone with reflex free T4 (07/02/2025 8:27 AM EDT) Thyroid Stimulating Hormone (Reflex FT4) 2.30 0.40 - 4.50 mIU/L [facility] Blood Venous blood specimen / Unknown 07/02/2025 8:27 AM EDT 07/02/2025 8:27 AM EDT [facility] Gaosou[facility] (MICHELLE) - 07/03/2025 7:08 AM EDT FASTING:YES FASTING: YES Luis Felipe Cardenas DO LAB BLOOD ORDERABLES Final Resul t Performing Organization Address [facility] de Phone Number [email or web address] ([facility]) [facility] [address] [place] [phone] * CBC auto differential (07/02/2025 8:27 AM EDT) White Blood Cell Count 5.6 3.8 - 10.8 Thousand/u L [facility] RBC Count 5.03 4.20 - 5.80 Million/uL [facility] [employer] Hemoglobin 15.3 13.2 - 17.1 g/dL [facility] [employer] Hematocrit 47.0 38.5 - 50.0 % [facility] [employer] MCV 93.4 80.0 - 100.0 fL [facility] MCH 30.4 27.0 - 33.0 pg [facility] MCHC 32.6 32.0 - 36.0 g/dL [facility] Comment: For adults, a slight decrease in the calculated MCHC value (in the range of 30 to 32 g/dL) is most likely not clinically significant; however, it should be interpreted with caution in correlation with other red cell parameters and the patient's clinical condition. RDW 12.0 11.0 - 15.0 % [facility] Platelet Count 247 140 - 400 Thousand/u L [facility] MPV 9.2 7.5 - 12.5 fL [facility] Absolute Neutrophil 3,405 1,500 - 7,800 cells/uL [facility] Absolute Lymphocytes 1,478 850 - 3,900 cells/uL [facility] Absolute Monocytes 543 200 - 950 cells/uL [facility] Absolute Eosinophils 151 15 - 500 cells/uL [facility] Absolute Basophils 22 0 - 200 cells/uL [facility] Neutrophils 60.8 % [facility] Lymphocytes 26.4 % [facility] Monocytes 9.7 % [facility] Eosinophils 2.7 % [facility] Basophils 0.4 % [facility] Blood Venous blood specimen / Unknown 07/02/2025 8:27 AM EDT 07/02/2025 8:27 AM EDT Narrative [facility] ([facility]) - 07/03/2025 7:08 AM EDT FASTING:YES FASTING: YES Luis Felipe Cardenas DO LAB BLOOD ORDERABLES Final Resul t [facility] ([facility]) [facility] [address] [place] [phone] * (ABNORMAL) Hemoglobin A1c (07/02/2025 8:27 AM EDT) Hemoglobin A1C 5.7(H) <5.7 % [facility] Comment: For someone without known diabetes, a [...] AM EDT 07/02/2025 8:27 AM EDT Narrative [facility] ([facility]) - 07/03/2025 7:08 AM EDT FASTING:YES FASTING: YES [facility] LAB BLOOD ORDERABLES Final Resul t [facility] ([facility]) [facility] [address] [place] [phone] * Lipid panel (07/02/2025 8:27 AM EDT) Pathologist [facility] Cholesterol Total 134 <200 mg/dL [facility] HDL Cholesterol 54 > OR = 40 mg/dL [facility] Triglycerides 48 <150 mg/dL [facility] LDL Cholesterol 66 mg/dL (calc) [facility] Comment: Reference range: <100 Desirable range <100 mg/dL for primary prevention; <70 mg/dL for patients with CHD or diabetic patients with > or = 2 CHD risk factors. LDL-C is now calculated using the Eb-Gurinder calculation, which is a validated novel method providing better accuracy than the Friedewald equation in the estimation of LDL-C. Eb SS et al. RAN. 2013;310(19): 1000-6397 (http://education.Think Finance/faq/MSW383) Chol/HDLC Ratio 2.5 <5.0 (calc) [facility] Non HDL Cholesterol 80 <130 mg/dL (calc) [facility] Comment: For patients with diabetes plus 1 major ASCVD risk factor, treating to a non-HDL-C goal of <100 mg/dL (LDL-C of <70 mg/dL) is considered a therapeutic option. Blood Venous blood specimen / Unknown 07/02/2025 8:27 AM EDT 07/02/2025 8:27 AM EDT Narrative YAN[facility] ROSALES (MICHELLE) - 07/03/2025 7:08 AM EDT FASTING:YES FASTING: YES [facility] Cardenas DO LAB BLOOD ORDERABLES Final Resul t [facility] (MICHELLE) [facility] [address] [place] [phone] * (ABNORMAL) Comprehensive metabolic panel (07/02/2025 8:27 AM EDT) Glucose 101(H) 65 - 99 mg/dL [facility] Comment: Fasting reference interval For someone without known diabetes, a glucose value between 100 and 125 mg/dL is consistent with prediabetes and should be confirmed with a follow-up test. Urea Nitrogen (BUN) 17 7 - 25 mg/dL [facility] Creatinine 0.89 0.70 - 1.28 mg/dL [facility] eGFR 89 > OR = 60 mL/min/1 .73m2 [facility] BUN/Creatinine Ratio SEE NOTE: 6 - 22 (calc) [facility] Comment: Not Reported: BUN and Creatinine are within reference range. Sodium 138 135 - 146 mmol/L [facility] Potassium 4.5 3.5 - 5.3 mmol/L [facility] Chloride 104 98 - 110 mmol/L [facility] Carbon Dioxide 28 20 - 32 mmol/L [facility] Calcium 9.0 8.6 - 10.3 mg/dL [facility] Total Protein 6.8 6.1 - 8.1 g/dL [facility] Albumin 4.1 3.6 - 5.1 g/dL [facility] Globulin 2.7 1.9 - 3.7 g/dL (calc) [facility] Albumin/Globulin Ratio 1.5 1.0 - 2.5 (calc) [facility] Bilirubin Total 0.7 0.2 - 1.2 mg/dL [facility] Alkaline Phosphatase 55 35 - 144 U/L [facility] Aspartate aminotransferase (AST) 12 10 - 35 U/L [facility] Alanine Aminotransferase (ALT) 11 9 - 46 U/L [facility] Blood Venous blood specimen / Unknown 07/02/2025 8:27 AM EDT 07/02/2025 8:27 AM EDT Narrative [facility] (MICHELLE) - 07/03/2025 7:08 AM EDT FASTING:YES FASTING: YES [facility] LAB BLOOD ORDERABLES Final Resul t YANETH [facility] (MICHELLE) [email or web address] [address] [phone] * Falls Risk Assessment (10/27/2023) [facility] Falls Risk Assessment abstracted Result [facility] Provider HEALTH MAINTENANCE Final Result * Depression Screening (10/27/2023) Pathologist [facility] Depression Screening abstracted Result [facility] Provider HEALTH MAINTENANCE Final Result * Colonoscopy (06/18/2019) [facility] Colonoscopy no interpretation , abstracted Anatomical Region Laterality Modality Other [facility] Provider HEALTH MAINTENANCE Final Result from Last 3 Months or Most Recently Relevant to Health Maintenance Insurance MEDICARE [facility] Advance Directives * Full Code - Confirmed [...] First Alternate Health Care Agent Care Teams Auto Body Estimator Relationship Specialty Start Date End Date Luis Felipe Cardenas DO [address] [place] [address] PCP - General 10/27/23
[2025-07-25 19:16] LABS: MANUAL DIFF FLAG NO
[2025-07-25 19:17] LABS: Hematocrit 38.7 % (42.0-52.0); Hemoglobin 13.4 g/dl (14.0-18.0); Imm Gran Abs Auto 0.03 X10*3/uL (0.00-0.03); Imm Gran Pct Auto 0.4 % (0.0-0.4); Lymphocytes Absolute Auto 1.4 X10*3/uL (1.2-4.9); Mean Corpuscular HGB Conc 34.6 g/dl (31.0-36.0); Mean Corpuscular Hemoglobin 30.2 pg (27.0-33.0); Mean Corpuscular Volume 87.4 fL (80.0-98.0); NRBC Abs Auto 0.000 X10*3/uL (0.0-0.012); NRBC Pct Auto 0.0 /100WBC (0.0-0.2); Platelet Count 288 X10*3/uL (160-400); Red Blood Count 4.43 X10*6/uL (4.60-5.80); White Blood Count 7.8 X10*3/uL (4.8-10.8)
[2025-07-25 19:24] LABS: INTERNATIONAL NORM RATIO 1.2 (0.9-1.1); Prothrombin Time 13.2 SEC (10.9-12.4)
[2025-07-25 19:28] VITALS: BP 164/130; PULSE 93; RESP 23; TEMP 37; O2SAT 96
[2025-07-25 19:35] LABS: Alanine Aminotransferase 25 U/L (0-40); Albumin Level 3.8 g/dL (3.5-5.0); Alkaline Phosphatase 56 U/L (39-117); Anion Gap 13 (12-20); Aspartate Amino Transferase 23 U/L (5-37); Blood Urea Nitrogen 15 mg/dL (9-16); Calcium 8.7 mg/dL (8.4-10.2); Carbon Dioxide 25 mmol/L (22-29); Chloride 106 mmol/L (96-108); Creatinine Clr Calc Pharmacy 96.9; Estimated Glomerular Filt Rate > 60; Potassium 4.3 mmol/L (3.3-5.1); Sodium 140 mmol/L (135-145); Total Protein 6.8 g/dL (6.5-8.0)
[2025-07-25 19:42] LABS: Troponin-I High Sensitivity 5.9 ng/L (<3.5-35.0)
--- NOTE | 2025-07-25 20:32 | ED.GENADULT ---
HPI - General Adult General Chief complaint: General Medical Stated complaint: dc on mond / surg weds for colon / swollen feet Time Seen by Provider: 07/25/25 19:23 Source: patient Limitations: no limitations History of Present Illness ED Provider: Xiomy Garza PA-C HPI narrative: 75 y/o M who is s/p laparoscopic sigmoid resection, small-bowel resection, end colostomy, extensive lysis of adhesions and dissection of the sigmoid off of the bladder 07/16 Dr. Rosen, who presents with a concern for need for anticoagulation. Patient followed up with his primary care provider today secondary to peripheral edema that has bilateral, primarily over the feet. Get outpatient DVT studies, he was found to have superficial thrombus of varicosities and 1 extremity, some thrombus in the calf and the opposite leg. But no DVT. Related Data Home Medications ?Medication ?Instructions ?Recorded ?Confirmed amlodipine 2.5 mg tablet 1 tab PO BEDTIME 05/05/22 07/15/25 ibuprofen 200 mg tablet 200 mg PO Q6H PRN Pain 07/15/25 07/15/25 nitrofurantoin 1 cap PO BID 07/15/25 07/15/25 monohydrate/macrocrystals 100 mg capsule polyethylene glycol 3350 17 17 g PO DAILY PRN Constipation 07/15/25 07/15/25 gram/dose oral powder (Miralax) tamsulosin 0.4 mg capsule (Flomax) 0.4 mg PO BEDTIME 07/15/25 07/15/25 Previous Rx's ?Medication ?Instructions ?Recorded amoxicillin 875 mg-potassium 1 tab PO BID #11 tabs 07/21/25 clavulanate 125 mg tablet finasteride 5 mg tablet 5 mg PO DAILY #30 tabs 07/21/25 omeprazole 40 mg capsule,delayed 40 mg PO DAILY #12 caps 07/21/25 release oxycodone 5 mg capsule 5 mg PO Q8H PRN pain, severe #15 07/21/25 caps Allergies Allergy/AdvReac Type Severity Reaction Status Date / Time No Known Allergies (No Known Allergy Verified 07/26/25 17:13 Allergies*) Review of Systems Review of Systems: Yes all other systems are reviewed and are negative Constitutional: Constitutional: Denies fatigue and Denies fever(s) Cardiovascular: Cardiovascular: Denies chest pain, Reports leg edema and Denies dyspnea Respiratory: Respiratory: Denies dyspnea Gastrointestinal: Gastrointestinal: Denies abdominal pain, Denies nausea and Denies vomiting Musculoskeletal: Musculoskeletal: Denies arthralgias and Denies joint swelling Endocrine: Endocrine: Denies fatigue PMFSH Past Medical History Attestation statement: The following information was validated with the patient. Medical History Encounter for colorectal cancer screening using Cologuard test Diverticular disease Ulnar neuropathy Varicose vein of leg Hx of squamous cell carcinoma of skin Hx of osteoarthritis History of diverticulitis HTN (hypertension) Right inguinal hernia Surgical History History of colonoscopy H/O total hip arthroplasty Status post ORIF of fracture of ankle History of surgery on lower extremity Hx of excision of epidermal inclusion cyst Hx of arthroscopy of right knee Hx of arthroscopy of left knee Social History Social History Household Members: Spouse Housing: House Do you presently have visiting nurse or other home services: No Alcohol intake: current Alcohol intake frequency: holidays/special occasions only Alcohol type: beer Patient Tobacco Use Status: Never used Tobacco Smoked in Last 30 Days: No e-Cigarette/Vaping Use: Never Used Second Hand Smoke Exposure: No Use of substances other than those prescribed or required for medical reasons: No Advance Directives: Yes Advance Directives Information Provided: No Advance Directives on File: No Advance Directives Date on File: 07/16/25 Do you have a plan to hurt others: No Plan service: Yes Current occupational status: retired Physical Exam ED Vital Signs: Vital Signs - 24 hr 07/25/25 19:28 07/25/25 22:36 Temperature 98.6 F 98.6 F Pulse Rate 93 93 Respiratory Rate 23 H 23 H Blood Pressure 164/130 H 164/130 H Pulse Oximetry 96 96 Oxygen Delivery Method Room Air Room Air BMI result Body Mass Index 26.6 Const Other: Alert well-appearing Orientation/consciousness: patient oriented x3 Resp Effort & Inspection: normal respiratory effort Cardio Other: Normal peripheral perfusion, pitting edema noted over the feet primarily Skin Other: Warm dry no rash Neuro General: patient oriented x3, gait normal, no focal motor deficits and CN's II-XI intact bilaterally Psych Other: Cooperative Course Consultations Consultation #1: per Dr. Rodriguez.... She was able to review the report, she feels the patient should wear compression sleeves, and start taking 81 mg of aspirin daily, and have a repeat ultrasound in 1 week. Time: 20:57 Medications Administered Discontinued Medications Generic Name Dose Route Start Last Admin Trade Name Kane PRN Reason Stop Dose Admin Aspirin 81 mg 07/25/25 21:17 07/25/25 22:15 Aspirin 81 Mg Tab.Chew PO 07/25/25 21:18 81 mg ONCE ONE Administration Medical Decision Making Medical Decision Making MDM Narrative: 75 y/o M who is s/p laparoscopic sigmoid resection, small-bowel resection, end colostomy, extensive lysis of adhesions and dissection of the sigmoid off of the bladder 07/16 Dr. Rosen, who presents with a concern for need for anticoagulation. Patient followed up with his primary care provider today secondary to peripheral edema that has bilateral, primarily over the feet. Get outpatient DVT studies, he was found to have superficial thrombus of varicosities and 1 extremity, some thrombus in the calf and the opposite leg. But no DVT. Problem: Recent surgery History: Per patient I have considered the following differential diagnoses: Superficial thrombus, Plan: Given the patient just had surgery, not clear if it is prudent to start anticoagulation given there was no DVT, the recommendation is typically to repeat the study in a week. Erring on the side of caution we will reach out to the surgical service for guidance. I have independently reviewed the following tests: Outside report from DVT study: Differential Diagnosis Differential Diagnoses: The differential diagnosis associated with the presentation includes See medical decision-making Admission/Observation Consideration of admission/observation: Escalation of care including admission/observation considered Not apply Consult Healthcare Provider Management of the patient was discussed with: Orthotist Surgical service Lab Data [facility] Lab Attestation statement: I reviewed the patient's lab results. 07/25/25 19:08 07/25/25 19:08 Labs: Lab Results 07/25/25 07/25/25 Range/Units 19:08 19:12 WBC 7.8 (4.8-10.8) X10*3/uL RBC 4.43 L (4.60-5.80) X10*6/uL Hgb 13.4 L (14.0-18.0) g/dl Hct 38.7 L (42.0-52.0) % MCV 87.4 (80.0-98.0) fL MCH 30.2 (27.0-33.0) pg MCHC 34.6 (31.0-36.0) g/dl RDW 13.4 (11.0-16.0) % Plt Count 288 (160-400) X10*3/uL MPV 8.5 L (9.4-12.4) fL Immature Gran % (Auto) 0.4 (0.0-0.4) % Neut % (Auto) 72.1 (45-73) % Lymph % (Auto) 17.8 L (20-40) % [place] % (Auto) 7.7 (2-11) % Eos % (Auto) 1.9 (0-4) % Baso % (Auto) 0.1 (0-2) % Lymph # (Auto) 1.4 (1.2-4.9) X10*3/uL [place] # (Auto) 0.6 (0.1-1.2) X10*3/uL Eos # (Auto) 0.2 (0.0-0.4) X10*3/uL Baso # (Auto) 0.0 (0.0-0.2) X10*3/uL Abs Immat Gran (auto) 0.03 (0.00-0.03) X10*3/uL Absolute Neuts (auto) 5.7 (2.0-8.3) x10*3/uL Absolute Nucleated RBC 0.000 (0.0-0.012) X10*3/uL Nucleated RBC % (auto) 0.0 (0.0-0.2) /100WBC PT 13.2 H (10.9-12.4) SEC INR 1.2 H (0.9-1.1) Sodium 140 (135-145) mmol/L Potassium 4.3 (3.3-5.1) mmol/L Chloride 106 (96-108) mmol/L Carbon Dioxide 25 (22-29) mmol/L Anion Gap 13 (12-20) BUN 15 (9-16) mg/dL Creatinine 0.83 (0.5-1.4) mg/dL Estim Creat Clear Calc 96.9 Estimated GFR > 60 Random Glucose 127 H (60-115) mg/dL Calcium 8.7 (8.4-10.2) mg/dL Total Bilirubin 0.6 (0.0-1.0) mg/dL AST 23 (5-37) U/L ALT 25 (0-40) U/L Alkaline Phosphatase 56 (39-117) U/L Troponin I High Sens 5.9 D (<3.5-35.0) ng/L Total Protein 6.8 (6.5-8.0) g/dL Albumin 3.8 (3.5-5.0) g/dL Radiology Impression Discussion of test interpretation with radiology: I have reviewed the radiologist's reading. Discharge Plan Discharge Clinical Impression: Varicose veins of left lower extremity with inflammation, Acute embolism and thrombosis of right calf muscular vein Patient Disposition: Home, Self-Care Additional Instructions: You were found to have superficial clot in both lower extremities, some involve varicose veins that are very superficial. You do not have a deep vein thrombosis. We reached out to the surgical service, they feel you should start on 81 mg of aspirin daily, and use compression sleeves, until you can have a repeat ultrasound of bilateral lower extremities in 1 week. When you follow up with Dr. Rosen, he can schedule the appointment for you. Wear the compression sleeves continuously, while resting, elevate your legs above your heart. Prescriptions: No Action amlodipine 2.5 mg tablet 1 tab PO BEDTIME nitrofurantoin monohyd/m-cryst 100 mg capsule 1 cap PO BID tamsulosin [Flomax] 0.4 mg capsule 0.4 mg PO BEDTIME ibuprofen 200 mg Tablet 200 mg PO Q6H PRN (Reason: Pain) polyethylene glycol 3350 [Miralax] 17 gram/dose Powder 17 g PO DAILY PRN (Reason: Constipation) finasteride 5 mg tablet 5 mg PO DAILY Qty: 30 0RF Rx Instructions: Take one tablet daily omeprazole 40 mg capsule,delayed release(DR/EC) 40 mg PO DAILY Qty: 12 0RF Rx Instructions: Take one tablet daily for the next 12 days oxycodone 5 mg capsule 5 mg PO Q8H PRN (Reason: pain, severe) Qty: 15 0RF Rx Instructions: Partial Fill upon patient request. Take one tablet up to three times a day for severe pain. amoxicillin-pot clavulanate 875-125 mg tablet 1 tab PO BID Qty: 11 0RF Rx Instructions: Take one pill twice a day for the next five days, beginning the evening of 07/21 and ending the evening of 07/26. Interventions: ED Discharge Assessment Last Done: 07/25/25 22:36 Discharge Date/Time: 07/25/25 22:25 Print Language: Swazi
[2025-07-25 22:36] VITALS: BP 164/130; PULSE 93; RESP 23; TEMP 37; O2SAT 96
== END 2025-07-25 22:25 | disposition home or self-care (01) ==
PROVIDERS: Emergency Provider Emergency Medicine Emergency Medical Services; PCP Family Medicine
DX: I82.4Z1 Acute embolism and thrombosis of unspecified deep veins of right distal lower extremity (principal); I83.12 Varicose veins of left lower extremity with inflammation; I83.11 Varicose veins of right lower extremity with inflammation; I45.10 Unspecified right bundle-branch block; Z79.899 Other long term (current) drug therapy
CPT/HCPCS: 36415; 80053; 84484; 85025; 85610; 93005; 99283; 99284

== ENCOUNTER → 2025-07-25 19:28 | Outpatient (BNV) | payer MEDICARE, BC, SELFPAY | PROVIDERS: Emergency Provider Emergency Medicine Emergency Medical Services; PCP Family Medicine; Visit Provider Internal Medicine | DX: I45.2 Bifascicular block (principal) | CPT/HCPCS: 93010 ==

== ENCOUNTER 2025-07-26 16:56 | Emergency (ER) | payer MEDICARE, BC, SELFPAY ==
--- OUTSIDE RECORDS SUMMARY | 2025-07-25 13:00 | XMS_ITS | Encounter Summary ---
Author Organization [facility] Address [address] [place] [address] Care Team Providers Care Gastroenterology Teacher Name Role Phone Luis Felipe Cardenas Primary Care Provider Reason for Referral * Consultation (Routine) - Authorized Specialty Diagnoses / Procedures Referred By Contac t Referred To Contact Wound Care Diagnoses Pressure ulcer of coccygeal region, stage 2 (CMS/HCC V24, CMS/HCC V28) Christian Dove MD [address] [place] [address] Phone: tel: fax: Referral ID Status Reason Start Date Expiration Date Visits Requested Visits Authorized [id number] Authorized Specialty Services Required 07/25/2025 07/25/2026 1 1 * Imaging (Emergency) - Authorized Specialty Diagnoses / Procedures Referred By Contac t Referred To Contact Diagnoses Localized swelling of both lower legs Procedures Vascular US duplex lower extremity venous bilateral Christian Dove MD [address] [place] [address] Phone: tel: fax: [facility] [place] Referral ID Status Reason Start Date Expiration Date V isits Requested Visits Authorized [id number] Authorized 07/25/2025 07/25/2026 1 1 Reason for Visit * Reason Comments Follow-up F/u TCM Encounter Details Date Type Department Care Team (Late st Contact Info) Description 07/25/2025 1:00 PM EDT Office Visit Internal Medicine - [place] [address] [facility] [address] [place] [facility] [phone] Christian Dove MD 2 [place] [address] Hospital discharge follow-up (Primary Dx); Garza catheter [...] in this encounter Progress Notes * Christian Dvoe MD - 07/25/2025 1:00 PM EDT Treatment [...] 21, 2025 Date of Service: 07/25/2025 Facility: [facility] Date patient was contacted/or attempted to [...] Constipation Diverticulitis Diverticulosis Essential hypertension Perforation bowel ([facility] V24, [facility] V28) No Known Allergies Current Outpatient Medications [...] V28) Referral placed to wound clinic at [facility] Orders: Ambulatory referral to Wound Clinic; [...] Reviewed discharge information, I.e.: discharge summary or [id number] documents, Reviewed the patient's need for, or [...] MD INTERNAL MEDICINE - [place] 2 [facility] 2 [place] [address] Dept: [phone] Dept Date of Service: 07/25/2025 documented in this encounter Plan of Treatment Upcoming Encounters Date Type Department Care Team (Late st Contact Info) Description 08/05/2025 4:00 PM EDT Appointment [facility] Ultrasound [address] [place] [phone] 10/22/2025 2:30 PM EST Office Visit Internal Medicine - [place] [address] [place] [address] Lius Felipe Cardenas, DO [address] [place] [address] 06/23/2026 3:30 PM EDT Office Visit Internal Medicine - [place] [address] [place] [address] Luis Felipe Cardenas, DO [address] [place] [address] Scheduled Referrals Name Type Priority Associated Diagnoses [...] Signed Date: 07/25/2025 17:24 ET Workstation ID: [id number] Transcribed By: Self Edit Transcribed Date: 07/25/2025 [...] Signed Date: 07/25/2025 17:24 ET Workstation ID: [id number] Transcribed By: Self Edit Transcribed Date: 07/25/2025 [...] documented as of this encounter Care Teams Gastroenterology Teacher Relationship Specialty Start Date End Date Luis Felipe Cardenas DO 2 [place] [address] PCP - General 10/27/23 documented as of this encounter
--- OUTSIDE RECORDS SUMMARY | 2025-07-25 16:22 | XMS_ITS | Encounter Summary ---
Author Organization [facility] Address [address] [place] [address] Care Team Providers Care Senior Mortgage Loan Processor Name Role Phone Luis Felipe Cardenas DO Primary Care Provider [phone] Reason for Referral * Imaging (Emergency) - Authorized Specialty Diagnoses / Procedures Referred By Contac t Referred To Contact Diagnoses Localized swelling of both lower legs Procedures Vascular US duplex lower extremity venous bilateral Erick Jacinto MD [address] [place] [address] Phone: tel: fax: [facility] [place] Referral ID Status Reason Start Date Expiration Date V isits Requested Visits Authorized [id number] Authorized 07/25/2025 07/25/2026 1 1 Reason for Visit * Imaging (Emergency) - Authorized Specialty Diagnoses / Procedures Referred By Adrienne field Referred To Contact Diagnoses Localized swelling of both lower legs Procedures Vascular US duplex lower extremity venous bilateral Erick Jacinto MD [address] [place] [address] Phone: tel: fax: [facility] [place] Referral ID Status Reason Start Date Expiration Date V isits Requested Visits Authorized [id number] Authorized 07/25/2025 07/25/2026 1 1 Encounter Details Date Type Department Care Team (Latest Contact Info) Description 07/25/2025 4:22 PM EDT - 07/25/2025 11:59 PM EDT Hospital Encounter [facility] Ultrasound [address] [place] [address] Localized swelling of both lower legs Discharge Disposition: Home or Self Care Social History Tobacco Use Types Packs/Day Years [...] on file documented as of this encounter Medications at Time of Discharge amLODIPine (NORVASC) 2.5 mg tabletIndications: Essential hypertension Take 1 tablet (2.5 mg total) by mouth 1 (one) time each day. 90 each 1 06/18/2025 6 amoxicillin (AMOXIL) 875 mg tablet Take 1 tablet (875 mg total) by mouth twice a day. finasteride (PROSCAR) 5 mg tablet Take 1 tablet (5 mg total) by mouth 1 (one) time each day. Do not crush, chew, or split. omeprazole (PriLOSEC) [address] capsule Take 1 capsule (40 mg total) by mouth 1 (one) time each day. Do not crush or chew. oxyCODONE (ROXICODONE) 5 mg immediate release tablet 1 tablet (5 mg total) every 4 (four) hours if needed for severe pain. Max Daily Amount: 30 mg polyethylene glycol (MIRALAX) 17 gram packet Take 17 g by mouth 1 (one) time each day. 05/11/2022 rivaroxaban (XARELTO) 10 mg tabletIndications: Superficial vein thrombosis Take 1 tablet (10 mg total) by mouth 1 (one) time each day with breakfast. Take with food. 45 each 07/26/2025 5 tamsulosin (FLOMAX) 0.4 mg 24 hr capsuleIndications :Benign prostatic hyperplasia, unspecified whether lower urinary tract symptoms present Take 2 capsules (0.8 mg total) by mouth 1 (one) time each day. 180 each 3 06/18/2025 6 documented as of this encounter Discharge Disposition Disposition Code Departure Means Destination Home or Self Care documented in this encounter Plan of Treatment Upcoming Encounters Date Type Department Care Team (Late st Contact Info) Description 08/05/2025 4:00 PM EDT Appointment [facility] Ultrasound [address] [place] [phone] 10/22/2025 2:30 PM EST Office Visit Internal Medicine - [place] [address] [place] [address] CardenasLuis Felipe, DO [address] [place] [address] 06/23/2026 3:30 PM EDT Office Visit Internal Medicine - [place] [address] [place] [address] Luis Felipe Cardenas, DO [address] [place] [address] documented as of this encounter Procedures Procedure Name Priority Date/Time Associated Diagnosis Comments VAS US DUPLEX LOWER EXT VENOUS BILAT STAT 07/25/2025 5:20 PM EDT Localized swelling of both lower legs documented in this encounter Results * Vascular US duplex [...] Signed Date: 07/25/2025 17:24 ET Workstation ID: [id number] Transcribed By: Self Edit Transcribed Date: 07/25/2025 [...] Signed Date: 07/25/2025 17:24 ET Workstation ID: [id number] Transcribed By: Self Edit Transcribed Date: 07/25/2025 17:17 ET us Erick Jacinto MD CV VASCULAR PROCEDURES Final Result documented in this encounter Visit Diagnoses Diagnosis Localized swelling of both lower legs documented in this encounter Additional Health Concerns Assessment Noted Time PHQ-9 Depression Total Score: 0 06/18/20 25 3:34 PM EDT documented as of this encounter Care Teams Senior Mortgage Loan Processor Relationship Specialty Start Date End Date Luis Felipe Cardenas DO 2 [place] [address] PCP - General 10/27/23 documented as of this encounter
[2025-07-26 17:05] VITALS: PULSE 100; RESP 18; TEMP 36.1; O2SAT 96; BMI 27.0
--- NOTE | 2025-07-26 17:08 | ED.MALEGU ---
HPI - Male Genitourinary General Chief complaint: Urogenital-Male Stated complaint: detached catheter; Time Seen by Provider: 07/26/25 18:06 Source: patient Limitations: no limitations History of Present Illness ED Provider: Ximoy Garza PA-C HPI Narrative: 75 year old male with a history s/p laparoscopic sigmoid resection, small-bowel resection, end colostomy, extensive lysis of adhesions and dissection of the sigmoid off of the bladder 07/16 Dr. Rosen, with subsequent indwelling Garza, presents with Garza dysfunction. Patient states he started noting leakage of urine around the tip of his penis. Denies abdominal pain. dysuria and he is on an antibiotic already. Related Data Home Medications ?Medication ?Instructions ?Recorded ?Confirmed amlodipine 2.5 mg tablet 1 tab PO BEDTIME 05/05/22 07/15/25 ibuprofen 200 mg tablet 200 mg PO Q6H PRN Pain 07/15/25 07/15/25 nitrofurantoin 1 cap PO BID 07/15/25 07/15/25 monohydrate/macrocrystals 100 mg capsule polyethylene glycol 3350 17 17 g PO DAILY PRN Constipation 07/15/25 07/15/25 gram/dose oral powder (Miralax) tamsulosin 0.4 mg capsule (Flomax) 0.4 mg PO BEDTIME 07/15/25 07/15/25 Previous Rx's ?Medication ?Instructions ?Recorded amoxicillin 875 mg-potassium 1 tab PO BID #11 tabs 07/21/25 clavulanate 125 mg tablet finasteride 5 mg tablet 5 mg PO DAILY #30 tabs 07/21/25 omeprazole 40 mg capsule,delayed 40 mg PO DAILY #12 caps 07/21/25 release oxycodone 5 mg capsule 5 mg PO Q8H PRN pain, severe #15 07/21/25 caps Allergies Allergy/AdvReac Type Severity Reaction Status Date / Time No Known Allergies (No Known Allergy Verified 07/26/25 17:13 Allergies*) Review of Systems Review of Systems: Yes all other systems are reviewed and are negative Constitutional: Constitutional: Denies fatigue and Denies fever(s) Cardiovascular: Cardiovascular: Denies chest pain and Denies dyspnea Respiratory: Respiratory: Denies dyspnea Gastrointestinal: Gastrointestinal: Denies abdominal pain, Denies nausea and Denies vomiting Genitourinary: Genitourinary: Denies dysuria and Denies penile discharge Endocrine: Endocrine: Denies fatigue [facility] Past Medical History Attestation statement: The following information was validated with the patient. Medical History Encounter for colorectal cancer screening using Cologuard test Diverticular disease Ulnar neuropathy Varicose vein of leg Hx of squamous cell carcinoma of skin Hx of osteoarthritis History of diverticulitis HTN (hypertension) Right inguinal hernia Surgical History History of colonoscopy H/O total hip arthroplasty Status post ORIF of fracture of ankle History of surgery on lower extremity Hx of excision of epidermal inclusion cyst Hx of arthroscopy of right knee Hx of arthroscopy of left knee Social History Social History Household Members: Spouse Housing: House Do you presently have visiting nurse or other home services: No Alcohol intake: current Alcohol intake frequency: holidays/special occasions only Alcohol type: beer Patient Tobacco Use Status: Never used Tobacco Smoked in Last 30 Days: No e-Cigarette/Vaping Use: Never Used Second Hand Smoke Exposure: No Use of substances other than those prescribed or required for medical reasons: No Advance Directives: Yes Advance Directives Information Provided: No Advance Directives on File: No Advance Directives Date on File: 07/16/25 Do you have a plan to hurt others: No Plan service: Yes Current occupational status: retired Physical Exam Vital Signs: Vital Signs: Last Vital Signs Temp 97.0 F 07/26/25 17:05 Pulse 100 07/26/25 17:05 Resp 18 07/26/25 17:05 Pulse Ox 96 07/26/25 17:05 O2 Del Method Room Air 07/26/25 17:05 BMI result Body Mass Index 27.0 Const: Other: Alert well-appearing Orientation/consciousness: patient oriented x3 Resp: Effort & Inspection: normal respiratory effort Cardio: Other: Normal peripheral perfusion, pitting pedal edema, primarily over the feet : Other: No leakage appreciated about the meatus Skin: Other: Warm dry no rash Neuro: General: patient oriented x3, gait normal, no focal motor deficits and CN's II-XI intact bilaterally Psych: Other: Cooperative Course Course Course Narrative: This is an RME: Additional HPI, ROS, PE not included below will be deferred to primary provider. RME assessment and note performed by: Rain Choe PA-C This is a 89-hice-eoj-male, with a hx of HTN, HLD, BPH who presents to the ER with a complaint of catheter issue. Patient reports that he had a surgery performed by Dr. Rosen (hand assisted laparoscopic sigmoid resection due to colovesical fistula), and there was a indwelling catheter placed. He states that since 02/02 this morning he felt as though the catheter has been leaking. He denies any complaints. No fevers or chills. Plan: Fix catheter Medical Decision Making Medical Decision Making MDM Narrative: 75 year old male with a history s/p laparoscopic sigmoid resection, small-bowel resection, end colostomy, extensive lysis of adhesions and dissection of the sigmoid off of the bladder 07/16 Dr. Rosen, with subsequent indwelling Garza, presents with Garza dysfunction. Patient states he started noting leakage of urine around the tip of his penis. Denies abdominal pain, dysuria and he is on an antibiotic already. Problem: Indwelling Garza History: Per patient I have considered the following differential diagnoses: Garza dysfunction Plan: We are not appreciating leakage at this time, the full has been in for 12 days, we will exchange it. He is already on an antibiotic to cover for UTI prophylaxis. No indication for labs or imaging Differential Diagnosis Differential Diagnoses: The differential diagnosis associated with the presentation includes See medical decision Admission/Observation Consideration of admission/observation: Escalation of care including admission/observation considered Not applicable Discharge Plan Discharge Clinical Impression: Malfunction of Garza catheter Patient Disposition: Home, Self-Care Additional Instructions: The Garza catheter was exchanged today. Continue to follow up with Urology as directed. Prescriptions: No Action amlodipine 2.5 mg tablet 1 tab PO BEDTIME nitrofurantoin monohyd/m-cryst 100 mg capsule 1 cap PO BID tamsulosin [Flomax] 0.4 mg capsule 0.4 mg PO BEDTIME ibuprofen 200 mg Tablet 200 mg PO Q6H PRN (Reason: Pain) polyethylene glycol 3350 [Miralax] 17 gram/dose Powder 17 g PO DAILY PRN (Reason: Constipation) finasteride 5 mg tablet 5 mg PO DAILY Qty: 30 0RF Rx Instructions: Take one tablet daily omeprazole 40 mg capsule,delayed release(DR/EC) 40 mg PO DAILY Qty: 12 0RF Rx Instructions: Take one tablet daily for the next 12 days oxycodone 5 mg capsule 5 mg PO Q8H PRN (Reason: pain, severe) Qty: 15 0RF Rx Instructions: Partial Fill upon patient request. Take one tablet up to three times a day for severe pain. amoxicillin-pot clavulanate 875-125 mg tablet 1 tab PO BID Qty: 11 0RF Rx Instructions: Take one pill twice a day for the next five days, beginning the evening of 07/21 and ending the evening of 07/26. Print Language: Arabic
--- OUTSIDE RECORDS SUMMARY | 2025-07-26 17:37 | XMS_ITS | Clinical Summary ---
Author Organization 2 [employer] Address [address] [place] [address] Phone Care Team Providers Care Rn Clinical Quality Name Role Phone Luis Felipe Cardenas DO Primary Care Provider [phone] Allergies No known active allergies Medications polyethylene [...] pain. Max Daily Amount: 30 mg Active rivaroxaban (XARELTO) 10 mg tabletIndications :Superficial vein thrombosis Take 1 tablet (10 mg total) by mouth 1 (one) time each day with breakfast. Take with food. 45 each 5 09/09/20 25 Active nitrofurantoin, macrocrystal-mono hydrate, (MACROBID) 100 mg capsuleIndication s:Acute cystitis without hematuria Take 1 capsule (100 mg total) by mouth 2 (two) times a day for 5 days. 10 each 5 07/16/20 25 Active Problems Problem Noted Date Diagnosed Date Constipation 05/11/2022 Diverticulitis 05/11/2022 Overview (07/18/2024): being treated since May 03 2022 - early May- required admittion due to bowel perforation Perforation bowel ([facility] V24, [facility] V28) 04/2022 Overview (07/18/2024): May 05 [...] Care Team Description 07/25/2025 4:22 PM EDT - 07/25/2025 11:59 PM EDT Hospital Encounter [facility] Ultrasound [address] [place] [phone] Localized swelling of both lower legs Discharge Disposition: Home or Self Care 07/25/2025 1:00 PM EDT Office Visit Internal Medicine - [place] [address] [place] [address] Christian Jacinto MD Hospital discharge follow-up (Primary Dx); Garza catheter in place; Presence of colostomy (CMS/HCC V24, CMS/HCC V28); Pressure ulcer of coccygeal region, stage 2 (CMS/HCC V24, CMS/HCC V28); Localized swelling of both lower legs; Superficial vein thrombosis 07/24/2025 Telephone Internal Medicine - [place] [address] [place] [address] Kylah Tanner RN 07/11/2025 Telephone Internal Medicine - [place] [address] [place] [address] Luis Felipe Cardenas DO 07/09/2025 3:30 PM EDT Office Visit Internal Medicine - [place] [address] [place] [address] Jorge Cardenas PA Acute cystitis without hematuria (Primary Dx); Essential hypertension; Benign prostatic hyperplasia, unspecified whether lower urinary tract symptoms present; Elevated hemoglobin A1c 06/18/2025 3:30 PM EDT Office Visit Internal Medicine - [place] [address] [place] [address] Luis Felipe Cardenas DO Encounter for annual [...] Info) Description 08/05/2025 4:00 PM EDT Appointment [facility] Ultrasound [address] [place] [address] 10/22/2025 2:30 PM EST Office Visit Internal Medicine - [place] [address] [place] [address] Luis Felipe Cardenas, [address] [place] [address] 06/23/2026 3:30 PM EDT Office Visit Internal Medicine - [place] [address] [place] [address] Luis Felipe Cardenas, [address] [place] [address] Health Maintenance Due Date Last Done Comments [...] Signed Date: 07/25/2025 17:24 ET Workstation ID: [id number] Transcribed By: Self Edit Transcribed Date: 07/25/2025 [...] These contain some low-level echoes. Procedure Note Maritnez Jha MD - 07/25/2025 EXAM: DUPLEX ULTRASOUND [...] Signed Date: 07/25/2025 17:24 ET Workstation ID: [id number] Transcribed By: Self Edit Transcribed Date: 07/25/2025 17:17 ET Christian Jacinto MD CV VASCULAR PROCEDURES Final Result * Prostate specific antigen (07/02/2025 8:27 AM EDT) PSA, Total 0.77 < OR = 2.50 ng/mL [facility] Comment: The total PSA value from this assay system is standardized against the WHO standard. The test result will be approximately 20% lower when compared to the equimolar-standardized total PSA (Jatin [place]). Comparison of serial PSA results should be [...] 8:27 AM EDT 07/02/2025 8:27 AM EDT Melinta (MICHELLE) - 07/03/2025 7:08 AM EDT FASTING:YES FASTING: YES [employer] LAB BLOOD ORDERABLES Final Resul t Performing Organization Address [facility] de Phone Number [facility] ([facility]) [facility] [address] [place] [phone] * Thyroid stimulating hormone with reflex free T4 (07/02/2025 8:27 AM EDT) Thyroid Stimulating Hormone (Reflex FT4) 2.30 0.40 - 4.50 mIU/L [facility] Blood Venous blood specimen / Unknown 07/02/2025 8:27 AM EDT 07/02/2025 8:27 AM EDT Melinta (MICHELLE) - 07/03/2025 7:08 AM EDT FASTING:YES FASTING: YES Luis Felipe [facility] LAB BLOOD ORDERABLES Final Resul t Performing Organization Address City/[facility] Co de Phone Number [facility]) [facility] [address] [place] [phone] * CBC auto differential (07/02/2025 8:27 AM EDT) White Blood Cell Count 5.6 3.8 - 10.8 Thousand/u L [facility] RBC Count 5.03 4.20 - 5.80 Million/uL [facility] Hemoglobin 15.3 13.2 - 17.1 g/dL [facility] Hematocrit 47.0 38.5 - 50.0 % [facility] MCV 93.4 80.0 - 100.0 fL [facility] MCH 30.4 27.0 - 33.0 pg [facility] MCHC 32.6 32.0 - 36.0 g/dL [facility] Comment: For adults, a slight decrease in the calculated MCHC value (in the range of 30 to 32 g/dL) is most likely not clinically significant; however, it should be interpreted with caution in correlation with other red cell parameters and the patient's clinical condition. RDW 12.0 11.0 - 15.0 % [facility] Platelet Count 247 140 - 400 Thousand/u L [facility] MPV 9.2 7.5 - 12.5 fL [facility] Absolute Neutrophil 3,405 1,500 - 7,800 cells/uL [facility] Absolute Lymphocytes 1,478 850 - 3,900 cells/uL [facility] Absolute Monocytes 543 200 - 950 cells/uL [facility] Absolute Eosinophils 151 15 - 500 cells/uL [facility] Absolute Basophils 22 0 - 200 cells/uL [facility] Neutrophils 60.8 % [facility] Lymphocytes 26.4 % [facility] Monocytes 9.7 % [facility] Eosinophils 2.7 % [facility] Basophils 0.4 % [facility] Blood Venous blood specimen / Unknown 07/02/2025 8:27 AM EDT 07/02/2025 8:27 AM EDT Narrative [facility] ([facility]) - 07/03/2025 7:08 AM EDT FASTING:YES FASTING: YES Luis Felipe Cardenas DO LAB BLOOD ORDERABLES Final Resul t [facility] (MICHELLE) [facility] [address] [place] [address] * (ABNORMAL) Hemoglobin A1c (07/02/2025 8:27 AM EDT) Pathologist [facility] Hemoglobin A1C 5.7(H) <5.7 % [facility] Comment: For someone without known diabetes, a [...] AM EDT 07/02/2025 8:27 AM EDT Narrative [facility] ([facility]) - 07/03/2025 7:08 AM EDT FASTING:YES FASTING: YES [facility] Cardenas LAB BLOOD ORDERABLES Final Resul t [facility] ([facility]) [facility] [address] [place] [phone] * Lipid panel (07/02/2025 8:27 AM EDT) [facility] Cholesterol Total 134 <200 mg/dL [facility] HDL Cholesterol 54 > OR = 40 mg/dL [facility] Triglycerides 48 <150 mg/dL [facility] LDL Cholesterol 66 mg/dL (calc) [facility] Comment: Reference range: <100 Desirable range <100 mg/dL for primary prevention; <70 mg/dL for patients with CHD or diabetic patients with > or = 2 CHD risk factors. LDL-C is now calculated using the Vlad calculation, which is a validated novel method providing better accuracy than the Friedewald equation in the estimation of LDL-C. Eb [place] et al. RAN. 2013;310(19): 3041-1956 (http://education.Interneer/faq/UYE809) Chol/HDLC Ratio 2.5 <5.0 (calc) [facility] Non HDL Cholesterol 80 <130 mg/dL (calc) [facility] Comment: For patients with diabetes plus 1 major ASCVD risk factor, treating to a non-HDL-C goal of <100 mg/dL (LDL-C of <70 mg/dL) is considered a therapeutic option. Blood Venous blood specimen / Unknown 07/02/2025 8:27 AM EDT 07/02/2025 8:27 AM EDT Narrative [facility] ([facility]) - 07/03/2025 7:08 AM EDT FASTING:YES FASTING: YES Luis Felipe Cardenas DO LAB BLOOD ORDERABLES Final Resul t [facility] ([facility]) [facility] [address] [place] [phone] * (ABNORMAL) Comprehensive metabolic panel (07/02/2025 8:27 AM EDT) Glucose 101(H) 65 - 99 mg/dL [facility] Comment: Fasting reference interval For someone without known diabetes, a glucose value between 100 and 125 mg/dL is consistent with prediabetes and should be confirmed with a follow-up test. Urea Nitrogen (BUN) 17 7 - 25 mg/dL [facility] Creatinine 0.89 0.70 - 1.28 mg/dL [facility] eGFR 89 > OR = 60 mL/min/1 .73m2 [facility] BUN/Creatinine Ratio SEE NOTE: 6 - 22 (calc) [facility] Comment: Not Reported: BUN and Creatinine are within reference range. Sodium 138 135 - 146 mmol/L [facility] Potassium 4.5 3.5 - 5.3 mmol/L [facility] Chloride 104 98 - 110 mmol/L [facility] Carbon Dioxide 28 20 - 32 mmol/L [facility] Calcium 9.0 8.6 - 10.3 mg/dL [facility] Total Protein 6.8 6.1 - 8.1 g/dL [facility] Albumin 4.1 3.6 - 5.1 g/dL [facility] Globulin 2.7 1.9 - 3.7 g/dL (calc) [facility] Albumin/Globulin Ratio 1.5 1.0 - 2.5 (calc) [facility] Bilirubin Total 0.7 0.2 - 1.2 mg/dL [facility] Alkaline Phosphatase 55 35 - 144 U/L [facility] Aspartate aminotransferase (AST) 12 10 - 35 U/L [facility] Alanine Aminotransferase (ALT) 11 9 - 46 U/L [facility] Blood Venous blood specimen / Unknown 07/02/2025 8:27 AM EDT 07/02/2025 8:27 AM EDT [facility] (MICHELLE) - 07/03/2025 7:08 AM EDT FASTING:YES FASTING: YES [facility] LAB BLOOD ORDERABLES Final Resul t [facility] ([facility]) [facility] [address] [phone] * Falls Risk Assessment (10/27/2023) [facility] Falls Risk Assessment abstracted Result [facility] Provider HEALTH MAINTENANCE Final Result * Depression Screening (10/27/2023) Pathologist [facility] Depression Screening abstracted Result [facility] Provider HEALTH MAINTENANCE Final Result * Colonoscopy (06/18/2019) Pathologist [facility] Colonoscopy no interpretation , abstracted Anatomical Region Laterality Modality Other Result [facility] Provider HEALTH MAINTENANCE Final Result from Last 3 Months or Most Recently Relevant to Health Maintenance Insurance MEDICARE [facility] Advance Directives * Full Code - Confirmed [...] First Alternate Health Care Agent Care Teams Rn Clinical Quality Relationship Specialty Start Date End Date Luis Felipe Cardenas DO [address] [place] [address] PCP - General 10/27/23
--- OUTSIDE RECORDS SUMMARY | 2025-07-26 17:37 | XMS_ITS | Clinical Summary ---
Author Organization [facility] Address [address] [place] [address] Care Team Providers Care Building Guard Deputy Sheriff Name Role Phone Luis Felipe Cardenas MD [...] age to complete this topic Care Teams Building Guard Deputy Sheriff Relationship Specialty Start Date End Date Luis Felipe Cardenas MD PCP - General Family Medicine 10/27/23
--- OUTSIDE RECORDS SUMMARY | 2025-07-26 17:37 | XMS_ITS | Encounter Summary ---
Author Organization [facility] Address [address] [place] [address] Care Team Providers Care Pull Tab Dealer Name Role Phone Luis Felipe Cardenas DO Primary Care Provider [phone] Encounter Details Date Type Department Care Team (Late st Contact Info) Description 07/24/2025 Telephone Internal Medicine - [place] [address] [address] Kylah Tanner RN Social History [...] 10:35 AM EDT D/c ppw received from [facility]. Spouse aware and will attend appt [...] [facility]. Spouse concerned that appt tomorrow isn't needed if ppw not available to review recent hospital stay. Spouse did report patient's feet are swollen despite patient ambulating. Call to [facility] to request records, no answer LV. [phone] Will also fax request to [facility] : [phone] S/w spouse who is aware that Rosie at [facility] did not answer, LVM requesting labs and faxed request. Will call patient if we receive ppw, and/or call 07/25/25 am if we receive d/c summary. Kylah Tanner RN documented in this encounter Plan of Treatment Upcoming Encounters Date Type Department Care Team (Late st Contact Info) Description 08/05/2025 4:00 PM EDT Appointment [facility] Ultrasound [address] [place] [phone] 10/22/2025 2:30 PM EST Office Visit Internal Medicine - [place] [address] [place] [address] Luis Felipe Cardenas DO [address] [place] [address] 06/23/2026 3:30 PM EDT Office Visit Internal Medicine - [place] [address] [place] [address] Luis Felipe Cardenas DO [address] [place] [address] documented as of this encounter Visit Diagnoses Not on filedocumented in this encounter Additional Health Concerns Assessment Noted Time PHQ-9 Depression Total Score: 0 06/18/20 25 3:34 PM EDT documented as of this encounter Care Teams Pull Tab Dealer Relationship Specialty Start Date End Date Luis Felipe Cardenas DO [address] [place] [address] PCP - General 10/27/23 documented as of this encounter
--- OUTSIDE RECORDS SUMMARY | 2025-07-26 17:37 | XMS_ITS ---
Author Organization 2 [facility] Address [address] [place] [address] Phone Care Team Providers Care Service Secretary Name Role Phone Luis Felipe Cardenas DO Primary Care Provider [phone] Transitional Care Management Status:Ongoing (Active) Start date:07/21/2025 Enrollment date:07/22/2025 Enrollment reason:Identified using hospital discharge data Case Team Name Relationship Phone Nichelle Chauhan LPN Care Manager(Responsible Staf f) [phone] Continued Care and Services Coordination
[2025-07-26 18:52] VITALS: BP 142/86; PULSE 81; RESP 18; O2SAT 99
--- NOTE | 2025-07-26 18:58 | PC.NURSE ---
per pt, FC inserted initally on 07/14 has been leaking intermittently from tip of penis. Order to replace horner given. 18F FC w/ 10 cc balloon inserted w/o complication. Patient provided new leg bag and urinal for DC home. UA sent from initial OP from insertion, provider aware. Patient already on abx.
[2025-07-26 19:00] LABS: Appearance Urine Clear; Glucose Urine UA Negative (Negative); PH 6.5 (5.0-9.0); Specific Gravity - Urine 1.020 (1.005-1.025); UMIC TRIGGER UACC YES
[2025-07-26 19:02] VITALS: BP 142/86; PULSE 81; RESP 18; TEMP 36.7; O2SAT 99
[2025-07-26 19:10] LABS: UACC Culture Trigger YES
== END 2025-07-26 19:03 | disposition home or self-care (01) ==
PROVIDERS: Physician Assistant Medical; Emergency Provider Emergency Medicine Emergency Medical Services; PCP Internal Medicine Critical Care Medicine
DX: T83.018A Breakdown (mechanical) of other urinary catheter, initial encounter (principal); Y84.6 Urinary catheterization as the cause of abnormal reaction of the patient, or of later complication, without mention of misadventure at the time of the procedure; Y92.9 Unspecified place or not applicable; R82.90 Unspecified abnormal findings in urine
CPT/HCPCS: 51702; 81001; 81003; 87086; 87088; 99284

== ENCOUNTER 2025-07-30 09:11 | Outpatient (AMB) | payer MEDICARE, BC, SELFPAY ==
--- OUTSIDE RECORDS SUMMARY | 2025-07-25 13:00 | XMS_ITS | Encounter Summary ---
Author Organization [facility] Address [address] [place] [address] Care Team Providers Care Associate Professor Of History Name Role Phone Luis Felipe Cardenas Primary Care Provider [phone] Reason for Referral * Consultation (Routine) - Authorized Specialty Diagnoses / Procedures Referred By Contac t Referred To Contact Wound Care Diagnoses Pressure ulcer of coccygeal region, stage 2 (CMS/HCC V24, CMS/HCC V28) Christian Dove MD [address] [place] [address] Phone: tel: fax: Referral ID Status Reason Start Date Expiration Date Visits Requested Visits Authorized [id number] Authorized Specialty Services Required 07/25/2025 07/25/2026 1 1 * Imaging (Emergency) - Closed Specialty Diagnoses / Procedures Referred By Contac t Referred To Contact Diagnoses Localized swelling of both lower legs Procedures Vascular US duplex lower extremity venous bilateral Christian Dove MD [address] [place] [address] Phone: tel: fax: [facility] [place] Referral ID Status Reason Start Date Expiration Date Visits Re quested Visits Authorized [id number] Closed 07/25/2025 07/25/2026 1 1 Reason for Visit * Reason Comments Follow-up F/u TCM Encounter Details Date Type Department Care Team (Late st Contact Info) Description 07/25/2025 1:00 PM EDT Office Visit Internal Medicine - [place] [address] [facility] [address] [place] [facility] [place] [id number] Christian Dove MD 2 [place] [address] Hospital discharge follow-up (Primary Dx); Garza catheter in place; Presence of colostomy (CMS/HCC V24, CMS/HCC V28); Pressure ulcer of coccygeal region, stage 2 (CMS/HCC V24, CMS/HCC V28); Localized swelling of both lower legs; Superficial vein thrombosis Social History Tobacco Use Types Packs/Day Years [...] Sign Reading Time Taken Comments Blood Pressure 128/77 07/25/2025 1:02 PM EDT Pulse 97 07/25/2025 1:02 PM EDT Temperature 36.6 C (97.9 F) 07/25/2025 1:02 PM EDT Respiratory Rate 18 07/25/2025 1:02 PM EDT Oxygen Saturation 97% 07/25/2025 1:02 PM EDT Inhaled Oxygen Concentration - - Weight 104 kg (228 lb 14.4 oz) 07/25/2025 1:02 P M EDT Height 182.9 cm (6' 0.01 ) 07/25/2025 1:02 PM ED T Body Mass Index 31.04 07/25/2025 1:02 PM EDT documented in this encounter Ordered Prescriptions Prescription Sig Dispense Quantity Refills Last Filled Start Date End Date rivaroxaban (XARELTO) 10 mg tabletIndications: Superficial vein thrombosis Take 1 tablet (10 mg total) by mouth 1 (one) time each day with breakfast. Take with food. 45 each 07/26/2025 09/09/2025 documented in this encounter Progress Notes * Christian Dove MD - 07/25/2025 1:00 PM EDT Treatment of varicose vein: 1. Leg elevation 2. Ambulation 3. Warm compress * Christian Dove MD - 07/25/2025 1:00 PM EDTAddended by: CHRISTIAN DOVE on: 07/26/2025 05:24 PM Modules accepted: Level of Service * Christian Dove MD - 07/25/2025 1:00 PM EDT Images from the original note were not included. TRANSITIONAL CARE MANAGEMENT NOTE Christian Radford is a 75 y.o. (: 1950) male presents today for a transitional care appointment. 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 The patient is a 75-year-old male with history significant for hypertension who presents after recent hospitalization and discharge as described above. He was admitted initially for acute diverticulitis complicated by a colovesicular fistula. He was started on IV antibiotics ceftriaxone and metronidazole. He was seen by the general surgery service. Overall the patient's hospital stay was uncomplicated and he progressed slowly but well. He did undergo a sigmoid resection with colostomy on July 16 by general surgery. During hospitalization it was also discovered that he had a stage II pressure ulcer to the coccyx on both sides. He does complain of bilateral leg swelling especially at his feet. He does have known chronic varicose veins bilaterally. He denies any pain to the calf or claudication. He denies any calf swelling. Comprehensive Medical and Social History: Patient Active Problem List Diagnosis Constipation Diverticulitis Diverticulosis Essential hypertension Perforation bowel ([facility] V24, [facility] V28) No Known Allergies Current Outpatient Medications Medication Instructions amLODIPine (NORVASC) 2.5 mg, oral, Daily amoxicillin (AMOXIL) 875 mg, 2 times daily finasteride (PROSCAR) 5 mg, Daily omeprazole (PRILOSEC) 40 mg, Daily oxyCODONE (ROXICODONE) 5 mg, Every 4 hours PRN polyethylene glycol (MIRALAX) 17 g, Daily tamsulosin (FLOMAX) 0.8 mg, oral, Daily Past Medical History: Diagnosis Date Diverticulitis large [...] DX:Varicose vein of leg Past Surgical History: Procedure Laterality Date COLONOSCOPY PROCEDURE:COLONOSCOPY OTHER SURGICAL HISTORY 04/2011 PROCEDURE:Laser ablation of saphenous vein the left OTHER SURGICAL HISTORY 1997 PROCEDURE:Arthroscopic surgery right knee OTHER SURGICAL HISTORY 1992 PROCEDURE:Arthroscopic surgery left knee OTHER SURGICAL HISTORY 1994 PROCEDURE:ORIF right ankle fracture OTHER SURGICAL HISTORY Right 10/2019 PROCEDURE:Excision of Epidermal cyst;COMMENT:Rt Elbow TOTAL HIP ARTHROPLASTY Right 04/18/2011 PROCEDURE:TOTAL HIP ARTHROPLASTY Social History Socioeconomic History Marital status: Spouse name: Not on file Number of children: Not on file Years of education: Not on file Highest education level: Not on file Occupational History Not on file Tobacco Use Smoking status: Never Smokeless tobacco: Never Substance and Sexual Activity Alcohol use: Yes Alcohol/week: 8.0 standard drinks of alcohol Drug use: No Sexual activity: Not on file Other Topics Concern Not on file Social History Narrative Not on file Family History Problem Relation Name Age of Onset Diabetes Mother Coronary artery disease Mother 75 Breast cancer Mother Lung cancer Father No Known Problems Son No Known Problems Son No Known Problems Son Immunization History Administered Date(s) Administered Influenza Quadravalent, 0.5ml (Fluzone High-dose) 65yo and older 08/18/2020, 09/06/2023 Moderna SARS-CoV-2 COVID-19, mRNA, LNP-S, preservative free 12/17/2020, 01/14/2021, 10/25/2021 Pneumococcal conjugate 13 valent (Prevnar 13, PCV13) 2mo and older 10/21/2017, 03/20/2019 Pneumococcal polysaccharide 23 valent (Pneumovax 23) 2yo and older 07/16/2020 Respiratory syncytial virus (RSV) vaccine, unspecified 08/12/2024 Tdap Tetanus diptheria acellular pertussis (Boostrix; Adacel) 7yo and older 03/20/2019 Zoster Live 08/25/2015 Health Maintenance Due Topic Date Due Hepatitis C Screening Never done Social Influencers of Health Screening Never done COVID-19 Vaccine (2024- season) 2025 Influenza Vaccine (1) 07/07/2025 Depression Screening (PHQ2/9): Social Influencer of Health (SIOH): Review of Systems: Review of Systems Objective BP 128/77 Pulse 97 Temp 36.6 ??C (97.9 ??F) (Temporal) Resp 18 Ht 1.829 m (72.01 ) Wt 104kg (228 lb 14.4 oz) BMI 31.04 kg/m?? Physical Exam Vitals reviewed. Constitutional: Appearance: Normal appearance. Eyes: General: No scleral icterus. Extraocular Movements: Extraocular movements intact. Conjunctiva/sclera: Conjunctivae normal. Pupils: Pupils are equal, round, and reactive to light. Cardiovascular: Rate and Rhythm: Normal rate and regular rhythm. Pulses: Normal pulses. Heart sounds: Normal heart sounds. Pulmonary: Effort: Pulmonary effort is normal. Breath sounds: Normal breath sounds. Abdominal: Comments: Positive colostomy bag in place Genitourinary: Comments: Positive Garza catheter bag on the patient's right leg Skin: Comments: Pictures taken of stage II pressure ulcer to the coccyx on right and left. Neurological: General: No focal deficit present. Mental Status: He is alert and oriented to person, place, and time. Assessment/Plan Assessment & Plan Hospital discharge follow-up Patient has appropriate follow-up to urology and surgery in place Garza catheter in place Garza catheter in place on physical exam today Presence of colostomy (CMS/HCC V24, CMS/HCC V28) Colostomy bag in place Pressure ulcer of coccygeal region, stage 2 (CMS/HCC V24, CMS/HCC V28) Referral placed to wound clinic at [facility] Orders: Ambulatory referral to Wound Clinic; Future Localized swelling of both lower legs Rule out DVT The ultrasound revealed no DVT but did reveal the following: There are some thrombosed calf veins in the mid right calf. There is thrombus within some superficial varicosities in the area of pain in the left upper calf. These are of uncertain chronicity. Orders: Vascular US duplex lower extremity venous bilateral; Future Superficial vein thrombosis -given these findings patient will need xarelto for 45 days -prescription sent to pharmacy -will reach out to patient on Monday Orders: rivaroxaban (XARELTO) 10 mg tablet; Take 1 tablet (10 mg total) by mouth 1 (one) time each day withbreakfast. Take with food. The complexity of medical decision making for this patient's transitional care is moderate. As part of the TCM, I have: Reviewed discharge information, I.e.: discharge summary or gefiiyhedl-td-ncoh documents, Reviewed the patient's need for, or follow-up on, diagnostic tests and treatments, and Educated the patient, family, guardian, or caregiver I have applied the code G2211 to this patient???s visit as the primary care provider dealing with the following conditions but not limited to (given follow up venous doppler and need to initiate treatment) leading to the extensive work up, and management associated with the medical care of this patient. This patient???s serious and complex medical conditions also required additional comprehensivemanagement/workup and coordination of care through my office. I have also reviewed all necessary information that pertains to the management of this patient including, but not limited to imaging, laboratory work, specialist's recommendation/treatment plan with considerations of patient's chronic conditions and current medications for final approval. Christian Dove MD INTERNAL MEDICINE - [place] [address] [facility] 2 [place] [id number] Dept: [phone] Dept Date of Service: 07/25/2025 documented in this encounter Plan of Treatment Upcoming Encounters Date Type Department Care Team (Late st Contact Info) Description 10/22/2025 2:30 PM EST Office Visit Internal Medicine - [place] [address] [place] [address] Luis Felipe Cardenas, DO [address] [place] [address] 06/23/2026 3:30 PM EDT Office Visit Internal Medicine - [place] [address] [place] [address] Luis Felipe Cardenas DO [address] [place] [address] Scheduled Referrals Name Type Priority Associated Diagnoses Order Schedule Ambulatory referral to Wound Clinic Outpatient Referral Routine Pressure ulcer of coccygeal region, stage 2 (CMS/HCC V24, CMS/HCC V28) 1 Occurrences starting 07/25/2025 until 07/25/2026 documented as of this encounter Results * Vascular US duplex lower extremity venous bilateral (07/25/2025 5:20 PM EDT) Anatomical Region Laterality Modality Vascular, Abdomen Ultrasound 07/25/2025 5:17 PM EDT Impressions 07/25/2025 5:24 PM EDT There is no deep venous thrombosis from the inguinal region into the proximal calf on either side. There are some thrombosed calf veins in the mid right calf. There is thrombus within some superficial varicosities in the area of pain in the left upper calf. These are of uncertain chronicity. I reviewed the findings with the patient. I recommend institution of medical management and repeat duplex ultrasound in approximately 7-10 days to assure the absence of propagation into the proximal deep system. I notified the patient to seek urgent care if he develops any chest pain or shortness of breath. We discussed this the vein the emergency department. The patient prefers to seek institution of outpatient care. The patient will notify the home health care agency nurse and seek institution of oral anticoagulation treatment. -------- FINAL REPORT -------- Dictated By: Martinez Jha Dictated Date: 07/25/2025 17:17 ET Assigned Physician: Martinez Jha Reviewed and Electronically Signed By: Martinez Jha Signed Date: 07/25/2025 17:24 ET Workstation ID: [id number] Transcribed By: Self Edit Transcribed Date: 07/25/2025 17:17 ET Narrative 07/25/2025 5:24 PM EDT EXAM: DUPLEX ULTRASOUND LOWER, BILATERAL HISTORY: Recent surgery. Bilateral lower extremity edema. Clinical concern for deep venous thrombosis. I interviewed the patient. The patient does not have shortness of breath or cough. During his hospitalization the patient underwent prophylaxis to prevent development of deep venous thrombosis. TECHNIQUE: Real-time ultrasonography of the venous system from the groin to the proximal calf is performed. Compression and augmentation were used as needed. Color mapping was performed. Doppler spectral analysis was performed. FINDINGS: Right lower extremity: The deep venous system from the inguinal region through the popliteal region and including the proximal calf veins was visualized and compressible with color saturation. There are low-level echoes within some noncompressible paired veins in the right mid calf. There is some color signal within one of the paired veins.1 Left lower extremity: The venous system from the groin into the proximal calf was visualized and compressible. The caliber appears within normal limits. The visualized venous system is compressible. There is appropriate color saturation of the lumen. Appropriate spectral waveforms were obtained during augmentation and compression. There are superficial varicosities in the left upper calf in the area of symptoms. These contain some low-level echoes. Procedure Note Martinez Jha MD - 07/25/2025 EXAM: DUPLEX ULTRASOUND LOWER, BILATERAL HISTORY: Recent surgery. Bilateral lower extremity edema. Clinicalconcern for deep venous thrombosis. I interviewed the patient. The patient does not have shortness of breathor cough. During his hospitalization the patient underwent prophylaxis toprevent development of deep venous thrombosis. TECHNIQUE: Real-time ultrasonography of the venous system from the grointo the proximal calf is performed. Compression and augmentation were usedas needed. Color mapping was performed. Doppler spectral analysis wasperformed. FINDINGS: Right lower extremity: The deep venous system from the inguinal region through the poplitealregion and including the proximal calf veins was visualized andcompressible with color saturation. There are low-level echoes within some noncompressible paired veins in theright mid calf. There is some color signal within one of the pairedveins.1 Left lower extremity: The venous system from the groin into the proximal calf was visualized andcompressible. The caliber appears within normal limits. The visualized venous system is compressible. There is appropriate colorsaturation of the lumen. Appropriate spectral waveforms were obtained during augmentation andcompression. There are superficial varicosities in the left upper calf in the area ofsymptoms. These contain some low-level echoes. IMPRESSION: There is no deep venous thrombosis from the inguinal region into theproximal calf on either side. There are some thrombosed calf veins in the mid right calf. There is thrombus within some superficial varicosities in the area of painin the left upper calf. These are of uncertain chronicity. I reviewed the findings with the patient. I recommend institution ofmedical management and repeat duplex ultrasound in approximately 7-10 daysto assure the absence of propagation into the proximal deep system. I notified the patient to seek urgent care if he develops any chest painor shortness of breath. We discussed this the vein the emergency department. The patient prefersto seek institution of outpatient care. The patient will notify the home health care agency nurse and seekinstitution of oral anticoagulation treatment. -------- FINAL REPORT -------- Dictated By: Martinez Jha Dictated Date: 07/25/2025 17:17 ET Assigned Physician: Martinez Jha Reviewed and Electronically Signed By: Martinez Jha Signed Date: 07/25/2025 17:24 ET Workstation ID: [id number] Transcribed By: Self Edit Transcribed Date: 07/25/2025 17:17 ET us Christian Dove MD CV VASCULAR PROCEDURES Final Result documented in this encounter Visit Diagnoses Diagnosis Hospital discharge follow-up- Primary Other follow-up examination Garza catheter in place Other postprocedural status Presence of colostomy ([facility]/HCC V24, CMS/[facility] V28) Pressure ulcer of coccygeal region, stage 2 (CMS/HCC V24, CMS/HCC V28) Localized swelling of both lower legs Superficial vein thrombosis Acute venous embolism and thrombosis of other specified veins Localized swelling of both lower legs documented in this encounter Historical Medications * This list may reflect changes made after this encounter. oxyCODONE (ROXICODONE) 5 mg immediate release tablet 1 tablet (5 mg total) every 4 (four) hours if needed for severe pain. Max Daily Amount: 30 mg omeprazole (PriLOSEC) [address] capsule Take 1 capsule (40 mg total) by mouth 1 (one) time each day. Do not crush or chew. finasteride (PROSCAR) 5 mg tablet Take 1 tablet (5 mg total) by mouth 1 (one) time each day. Do not crush, chew, or split. amoxicillin (AMOXIL) 875 mg tablet Take 1 tablet (875 mg total) by mouth twice a day. added in this encounter Additional Health Concerns Assessment Noted Time PHQ-9 Depression Total Score: 0 06/18/20 25 3:34 PM EDT documented as of this encounter Care Teams Associate Professor Of History Relationship Specialty Start Date End Date Luis Felipe Cardenas DO [address] [place] [address] PCP - General 10/27/23 documented as of this encounter
--- OUTSIDE RECORDS SUMMARY | 2025-07-25 16:22 | XMS_ITS | Encounter Summary ---
Author Organization [facility] Address [address] [place] [address] Care Team Providers Care Internet Ecommerce Specialist Name Role Phone Luis Felipe Cardenas DO Primary Care Provider [phone] Reason for Referral * Imaging (Emergency) - Closed Specialty Diagnoses / Procedures Referred By Micaelaac t Referred To Contact Diagnoses Localized swelling of both lower legs Procedures Vascular US duplex lower extremity venous bilateral Erick Jacinto MD [address] [place] [address] Phone: tel: fax: [facility] [place] Referral ID Status Reason Start Date Expiration Date Visits Re quested Visits Authorized [id number] Closed 07/25/2025 07/25/2026 1 1 Reason for Visit * Imaging (Emergency) - Closed Specialty Diagnoses / Procedures Referred By Adrienne field Referred To Contact Diagnoses Localized swelling of both lower legs Procedures Vascular US duplex lower extremity venous bilateral Erick Jacinto MD [address] [place] [address] Phone: tel: fax: [facility] [place] Referral ID Status Reason Start Date Expiration Date Visits Re quested Visits Authorized [id number] Closed 07/25/2025 07/25/2026 1 1 Encounter Details Date Type Department Care Team (Latest Contact Info) Description 07/25/2025 4:22 PM EDT - 07/25/2025 11:59 PM EDT Hospital Encounter [facility] Ultrasound [address] [place] [address] Localized swelling of both lower [...] PM EST Office Visit Internal Medicine - [place] [address] [place] [address] Luis Felipe Cardenas, DO [address] [place] [address] 06/23/2026 3:30 PM EDT Office Visit Internal Medicine - [place] [address] [place] [address] Luis Felipe Cardenas, [address] [place] [address] documented as of this encounter Procedures Procedure [...] Signed Date: 07/25/2025 17:24 ET Workstation ID: [id number] Transcribed By: Self Edit Transcribed Date: 07/25/2025 [...] Signed Date: 07/25/2025 17:24 ET Workstation ID: [id number] Transcribed By: Self Edit Transcribed Date: 07/25/2025 17:17 ET us Erick Jacinto MD CV VASCULAR PROCEDURES Final Result documented in this encounter Visit Diagnoses Diagnosis Localized swelling of both lower legs documented in this encounter Additional Health Concerns Assessment Noted Time PHQ-9 Depression Total Score: 0 06/18/20 25 3:34 PM EDT documented as of this encounter Care Teams Internet Ecommerce Specialist Relationship Specialty Start Date End Date Luis Felipe Cardenas DO 2 [facility] [place] [address] PCP - General 10/27/23 documented as of this encounter
[2025-07-30 09:15] VITALS: BMI 26.5
--- NOTE | 2025-07-30 09:15 | MHC.OFFVIS ---
Vital Signs 07/30/25 09:15 Height 6 ft 5 in Weight 223 lb 8 oz BMI 26.5 Intake Visit Reasons: s/p surgery 07-16-25 Intake Note: This patient presents for post-op assessment status post Hand assisted laparoscopic sigmoid resection, small-bowel resection, end colostomy, extensive lysis of adhesions and dissection of the sigmoid off of the bladder. (07/16/2025). Pt c/o; reports he has been prescribed Xarelto 10 mg. Senior Wind Turbine Technician Required: No Accompanied by: Spouse Allergies No Known Allergies (No Known Allergies*) Allergy (Verified 07/30/25 09:20) Medication List - Last Reconciled 07/30/25 by Jose Rosen MD amlodipine 1 tab PO BEDTIME amoxicillin-pot clavulanate 875-125 mg 1 tab PO BID finasteride 5 mg PO DAILY ibuprofen 200 mg PO Q6H PRN nitrofurantoin monohyd/m-cryst 100 mg 1 cap PO BID omeprazole 40 mg PO DAILY oxycodone 5 mg PO Q8H PRN polyethylene glycol 3350 (Miralax) 17 grams PO DAILY PRN tamsulosin (Flomax) 0.4 mg PO BEDTIME HPI HPI s/p surgery 07-16-25: Details: He had undergone a Annelise's procedure for a colovesical fistula last July 16, 2025. He since discharge on postop day 6. Stoma has been functioning well. He still has his Garza catheter and the urine is clear. He has been active. He has good oral intake. [facility] Medical History Encounter for colorectal cancer screening using Cologuard test Diverticular disease Ulnar neuropathy Varicose vein of leg Hx of squamous cell carcinoma of skin Hx of osteoarthritis History of diverticulitis HTN (hypertension) Right inguinal hernia Surgical History History of resection of small bowel History of colonoscopy H/O total hip arthroplasty Status post ORIF of fracture of ankle History of surgery on lower extremity Hx of excision of epidermal inclusion cyst Hx of arthroscopy of right knee Hx of arthroscopy of left knee Social History Household Members: Spouse Housing: House Do you presently have visiting nurse or other home services: No Alcohol intake: current Alcohol intake frequency: holidays/special occasions only Alcohol type: beer Patient Tobacco Use Status: Never used Tobacco e-Cigarette/Vaping Use: Never Used Second Hand Smoke Exposure: No Advance Directives Date on File: 07/16/25 service: Yes Current occupational status: retired Review of Systems Const Denies chills and Denies fever(s) Card Denies chest pain and Denies dyspnea Resp Denies dyspnea GI Denies abdominal pain Physical Exam Vital Signs: BMI result Body Mass Index 26.5 Const General: comfortable and no acute distress Resp Effort & Inspection: normal respiratory effort GI Other: Incisions well healed stoma functioning well Palpation (GI): Soft to palpation, not firm and no guarding Assessment & Plan Assessment & Plan (1) Colovesical fistula: Code(s): 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 He is doing very well postoperatively. His stoma is functioning well. His urine is clear and he says his Garza catheter in place I removed all his skin chrissy He is to have a follow up with Urology next week and have a cystogram prior to removal of his Garza catheter I will see him again in the office in about a month. Coding Level of Care Code Global (48033) Diagnoses Colovesical fistula N32.1
--- OUTSIDE RECORDS SUMMARY | 2025-07-30 10:47 | XMS_ITS | Encounter Summary ---
Author Organization [facility] Address [address] [place] [address] Care Team Providers Care Ordnance Handler Name Role Phone Luis Felipe Cardenas DO Primary Care Provider [phone] Encounter Details Date Type Department Care Team (Late st Contact Info) Description 07/24/2025 Telephone Internal Medicine - [place] [address] [address] Kylah Tanner RN Social History [...] AM EDT D/c ppw received [facility]. Spouse aware and will attend appt [...] [facility]. Spouse concerned that appt tomorrow isn't needed if ppw not available to review recent hospital stay. Spouse did report patient's feet are swollen despite patient ambulating. Call to [facility] to request records, no answer [place]. [phone] [place] also [place] [facility] [phone] S/w spouse who is aware that Rosie at [facility] [place], LVM requesting labs and faxed request. Will call patient if we receive ppw, and/or call 07/25/25 am if we receive d/c summary. Kylah Tanner RN documented in this encounter Plan of Treatment Upcoming Encounters Date Type Department Care Team (Late st Contact Info) Description 10/22/2025 2:30 PM EST Office Visit Internal Medicine - [place] [address] [place] [address] Luis Felipe Cardenas, DO [address] [place] [address] 06/23/2026 3:30 PM EDT Office Visit Internal Medicine - [place] [address] [place] [address] Luis Felipe Cardenas, DO [address] [place] [address] documented as of this encounter Visit Diagnoses Not on filedocumented in this encounter Additional Health Concerns Assessment Noted Time PHQ-9 Depression Total Score: 0 06/18/20 25 3:34 PM EDT documented as of this encounter Care Teams Ordnance Handler Relationship Specialty Start Date End Date Luis Felipe Cardenas DO [address] [place] [address] PCP - General 10/27/23 documented as of this encounter
--- OUTSIDE RECORDS SUMMARY | 2025-07-30 10:47 | XMS_ITS | Clinical Summary ---
Author Organization [address] [employer] Address [address] [place] [address] Phone Care Team Providers Care Cornice Maker Name Role Phone Luis Felipe Cardenas DO Primary Care Provider [phone] Allergies No known active allergies Medications polyethylene [...] admittion due to bowel perforation Perforation bowel ([facility] V24, [facility] V28) 04/2022 Overview (07/18/2024): May [...] - 07/25/2025 11:59 PM EDT Hospital Encounter [facility] Ul[facility]ound [address] [place] [id number] Localized swelling of both lower legs Discharge Disposition: Home or Self Care 07/25/2025 1:00 PM EDT Office Visit Internal Medicine - [place] [address] [place] [address] Christian Jacinto MD Hospital discharge follow-up (Primary Dx); Garza catheter in place; Presence of colostomy (CMS/HCC V24, CMS/HCC V28); Pressure ulcer of coccygeal region, stage 2 (CMS/HCC V24, CMS/HCC V28); Localized swelling of both lower legs; Superficial vein thrombosis 07/24/2025 Telephone Internal Medicine - [place] [address] [place] [address] Kylah Tanner RN 07/11/2025 Telephone Internal Medicine - [place] [address] [place] [address] Luis Felipe Cardenas DO 07/09/2025 3:30 PM EDT Office Visit Internal Medicine - [place] [address] [place] [address] Jorge Cardenas PA Acute cystitis without hematuria (Primary Dx); Essential hypertension; Benign prostatic hyperplasia, unspecified whether lower urinary tract symptoms present; Elevated hemoglobin A1c 06/18/2025 3:30 PM EDT Office Visit Internal Medicine - [place] [address] [place] [address] Luis Felipe Cardenas DO Encounter for annual [...] PM EST Office Visit Internal Medicine - [place] [address] [place] [address] Luis Felipe Cardenas, [address] [place] [address] 06/23/2026 3:30 PM EDT Office Visit Internal Medicine - [place] [address] [place] [address] Luis Felipe Cardenas DO [address] [place] [address] Health Maintenance Due Date Last Done Comments [...] Signed Date: 07/25/2025 17:24 ET Workstation ID: [id number] Transcribed By: Self Edit Transcribed Date: 07/25/2025 [...] Signed Date: 07/25/2025 17:24 ET Workstation ID: [id number] Transcribed By: Self Edit Transcribed Date: 07/25/2025 17:17 ET us Christian Jacinto MD CV VASCULAR PROCEDURES Final Result * Prostate specific antigen (07/02/2025 8:27 AM EDT) PSA, Total 0.77 < OR = 2.50 ng/mL addwish-addwish Comment: The total PSA value from this [...] 8:27 AM EDT 07/02/2025 8:27 AM EDT [facility] StatSheet (MICHELLE) - 07/03/2025 7:08 AM EDT FASTING:YES FASTING: YES [facility] LAB BLOOD ORDERABLES Final Resul t Performing Organization Address [facility] de Phone Number [employer] [facility] [employer] [address] [place] [phone] * Thyroid stimulating hormone with reflex free T4 (07/02/2025 8:27 AM EDT) Pathologist [facility] Thyroid Stimulating Hormone (Reflex FT4) 2.30 0.40 - 4.50 mIU/L [employer] Blood Venous blood specimen / Unknown 07/02/2025 8:27 AM EDT 07/02/2025 8:27 AM EDT [facility] StatSheet (MICHELLE) - 07/03/2025 7:08 AM EDT FASTING:YES FASTING: YES [facility] LAB BLOOD ORDERABLES Final Resul t Performing Organization Address [facility] de Phone Number [employer] [facility] [employer] [address] [place] [phone] * CBC auto differential (07/02/2025 8:27 AM EDT) White Blood Cell Count 5.6 3.8 - 10.8 Thousand/u L [employer] RBC Count 5.03 4.20 - 5.80 Million/uL [employer] Hemoglobin 15.3 13.2 - 17.1 g/dL [employer] Hematocrit 47.0 38.5 - 50.0 % [employer] MCV 93.4 80.0 - 100.0 fL [employer] MCH 30.4 27.0 - 33.0 pg [employer] MCHC 32.6 32.0 - 36.0 g/dL [employer] Comment: For adults, a slight decrease in the calculated MCHC value (in the range of 30 to 32 g/dL) is most likely not clinically significant; however, it should be interpreted with caution in correlation with other red cell parameters and the patient's clinical condition. RDW 12.0 11.0 - 15.0 % [employer] Platelet Count 247 140 - 400 Thousand/u L [employer] MPV 9.2 7.5 - 12.5 fL [employer] Absolute Neutrophil 3,405 1,500 - 7,800 cells/uL [employer] Absolute Lymphocytes 1,478 850 - 3,900 cells/uL [employer] Absolute Monocytes 543 200 - 950 cells/uL [employer] Absolute Eosinophils 151 15 - 500 cells/uL [employer] Absolute Basophils 22 0 - 200 cells/uL [employer] Neutrophils 60.8 % [employer] Lymphocytes 26.4 % [employer] Monocytes 9.7 % [employer] Eosinophils 2.7 % [employer] Basophils 0.4 % [employer] Blood Venous blood specimen / Unknown 07/02/2025 8:27 AM EDT 07/02/2025 8:27 AM EDT Narrative [facility] (MICHELLE) - 07/03/2025 7:08 AM EDT FASTING:YES FASTING: YES Luis Felipe Cardenas DO LAB BLOOD ORDERABLES Final Resul t [facility] [employer] [address] [place] [phone] * (ABNORMAL) Hemoglobin A1c (07/02/2025 8:27 AM EDT) Pathologist [facility] Hemoglobin A1C 5.7(H) <5.7 % [employer] Comment: For someone without known diabetes, a [...] AM EDT 07/02/2025 8:27 AM EDT Narrative [facility]) - 07/03/2025 7:08 AM EDT FASTING:YES FASTING: YES [facility] LAB BLOOD ORDERABLES Final Resul t [facility] [employer] [address] [place] [phone] * Lipid panel (07/02/2025 8:27 AM EDT) [facility] Cholesterol Total 134 <200 mg/dL [employer] HDL Cholesterol 54 > OR = 40 mg/dL [employer] Triglycerides 48 <150 mg/dL [employer] LDL Cholesterol 66 mg/dL (calc) [employer] Comment: Reference range: <100 Desirable range <100 mg/dL for primary prevention; <70 mg/dL for patients with CHD or diabetic patients with > or = 2 CHD risk factors. LDL-C is now calculated using the Eb-Gurinder calculation, which is a validated novel method providing better accuracy than the Friedewald equation in the estimation of LDL-C. Eb [place] et al. RAN. 2013;310(19): 9852-7356 (http://education.Identyx.SuccessTSM/faq/NAC009) Chol/HDLC Ratio 2.5 <5.0 (calc) [employer] Non HDL Cholesterol 80 <130 mg/dL (calc) [employer] Comment: For patients with diabetes plus 1 major ASCVD risk factor, treating to a non-HDL-C goal of <100 mg/dL (LDL-C of <70 mg/dL) is considered a therapeutic option. Blood Venous blood specimen / Unknown 07/02/2025 8:27 AM EDT 07/02/2025 8:27 AM EDT Narrative [facility] (MICHELLE) - 07/03/2025 7:08 AM EDT FASTING:YES FASTING: YES Luis Felipe Cardenas DO LAB BLOOD ORDERABLES Final Resul t [facility] [employer] [address] [place] [address] * (ABNORMAL) Comprehensive metabolic panel (07/02/2025 8:27 AM EDT) Glucose 101(H) 65 - 99 mg/dL [employer] Comment: Fasting reference interval For someone without known diabetes, a glucose value between 100 and 125 mg/dL is consistent with prediabetes and should be confirmed with a follow-up test. Urea Nitrogen (BUN) 17 7 - 25 mg/dL [employer] Creatinine 0.89 0.70 - 1.28 mg/dL [employer] eGFR 89 > OR = 60 mL/min/1 .73m2 [employer] BUN/Creatinine Ratio SEE NOTE: 6 - 22 (calc) [employer] Comment: Not Reported: BUN and Creatinine are within reference range. Sodium 138 135 - 146 mmol/L [employer] Potassium 4.5 3.5 - 5.3 mmol/L [employer] Chloride 104 98 - 110 mmol/L [employer] Carbon Dioxide 28 20 - 32 mmol/L [employer] Calcium 9.0 8.6 - 10.3 mg/dL [employer] Total Protein 6.8 6.1 - 8.1 g/dL [employer] Albumin 4.1 3.6 - 5.1 g/dL [employer] Globulin 2.7 1.9 - 3.7 g/dL (calc) [employer] Albumin/Globulin Ratio 1.5 1.0 - 2.5 (calc) [employer] Bilirubin Total 0.7 0.2 - 1.2 mg/dL [employer] Alkaline Phosphatase 55 35 - 144 U/L [facility] Aspartate aminotransferase (AST) 12 10 - 35 U/L [employer] Alanine Aminotransferase (ALT) 11 9 - 46 U/L [employer] Blood Venous blood specimen / Unknown 07/02/2025 8:27 AM EDT 07/02/2025 8:27 AM EDT Narrative [facility] ([place]) - 07/03/2025 7:08 AM EDT FASTING:YES FASTING: YES Result [facility] Luis Felipe Cardenas DO LAB BLOOD ORDERABLES Final Resul t [facility] (MICHELLE) [employer] [address] [address] * Falls Risk Assessment (10/27/2023) [facility] Falls Risk Assessment abstracted Result [facility] Provider HEALTH MAINTENANCE Final Result * Depression Screening (10/27/2023) Pathologist [facility] Depression Screening abstracted Result [facility] Provider HEALTH MAINTENANCE Final Result * Colonoscopy (06/18/2019) Pathologist [facility] Colonoscopy no interpretation , abstracted Anatomical Region Laterality Modality Other Result [facility] Provider HEALTH MAINTENANCE Final Result from Last [...] First Alternate Health Care Agent Care Teams Cornice Maker Relationship Specialty Start Date End Date Luis Felipe Cardenas DO [address] [place] [address] PCP - General 10/27/23
--- OUTSIDE RECORDS SUMMARY | 2025-07-30 10:47 | XMS_ITS ---
Author Organization 2 [facility] Address [address] [place] [address] Phone Care Team Providers Care Boiler Fireman Name Role Phone Luis Felipe Cardenas DO Primary Care Provider [phone] Transitional Care Management Status:Ongoing (Active) Start date:07/21/2025 Enrollment date:07/22/2025 Enrollment reason:Identified using hospital discharge data Case Team Name Relationship Phone Nichelle Chauhan LPN Care Manager(Responsible Staf f) [phone] Continued Care and Services Coordination
--- OUTSIDE RECORDS SUMMARY | 2025-07-30 10:47 | XMS_ITS | Clinical Summary ---
Author Organization [facility] Address [address] [place] [address] Care Team Providers Care Clinical Massage Therapist Name Role Phone Luis Felipe Cardenas MD [...] age to complete this topic Care Teams Clinical Massage Therapist Relationship Specialty Start Date End Date Luis Felipe Cardenas MD PCP - General Family Medicine 10/27/23
--- OUTSIDE RECORDS SUMMARY | 2025-07-30 10:48 | XMS_ITS | Clinical Summary ---
Author Organization [facility] Address [address] [address] Phone Care Team Providers Care Sales Center Manager Name Role Phone Sridevi Elizabeth NP Primary Care Provider [phone] Allergies No known active allergies Medications amLODIPine [...] topic Medical Devices Not on file Insurance [facility] FEDERAL MEDICARE PART A & B Celine MARINELLI [address] MEDICARE PART A & [place] [address] [facility] MEDICARE PART A & B [facility] MEDICARE PART A & B [facility] MEDICARE PART A & B MEDICARE PART A & [place] [address] [facility] MEDICARE PART A & B [facility] MEDICARE PART A & B [facility] MEDICARE PART A & B Care Teams Sales Center Manager Relationship Specialty Start Date End Date Sridevi Elizabeth NP [address] [place] [address] [place] [address] [email or web address] PCP - General Family Medicine 10/02/21 Additional Source Comments The information contained in this document represents components of the legal health record. It is not the complete legal health record.[facility]
== END 2025-07-30 09:40 | disposition home or self-care (01) ==
LOC: HO.HGS 09:12
PROVIDERS: PCP Family Medicine; Visit Provider Surgery
DX: N32.1 Vesicointestinal fistula (principal)
CPT/HCPCS: 99024

== ENCOUNTER → 2025-07-30 09:11 | Outpatient (BNVA) | payer MEDICARE, BC, SELFPAY | PROVIDERS: PCP Family Medicine; Visit Provider Surgery | DX: N32.1 Vesicointestinal fistula (principal); Z48.89 Encounter for other specified surgical aftercare | CPT/HCPCS: 99212 ==

== ENCOUNTER 2025-08-06 12:48 | Outpatient (REF) | payer MEDICARE, BC, SELFPAY ==
--- NOTE | ~2025-08-06 | FL_ITS ---
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 Status post sigmoid resection. COMPARISON: CT abdomen and pelvis 07/15/2025. TECHNIQUE: Retrograde 250 diluted Gastrografin was administered through a Garza's catheter. FINDINGS: There is good distention of urinary bladder with contrast extending into the right bladder wall but no contrast visualized in the peritoneum or in the colon to suspect any fistula. The bowel appears intact. There is a Garza's catheter in the bladder with a small balloon inflated defect along the base of the bladder. There is a complete emptying of the bladder after the procedure the 20 minutes. FLUOROSCOPY TIME: 2 minutes 4 seconds DOSE AREA PRODUCT: 25 11 uGy-m2 (microgray-meter squared) FL/FL cystogram IMPRESSION: Most of the urinary bladder is intact with small area of contrast examination in the right superior bladder wall. No extraluminal contrast into any organ of peritoneum at this time.. Electronically signed by: Remi Byers MD 08/06/2025 03:29 PM EDT
--- OUTSIDE RECORDS SUMMARY | 2025-08-06 14:07 | XMS_ITS | Clinical Summary ---
Author Organization [email or web address] Build ing Address [address] [place] [address] Phone Care Team Providers Care Consultant Name Role Phone Luis Felipe Cardenas DO Primary Care Provider [phone] Allergies No known active allergies Medications polyethylene [...] admittion due to bowel perforation Perforation bowel ([facility] V24, [facility] V28) 04/2022 Overview (07/18/2024): May 05 2022 [...] - 07/25/2025 11:59 PM EDT Hospital Encounter [facility] Ultrasound [address] [place] [phone] Localized swelling of both lower legs Discharge Disposition: Home or Self Care 07/25/2025 1:00 PM EDT Office Visit Internal Medicine - [place] [address] [place] [address] Christian Jacinto MD Hospital discharge follow-up (Primary Dx); Garza catheter in place; Presence of colostomy (CMS/HCC V24, CMS/HCC V28); Pressure ulcer of coccygeal region, stage 2 (CMS/HCC V24, CMS/HCC V28); Localized swelling of both lower legs; Superficial vein thrombosis 07/24/2025 Telephone Internal Medicine - [place] [address] [place] [address] Kylah Tanner RN 07/11/2025 Telephone Internal Medicine - [place] [address] [place] [address] Luis Felipe Cardenas DO 07/09/2025 3:30 PM EDT Office Visit Internal Medicine - [place] [address] [place] [address] Jorge Cardenas PA Acute cystitis without hematuria (Primary Dx); Essential hypertension; Benign prostatic hyperplasia, unspecified whether lower urinary tract symptoms present; Elevated hemoglobin A1c 06/18/2025 3:30 PM EDT Office Visit Internal Medicine - [place] [address] [place] [address] Luis Felipe Cardenas DO Encounter for annual wellness visit (AWV) in Medicare patient (Primary Dx); Elevated PSA; Mixed hyperlipidemia; Elevated hemoglobin A1c; Other fatigue; Benign prostatic hyperplasia, unspecified whether lower urinary tract symptoms present; Essential hypertension; Diverticulosis; ACP (advance care planning) from Last 3 Months Immunizations Immunization Administration Dates Next Due Influenza Quadravalent, 0.5m [...] PM EST Office Visit Internal Medicine - [place] [address] [place] [address] Luis Felipe Cardenas, [address] [place] [address] 06/23/2026 3:30 PM EDT Office Visit Internal Medicine - [place] [address] [place] [address] Luis Felipe Cardenas DO [address] [place] [address] Health Maintenance Due Date Last Done Comments [...] Signed Date: 07/25/2025 17:24 ET Workstation ID: [id number] Transcribed By: Self Edit Transcribed Date: 07/25/2025 [...] Signed Date: 07/25/2025 17:24 ET Workstation ID: [id number] Transcribed By: Self Edit Transcribed Date: 07/25/2025 17:17 ET us Christian Jacinto MD CV VASCULAR PROCEDURES Final Result * Prostate specific antigen (07/02/2025 8:27 AM EDT) PSA, Total 0.77 < OR = 2.50 ng/mL [id number] Comment: The total PSA value from this [...] 8:27 AM EDT 07/02/2025 8:27 AM EDT [facility] GOSO (MICHELLE) - 07/03/2025 7:08 AM EDT FASTING:YES FASTING: YES [facility] LAB BLOOD ORDERABLES Final Resul t Performing Organization Address [facility] de Phone Number Penemarie K Murphy [facility] ([facility]) [facility] [address] [place] [phone] * Thyroid stimulating hormone with reflex free T4 (07/02/2025 8:27 AM EDT) Pathologist [facility] Thyroid Stimulating Hormone (Reflex FT4) 2.30 0.40 - 4.50 mIU/L [facility] Blood Venous blood specimen / Unknown 07/02/2025 8:27 AM EDT 07/02/2025 8:27 AM EDT [facility]OSO (MICHELLE) - 07/03/2025 7:08 AM EDT FASTING:YES FASTING: YES [facility] LAB BLOOD ORDERABLES Final Resul t Performing Organization Address [facility] de Phone Number Penemarie K Murphy [facility] [address] [place] [phone] * CBC auto differential (07/02/2025 8:27 AM EDT) White Blood Cell Count 5.6 3.8 - 10.8 Thousand/u L [facility] RBC Count 5.03 4.20 - 5.80 Million/uL [facility] Hemoglobin 15.3 13.2 - 17.1 g/dL [facility] Hematocrit 47.0 38.5 - 50.0 % [facility] MCV 93.4 80.0 - 100.0 fL [facility] MCH 30.4 27.0 - 33.0 pg [facility] MCHC 32.6 32.0 - 36.0 g/dL [facility] Comment: For adults, a slight decrease in the calculated MCHC value (in the range of 30 to 32 g/dL) is most likely not clinically significant; however, it should be interpreted with caution in correlation with other red cell parameters and the patient's clinical condition. RDW 12.0 11.0 - 15.0 % [facility] Platelet Count 247 140 - 400 Thousand/u L [facility] MPV 9.2 7.5 - 12.5 fL [facility] Absolute Neutrophil 3,405 1,500 - 7,800 cells/uL [facility] Absolute Lymphocytes 1,478 850 - 3,900 cells/uL [facility] Absolute Monocytes 543 200 - 950 cells/uL [facility] Absolute Eosinophils 151 15 - 500 cells/uL [facility] Absolute Basophils 22 0 - 200 cells/uL [facility] Neutrophils 60.8 % [facility] Lymphocytes 26.4 % [facility] Monocytes 9.7 % [facility] Eosinophils 2.7 % [facility] Basophils 0.4 % [facility] Blood Venous blood specimen / Unknown 07/02/2025 8:27 AM EDT 07/02/2025 8:27 AM EDT Narrative [facility] (MICHELLE) - 07/03/2025 7:08 AM EDT FASTING:YES FASTING: YES Luis Felipe Cardenas DO LAB BLOOD ORDERABLES Final Resul t [facility] ([facility]) [facility] [address] [place] [phone] * (ABNORMAL) Hemoglobin A1c (07/02/2025 8:27 AM EDT) Pathologist [facility] Hemoglobin A1C 5.7(H) <5.7 % [facility] Comment: For someone without known diabetes, a [...] AM EDT 07/02/2025 8:27 AM EDT Narrative [facility] ([facility]) - 07/03/2025 7:08 AM EDT FASTING:YES FASTING: YES [facility] LAB BLOOD ORDERABLES Final Resul t [facility] ([facility]) [facility] [address] [place] [phone] * Lipid panel (07/02/2025 8:27 AM EDT) [facility] Cholesterol Total 134 <200 mg/dL [facility] HDL Cholesterol 54 > OR = 40 mg/dL [facility] Triglycerides 48 <150 mg/dL [facility] LDL Cholesterol 66 mg/dL (calc) [facility] Comment: Reference range: <100 Desirable range <100 mg/dL for primary prevention; <70 mg/dL for patients with CHD or diabetic patients with > or = 2 CHD risk factors. LDL-C is now calculated using the Eb-Gurinder calculation, which is a validated novel method providing better accuracy than the Friedewald equation in the estimation of LDL-C. Eb [place] et al. RAN. 2013;310(19): 2843-9535 (http://education.Greats.MentorCloud/faq/RNH810) Chol/HDLC Ratio 2.5 <5.0 (calc) [facility] Non HDL Cholesterol 80 <130 mg/dL (calc) [facility] Comment: For patients with diabetes plus 1 major ASCVD risk factor, treating to a non-HDL-C goal of <100 mg/dL (LDL-C of <70 mg/dL) is considered a therapeutic option. Blood Venous blood specimen / Unknown 07/02/2025 8:27 AM EDT 07/02/2025 8:27 AM EDT Narrative [facility] - 07/03/2025 7:08 AM EDT FASTING:YES FASTING: YES Luis Felipe Cardenas DO LAB BLOOD ORDERABLES Final Resul t [facility] ([facility]) [facility] [address] [place] [address] * (ABNORMAL) Comprehensive metabolic panel (07/02/2025 8:27 AM EDT) Glucose 101(H) 65 - 99 mg/dL [facility] Comment: Fasting reference interval For someone without known diabetes, a glucose value between 100 and 125 mg/dL is consistent with prediabetes and should be confirmed with a follow-up test. Urea Nitrogen (BUN) 17 7 - 25 mg/dL [facility] Creatinine 0.89 0.70 - 1.28 mg/dL [facility] eGFR 89 > OR = 60 mL/min/1 .73m2 [facility] BUN/Creatinine Ratio SEE NOTE: 6 - 22 (calc) [facility] Comment: Not Reported: BUN and Creatinine are within reference range. Sodium 138 135 - 146 mmol/L [facility] Potassium 4.5 3.5 - 5.3 mmol/L [facility] Chloride 104 98 - 110 mmol/L [facility] Carbon Dioxide 28 20 - 32 mmol/L [facility] Calcium 9.0 8.6 - 10.3 mg/dL [facility] Total Protein 6.8 6.1 - 8.1 g/dL [facility] Albumin 4.1 3.6 - 5.1 g/dL [facility] Globulin 2.7 1.9 - 3.7 g/dL (calc) [facility] Albumin/Globulin Ratio 1.5 1.0 - 2.5 (calc) [facility] Bilirubin Total 0.7 0.2 - 1.2 mg/dL [facility] Alkaline Phosphatase 55 35 - 144 U/L [facility] Aspartate aminotransferase (AST) 12 10 - 35 U/L [facility] Alanine Aminotransferase (ALT) 11 9 - 46 U/L [facility] Blood Venous blood specimen / Unknown 07/02/2025 8:27 AM EDT 07/02/2025 8:27 AM EDT Narrative [facility] - 07/03/2025 7:08 AM EDT FASTING:YES FASTING: YES Result [facility] Luis Felipe Cardenas DO LAB BLOOD ORDERABLES Final Resul t [facility] (MICHELLE) [employer] [address] [phone] * Falls Risk Assessment (10/27/2023) [facility] Falls Risk Assessment abstracted Result [facility] Provider HEALTH MAINTENANCE Final Result * Depression Screening (10/27/2023) Pathologist [facility] Depression Screening abstracted Result [facility] Provider HEALTH MAINTENANCE Final Result * Colonoscopy (06/18/2019) Pathologist [facility] Colonoscopy no interpretation , abstracted Anatomical Region Laterality Modality Other Result [facility] Provider HEALTH MAINTENANCE Final Result from Last 3 Months or Most Recently Relevant to Health Maintenance Insurance MEDICARE [facility] Advance Directives * Full Code - [...] First Alternate Health Care Agent Care Teams Consultant Relationship Specialty Start Date End Date Luis Felipe Cardenas DO [address] [place] [address] PCP - General 10/27/23
--- OUTSIDE RECORDS SUMMARY | 2025-08-06 14:07 | XMS_ITS ---
Author Organization [address] [facility] Address [address] [place] [address] Phone Care Team Providers Care Transportation Agent Name Role Phone Theresa Luis Felipe TOURE Primary Care Provider [phone] Transitional Care Management Status:Ongoing (Active) Start date:07/21/2025 Enrollment date:07/22/2025 Enrollment reason:Identified using hospital discharge data Related social drivers of health:Housing Instability, Food Access & Nutrition, Access to Healthcare, Health Literacy, Financial Risk, Transportation, Social Isolation, Food Risk, Dependent Care, Education, Employment and Income, [place] [facility] Literacy, Living Situation Case Team Name Relationship Phone Nichelle Chauhan LPN(Responsible Staff) Care Manag er [phone] Continued Care and Services Coordination
--- OUTSIDE RECORDS SUMMARY | 2025-08-06 14:07 | XMS_ITS | Clinical Summary ---
Author Organization [facility] Address [address] [address] Phone Care Team Providers Care Asbestos Cement Sheet Supervisor Name Role Phone Sridevi Elizabeth NP Primary [...] topic Medical Devices Not on file Insurance [facility] FEDERAL MEDICARE PART A & B Celine MARINELLI [address] MEDICARE PART A & [place] [address] [facility] MEDICARE PART A & B [facility] MEDICARE PART A & B [facility] MEDICARE PART A & B MEDICARE PART A & [place] [address] [facility] MEDICARE PART A & B [facility] MEDICARE PART A & B [facility] MEDICARE PART A & B Care Teams Asbestos Cement Sheet Supervisor Relationship Specialty Start Date End Date Sridevi Elizabeth NP [address] [place] [address] [place] [address] [email or web address] PCP - General Family Medicine 10/02/21 Additional Source Comments The information contained in this document represents components of the legal health record. It is not the complete legal health record.[facility]
--- OUTSIDE RECORDS SUMMARY | 2025-08-06 14:07 | XMS_ITS | Clinical Summary ---
Author Organization [facility] Address [address] [place] [address] Care Team Providers Care Anvilsmith Name Role Phone Luis Felipe Cardenas MD [...] age to complete this topic Care Teams Anvilsmith Relationship Specialty Start Date End Date Luis Felipe Cardenas MD PCP - General Family Medicine 10/27/23
== END 2025-08-06 12:49 | disposition home or self-care (01) ==
LOC: HO.XRAY 12:48
PROVIDERS: PCP Family Medicine; Visit Provider Urology
DX: N32.1 Vesicointestinal fistula (principal)
CPT/HCPCS: 51600; 74455; Q9958

== ENCOUNTER → 2025-08-06 12:49 | Outpatient (BNV) | payer MEDICARE, BC, SELFPAY | PROVIDERS: PCP Family Medicine; Visit Provider Radiology Diagnostic Radiology | DX: N32.1 Vesicointestinal fistula (principal) | CPT/HCPCS: 51600; 74455 ==

== ENCOUNTER 2025-08-25 10:50 | Outpatient (REF) | payer MEDICARE, BC, SELFPAY ==
--- NOTE | ~2025-08-25 | US_ITS ---
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 Prevoid volume: 305 mL. Postvoid volume: 268 mL Ureteral jets are visualized bilaterally. Prostate measures 3.4 x 3.0 x 4.8 cm equal to a volume of 25 mL. IMPRESSION: 1. No significant urinary bladder wall thickening or focal abnormality. 2. Large postvoid residual. 3. Prostate volume is within the range of normal. This document has been electronically signed by: Sury Umaña DO on 08/26/2025 15:07:45
== END 2025-08-25 10:51 | disposition home or self-care (01) ==
LOC: HO.US 10:50
PROVIDERS: Visit Provider Urology
DX: N32.1 Vesicointestinal fistula (principal)
CPT/HCPCS: 76857

== ENCOUNTER → 2025-08-25 10:52 | Outpatient (BNV) | payer MEDICARE, BC, SELFPAY | PROVIDERS: Visit Provider Radiology Diagnostic Radiology | DX: N32.1 Vesicointestinal fistula (principal) | CPT/HCPCS: 76857 ==

== ENCOUNTER 2025-09-03 14:02 | Outpatient (AMB) | payer MEDICARE, BC, SELFPAY ==
[2025-09-03 14:03] VITALS: BMI 27.6
--- NOTE | 2025-09-03 14:03 | A.OFFVIS_ITS ---
Vital Signs 09/03/25 14:03 Height 6 ft 5 in Weight 233 lb 2 oz BMI 27.6 Intake Visit Reasons: 1mth s/p surgery 07-16-25 Intake Note: This patient presents for a one month follow-up status post Hand assisted laparoscopic sigmoid resection, small-bowel resection, end colostomy, extensive lysis of adhesions and dissection of the sigmoid off of the bladder. pt c/o; no changes. Certified Registered Nurse Anesthetist Required: No Accompanied by: Family/Other Allergies No Known Allergies (No Known Allergies*) Allergy (Verified 09/03/25 14:11) HPI HPI 1mth s/p surgery 07-16-25: Details: He had undergone a Annelise's procedure for a colovesical fistula last July 16, 2025. His colostomy continues to function well. He has good oral intake. He has Garza catheter this has been removed already and has had no problems with urination. He has been active and says he walks about 3 miles a day.. He has good oral intake. [facility] Medical History Encounter for colorectal cancer screening using Cologuard test Diverticular disease Ulnar neuropathy Varicose vein of leg Hx of squamous cell carcinoma of skin Hx of osteoarthritis History of diverticulitis HTN (hypertension) Right inguinal hernia Surgical History History of resection of small bowel History of colonoscopy H/O total hip arthroplasty Status post ORIF of fracture of ankle History of surgery on lower extremity Hx of excision of epidermal inclusion cyst Hx of arthroscopy of right knee Hx of arthroscopy of left knee Social History Household Members: Spouse Housing: House Do you presently have visiting nurse or other home services: No Alcohol intake: current Alcohol intake frequency: holidays/special occasions only Alcohol type: beer Patient Tobacco Use Status: Never used Tobacco e-Cigarette/Vaping Use: Never Used Second Hand Smoke Exposure: No Advance Directives Date on File: 07/16/25 service: Yes Current occupational status: retired Review of Systems Const Denies chills and Denies fever(s) Card Denies chest pain and Denies orthopnea GI Denies abdominal pain Physical Exam Vital Signs: BMI result Body Mass Index 27.6 Const General: comfortable and no acute distress Resp Effort & Inspection: normal respiratory effort GI Other: Stoma functioning well, all incisions well healed Palpation (GI): Soft to palpation, not firm, nontender and no guarding Assessment & Plan Assessment & Plan (1) Colovesical fistula: Code(s): 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 He is doing very well. His Garza catheter has been removed and he has been voiding freely with a any problems. His stoma is functioning well. He is allowed to return to regular level of activities I will see him again in about 2 months for another check. Coding Level of Care Code Global (15413) Diagnoses Colovesical fistula N32.1
--- OUTSIDE RECORDS SUMMARY | 2025-09-03 18:02 | XMS_ITS | Clinical Summary ---
Author Organization [facility] Address [address] [place] [address] Care Team Providers Care End Frazer Name Role Phone Luis Felipe Cardenas MD [...] age to complete this topic Care Teams End Frazer Relationship Specialty Start Date End Date Luis Felipe Cardenas MD PCP - General Family Medicine 10/27/23
--- OUTSIDE RECORDS SUMMARY | 2025-09-03 18:02 | XMS_ITS | Clinical Summary ---
Author Organization [facility] Address [address] [address] Phone Care Team Providers Care Cut Lace Machine Operator Name Role Phone Sridevi Elizabeth NP Primary [...] topic Medical Devices Not on file Insurance [facility] FEDERAL MEDICARE PART A & B Celine MARINELLI [address] MEDICARE PART A & [place] [address] [facility] MEDICARE PART A & B [facility] MEDICARE PART A & B [facility] MEDICARE PART A & B MEDICARE PART [place] [address] [facility] MEDICARE PART A & B [facility] MEDICARE PART A & B [facility] MEDICARE PART A & B Care Teams Cut Lace Machine Operator Relationship Specialty Start Date End Date Sridevi Elizabeth NP [address] [place] [address] [place] [address] [email or web address] PCP - General Family Medicine 10/02/21 Additional Source Comments The information contained in this document represents components of the legal health record. It is not the complete legal health record.[facility]
--- OUTSIDE RECORDS SUMMARY | 2025-09-03 18:02 | XMS_ITS | Clinical Summary ---
Author Organization [employer] Address [address] [facility] [address] [place] [address] Care Team Providers Care Mold Stamper Name Role Phone Unavailable Primary Care Provider Unavailabl e Encounters Date Type Department Care Team Description 08/14/2025 9:20 AM EDT Immunization [facility] [address] [place] [address] Leah Hawthorne RN from Last 3 Months Immunizations Immunization Administration Dates Next Due Influenza, High Dose Seasonal, Preservative Free 08/14/2025 Social History Tobacco Use Types Packs/Day Years Used Date Smoking Tobacco: Never Assessed Sex and Gender Information Value Date Recorded Sex Assigned at Male 08/14/2025 1:34 PM EDT Legal Sex Male 1:33 PM EDT Gender Identity Male 08/14/2025 1:34 PM EDT Sexual Orientation Straight 08/14/2025 1: 34 PM EDT Plan of Treatment Health Maintenance Due Date Last Done Comments CT Colonography 1950 Colonoscopy 1950 Colorectal Cancer Screening 1950 Depression Screening 1950 FIT DNA/Cologuard 1950 FIT 1950 FOBT 1950 Lipid Panel 1950 SDOH Screening 1950 Sigmoidoscopy 1950 Alcohol/Substance Use Screening 1962 Tobacco Screening 1962 Hepatitis C Screening 01/09/1968 Zoster Vaccines (2 of 3) 10/20/2015 08/25/2015 RSV Patients and Patients Aged 60 years or older (1 - 1-dose 75+ series) 2025 COVID-19 Vaccine (3 - 2024-2 6 season) 2025 01/14/2021, 12/17/2020 DTaP/Tdap/Td Vaccines (2 - T d or Tdap) 03/20/2029 03/20/2019 Pneumococcal Vaccine: 50+ Years Completed 07/16/2020, 03/20/2019, 10/21/2017 Influenza Vaccine Completed 08/14/2025, 09/06/2023, 08/18/2020 HIB Vaccines Aged Out No longer eligi [...] patient's age to complete this topic Meningococcal Vaccine Aged Out No norris rima eligible based on patient's age to complete this topic RSV under 20 months Aged Out No longe r eligible based on patient's age to complete this topic Rotavirus Vaccines Aged Out No longer eligible based on patient's age to complete this topic Insurance [facility] FEDERAL MEDICARE
--- OUTSIDE RECORDS SUMMARY | 2025-09-03 18:02 | XMS_ITS | Clinical Summary ---
Author Organization 2 [employer] Address [address] [place] [address] Phone Care Team Providers Care Bulldozer Operator Name Role Phone Luis Felipe Cardenas DO Primary Care Provider [phone] Allergies No known active allergies Medications polyethylene [...] with breakfast. Take with food. 45 each 09/09/20 25 Active Active Problems Problem Noted Date Diagnosed Date Constipation 05/11/2022 Diverticulitis 05/11/2022 Overview (07/18/2024): being treated since May 03 2022 - early May- required admittion due to bowel perforation Perforation bowel ([facility] V24, [facility] V28) 04/2022 Overview [...] - 07/25/2025 11:59 PM EDT Hospital Encounter [facility] Ultrasound [address] [place] [id number] Localized swelling of both lower legs Discharge Disposition: Home or Self Care 07/25/2025 1:00 PM EDT Office Visit Internal Medicine - [place] [address] [address] Christian Jacinto MD Hospital discharge follow-up (Primary Dx); Garza catheter in place; Presence of colostomy ([facility] V24, [facility] V28); Pressure ulcer of coccygeal region, stage 2 ([facility]/HCC V24, [facility]/HCC V28); Localized swelling of both lower legs; Superficial vein thrombosis 07/24/2025 Telephone Internal Medicine - [place] [address] [place] [address] Kylah Tanner RN 07/11/2025 Telephone Internal Medicine - [place] [address] [place] [address] Luis Felipe Cardenas DO 07/09/2025 3:30 PM EDT Office Visit Internal Medicine - [place] [address] [place] [address] Jorge Cardenas PA Acute cystitis without hematuria (Primary Dx); Essential hypertension; Benign prostatic hyperplasia, unspecified whether lower urinary tract symptoms present; Elevated hemoglobin A1c 06/18/2025 3:30 PM EDT Office Visit Internal Medicine - [place] [address] [place] [address] Luis Felipe Cardenas DO Encounter for annual [...] PM EST Office Visit Internal Medicine - [place] [address] [place] [address] Luis Felipe Cardenas, DO [address] [place] [address] 06/23/2026 3:30 PM EDT Office Visit Internal Medicine - [place] [address] [place] [address] Luis Felipe Cardenas, DO [address] [place] [address] Health Maintenance Due Date Last Done Comments [...] Signed Date: 07/25/2025 17:24 ET Workstation ID: [id number] Transcribed By: Self Edit Transcribed Date: 07/25/2025 [...] Signed Date: 07/25/2025 17:24 ET Workstation ID: [id number] Transcribed By: Self Edit Transcribed Date: 07/25/2025 17:17 ET Christian Jacinto MD CV VASCULAR PROCEDURES Final Result * Prostate specific antigen (07/02/2025 8:27 AM EDT) Pathologist [facility] PSA, Total 0.77 < OR = 2.50 ng/mL [facility] [employer] Comment: The total PSA value from this assay system is standardized against the WHO standard. The test result will be approximately 20% lower when compared to the equimolar-standardized total PSA (Jatin Glenn). Comparison of serial PSA results should be [...] 8:27 AM EDT 07/02/2025 8:27 AM EDT [facility] ([facility]) - 07/03/2025 7:08 AM EDT FASTING:YES FASTING: YES Luis Felipe Cardenas LAB BLOOD ORDERABLES Final Resul t Performing Organization Address City/[facility] Co de Phone Number [facility] ([facility]) [facility] [address] [place] [address] * Thyroid stimulating hormone with reflex free T4 (07/02/2025 8:27 AM EDT) Pathologist [facility] Thyroid Stimulating Hormone (Reflex FT4) 2.30 0.40 - 4.50 mIU/L [facility] Blood Venous blood specimen / Unknown 07/02/2025 8:27 AM EDT 07/02/2025 8:27 AM EDT [facility] ([facility]) - 07/03/2025 7:08 AM EDT FASTING:YES FASTING: YES us Luis Felipe Cardenas DO LAB BLOOD ORDERABLES Final Resul t Performing Organization Address [facility] de Phone Number [facility] ([facility]) [facility] [address] [place] [phone] * CBC auto differential (07/02/2025 8:27 AM EDT) White Blood Cell Count 5.6 3.8 - 10.8 Thousand/u L [email or web address] RBC Count 5.03 4.20 - 5.80 Million/uL [email or web address] Hemoglobin 15.3 13.2 - 17.1 g/dL [facility] [employer] [employer] Hematocrit 47.0 38.5 - 50.0 % [facility] [employer] MCV 93.4 80.0 - 100.0 fL [facility] [employer] MCH 30.4 27.0 - 33.0 pg [email or web address] MCHC 32.6 32.0 - 36.0 g/dL [facility] Comment: For adults, a slight decrease in the calculated MCHC value (in the range of 30 to 32 g/dL) is most likely not clinically significant; however, it should be interpreted with caution in correlation with other red cell parameters and the patient's clinical condition. RDW 12.0 11.0 - 15.0 % [facility] Platelet Count 247 140 - 400 Thousand/u L [facility] MPV 9.2 7.5 - 12.5 fL [facility] Neutrophil 3,405 1,500 - 7,800 cells/uL [facility] Lymphocytes 1,478 850 - 3,900 cells/uL [facility] Monocytes 543 200 - 950 cells/uL [facility] Eosinophils 151 15 - 500 cells/uL [facility] Absolute Basophils 22 0 - 200 cells/uL [facility] Neutrophils 60.8 % [facility] Lymphocytes 26.4 % [facility] Monocytes 9.7 % [facility] Eosinophils 2.7 % [facility] Basophils 0.4 % [facility] Blood Venous blood specimen / Unknown 07/02/2025 8:27 AM EDT 07/02/2025 8:27 AM EDT Narrative [facility] ([facility]) - 07/03/2025 7:08 AM EDT FASTING:YES FASTING: YES Luis Felipe Cardenas DO LAB BLOOD ORDERABLES Final Resul t [facility] ([facility]) [facility] [address] [place] [phone] * (ABNORMAL) Hemoglobin A1c (07/02/2025 8:27 AM EDT) Hemoglobin A1C 5.7(H) <5.7 % [facility] Comment: For someone without known diabetes, a [...] EDT 07/02/2025 8:27 AM EDT Narrative [facility] ([facility]) - 07/03/2025 7:08 AM EDT FASTING:YES FASTING: YES Luis Felipe Cardenas DO LAB BLOOD ORDERABLES Final Resul t [facility] ([facility]) [facility] [address] [place] [phone] * Lipid panel (07/02/2025 8:27 AM EDT) Cholesterol Total 134 <200 mg/dL [facility] HDL Cholesterol 54 > OR = 40 mg/dL [facility] Triglycerides 48 <150 mg/dL [facility] LDL Cholesterol 66 mg/dL (calc) [facility] Comment: Reference range: <100 Desirable range <100 mg/dL for primary prevention; <70 mg/dL for patients with CHD or diabetic patients with > or = 2 CHD risk factors. LDL-C is now calculated using the Eb-Gurinder calculation, which is a validated novel method providing better accuracy than the Friedewald equation in the estimation of LDL-C. Eb [place] et al. RAN. 2013;310(19): 3685-1461 (http://education.RacerTimes.EBDSoft/faq/YWY540) Chol/HDLC Ratio 2.5 <5.0 (calc) [facility] Non HDL Cholesterol 80 <130 mg/dL (calc) [facility] Comment: For patients with diabetes plus 1 [...] LAB BLOOD ORDERABLES Final Resul t [facility] (MICHELLE) [facility] [address] [place] [address] * (ABNORMAL) Comprehensive metabolic panel (07/02/2025 8:27 AM EDT) Glucose 101(H) 65 - 99 mg/dL [facility] Comment: Fasting reference interval For someone without known diabetes, a glucose value between 100 and 125 mg/dL is consistent with prediabetes and should be confirmed with a follow-up test. Urea Nitrogen (BUN) 17 7 - 25 mg/dL [facility] Creatinine 0.89 0.70 - 1.28 mg/dL [facility] eGFR 89 > OR = 60 mL/min/1 .73m2 [facility] BUN/Creatinine Ratio SEE NOTE: 6 - 22 (calc) [facility] Comment: Not Reported: BUN and Creatinine are within reference range. Sodium 138 135 - 146 mmol/L [facility] Potassium 4.5 3.5 - 5.3 mmol/L [facility] Chloride 104 98 - 110 mmol/L [facility] Carbon Dioxide 28 20 - 32 mmol/L [facility] Calcium 9.0 8.6 - 10.3 mg/dL [facility] Total Protein 6.8 6.1 - 8.1 g/dL [facility] Albumin 4.1 3.6 - 5.1 g/dL [facility] Globulin 2.7 1.9 - 3.7 g/dL (calc) [facility] Albumin/Globulin Ratio 1.5 1.0 - 2.5 (calc) [facility] Bilirubin Total 0.7 0.2 - 1.2 mg/dL [facility] Alkaline Phosphatase 55 35 - 144 U/L [facility] Aspartate aminotransferase (AST) 12 10 - 35 U/L [facility] Alanine Aminotransferase (ALT) 11 9 - 46 U/L [facility] Blood Venous blood specimen / Unknown 07/02/2025 8:27 AM EDT 07/02/2025 8:27 AM EDT [facility] - 07/03/2025 7:08 AM EDT FASTING:YES FASTING: YES Luis Felipe Cardenas DO LAB BLOOD ORDERABLES Final Resul t [facility] ([facility]) [facility] [address] [place] [phone] * Falls Risk Assessment (10/27/2023) Pathologist [facility] Falls Risk Assessment abstracted Historical Provider HEALTH MAINTENANCE Final Result * Depression Screening (10/27/2023) Pathologist [facility] Depression Screening abstracted [facility] Provider HEALTH MAINTENANCE Final Result * Colonoscopy (06/18/2019) Pathologist [facility] Colonoscopy no interpretation , abstracted Anatomical Region Laterality Modality Other Historical Provider HEALTH MAINTENANCE Final Result from Last 3 Months or Most Recently Relevant to Health Maintenance Insurance MEDICARE [facility] Advance Directives * Full Code - [...] First Alternate Health Care Agent Care Teams Bulldozer Operator Relationship Specialty Start Date End Date Luis Felipe Cardenas DO [address] [place] [address] PCP - General 10/27/23
== END 2025-09-03 14:26 | disposition home or self-care (01) ==
LOC: HO.HGS 14:03
PROVIDERS: Visit Provider Surgery
DX: N32.1 Vesicointestinal fistula (principal)
CPT/HCPCS: 99024

== ENCOUNTER → 2025-09-03 14:02 | Outpatient (BNVA) | payer MEDICARE, BC, SELFPAY | PROVIDERS: Visit Provider Surgery | DX: N32.1 Vesicointestinal fistula (principal) | CPT/HCPCS: 99212 ==

== ENCOUNTER 2025-10-09 10:24 | Outpatient (REF) | payer MEDICARE, BC, SELFPAY | END 2025-10-09 10:25 | disposition home or self-care (01) | LOC: HO.LAB 10:24 | PROVIDERS: PCP Family Medicine; Visit Provider Urology | DX: N40.1 Benign prostatic hyperplasia with lower urinary tract symptoms (principal); N13.8 Other obstructive and reflux uropathy; N30.20 Other chronic cystitis without hematuria; Z79.899 Other long term (current) drug therapy; Z87.440 Personal history of urinary (tract) infections; Z93.3 Colostomy status | CPT/HCPCS: 81003; 87086; 87088; 87186; 99212 ==

== ENCOUNTER 2025-10-09 10:24 | Outpatient (AMB) | payer MEDICARE, BC, SELFPAY ==
--- NOTE | 2025-10-09 10:48 | MHC.OFFVIS ---
Intake Visit Reasons: Cysto consult (set)UA) Intake Note: Patient presents today for a cysto consult Urology Medication:Finasteride, Tamsulosin Blood Thinner:None Antibiotic Allergies:None Allergies No Known Allergies (No Known Allergies*) Allergy (Verified 10/09/25 10:50) [facility] Medical History Encounter for colorectal cancer screening using Cologuard test Diverticular disease Ulnar neuropathy Varicose vein of leg Hx of squamous cell carcinoma of skin Hx of osteoarthritis History of diverticulitis HTN (hypertension) Right inguinal hernia Surgical History History of resection of small bowel History of colonoscopy H/O total hip arthroplasty Status post ORIF of fracture of ankle History of surgery on lower extremity Hx of excision of epidermal inclusion cyst Hx of arthroscopy of right knee Hx of arthroscopy of left knee Social History Household Members: Spouse Housing: House Do you presently have visiting nurse or other home services: No Alcohol intake: current Alcohol intake frequency: holidays/special occasions only Alcohol type: beer Patient Tobacco Use Status: Never used Tobacco e-Cigarette/Vaping Use: Never Used Second Hand Smoke Exposure: No Advance Directives Date on File: 07/16/25 service: Yes Current occupational status: retired Results AMB Urinalysis, Automated UA Leukoctes 70 Brandon/uL Last Edit by Bryanna Oro on 10/09/25 15:28 UA Nitrite Positive Last Edit by Bryanna Oro on 10/09/25 15:28 UA Urobilinogen 0.2 mg/dL Last Edit by Bryanna Oro on 10/09/25 15:28 UA Protein 0 mg/dL Last Edit by Bryanna Oro on 10/09/25 15:28 UA pH 6.0 Last Edit by Bryanna Oro on 10/09/25 15:28 UA Blood 10 Yanick/uL Last Edit by Bryanna Oro on 10/09/25 15:28 UA Specific Gifford 1.015 Last Edit by Bryanna Oro on 10/09/25 15:28 UA Ketone Negative Last Edit by Bryanna Oro on 10/09/25 15:28 UA Bilirubin 0 mg/dL Last Edit by Bryanna Oro on 10/09/25 15:28 UA Glucose 0 mg/dL Last Edit by Bryanna Oro on 10/09/25 15:28 Assessment & Plan Assessment & Plan Orders: Orders Urine Culture Today N39.0 - Urinary tract infection, site not specified AMB Urinalysis Automated Today N39.0 - Urinary tract infection, site not specified Medications: New tamsulosin (Flomax) 0.4 mg PO BEDTIME 90 caps 3RF Refilled finasteride 5 mg PO DAILY 90 tabs 3RF Coding
--- OUTSIDE RECORDS SUMMARY | 2025-10-09 12:45 | XMS_ITS | Clinical Summary ---
Author Organization [facility] Prior to 04/05/25 Address [address] [place] [address] Care Team Providers Care Card Hanger Name Role Phone Luis Felipe Cardenas MD [...] of 2) 10/20/2015 BMI Counseling 10/27/2024 10/27/2023, 2 07/2023, 10/25/2022, Additional history exists Depression Screening 10/27/2024 10/27/2023, 10/27/2023, 10/25/2022, Additional history exists Fall Risk Assessment 10/27/2024 10/27/2023, 10/27/2023, 10/25/2022, Additional history exists Preventative Health Evaluation 10/27/2024 10/27/2023, 10/25/2022, 02/11/2020, Additional history exists RSV Adult > 60+ Yrs or (1 - 1-dose 75+ series) 2025 COVID-19 Vaccine (3 - season) 2025 01/14/2021, 12/17/2020 Influenza Vaccine (#1) [...] age to complete this topic Care Teams Card Hanger Relationship Specialty Start Date End Date Luis Felipe Cardenas MD PCP - General Family Medicine 10/27/23
--- OUTSIDE RECORDS SUMMARY | 2025-10-09 12:45 | XMS_ITS | Clinical Summary ---
Author Organization [employer] Address [address] [facility] 7t [place] [address] Care Team Providers Care Room Service Attendant Name Role Phone Unavailable Primary Care Provider Unavailabl e Encounters Date Type Department Care Team Description 08/14/2025 9:20 AM EDT Immunization [facility] [address] [place] [address] Leah Hawthorne RN from Last 3 Months [...] patient's age to complete this topic Insurance [facility] FEDERAL MEDICARE
--- OUTSIDE RECORDS SUMMARY | 2025-10-09 12:45 | XMS_ITS | Clinical Summary ---
Author Organization [facility] Address [address] [address] Phone Care Team Providers Care Shipping Manager Name Role Phone Sridevi Elizabeth NP Primary Care Provider [phone] Allergies No known active allergies Medications amLODIPine [...] topic Medical Devices Not on file Insurance [facility] FEDERAL MEDICARE PART A & B Celine MARINELLI [address] MEDICARE PART A & [place] [address] [facility] MEDICARE PART A & B [facility] MEDICARE PART A & B [facility] MEDICARE PART A & B MEDICARE PART A & [place] [address] [facility] MEDICARE PART A & B [facility] MEDICARE PART A & B [facility] MEDICARE PART A & B Care Teams Shipping Manager Relationship Specialty Start Date End Date Sridevi Elizabeth NP [address] [place] [address] [place] [address] [email or web address] PCP - General Family Medicine 10/02/21 Additional Source Comments The information contained in this document represents components of the legal health record. It is not the complete legal health record.[facility]
--- OUTSIDE RECORDS SUMMARY | 2025-10-09 12:45 | XMS_ITS | Clinical Summary ---
Author Organization 2 [employer] Address [address] [place] [address] Phone Care Team Providers Care Auto Haulaway Driver Name Role Phone Luis Felipe Cardenas DO Primary Care Provider [phone] Allergies No known active allergies Medications polyethylene [...] with breakfast. Take with food. 45 each Active Active Problems Problem Noted Date Diagnosed Date Constipation 05/11/2022 Diverticulitis 05/11/2022 Overview (07/18/2024): being treated since May 03 2022 - early May- required admittion due to bowel perforation Perforation bowel ([facility] V24, [facility] V28) 04/2022 Overview (07/18/2024): May [...] Encounters Date Type Department Care Team Description 09/17/2025 Telephone Internal Medicine - [place] [address] [facility] [address] [place] [address] Luis Felipe Cardenas DO 07/25/2025 4:22 PM EDT - 07/25/2025 11:59 PM EDT Hospital Encounter [facility] Ultrasound [address] [place] [place] [address] Localized swelling of both lower legs Discharge Disposition: Home or Self Care 07/25/2025 1:00 PM EDT Office Visit Internal Medicine - [place] [address] [place] [address] Christian Jacinto MD Hospital discharge follow-up (Primary Dx); Garza catheter in place; Presence of colostomy (CMS/HCC V24, CMS/HCC V28); Pressure ulcer of coccygeal region, stage 2 (CMS/HCC V24, CMS/HCC V28); Localized swelling of both lower legs; Superficial vein thrombosis 07/24/2025 Telephone Internal Medicine - [place] [address] [place] [address] Kylah Tanner RN 07/11/2025 Telephone Internal Medicine - [place] [address] [place] [address] Luis Felipe Cardenas DO from Last 3 Months Immunizations Immunization Administration [...] with abscess, 11/2016, 01/2017 Impaired fasting glucose DX:Fallon dawson fasting glucose;COMMENT:07/2020: A1c 6.1 Screening for colon [...] PM EST Office Visit Internal Medicine - [place] [address] [place] [address] TheresaLuis Felipe, DO [address] [place] [address] 06/23/2026 3:30 PM EDT Office Visit Internal Medicine - [place] [address] [place] [address] Luis Felipe Cardenas, DO [address] [place] [address] Health Maintenance Due Date Last Done Comments [...] EDT Localized swelling of both lower legs COMPREHENSIVE METABOLIC PANEL Routine 07/02/2025 8:27 AM EDT Mixed hyperlipidemia LIPID PANEL Routine 07/02/2025 8:27 AM EDT [...] -------- FINAL REPORT -------- Dictated By: Martinez hJa Dictated Date: 07/25/2025 17:17 ET Assigned Physician: Martinez Jha Reviewed and Electronically Signed By: Martinez Jha Signed Date: 07/25/2025 17:24 ET Workstation ID: [id number] Transcribed By: Self Edit Transcribed Date: 07/25/2025 [...] Signed Date: 07/25/2025 17:24 ET Workstation ID: [id number] Transcribed By: Self Edit Transcribed Date: 07/25/2025 17:17 ET Christian Jacinto MD CV VASCULAR PROCEDURES Final Result * Lipid panel (07/02/2025 8:27 AM EDT) Cholesterol Total 134 <200 mg/dL [facility] HDL Cholesterol 54 > OR = 40 mg/dL [facility] Triglycerides 48 <150 mg/dL [facility] LDL Cholesterol 66 mg/dL (calc) [facility] Comment: Reference range: <100 Desirable range <100 mg/dL for primary prevention; <70 mg/dL for patients with CHD or diabetic patients with > or = 2 CHD risk factors. LDL-C is now calculated using the Eb-Gurinder calculation, which is a validated novel method providing better accuracy than the Friedewald equation in the estimation of LDL-C. Eb [place] et al. RAN. 2013;310(19): 9775-1824 (http://education.Schedulize/faq/LBB490) Chol/HDLC Ratio 2.5 <5.0 (calc) [facility] Non HDL Cholesterol 80 <130 mg/dL (calc) [facility] Comment: For patients with diabetes plus 1 major ASCVD risk factor, treating to a non-HDL-C goal of <100 mg/dL (LDL-C of <70 mg/dL) is considered a therapeutic option. Blood Venous blood specimen / Unknown 07/02/2025 8:27 AM EDT 07/02/2025 8:27 AM EDT Narrative [facility] ([facility]) - 07/03/2025 7:08 AM EDT FASTING:YES FASTING: YES Luis Felipe Cardenas DO LAB BLOOD ORDERABLES Final Resul t [facility] ([facility]) [facility] [address] [place] [phone] * (ABNORMAL) Comprehensive metabolic panel (07/02/2025 8:27 AM EDT) [facility] Glucose 101(H) 65 - 99 mg/dL [facility] Comment: Fasting reference interval For someone without known diabetes, a glucose value between 100 and 125 mg/dL is consistent with prediabetes and should be confirmed with a follow-up test. Urea Nitrogen (BUN) 17 7 - 25 mg/dL [facility] Creatinine 0.89 0.70 - 1.28 mg/dL [facility] eGFR 89 > OR = 60 mL/min/1 .73m2 [facility] BUN/Creatinine Ratio SEE NOTE: 6 - (calc) [facility] Comment: Not Reported: BUN and Creatinine are within reference range. Sodium 138 135 - 146 mmol/L [facility] Potassium 4.5 3.5 - 5.3 mmol/L [facility] Chloride 104 98 - 110 mmol/L [facility] Carbon Dioxide 28 20 - 32 mmol/L [facility] Calcium 9.0 8.6 - 10.3 mg/dL [facility] Total Protein 6.8 6.1 - 8.1 g/dL [facility] Albumin 4.1 3.6 - 5.1 g/dL [facility] Globulin 2.7 1.9 - 3.7 g/dL (calc) [facility] Albumin/Globulin Ratio 1.5 1.0 - 2.5 (calc) [facility] Bilirubin Total 0.7 0.2 - 1.2 mg/dL [facility] Alkaline Phosphatase 55 35 - 144 U/L [facility] Aspartate aminotransferase (AST) 12 10 - 35 U/L [facility] Alanine Aminotransferase (ALT) 11 9 - 46 U/L [facility] Blood Venous blood specimen / Unknown 07/02/2025 8:27 AM EDT 07/02/2025 8:27 AM EDT [facility] ([facility]) - 07/03/2025 7:08 AM EDT FASTING:YES FASTING: YES Luis Felipe Cardenas DO LAB BLOOD ORDERABLES Final Resul t [facility] ([facility]LE) [facility] [address] [place] [phone] * Falls Risk Assessment (10/27/2023) Pathologist [facility] [place] Risk Assessment abstracted Historical Provider HEALTH MAINTENANCE Final Result * Depression Screening (10/27/2023) Pathologist [facility] Depression Screening abstracted Historical Provider MD HEALTH MAINTENANCE Final Result * Colonoscopy (06/18/2019) Pathologist [facility] Colonoscopy no interpretation , abstracted Anatomical Region Laterality Modality Other Historical Provider MD HEALTH MAINTENANCE Final Result from Last 3 Months or Most Recently Relevant to Health Maintenance Insurance MEDICARE [facility] Advance Directives * Full Code - [...] Alternate Health Care Agent Care Teams Auto Haulaway Driver Relationship Specialty Start Date End Date Luis Felipe Cardenas DO [address] [place] [address] PCP - General 10/27/23
== END 2025-10-09 11:24 | disposition home or self-care (01) ==
LOC: HO.HUSH 10:25
PROVIDERS: PCP Family Medicine; Visit Provider Urology
DX: N39.0 Urinary tract infection, site not specified (principal)

== ENCOUNTER 2025-10-28 10:54 | Outpatient (REF) | payer MEDICARE, BC, SELFPAY ==
--- OUTSIDE RECORDS SUMMARY | 2025-10-28 12:16 | XMS_ITS | Clinical Summary ---
Author Organization [facility] Address [address] [address] Phone Care Team Providers Care And Drying Supervisor Cooking Casing Name Role Phone Sridevi Elizabeth NP Primary [...] topic Medical Devices Not on file Insurance [facility] FEDERAL MEDICARE PART A & B Celine MARINELLI [address] MEDICARE PART A & [place] [address] [facility] MEDICARE PART A & B [facility] MEDICARE PART A & B [facility] MEDICARE PART A & B MEDICARE PART A & [place] [address] [facility] MEDICARE PART A & B [facility] MEDICARE PART A & B [facility] MEDICARE PART A & B Care Teams And Drying Supervisor Cooking Casing Relationship Specialty Start Date End Date Sridevi Elizabeth NP [address] [place] [address] [place] [address] [email or web address] PCP - General Family Medicine 10/02/21 Additional Source Comments The information contained in this document represents components of the legal health record. It is not the complete legal health record.[facility]
--- OUTSIDE RECORDS SUMMARY | 2025-10-28 12:16 | XMS_ITS | Clinical Summary ---
Author Organization [employer] Address [address] [facility] 7t [place] [address] Care Team Providers Care Fur Stretcher Name Role Phone Unavailable Primary Care Provider Unavailabl e Encounters Date Type Department Care Team Description 08/14/2025 9:20 AM EDT Immunization [facility] [address] [place] [address] Leah Hawthorne RN from Last 3 Months [...] patient's age to complete this topic Insurance [facility] FEDERAL MEDICARE
--- OUTSIDE RECORDS SUMMARY | 2025-10-28 12:16 | XMS_ITS | Clinical Summary ---
Author Organization [address] [email or web address] Address [address] [address] Phone Care Team Providers Care Compensation Advisor Name Role Phone Luis Felipe Cardenas DO Primary Care Provider [phone] Allergies No known active allergies Medications polyethylene glycol (MIRALAX) 17 gram packet Take 17 g by mouth 1 (one) time each day. 05/11/20 22 Active tamsulosin (FLOMAX) 0.4 mg 24 hr capsuleIndicatio ns:Benign prostatic hyperplasia, unspecified whether lower urinary tract symptoms present Take 2 capsules (0.8 mg total) by mouth 1 (one) time each day. 180 each 3 06/18/20 25 026 Active amoxicillin (AMOXIL) 875 mg tablet Take [...] pain. Max Daily Amount: 30 mg Active amLODIPine (NORVASC) 2.5 mg tabletIndication s:Essential hypertension Take 1 tablet (2.5 mg total) by mouth 1 (one) time each day. 90 each 3 10/22/20 25 026 Active amLODIPine (NORVASC) 2.5 mg tabletIndication s:Essential hypertension Take 1 tablet (2.5 mg total) by mouth 1 (one) time each day. 90 each 1 06/18/20 25 025 Discontinued(Re order) rivaroxaban (XARELTO) 10 mg tabletIndication s:Superficial vein thrombosis Take 1 tablet (10 mg total) by mouth 1 (one) time each day with breakfast. Take with food. 45 each 07/26/20 25 025 Discontinued Active Problems Problem Noted Date Diagnosed Date Constipation 05/11/2022 Diverticulitis 05/11/2022 Overview (07/18/2024): being treated since May 03 2022 - early May- required admittion due to bowel perforation Perforation bowel 05/11/2022 Overview (07/18/2024): May 05 2022 -self healed [...] Encounters Date Type Department Care Team Description 10/22/2025 2:30 PM EST Office Visit Internal Medicine - [place] [address] Luis Felipe Cardenas DO Incomplete bladder emptying (Primary Dx); Essential hypertension; Benign prostatic hyperplasia, unspecified whether lower urinary tract symptoms present; Presence of colostomy (CMS/HCC V24, CMS/HCC V28); Perforation bowel (CMS/HCC V24, CMS/HCC V28) 09/17/2025 Telephone Internal Medicine - [place] [address] [facility] [address] [place] [address] Luis Felipe Cardenas DO [...] Sign Reading Time Taken Comments Blood Pressure 124/63 10/22/2025 2:03 PM EST Pulse 78 10/22/2025 2:03 PM EST Temperature 36.6 C (97.9 F) 10/22/2025 2:03 PM EST Respiratory Rate 18 10/22/2025 2:03 PM EST Oxygen Saturation 98% 10/22/2025 2:03 PM EST Inhaled Oxygen Concentration - - Weight 108 kg (238 lb 3.2 oz) 10/22/2025 2:03 PM EST Height 182.9 cm (6' 0.01 ) 10/22/2025 2:03 PM ES T Body Mass Index 32.3 10/22/2025 2:03 PM EST Plan of Treatment Upcoming Encounters Date Type Department Care Team (Late st Contact Info) Description 04/06/2026 2:00 PM EDT Office Visit Internal Medicine - [place] [address] [facility] [address] [place] [address] Luis Felipe Cardenas, DO [address] [place] [address] 10/22/2026 10:00 AM EST Office Visit Internal Medicine - [place] [address] [place] [address] Luis Felipe Cardenas, DO [address] [place] [address] Health Maintenance Due Date Last Done Comments Hepatitis C Screening 10/14/2022 Social Influencers of Health Screening 10/14/2022 COVID-19 Vaccine ( season) 2025 10/25/2021, 01/14/2021, 12/17/2020 Falls Risk Assessment 06/18/2026 06/18/2025, 023 Medicare [...] 08/12/2024 Depression Screening Completed 06/18/2025, 10/27/20 23 Influenza Vaccine Completed 08/14/2025, , 09/06/2023, Additional history exists HIB Vaccines Aged Out No longer eligi [...] Procedure Name Priority Date/Time Associated Diagnosis Comments CT ABDOMEN PELVIS W CONTRAST Routine 08/26/2025 3:59 PM EDT XR CYSTOGRAM 3+ VIEWS Routine 08/06/2025 4:01 PM EDT COMPREHENSIVE METABOLIC PANEL Routine 07/02/2025 8:27 AM EDT Mixed hyperlipidemia LIPID PANEL Routine 07/02/2025 8:27 AM EDT Mixed hyperlipidemia DEPRESSION SCREENING Routine 10/27/2023 FALLS RISK ASSESSMENT Routine 10/27/2023 COLONOSCOPY Routine 06/18/2019 from Last 3 Months or Most Recently Relevant to Health Maintenance Results * CT Abdomen Pelvis w Contrast (08/26/2025 3:59 PM EDT) Anatomical Region Laterality Modality Body Computed Tomogra phy Georgette Quiles MD IMG CT PROCEDURES Final Result * XR Cystogram 3+ Views (08/06/2025 4:01 PM EDT) Anatomical Region Laterality Modality Body Radio Fluoroscop y Remi Byers MD IMG FLUOROSCOPY PROCEDURES Norma l Result * Lipid panel (07/02/2025 8:27 AM EDT) Cholesterol Total 134 <200 mg/dL [facility] HDL Cholesterol 54 > OR = 40 mg/dL [facility] Triglycerides 48 <150 mg/dL [facility] LDL Cholesterol 66 mg/dL (calc) [facility] Comment: Reference range: <100 Desirable range <100 mg/dL for primary prevention; <70 mg/dL for patients with CHD or diabetic patients with > or = 2 CHD risk factors. LDL-C is now calculated using the Vlad calculation, which is a validated novel method providing better accuracy than the Friedewald equation in the estimation of LDL-C. Eb SS et al. RAN. 2013;310(19): 3420-9082 (http://education.[employer]/faq/WDI624) Chol/HDLC Ratio 2.5 <5.0 (calc) [facility] Non HDL Cholesterol 80 <130 mg/dL (calc) [facility] Comment: For patients with diabetes plus 1 major ASCVD risk factor, treating to a non-HDL-C goal of <100 mg/dL (LDL-C of <70 mg/dL) is considered a therapeutic option. Blood Venous blood specimen / Unknown 07/02/2025 8:27 AM EDT 07/02/2025 8:27 AM EDT Narrative [facility] ([facility]) - 07/03/2025 7:08 AM EDT FASTING:YES FASTING: YES [facility] Cardenas LAB BLOOD ORDERABLES Final Resul t [facility] ([facility]) [facility] [address] [place] [phone] * (ABNORMAL) Comprehensive metabolic panel (07/02/2025 8:27 AM EDT) Glucose 101(H) 65 - 99 mg/dL [facility] Comment: Fasting reference interval For someone without known diabetes, a glucose value between 100 and 125 mg/dL is consistent with prediabetes and should be confirmed with a follow-up test. Urea Nitrogen (BUN) 17 7 - 25 mg/dL [facility] Creatinine 0.89 0.70 - 1.28 mg/dL [facility] eGFR 89 > OR = 60 mL/min/1 .73m2 [facility] BUN/Creatinine Ratio SEE NOTE: 6 - 22 (calc) [facility] Comment: Not Reported: BUN and Creatinine are within reference range. Sodium 138 135 - 146 mmol/L [facility] Potassium 4.5 3.5 - 5.3 mmol/L [facility] Chloride 104 98 - 110 mmol/L [facility] Carbon Dioxide 28 20 - 32 mmol/L [facility] Calcium 9.0 8.6 - 10.3 mg/dL [facility] Total Protein 6.8 6.1 - 8.1 g/dL [facility] Albumin 4.1 3.6 - 5.1 g/dL [facility] Globulin 2.7 1.9 - 3.7 g/dL (calc) [facility] Albumin/Globulin Ratio 1.5 1.0 - 2.5 (calc) [facility] Bilirubin Total 0.7 0.2 - 1.2 mg/dL [facility] Alkaline Phosphatase 55 35 - 144 U/L [facility] Aspartate aminotransferase (AST) 12 10 - 35 U/L [facility] Alanine Aminotransferase (ALT) 11 9 - 46 U/L [facility] Blood Venous blood specimen / Unknown 07/02/2025 8:27 AM EDT 07/02/2025 8:27 AM EDT Douglas ROSALES ([facility]) - 07/03/2025 7:08 AM EDT FASTING:YES FASTING: YES Luis Felipe Cardenas DO LAB BLOOD ORDERABLES Final Resul t [facility] ([facility]) [facility] [address] [place] [phone] * Falls Risk Assessment (10/27/2023) Falls Risk Assessment abstracted Historical Provider HEALTH MAINTENANCE Final Result * Depression Screening (10/27/2023) Depression Screening abstracted Historical Provider HEALTH MAINTENANCE Final Result * Colonoscopy (06/18/2019) Colonoscopy no interpretation , abstracted Anatomical Region Laterality Modality Other us Historical Provider HEALTH MAINTENANCE Final Result from Last 3 Months or Most Recently Relevant to Health Maintenance Insurance MEDICARE [facility] Advance Directives * Full Code - [...] First Alternate Health Care Agent Care Teams Compensation Advisor Relationship Specialty Start Date End Date Luis Felipe Cardenas DO [address] [place] [address] PCP - General 10/27/23
--- OUTSIDE RECORDS SUMMARY | 2025-10-28 12:16 | XMS_ITS | Clinical Summary ---
Author Organization [facility] Prior to 04/05/25 Address [address] [place] [address] Care Team Providers Care [employer] Spanish Teacher Name Role Phone Luis Felipe Cardenas MD [...] age to complete this topic Care Teams [employer] Spanish Teacher Relationship Specialty Start Date End Date Luis Felipe Cardenas MD PCP - General Family Medicine 10/27/23
== END 2025-10-28 10:55 | disposition home or self-care (01) ==
LOC: HO.LAB 10:54
PROVIDERS: Visit Provider Urology
DX: N39.0 Urinary tract infection, site not specified (principal)
CPT/HCPCS: 87086; 87088; 87186